=== PATIENT | female | born 1965 | race Caucasian/White ===

== ENCOUNTER 2020-10-28 08:48 | Outpatient (REF) | payer MEDICAID, SELFPAY ==
--- NOTE | 2020-10-28 | US_ITS ---
EXAMINATION: US ABDOMEN COMPLETE CLINICAL INFORMATION: Fatty liver. COMPARISON: None TECHNIQUE: Real-time imaging of the abdominal viscera. FINDINGS: PANCREAS: The head of the pancreas is homogeneous in echotexture. The rest of the pancreas is not visualized due to overlying gas. ABDOMINAL AORTA: The proximal and mid segments are normal in caliber. The distal segment is not seen. INFERIOR VENA CAVA: Visualized portions are normal. LIVER: There is diffuse increased liver echogenicity. The liver is normal in size. The liver contour is normal. No focal hepatic lesion. There is no intrahepatic biliary duct dilatation seen. GALLBLADDER: Surgically absent. COMMON BILE DUCT: Normal in caliber measuring 1.0 cm in diameter. RIGHT KIDNEY: Normal. No hydronephrosis. No renal calculi or focal parenchymal lesions. The kidney measures 10.1 cm in maximum dimension. LEFT KIDNEY: Normal. No hydronephrosis. No renal calculi or focal parenchymal lesions. The kidney measures 10.1 cm in maximum dimension. SPLEEN: Normal. The spleen measures 10.0 cm in maximum dimension. FREE FLUID: None. US/US abdomen complete IMPRESSION: Diffusely echogenic liver but no focal lesion seen. The rest of the abdominal ultrasound is unremarkable.
== END 2020-10-28 08:49 | disposition home or self-care (01) ==
LOC: HO.US 08:48
PROVIDERS: PCP Internal Medicine; Visit Provider Internal Medicine
DX: K76.0 Fatty (change of) liver, not elsewhere classified (principal)
CPT/HCPCS: 76700

== ENCOUNTER 2021-02-26 10:15 | Outpatient (REF) | payer MEDICAID, SELFPAY ==
--- NOTE | ~2021-02-26 | XR_ITS ---
EXAMINATION: XR LUMBOSACRAL SPINE WITH OBLIQUES CLINICAL INFORMATION: Lumbago with sciatica, left-sided COMPARISON: 07/03/2019 TECHNIQUE: AP, both oblique, and lateral views of the lumbar spine. Lateral view of the lumbosacral junction. FINDINGS: The vertebral bodies and posterior elements are normal. The disc spaces are preserved and the vertebral alignment is normal. Multilevel small endplate osteophytes. Mild facet arthropathy of the lower lumbar spine. The sacroiliac joints are symmetric. The sacrum appears intact. The bowel gas pattern is unremarkable. The paraspinal soft tissues are normal. XR/XR lumbar spine 4V min IMPRESSION: Mild degenerative changes of the lumbar spine.
[2021-02-26 10:58] LABS: MANUAL DIFF FLAG NO
[2021-02-26 11:10] LABS: Basophils Percent Auto 0.2 % (0-2); Eosinophils Absolute Auto 0.1 X10*3/uL (0.0-0.4); Eosinophils Percent Auto 2.4 % (0-4); Hematocrit 46.7 % (37-47); Imm Gran Abs Auto 0.01 X10*3/uL (0.00-0.03); Imm Gran Pct Auto 0.2 % (0.0-0.4); Lymphocytes Absolute Auto 2.2 X10*3/uL (1.2-4.9); Lymphocytes Percent Auto 36.8 % (20-40); Mean Corpuscular HGB Conc 32.1 g/dl (31.0-35.0); Mean Corpuscular Hemoglobin 26.6 pg (27.0-33.0); Mean Corpuscular Volume 82.8 fL (80-98); Mean Platelet Volume 10.8 fL (9.4-12.3); Monocytes Absolute Auto 0.3 X10*3/uL (0.1-1.2); Monocytes Percent Auto 4.9 % (2-11); Neutrophils Absolute Auto 3.3 X10*3/uL (2.0-8.3); Neutrophils Percent Auto 55.5 % (45-73); Platelet Count 154 X10*3/uL (160-400); Red Blood Count 5.64 X10*6/uL (4.20-5.50); Red Cell Distribution Width 13.7 % (11.0-16.0); White Blood Count 5.9 X10*3/uL (4.8-10.8)
[2021-02-26 11:40] LABS: Estimated Average Glucose 255 mg/dL; Hemoglobin A1c % 10.5 %
[2021-02-26 11:45] LABS: TSH reflex Free T4 0.61 uIU/mL (0.32-4.0); Vitamin D 25-OH Total 11.4 ng/mL (>30)
[2021-02-26 11:47] LABS: Alanine Aminotransferase 54 U/L (0-31); Albumin Level 4.2 g/dL (3.5-5.0); Alkaline Phosphatase 96 U/L (39-117); Anion Gap 13 (12-20); Aspartate Amino Transferase 53 U/L (5-31); Bilirubin Direct < 0.2 mg/dL (0.0-0.5); Bilirubin Total 0.4 mg/dL (0.0-1.0); Blood Urea Nitrogen 8 mg/dL (9-16); Calcium 9.2 mg/dL (8.4-10.2); Carbon Dioxide 28 mmol/L (22-29); Chloride 99 mmol/L (96-108); Estimated Glomerular Filt Rate > 60; Glucose Random 142 mg/dL (60-115); Potassium 4.1 mmol/L (3.3-5.1); Sodium 136 mmol/L (135-145); Total Protein 7.6 g/dL (6.5-8.0)
[2021-02-26 11:58] LABS: Creatinine Urine 100.44 mg/dL; Microalbum/Creatinine Ratio Ur 9.9 ug/mg cr
== END 2021-02-26 10:16 | disposition home or self-care (01) ==
LOC: HO.LAB 10:15
PROVIDERS: PCP Internal Medicine; Visit Provider Internal Medicine
DX: Z00.00 Encounter for general adult medical examination without abnormal findings (principal); M54.42 Lumbago with sciatica, left side; E11.65 Type 2 diabetes mellitus with hyperglycemia
CPT/HCPCS: 36415; 72110; 80048; 80076; 82043; 82306; 83036; 84439; 84443; 85025

== ENCOUNTER 2021-03-03 10:11 | Outpatient (REF) | payer MEDICAID, SELFPAY ==
--- NOTE | ~2021-03-03 | US_ITS ---
EXAMINATION: PELVIC ULTRASOUND CLINICAL INFORMATION: Fibroids COMPARISON: Previous exams most recent July 2020 TECHNIQUE: Transabdominal and transvaginal pelvic ultrasound was performed. Transvaginal exam was performed for better visualization of the uterus and ovaries. FINDINGS: The uterus is anteverted and measures 7.6 x 3.4 x 4.9 cm in dimension. There are multiple focal uterine lesions suggestive of fibroids. At least 6 fibroids are identified. There is a 3.5 x 3.1 x 3.2 cm fibroid exophytic to the posterior uterine fundus that does not appear appreciably changed. There is a 1.1 x 1 x 1.2 cm fibroid in the posterior uterine fundus that does not appear appreciably changed. There is a 1.5 x 1 x 1.5 cm fibroid in the upper posterior uterine body that may be slightly decreased in size compared to 1.7 x 1.9 x 1.6 cm on prior exam.. There is a 1.6 x 1.1 x 1.3 cm fibroid in the left upper uterine body that was not appreciated on prior exam. There is a 1.9 x 1.4 x 1.5 cm fundal fibroid adjacent to the endometrium that was not appreciated on previous exam. There is a 1.5 x 1.3 x 1.7 cm fibroid in the anterior upper uterine body. This may be slightly decreased in size from prior exam when this measured 2.2 x 1.7 x 2.1 cm. The endometrium does not appear thickened measuring 0.5 cm. There are nabothian cysts in the cervix. The ovaries are normal-appearing. The right ovary measures 2.5 x 1.7 x 1.6 cm in the left ovary measures 2.4 x 1.6 x 1.3 cm. There is no fluid in the pelvis. US/US pelvic complete IMPRESSION: Fibroid uterus. At least 6 fibroids are identified. Two new fibroids are identified and 2 fibroids may be slightly decreased in size compared to previous exam.
== END 2021-03-03 10:12 | disposition home or self-care (01) ==
LOC: HO.US 10:11
PROVIDERS: PCP Internal Medicine; Visit Provider Obstetrics & Gynecology
DX: D21.9 Benign neoplasm of connective and other soft tissue, unspecified (principal)
CPT/HCPCS: 76830; 76856

== ENCOUNTER → 2021-03-17 10:59 | Outpatient (BNVA) | payer MEDICAID, SELFPAY | PROVIDERS: Visit Provider Obstetrics & Gynecology ==

== ENCOUNTER 2021-06-02 08:00 | Outpatient (REF) | payer MEDICAID, SELFPAY ==
[2021-06-02 17:04] LABS: CT PCR NOT DETECTED (Not Detect.); NG PCR NOT DETECTED (Not Detect.)
[2021-06-03 08:10] LABS: BV Int Neg Control Negative (Negative); BV Int Pos Control Positive (Positive)
[2021-06-04 18:37] LABS: HPV mRNA E6/E7 rflx Not Detected (Not Detected)
== END 2021-06-02 08:01 | disposition home or self-care (01) ==
LOC: HO.LAB 08:00
PROVIDERS: Visit Provider Obstetrics & Gynecology
DX: N94.10 Unspecified dyspareunia (principal); N93.0 Postcoital and contact bleeding; N95.0 Postmenopausal bleeding; F17.210 Nicotine dependence, cigarettes, uncomplicated; D21.9 Benign neoplasm of connective and other soft tissue, unspecified; N76.0 Acute vaginitis; B96.89 Other specified bacterial agents as the cause of diseases classified elsewhere; R31.29 Other microscopic hematuria
CPT/HCPCS: 87086; 87480; 87491; 87510; 87591; 87624; 87660; 88142; 99212

== ENCOUNTER 2021-06-23 12:11 | Outpatient (REF) | payer MEDICAID, SELFPAY ==
--- NOTE | ~2021-06-23 | US_ITS ---
EXAMINATION: PELVIC ULTRASOUND CLINICAL INFORMATION: Postmenopausal bleeding COMPARISON: Previous pelvic ultrasounds, most recent February 2021 TECHNIQUE: Transabdominal and transvaginal ultrasound was performed. Transvaginal exam was performed for better visualization of the uterus and ovaries. FINDINGS: The uterus is anteverted and measures 10 x 5 x 6.5 cm in dimension. There are 4 focal uterine lesion seen suggestive of fibroids. There is a 1.5 x 1.2 x 1.6 cm anterior fundal fibroid, a 2.6 x 2 x 2.2 cm posterior lower uterine segment fibroid adjacent to the endometrium, a 1.2 x 1.3 x 1.3 cm posterior uterine body fibroid adjacent to the endometrium and a 3.2 x 2.7 x 3.6 cm subserosal high posterior uterine body fibroid. The endometrium is not well visualized secondary to the fibroids. There is a nabothian cyst in the cervix. The ovaries are normal-appearing. The right ovary measures 2.5 x 1.9 x 1.6 cm and the left ovary measures 2.5 x 2.3 x 2.2 cm. There is no fluid in the pelvis. US/US pelvic and transvaginal IMPRESSION: Fibroid uterus. Two fibroids appear adjacent to the endometrium. The endometrium is not well visualized secondary to the fibroids. Normal-appearing ovaries.
== END 2021-06-23 12:12 | disposition home or self-care (01) ==
LOC: HO.US 12:11
PROVIDERS: Visit Provider Obstetrics & Gynecology
DX: N95.0 Postmenopausal bleeding (principal)
CPT/HCPCS: 76830; 76856

== ENCOUNTER 2021-07-07 10:18 | Outpatient (REF) | payer MEDICAID, SELFPAY ==
[2021-07-07 15:43] LABS: CT PCR NOT DETECTED (Not Detect.); NG PCR NOT DETECTED (Not Detect.)
[2021-07-08 11:15] LABS: BV Int Neg Control Negative (Negative); BV Int Pos Control Positive (Positive)
== END 2021-07-07 10:19 | disposition home or self-care (01) ==
LOC: HO.LAB 10:18
PROVIDERS: Visit Provider Obstetrics & Gynecology
DX: R31.29 Other microscopic hematuria (principal); N76.0 Acute vaginitis; N95.0 Postmenopausal bleeding; B96.89 Other specified bacterial agents as the cause of diseases classified elsewhere; F17.210 Nicotine dependence, cigarettes, uncomplicated
CPT/HCPCS: 87480; 87491; 87510; 87591; 87660; 99212

== ENCOUNTER 2021-07-28 09:48 | Outpatient (REF) | payer MEDICAID, SELFPAY | END 2021-07-28 09:49 | disposition home or self-care (01) | LOC: HO.LAB 09:48 | PROVIDERS: Visit Provider Obstetrics & Gynecology | DX: N95.0 Postmenopausal bleeding (principal) | CPT/HCPCS: 58100; 88305 ==

== ENCOUNTER → 2021-08-10 11:16 | Outpatient (BNVA) | payer MEDICAID, SELFPAY | PROVIDERS: Visit Provider Obstetrics & Gynecology ==

== ENCOUNTER 2021-10-13 12:27 | Outpatient (REF) | payer MEDICAID, SELFPAY ==
[2021-10-14 08:32] LABS: Syphilis Screen Nonreactive (Nonreactive)
[2021-10-14 08:44] LABS: BV Int Neg Control Negative (Negative); BV Int Pos Control Positive (Positive)
[2021-10-14 08:55] LABS: HIV AB/AG Nonreactive (Nonreactive); HIV Num 1 0.09 S/CO (0.00-0.99)
[2021-10-14 09:04] LABS: HBsAGNum1 0.16 S/CO (0.00-0.99); Hepatitis B Surface Antigen Negative (Negative); ~HepC Num1 0.16 S/CO (0.00-0.79); ~Hepatitis C Antibody Nonreactive (Nonreactive)
[2021-10-14 09:41] LABS: CT PCR NOT DETECTED (Not Detect.); NG PCR NOT DETECTED (Not Detect.)
== END 2021-10-13 12:28 | disposition home or self-care (01) ==
LOC: HO.LAB 12:27
PROVIDERS: PCP Internal Medicine; Visit Provider Obstetrics & Gynecology
DX: Z01.419 Encounter for gynecological examination (general) (routine) without abnormal findings (principal); F17.210 Nicotine dependence, cigarettes, uncomplicated; Z11.3 Encounter for screening for infections with a predominantly sexual mode of transmission
CPT/HCPCS: 36415; 86780; 86803; 87340; 87389; 87480; 87491; 87510; 87591; 87660

== ENCOUNTER 2021-12-22 12:31 | Outpatient (REF) | payer MEDICAID, SELFPAY ==
--- NOTE | ~2021-12-22 | MM_ITS ---
EXAMINATION: MM SCREENING DIGITAL BREAST TOMOSYNTHESIS, BILATERAL CLINICAL INFORMATION: Screening. Asymptomatic. The lifetime risk of breast cancer based on the Tyrer-Cuzick Model is 23%. COMPARISON: Mammography: 08/20/2020, 08/04/2018, 05/23/2017 TECHNIQUE: Digital breast tomosynthesis is performed in both the craniocaudal and mediolateral oblique views along with computer-aided detection (CAD). Synthesized 2D images are generated from the tomosynthesis. Additional right MLO view is provided. FINDINGS: There are scattered areas of fibroglandular density (ACR BI-RADS breast composition Category b). There are no significant masses, abnormal calcifications, or other abnormalities. Parenchymal pattern is similar to prior studies. There is no developing density or architectural abnormality. There is stable circumscribed oval nodule central left breast. Stable small asymmetry anterior medial right breast. No significant changes from prior studies. The axilla and skin contours are unremarkable. MM/MM tomosynthesis screening BI IMPRESSION: No significant changes from prior exams. ASSESSMENT: BI-RADS 2: Benign RECOMMENDATION: 1. Routine annual mammography screening. 2. The lifetime risk of breast cancer based on the Tyrer-Cuzick Model is 23%. Additional annual adjunct screening with breast MRI may be of benefit in women with a risk score of 20% or greater. This patient's information was entered into a reminder system with a target due date for their next mammogram.
== END 2021-12-22 12:32 | disposition home or self-care (01) ==
LOC: HO.MAMMO 12:31
PROVIDERS: PCP Internal Medicine; Visit Provider Obstetrics & Gynecology
DX: Z12.31 Encounter for screening mammogram for malignant neoplasm of breast (principal)
CPT/HCPCS: 77063; 77067

== ENCOUNTER → 2021-12-30 11:04 | Outpatient (BNVA) | payer MEDICAID, SELFPAY | PROVIDERS: Visit Provider Obstetrics & Gynecology ==

== ENCOUNTER 2022-01-26 09:15 | Outpatient (REF) | payer MEDICAID, SELFPAY ==
[2022-01-26 12:43] LABS: Blood Urea Nitrogen 7 mg/dL (9-16); Estimated Glomerular Filt Rate 54
== END 2022-01-26 09:16 | disposition home or self-care (01) ==
LOC: HO.LAB 09:15
PROVIDERS: Absent Provider Obstetrics & Gynecology; PCP Internal Medicine; Referring Provider Obstetrics & Gynecology; Visit Provider Surgery
DX: Z01.812 Encounter for preprocedural laboratory examination (principal); Z91.89 Other specified personal risk factors, not elsewhere classified
CPT/HCPCS: 36415; 82565; 84520; 99202

== ENCOUNTER 2022-02-16 09:30 | Outpatient (REF) | payer MEDICAID, SELFPAY ==
--- NOTE | ~2022-02-16 | MR_ITS ---
EXAMINATION: MR BREAST WITHOUT AND WITH CONTRAST, BILATERAL CLINICAL INFORMATION: High-risk screening, calculated lifetime risk of breast cancer 23%, family history of breast cancer (mother). COMPARISON: Bilateral mammogram 12/22/2021, 08/04/2018 TECHNIQUE: Imaging was performed with a dedicated breast coil. Prior to the administration of contrast, bilateral axial T1 and bilateral axial T2 weighted sequences were obtained. After the uneventful administration of?6 mL of Gadavist, dynamic contrast-enhanced VIBRANT series through the breasts in the axial plane were performed. Subtracted images were performed and reviewed. A delayed sagittal sequence through both breasts was acquired. Additionally, CAD post-processing, including maximum intensity projections, 3-D reconstructions and kinetic analysis, were performed an independent workstation and reviewed by the interpreting radiologist is a portion of this exam. FINDINGS: The breast tissue is composed of scattered fibroglandular elements. The fibroglandular tissue undergoes minimal, slightly patchy appearing background enhancement. LEFT BREAST: There is an oval, T2 hyperintense, circumscribed, bilobed enhancing nodule in the 6:00 position, 6 cm from the nipple (subtracted sequence image 70 of 102) measuring 0.6 cm, this demonstrates progressive enhancement kinetics. In review of prior mammograms, there is a stable mammographic correlate seen on the MLO view in 2018, consistent with a benign etiology. There is no suspicious enhancing mass, duct dilatation or ductal type enhancement. No skin thickening or nipple retraction is seen. RIGHT BREAST: No suspicious masslike or non-masslike enhancement. No abnormal skin thickening or nipple retraction. No abnormal architectural distortion. Review of the T2 weighted images demonstrates no fibrocystic changes or dilated ducts. Review of kinetic images reveals no additional findings. There is no suspicious internal mammary chain or axillary adenopathy. Limited views of the chest and abdomen are unremarkable. MR/MR breast BI wo/w con IMPRESSION: Benign appearing bilobed nodule in the left breast at 5 to 6:00 position as above. ASSESSMENT: LEFT BREAST: BI-RADS 2, benign RIGHT BREAST: BI-RADS 1-Negative RECOMMENDATIONS: Bilateral mammogram in November 2022 and repeat MRI as clinically indicated.
== END 2022-02-16 09:31 | disposition home or self-care (01) ==
LOC: HO.MRI 09:30
PROVIDERS: PCP Internal Medicine; Visit Provider Obstetrics & Gynecology
DX: Z91.89 Other specified personal risk factors, not elsewhere classified (principal)
CPT/HCPCS: 77049; A9585

== ENCOUNTER → 2022-03-09 10:35 | Outpatient (BNVA) | payer MEDICAID, SELFPAY | PROVIDERS: PCP Internal Medicine; Referring Provider Internal Medicine; Visit Provider Surgery | DX: Z13.89 Encounter for screening for other disorder (principal) ==

== ENCOUNTER 2022-03-09 10:46 | Outpatient (REF) | payer MEDICAID, SELFPAY | END 2022-03-09 10:47 | disposition home or self-care (01) | LOC: HO.LNC 10:46 | PROVIDERS: Visit Provider Surgery | DX: Z13.89 Encounter for screening for other disorder (principal) ==

== ENCOUNTER 2022-04-29 10:23 | Outpatient (REF) | payer MEDICAID, SELFPAY ==
--- NOTE | ~2022-04-29 | XR_ITS ---
EXAMINATION: XR HIP-LEFT XR SHOULDER-LEFT CLINICAL INFORMATION: Left hip pain and left shoulder pain. COMPARISON: None TECHNIQUE: Single frontal view of the pelvis and 2 views of the left hip and 4 views of the left shoulder were obtained. FINDINGS: Pelvis and left hip: The bony alignments are intact. The cortices are intact. Incidental note is made of well-corticated bony protuberance, suggestive of ligamentous ossification involving the left hemipelvis. Soft tissue calcification is seen projecting overlying the right hemisacrum. No radiographic evidence of any fracture and/or dislocation. No definite radiographic evidence of any osteoarthrosis. Left shoulder: The bony alignments are intact. The cortices are intact. The soft tissues are unremarkable. The visualized part of the left lung field is clear. XR/XR hip LT min 2V IMPRESSION: 1. Abnormal appearance of the pelvis showing indeterminate soft tissue calcifications projecting over the right hemisacrum, not optimally characterized. 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 Follow-up CT of the pelvis may be considered for further full detail evaluation. 2. No radiographic evidence of any fracture and/or dislocation of the pelvis and left hip. 3. Unremarkable radiographic appearance of the left shoulder.
--- NOTE | ~2022-04-29 | XR_ITS ---
EXAMINATION: XR HIP-LEFT XR SHOULDER-LEFT CLINICAL INFORMATION: Left hip pain and left shoulder pain. COMPARISON: None TECHNIQUE: Single frontal view of the pelvis and 2 views of the left hip and 4 views of the left shoulder were obtained. FINDINGS: Pelvis and left hip: The bony alignments are intact. The cortices are intact. Incidental note is made of well-corticated bony protuberance, suggestive of ligamentous ossification involving the left hemipelvis. Soft tissue calcification is seen projecting overlying the right hemisacrum. No radiographic evidence of any fracture and/or dislocation. No definite radiographic evidence of any osteoarthrosis. Left shoulder: The bony alignments are intact. The cortices are intact. The soft tissues are unremarkable. The visualized part of the left lung field is clear. XR/XR shoulder LT min 2V IMPRESSION: 1. Abnormal appearance of the pelvis showing indeterminate soft tissue calcifications projecting over the right hemisacrum, not optimally characterized. 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 Follow-up CT of the pelvis may be considered for further full detail evaluation. 2. No radiographic evidence of any fracture and/or dislocation of the pelvis and left hip. 3. Unremarkable radiographic appearance of the left shoulder.
== END 2022-04-29 10:24 | disposition home or self-care (01) ==
LOC: HO.XRAY 10:23
PROVIDERS: PCP Internal Medicine; Visit Provider Internal Medicine
DX: M25.552 Pain in left hip (principal); M25.512 Pain in left shoulder; Z91.89 Other specified personal risk factors, not elsewhere classified
CPT/HCPCS: 73030; 73502; 99212

== ENCOUNTER → 2022-08-18 08:10 | Outpatient (BNVA) | payer MEDICAID, SELFPAY | PROVIDERS: PCP Internal Medicine; Referring Provider Internal Medicine; Visit Provider Internal Medicine Cardiovascular Disease | DX: R06.02 Shortness of breath (principal); R00.1 Bradycardia, unspecified; R07.89 Other chest pain | CPT/HCPCS: 93005; 99202 ==

== ENCOUNTER → 2022-09-14 09:38 | Outpatient (REF) | payer MEDICAID, SELFPAY ==
--- NOTE | 2022-09-14 09:51 | HM_ITS ---
Conclusion: 1. Patient was monitored for total period of 3 days 2. Baseline was normal sinus rhythm with average heart of 56 beats per minute with frequent sinus bradycardia with 68% of time heart rate below 60 beats per minute 3. No significant pauses noted 4. Very rare ectopy noted 5. Patient reported 1 event which correlated with sinus rhythm MTDD
--- NOTE | 2022-09-14 09:51 | CA_ITS ---
Transthoracic Echocardiogram Patient (Last, First, Middle): Renetta Delaney, Gender: Female Date of : 1965 Age: 57 Procedure Date: 09/14/2022 Procedure Type: Transthoracic Echocardiogram Location: OP Height: 149.86 cm Weight: 63.05 kg BSA: 1.58 m2 Heart Rate: bpm BP: 122 / 72 mmHg Anodize Machine Operator: TO Referring MD: Giorgio Robb MD Symptoms: R06.02 - Shortness of breath Study Quality: Technically Difficult/Contrast ECG Rhythm: Sinus Conclusions: - The left ventricular systolic function is normal. The calculated ejection fraction is 63% by biplane method. - No obvious valvular pathology seen on this study. Findings Procedure Information Contrast agent, definity, is being given per protocol without apparent complications. Left Ventricle Normal left ventricular cavity size. There is normal left ventricular wall thickness. The left ventricular systolic function is normal. The calculated ejection fraction is 63% by biplane method. There is no evidence of regional wall motion abnormalities. Diastolic function is normal for age. Right Ventricle Normal right ventricular cavity size and systolic function. Atria Both atria are normal in size. Aortic Valve The aortic valve was not well visualized. There is no aortic valve stenosis. There is no aortic valve regurgitation. Mitral Valve The mitral valve appears normal. There is no mitral valve regurgitation. There is no mitral valve stenosis. Pulmonic Valve The pulmonic valve is likely normal. Tricuspid Valve There is no tricuspid valve regurgitation. Tricuspid regurgitation envelope is inadequate for calculation of right ventricular systolic pressure. Great Vessels The asc aorta is normal in size. Venous The inferior vena cava is normal in size and collapses greater than 50% with inspiration. Pericardium/Pleural There is no evidence of pericardial effusion. Prior Study Comparison No prior study available for comparison. Recommendations, Care & Conclusions No obvious valvular pathology seen on this study. Measurements 2D Linear Measurements IVSd: 0.89 0.6-0.9/0.6-1.0 cm LVIDd: 3.95 3.9-5.3/4.2-5.9 cm LVIDd Index: 2.50 2.4-3.2/2.2-3.1 cm/m2 LVIDs: 2.84 2.0-3.6 cm LVPWd: 0.89 0.7-1.1 cm LV Mass: 131.26 67-162/88-224 g LV Mass Index: 83.07 43-95/49-115 g/m2 LVOT Diam: 2.00 3.0+(-)1.3 cm 2D Systolic Function EF 4C: 64.50 >55% EF 2C: 63.60 >55% EF BiP: 62.80 >55% Mitral Valve MV Pk E: 0.41 MV PK A: 0.44 MV Decel Time: 347.00 E/A: 0.90 E'Lateral: 11.10 E'Medial: 6.31 E/E' Med: 6.50 E/E' Lat: 3.70 PHT: 102.00 MVA PHT: 2.16 Decel [place]: 1.19 Aortic Valve AoV Pk Apollo: 1.00 AoV Mn Apollo: 0.72 AoV VTI: 0.23 AoV Pk Grad: 4.00 Aov Mn Grad: 2.00 MARIA ELENA Cont.VTI: 2.55 LVOT LVOT Pk Apollo: 0.84 LVOT Mn Apollo: 0.53 LVOT VTI: 0.18 LVOT Pk Grad: 3.00 LVOT Mn Grad: 1.00 LVOT Diam: 2.00 LVOT Area: 3.14 Diastolic Function MV Pk E: 0.41 MV Pk A: 0.44 E/A: 0.90 E'Medial: 6.31 E/E' Med: 6.50 E' Laterial: 11.10 E/E' Lat: 3.70 Right Ventricle TAPSE (mm): 20.30 TVS' Apollo: 9.25 Tricuspid Valve RA Press: 3.00 Great Vessels Aorta Sinus of Valsalva: 3.18 2.0-3.5 cm Ao Asc: 2.70 2.1-3.4 cm Updated in Other Vendor System with Status of Final Carlos Parham MD electronically signed on 09/14/2022 4:22:11 PM with status of Final
== END ==
LOC: HO.CARD 09:38
PROVIDERS: PCP Internal Medicine; Visit Provider Internal Medicine Cardiovascular Disease
DX: R00.1 Bradycardia, unspecified (principal); R06.02 Shortness of breath
CPT/HCPCS: 93242; 93306; Q9957

== ENCOUNTER → 2022-09-21 09:10 | Outpatient (REF) | payer MEDICAID, SELFPAY ==
--- NOTE | ~2022-09-21 | NM_ITS ---
Myocardial perfusion study Indication: Preoperative cardiovascular risk stratification Technique: The patient was brought in for a Lexiscan perfusion study on 09/21/2022. Patient performed low-level exercise and was injected 0.4 mg of Lexiscan intravenously. Within a minute of injection, 25 mCi of sestamibi was given intravenously. Images were obtained using the SPECT gamma camera interlaced with the gating device. Images were obtained in supine position. Resting perfusion study was performed on 09/22/2022. Patient was administered 25 mCi of sestamibi intravenously at rest. Images were then obtained in supine position. Images obtained with and without CT attenuation. Total DLP 144 mGy-cm. Images were processed with the software and compared side to side in short axis, horizontal long axis and vertical long axis views. Findings: The stress perfusion study showed non attenuated images show normal uptake of radiotracer in all segments of LV myocardium. Attenuation corrected images show mildly reduced uptake in the apex of the LV myocardium.. The gated study shows normal LV systolic function with calculated LVEF of 67%. LV cavity is normal in size. The gated study shows normal systolic wall thickening and contraction of segments. Resting study shows no change in perfusion pattern compared to stress perfusion study. Gating at rest reveals normal systolic wall motion with ejection fraction at 69%. The findings are consistent with normal myocardial perfusion. NM/NM jacques perf SPECT rest & str Impression: 1. Myocardial perfusion imaging study shows normal myocardial perfusion 2. Gated LVEF is 67% 3. Transient ischemic dilatation not present EKG is nondiagnostic for ischemia
--- NOTE | 2022-09-21 10:40 | CA_ITS ---
Acquisition Time: 2022-09-21 09:45:38 Total Exercise Time: 00:02:00 Test Indications: R07.89 Other Chest Pain Medications: Protocol: LEXISCAN Max HR: 100 BPM 60% of Pred: 164 BPM Max BP: 132/068 mmHG Max Work Load: 1.0 METS Pharmacological stress test with Lexiscan injection, while sitting and kicking her legs, without anginal symptoms, without arrythmia, with normotensive response to injection, with nondiagnostic EKG for ischemia. Nuclear images pending. Test reviewed with Dr Robb. Referred By: Giorgio Robb Overread By: SAMIA JEREZ
== END ==
LOC: HO.CARD 09:10
PROVIDERS: PCP Internal Medicine; Visit Provider Internal Medicine Cardiovascular Disease
DX: R07.89 Other chest pain (principal)
CPT/HCPCS: 78452; 93017; A9500; J0280; J2785

== ENCOUNTER 2022-12-07 10:51 | Emergency (ER) | payer MEDICAID, SELFPAY ==
[2022-12-07 10:59] VITALS: BP 171/93; PULSE 80; RESP 19; TEMP 36.6; O2SAT 98; BMI 28.3
--- NOTE | 2022-12-07 11:34 | ED_ITS ---
HPI - Skin/Abscess/Foreign Bdy General Chief complaint: Wound/Laceration Stated complaint: Abscess Time Seen by Provider: 12/07/22 11:12 Source: patient Mode of arrival: ambulatory Limitations: no limitations History of Present Illness HPI narrative: Patient is a 57-year-old female who presents emergency department for evaluation of a pruritic rash to the head, face, upper extremities, and torso. She states that she 1st noticed this approximately 4 weeks ago after staying at her son's house. One week later she was seen in an emergency department in [place] given a prescription for triamcinolone cream which did improve the rash. She states that it has continued to be present over the past few weeks. She no longer has this cream available. The other days she found a bug in her home, she says that it appeared to be filled with blood, she was able to crush the bug which was filled with blood and she brought with her the piece of paper and squished bug today. Unable to identify what type of bug is present. Related Data Home Medications Medication Instructions Recorded Confirmed atorvastatin 40 mg tablet 40 mg PO DAILY 09/16/20 08/18/22 cholecalciferol (vitamin D3) 50 50 mcg PO DAILY 09/16/20 08/18/22 mcg (2,000 unit) tablet clonazepam 0.5 mg tablet 0.25 mg PO BEDTIME 09/16/20 08/18/22 clonidine 0.2 mg/24 hr weekly 1 patch transdermal QWEEK 09/16/20 08/18/22 transdermal patch insulin glargine 100 unit/mL 10 unit subcut BID 09/16/20 08/18/22 subcutaneous solution (Lantus U-100 Insulin) lisinopril 20 1 tab PO DAILY 09/16/20 08/18/22 mg-hydrochlorothiazide 25 mg tablet methadone 10 mg tablet 10 mg PO Q6-8H PRN 09/16/20 08/18/22 omega-3 fatty acids-fish oil 360 1 cap PO DAILY 09/16/20 08/18/22 mg-1,200 mg capsule (Fish Oil) insulin glargine 100 unit/mL 20 unit subcut BID 06/02/21 08/18/22 subcutaneous solution (Lantus U-100 Insulin) blood sugar diagnostic (FreeStyle #10 ea 01/26/22 08/18/22 Lite Strips) pen needle, diabetic 31 gauge x #50 ea 01/26/22 08/18/22 3/16 (BD Ultra-Fine Mini Pen Needle) ibuprofen 400 mg tablet 400 mg PO ONCE 08/18/22 08/18/22 Previous Rx's Medication Instructions Recorded terconazole 0.8 % vaginal cream 1 appful vaginal BEDTIME 3 days 10/14/21 #20 grams loratadine 10 mg tablet 10 mg PO DAILY #14 tabs 12/07/22 triamcinolone acetonide 0.1 % 1 appl topical BID #30 grams 12/07/22 topical cream Allergies Allergy/AdvReac Type Severity Reaction Status Date / Time iodine [IODINE] Allergy Unknown R/T Verified 08/18/22 08:11 SHELLFISH ALLERGY shellfish derived Allergy Unknown LIP Verified 08/18/22 08:11 [SHELLFISH DERIVED] SWELLING, ITCHY THROAT Review of Systems Review of Systems: Skin: Rashes noted in HPI Yes all other systems are reviewed and are negative PMFSH Past Medical History Attestation statement: The following information was validated with the patient. Source: old records reviewed Medical History Anxiety Arthritis Diabetes mellitus HTN (hypertension) Neuropathy Panic attack Surgical History H/O shoulder surgery History of bilateral tubal ligation Hx of section Hx of cholecystectomy Family History Family History Mother Breast CA, Onset Age: 40 Heart disease Father Heart attack Social History Social History Alcohol intake: never Patient Tobacco Use Status: Current everyday Tobacco user Tobacco use type: Cigarette Cigarettes Per Day: 7 Advance Directives: No Advance Directives Information Provided: Yes Sexual orientation: Straight/Heterosexual Gender identity: Female Physical Exam Vital Signs: Vital Signs: Last Vital Signs Temp 98 F 12/07/22 10:59 Pulse 80 12/07/22 10:59 Resp 19 12/07/22 10:59 BP 171/93 H 12/07/22 10:59 Pulse Ox 98 12/07/22 10:59 BMI result Body Mass Index 28.3 Appearance: Alert.?Oriented to person, place and time. No acute distress.?Normal affect. Neck: Normal inspection.? Neck supple.?? CVS: Heart sounds normal. Normal heart rate and rhythm.? Pulses normal.?? Respiratory: No respiratory distress.? Lung sounds clear to auscultation bilaterally?? Abdomen: Soft and non-tender. Skin: Skin warm and dry.? Normal skin color.? Maculopapular scabbed rash to scalp, face, bilateral arms, torso, and back appearing to be in linear distribution overall without surrounding, purulence vesicles. Extremities: No lower extremity edema.? Neuro: Moves all extremities spontaneously. Sensation intact bilaterally.. No focal neuro deficits. Ambulates with normal steady gait. Medical Decision Making Medical Decision Making MDM Narrative: Patient is a 57-year-old female with a past medical history of hypertension, and diabetes presents emergency department for evaluation diffuse rash. Has had prior response to triamcinolone cream however rash continues to a PE. She did find a bug in her home that was blood-filled, unable to identify the bug that she brought with her as it is crushed. Rash does not appear consistent with scabies at this time, no notable burrows, crusting, vesicles, or presents to intertriginous areas. We discussed the potential for contact dermatitis versus bedbug bites. Patient with no identifiable contact allergens, and given the presence of a bug present in her home bedbugs does seem more likely. We discussed treatment for both to be the same with topical steroids and oral antihistamine. Advised to have her home examined by and carburetor mechanic for evidence of bed bugs. Provided with a prescription for topical triamcinolone, and Claritin. Reviewed worrisome signs and symptoms that would warrant re- evaluation in the emergency department. Advised outpatient follow-up with primary care provider for persistent symptoms. Differential Diagnosis Differential Diagnoses: The differential diagnosis associated with the presentation includes (As noted above) Prescription Management I considered prescription management with: Antibiotic (Antibiotic was considered, however no sign of infection, cellulitis, or abscess.) and Other (Topical steroid, oral antihistamine) Discharge Plan Discharge Clinical Impression: Rash Patient Disposition: Home, Self-Care Instructions: Acute Rash (ED) Additional Instructions: As we discussed, the rash that is present may either be an allergic type reaction to something you are coming into contact with, for bed bites as you did present a bug that was present in the home and it was blood filled. You should consider having your home evaluated by an carburetor mechanic for evidence of bed bugs. Cleanse all of your linens and clothing in hot water. A prescription for triamcinolone was sent to the pharmacy in addition to Claritin. Please follow-up with your primary care provider for persistent symptoms. Prescriptions: New loratadine 10 mg tablet 10 mg PO DAILY Qty: 14 0RF triamcinolone acetonide 0.1 % cream 1 appl topical BID Qty: 30 0RF No Action terconazole 0.8 % cream 1 appful vaginal BEDTIME 3 Days Qty: 20 0RF Lantus U-100 Insulin 100 unit/mL solution 20 unit subcut BID atorvastatin 40 mg tablet 40 mg PO DAILY methadone 10 mg tablet 10 mg PO Q6-8H PRN clonazepam 0.5 mg tablet 0.25 mg PO BEDTIME Rx Instructions: administer 30 minutes before bedtime clonidine 0.2 mg/24 hr patch weekly 1 patch transdermal QWEEK Lantus U-100 Insulin 100 unit/mL solution 10 unit subcut BID lisinopril-hydrochlorothiazide 20-25 mg tablet 1 tab PO DAILY omega-3 fatty acids-fish oil [Fish Oil] 360-1,200 mg capsule 1 cap PO DAILY cholecalciferol (vitamin D3) 50 mcg (2,000 unit) tablet 50 mcg PO DAILY ibuprofen 400 mg tablet 400 mg PO ONCE (DME) FreeStyle Lite Strips Strip See Rx Instructions Not Applicable TID Qty: 10 Rx Instructions: As directed (DME) pen needle, diabetic [BD Ultra-Fine Mini Pen Needle] 31 gauge x 3/16 needle See Rx Instructions subcut QID Qty: 50 Rx Instructions: As directed Referrals: Camila Espinal MD [Primary Care Provider] -
== END 2022-12-07 12:08 | disposition home or self-care (01) ==
PROVIDERS: Emergency Provider Student in an Organized Health Care Education/Training Program; PCP Internal Medicine
DX: R21 Rash and other nonspecific skin eruption (principal); E11.9 Type 2 diabetes mellitus without complications; I10 Essential (primary) hypertension; E78.5 Hyperlipidemia, unspecified; Z79.4 Long term (current) use of insulin; Z79.02 Long term (current) use of antithrombotics/antiplatelets; Z79.899 Other long term (current) drug therapy; F17.210 Nicotine dependence, cigarettes, uncomplicated
CPT/HCPCS: 99282; 99283

== ENCOUNTER → 2022-12-14 10:03 | Outpatient (BNVA) | payer MEDICAID, SELFPAY | PROVIDERS: PCP Internal Medicine; Visit Provider Obstetrics & Gynecology | DX: Z13.89 Encounter for screening for other disorder (principal) ==

== ENCOUNTER 2022-12-24 08:03 | Outpatient (REF) | payer MEDICAID, SELFPAY ==
--- NOTE | ~2022-12-24 | MM_ITS ---
EXAMINATION: MM SCREENING DIGITAL BREAST TOMOSYNTHESIS, BILATERAL CLINICAL INFORMATION: Screening. Asymptomatic. The lifetime risk of breast cancer based on the Tyrer-Cuzick Model is 13%. COMPARISON: Mammography: 12/22/2021, 08/20/2020, 08/04/2018 TECHNIQUE: Digital breast tomosynthesis is performed in both the craniocaudal and mediolateral oblique views along with computer-aided detection (CAD). Synthesized 2D images are generated from the tomosynthesis. FINDINGS: There are scattered areas of fibroglandular density (ACR BI-RADS breast composition Category b). There are no significant masses, abnormal calcifications, or other abnormalities. Parenchymal pattern is similar to prior studies. There is no developing density or architectural abnormality. The axilla and skin contours are unremarkable. No significant changes. MM/MM tomosynthesis screening BI IMPRESSION: No mammographic evidence of malignancy. ASSESSMENT: BI-RADS 1: Negative RECOMMENDATION: Routine annual mammography screening. This patient's information was entered into a reminder system with a target due date for their next mammogram.
== END 2022-12-24 08:04 | disposition home or self-care (01) ==
LOC: HO.MAMMO 08:03
PROVIDERS: PCP Internal Medicine; Visit Provider Obstetrics & Gynecology
DX: Z12.31 Encounter for screening mammogram for malignant neoplasm of breast (principal)
CPT/HCPCS: 77063; 77067

== ENCOUNTER 2023-05-05 12:59 | Outpatient (REF) | payer MEDICAID, SELFPAY ==
--- NOTE | ~2023-05-05 | MR_ITS ---
EXAMINATION: MR BREAST WITHOUT AND WITH CONTRAST, BILATERAL CLINICAL INFORMATION: High-risk screening, family history of breast cancer (mother) COMPARISON: Bilateral breast MRI 02/16/2022; bilateral mammogram 12/24/2022 TECHNIQUE: Imaging was performed with a dedicated breast coil. Prior to the administration of contrast, bilateral axial T1 and bilateral axial T2 weighted sequences were obtained. After the uneventful administration of?5.5 mL of Gadavist, dynamic contrast-enhanced VIBRANT series through the breasts in the axial plane were performed. Subtracted images were performed and reviewed. A delayed sagittal sequence through both breasts was acquired. Additionally, CAD post-processing, including maximum intensity projections, 3-D reconstructions and kinetic analysis, were performed an independent workstation and reviewed by the interpreting radiologist is a portion of this exam. FINDINGS: The patient's fibroglandular tissue demonstrates no significant diffuse background enhancement. LEFT BREAST: No suspicious masslike or non-masslike enhancement. No abnormal skin thickening or nipple retraction. No abnormal architectural distortion. The previously seen T2 hyperintense, oval enhancing nodule in the 6:00 position is stable in appearance measuring 0.5 cm. Review of the T2 weighted images demonstrates no fibrocystic changes or dilated ducts. Review of kinetic images reveals no additional findings. RIGHT BREAST: No suspicious masslike or non-masslike enhancement. No abnormal skin thickening or nipple retraction. No abnormal architectural distortion. Review of the T2 weighted images demonstrates no fibrocystic changes or dilated ducts. Review of kinetic images reveals no additional findings. There is no suspicious internal mammary chain or axillary adenopathy. Limited views of the chest and abdomen are unremarkable. MR/MR breast BI wo/w con IMPRESSION: No MR specific evidence of malignancy. Stable oval enhancing nodule in the 6:00 position of the left breast. ASSESSMENT: LEFT BREAST: BI-RADS 2 - Benign RIGHT BREAST: BI-RADS 1-Negative RECOMMENDATIONS: Bilateral mammogram in November 2023. Repeat MRI as clinically indicated.
== END 2023-05-05 13:00 | disposition home or self-care (01) ==
LOC: HO.MRI 12:59
PROVIDERS: PCP Internal Medicine; Visit Provider Obstetrics & Gynecology
DX: Z12.39 Encounter for other screening for malignant neoplasm of breast (principal); Z91.89 Other specified personal risk factors, not elsewhere classified; I25.10 Atherosclerotic heart disease of native coronary artery without angina pectoris; I10 Essential (primary) hypertension
CPT/HCPCS: 77049; 93005; 99212; A9585

== ENCOUNTER 2023-06-21 09:37 | Outpatient (RCR) | payer MEDICAID, SELFPAY ==
[2023-06-20 15:16] VITALS: BP 120/64; BP 124/60; BP 160/48; BMI 21.4
[2023-06-21 12:33] LABS: Glucose, Whole Blood 78 mg/dL (60-115)
[2023-06-21 12:33] LABS: Glucose, Whole Blood 136 mg/dL (60-115)
--- NOTE | 2023-06-21 14:23 | MHC.CR.ITI ---
[address] [phone] F: [phone] Please see additional notes from [facility] Initial Assessment/ITP Cardiac Rehab Initial Assessment/ITP Start: 06/20/23 15:15 Freq: Status: Active Protocol: Activity Type Activity Date Activity User E-sign Co-sign Detail Recorded Client Recorded Date Recorded By Document 06/20/23 15:16 JOO [id number] 06/20/23 15:21 JOSE ANGELSTEVENAngelina 06/20/23 15:16 Cardiac Rehab ITP Initial [Excercise] -Adjunct Professor Of [place] History Required No -Preferred Language Bermudian -Number of sessions approved 36 -Diagnosis Coronary Stenting (PCI) Z98.61,NSTEMI I21.4 -Other Diagnosis Cardiomyopathy, HTN,HLD,HTN, Smoker(cutting down), DM, Neuropathy, RA -Comments Rotator Cuff repair right shoulder 2019, RA-pain is generally left shoulder, back, and right knee , left hip( states bone on bone). Would rate 5/10. Methadone does help with pain. She no longer takes Opiates. [Functional Assessment] -6 Min Walk (distance in ft) 400 -METS Achieved 1.58 -Resting HR 47 -Resting BP 124/60 -Resting SpO2 99 -Exercise HR 98 -Exercise BP 160/48 -Exercise SpO2 100 -RPE 13 -Dyspnea Yes -ECG Summary Bigemeny when reaches HR of approximately 98. Lasts for 5MIN. -Comments Lungs clear. No peripheral edema. B2B Appointment Setter aware of Bigemeny via [place] Text. RN also spoke with administrative office assistant. Question if Holter Monitor will be ordered . Message also left with MA that patient will be following up with Dr. Robb; requested a sooner visit if possible. [Pre Rehab] -Pre Rehab Home Exercise No -Comments Walks to car and back. Essentially no home exercise. -Risk Stratification: Low Risk Uncomplicated Participants [place]; CABG; angioplasty; atherectomy,No significant left ventricular dysfunction (EF > = 30%) -Assistive Devices Cane -Comments Has some chest discomfort with anxiety. Her [place] chest discomfort felt like burning bricks on her chest. Discomfort now on upper left chest with movement; she has a torn tendon left shoulder that has not been repaired. Some SOB with walking. She currently smokes and is working with a Pharmacist. She is thinking about Chantix. No recent fall. Intermittently uses cane. [Exercise Plan] [Intervention] -Exercise Prescription NuStep, Recumbent Bike, Recumbent Elliptical, Treadmill,UBE, Weights -Duration Intensity 36 Sessions -Frequency 2-3x/week -Angina with Exercise No [Exercise Education] -Exercise Education Exercise orientation, Exercise safety ,Home exercise, RPE,Self pulse checking,Signs and symptoms, Warmup/cooldown -Date Completed 06/21/23 -Initials CD -Education Summary 06/21/23--All of the above discussed; staff will reinforce each visit. Will discuss return to Cardiac Rehab with B2B Appointment Setter due to symptomatic Bigemeny that was reproduced with second set of walking laps. No other exercise done today. Patient will reach out to Dr. Robb also. [Exercise Goals] -Exercise Most Days of the Week Yes -Exercise 30-45 mins/day Yes -Target HR Range +20 - +30 beats above resting -Target RPE range 11-13 -Increase METS next 30 days 0.5-1.0 METS Every two weeks -METs goal by Discharge 4 METS -Comments Not exercising at home. Inspector Metal Fabricating Goal 4 METS [Nutrition] [Hyperlipidemia] -Hyperlipidemia Yes -Are lab results available No [Diabetes] -Diabetes Yes -Diabetes Type 2 -Are lab results available No -Fasting Glucose 98 -Date 06/21/23 -Monitors Glucose Yes -Frequency 4 times a day [Weight Management] -Height 5 ft 3 in -Weight 54.7 kg -BMI 21.36 -Recommended Diet Patient would like to be 120- 125 pounds. -Comments Lost weight after becoming ill with bug bites . He had been 156 pounds until last August. [Drug/Alchohol Use] -Drug/Alcohol Use No -Comment Methadone for pain. Off of Opiates per patient. [Nutritional Screen (Rate Your Plate)] -Score 56 -Interpretation of Score Some ways to make changes. -Comments Follows Diabetic, low fat diet [Nutrition Plan] [Intervention] -Referral(s) Nutrition Brochures [Nutrition Education] -Nutrition Education Diabetes and excercise, Hydration, Nutrition,Signs and symptoms of Hypo/Hyper- glycemia -Date Completed 06/21/23 -Initials CD -Education Summary Renetta will bring in Glucometer. S/S , effect of exercise on DIabetes, S/S to report discussed. [Nutrition Goals] -Goals BMI < 25, Fasting BG 80- 120 mg/dL,HDL > 40,LDL < 70, Total CHOL < 200 -Weight goal 125 -Comments Was 156 pounds and became ill after bug bites and lost weight. Lyme negative. Weight now . Diabetes better controlled. She would like to be 120-125 pounds. [Psycho/Social] -Stage of Change Action -Learning Barriers None -Occupation Disabled -PHQ9 Score 12 -Interpretation of Score Moderate -Plan of Action/Follow-up Will update MD. Patient works with a Psychiatrist and is taking medication. -Patient Self-Reports Depression Yes -Family Support Lives with spouse/others -Comments Lives with DROP PRESS HAND. Stats she is looking for hosuing and is moving from couch to couch [Psycho/Social Plan] [Intervention] -Referral(s) Social service consult [Psycho/Social Education] -Psycho/Social Education Coping techniques, Depression and CAD,Relaxation Techniques, Reviewed PHQ9 Score w/pt, Signs and symptoms of CAD ,Stress management -Date Completed 06/21/23 -Initials CD -Education Summary Children live in [place]; they call frequently. One son in [place]. Mom is in [place] also. RN will discuss with Community Navigator. Currently works with a Psychiatrist. She was in [place] when she had [place]; she cannot find a home since returning. + Anxiety/ Depression. [Psycho/Social Goals] -Goals Improve depression screen score, Improve depressive symptoms,Manage /reduce stress -Comments Renetta is working with coordinator to find a home. Yusuf is assisting. She is moving from home to home. DROP PRESS HAND lives with her She is teary at times. [Other Core Comp] [Risk Factors] -Risk Factors Diabetes, Dyslipidemia, Family History of CAD, Hypertension, Physical Inactivity, Tobacco Use -Comments: Mother has had [place], stroke. She also has Diabetes [Hypertension] -Hypertention Yes -Resting BP: 120/64 [Tobacco Use] -Patient Tobacco Use Status Current everyday Tobacco user -Tobacco use type Cigarette -Smoking packs per day 0.25 -Years smoked 41 -Patient Interested in Nicotine Yes Replacement -Smoking Quit Date Not yet -Exposure to secondhand smoke No -Comments State she is down to 6 cigarettes a day . Question if she will start Chantix. Does not wish to have any other intervention at this time. States she is working with a pharmacist [Heart Failure] -Heart Failure No [Other Core Comp Plan] [Intervention] -Referral(s) Self Monitoring BP [Other Core Comp Education] -Other Core Comp Education Medication compliance,Risk factor modifications, RPD Scale/SOB management, Smoking and CAD ,Tobacco triggers, Understanding hypertension, Not Applicable -Date Completed 06/21/23 -Initials CD -Education Summary DROP PRESS HAND gives medication, assists with ADL's, shopping , meals. Has DROP PRESS HAND 2 hrs. at night, 21.5 hrs ./week during the day total of 73 hrs. every 2 weeks. States understanding of risk modification. States blood sugars are better controlled since losing weight. She wishes to continue with plan to gradually decrease smoking. [Other Core Comp Goals] -Goals Improve dyspnea ,Manage risk factors, Medication compliance, Resting BP < 130/80,Tobacco cessation -Comments DROP PRESS HAND checks BP and gives medication. She is working on smoking cessation. Risk Factors that you can control and not control discussed. [Medication Plan] [Intervention] -Medications Lantus 25 units at HS Humalog sliding scale if BS > [phone] units;250-299-6 units,300-349- 8units;350-399- 10 units;>400 12 units ASA 81MG Daily Lipitor 80MG Daily Brilinta 90MG BID Klonopin-0.5MG at TID and PRN Clonodine-0.2MG at HS Methadone for Pain-88MG Daily -MD list has Methadone 80MG every 6-8 hrs. as needed Lisinopril-2. 5MG(1/2 tablet) if BP above 140. Does not take often. MD updated Loratadine 10MG Daily [place] 3 Fatty Acids-fish oil 360MG-1200MG Capsule Terconasole 0.9 % Vaginal Cream Triancinolone 0 .1% Topical Cream -Compliance Patient reports compliance w/ prescribed meds [Medication Education] -Education Importance of medication compliance, Medication purpose, Medication schedule, Medication side effects -Date Completed 06/21/23 -Initials CD -Education Summary States DROP PRESS HAND picks up and administers medication. She states majority of medications but can be vague at times. B2B Appointment Setter called for updated med list. [Medication Goals] -Goals Adherence to medication compliance -Comments DROP PRESS HAND gives medication. 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 Updated med list received from Cardiology . [Treatment Times] -Rehab Services with ECG Monitor -Time 10AM -End Time 12:30 -Visit Duration 180
[2023-07-18 07:27] VITALS: BP 120/64; BMI 21.4
--- NOTE | 2023-07-18 07:38 | MHC.CR.ITR ---
[address] [phone] F: [phone] Please see additional notes from [facility] Reassessment/ITP Cardiac Rehab Reassessment/ITP Start: 06/20/23 15:15 Freq: Status: Active Protocol: Activity Type Activity Date Activity User E-sign Co-sign Detail Recorded Client Recorded Date Recorded By Document 07/18/23 07:27 JOO [id number] 07/18/23 07:37 DANIELAngelina 07/18/23 07:27 Cardiac Rehab Reassessment/ITP [Exercise] -Firearms Model Maker Required No -Preferred Language Divehi -Progress Note Type 60-Day Note -Comments Rotator Cuff repair right shoulder 2019, RA-pain is generally left shoulder, back, and right knee , left hip( states bone on bone). Would rate 5/10. Methadone does help with pain. She no longer takes Opiates. 07/18/23-Patient had symptomatic Bradycardic and Bigemeny during initial evaluation. Cardiac Rehab is on hold until she has stress test(per patient) and . [Functional Assessment] -Home-Based Rehab Pt not approved for home-based exercise -Fall Risk No [Exercise Plan] [Intervention] -Exercise Prescription NuStep, Recumbent Bike, Recumbent Elliptical, Treadmill,UBE, Weights -Duration Intensity 36 Sessions -Angina with Exercise No -Peak METs 3 [Home Exercise] -Comments 07/18/23-Home activity per MD . S/S to report discussed at evaluation. She was unable to start program due to Arrhythmia. Stress test pending. [Exercise Education] -Exercise Education Exercise orientation, Exercise safety ,Home exercise, RPE,Self pulse checking,Signs and symptoms, Warmup/cooldown -Date Completed 06/21/23 -Initials CD -Education Summary 06/21/23--All of the above discussed; staff will reinforce each visit. Will discuss return to Cardiac Rehab with Manager Of Data due to symptomatic Bigemeny that was reproduced with second set of walking laps. No other exercise done today. Patient will reach out to Dr. Robb also. [Exercise Goals] -Exercise Most Days of the Week Yes -Exercise 30-45 mins/day Yes -Target HR Range +20 - +30 beats above resting -Target RPE range 11-13 -Increase METS next 30 days 0.5-1.0 METS Every two weeks -METs goal by Discharge 4 METS -Comments Not exercising at home. Environmental Health And Safety Manager Goal 4 METS [Nutrition] [Hyperlipidemia] -Are lab results available No -Hyperlipidemia Yes [Diabetes] -Diabetes Yes -Diabetes Type 2 -Fasting Glucose 98 -Date 06/21/23 [Weight Management] -Weight 54.7 kg -BMI 21.36 -Comments Lost weight after becoming ill with bug bites . He had been 156 pounds until last August. [Drug/Alchohol Use] -Drug/Alcohol Use No -Comment Methadone for pain. Off of Opiates per patient. [Nutrition Plan] [Intervention] -Attended Nutrition Brochures [Nutrition Education] -Nutrition Education Diabetes and excercise, Hydration, Nutrition,Signs and symptoms of Hypo/Hyper- glycemia -Date Completed 06/21/23 -Initials CD -Education Summary Renetta will bring in Glucometer. S/S , effect of exercise on DIabetes, S/S to report discussed. [Nutrition Goals] -Goals BMI < 25, Fasting BG 80- 120 mg/dL,HDL > 40,LDL < 70, Total CHOL < 200 -Weight goal 125 -Comments Was 156 pounds and became ill after bug bites and lost weight. Lyme negative. Weight now . Diabetes better controlled. She would like to be 120-125 pounds. [Psycho/Social] -Stage of Change Action -Occupation Disabled -PHQ9 Score 12 -Interpretation of Score Moderate -Plan of Action/Follow-up Will update MD. Patient works with a Psychiatrist and is taking medication. -Patient Self-Reports Depression Yes [Psycho/Social Plan] [Intervention] -Attended Social service consult [Psycho/Social Education] -Psycho/Social Education Coping techniques, Depression and CAD,Relaxation Techniques, Reviewed PHQ9 Score w/pt, Signs and symptoms of CAD ,Stress management -Date Completed 06/21/23 -Initials CD -Education Summary Children live in [place]; they call frequently. One son in [place]. Mom is in [place] also. RN will discuss with Community Navigator. Currently works with a Psychiatrist. She was in [place] when she had [place]; she cannot find a home since returning. + Anxiety/ Depression. [Psycho/Social Goals] -Goals Improve depression screen score, Improve depressive symptoms,Manage /reduce stress -Comments Renetta is working with coordinator to find a home. [employer] is assisting. She is moving from home to home. PULVERIZER FEEDER lives with her She is teary at times. [Other Core Comp] [Hypertension] -Hypertention Yes -Resting BP: 120/64 [Tobacco Use] -Comments State she is down to 6 cigarettes a day . Question if she will start Chantix. Does not wish to have any other intervention at this time. States she is working with a pharmacist [Heart Failure] -Heart Failure No [Other Core Comp Plan] [Intervention] -Attended Self Monitoring BP [Other Core Comp Education] -Other Core Comp Education Medication compliance,Risk factor modifications, RPD Scale/SOB management, Smoking and CAD ,Tobacco triggers, Understanding hypertension, Not Applicable -Date Completed 06/21/23 -Initials CD -Education Summary PULVERIZER FEEDER gives medication, assists with ADL's, shopping , meals. Has PULVERIZER FEEDER 2 hrs. at night, 21.5 hrs ./week during the day total of 73 hrs. every 2 weeks. States understanding of risk modification. States blood sugars are better controlled since losing weight. She wishes to continue with plan to gradually decrease smoking. [Other Core Comp Goals] -Goals Improve dyspnea ,Manage risk factors, Medication compliance, Resting BP < 130/80,Tobacco cessation -Comments PULVERIZER FEEDER checks BP and gives medication. She is working on smoking cessation. Risk Factors that you can control and not control discussed. [Medication Plan] [Intervention] -Medications Lantus 25 units at HS Humalog sliding scale if BS > [phone] units;250-299-6 units,300-349- 8units;350-399- 10 units;>400 12 units ASA 81MG Daily Lipitor 80MG Daily Brilinta 90MG BID Klonopin-0.5MG at TID and PRN Clonodine-0.2MG at HS Methadone for Pain-88MG Daily -MD list has Methadone 80MG every 6-8 hrs. as needed Lisinopril-2. 5MG(1/2 tablet) if BP above 140. Does not take often. MD updated Loratadine 10MG Daily [place] 3 Fatty Acids-fish oil 360MG-1200MG Capsule Terconasole 0.9 % Vaginal Cream Triancinolone 0 .1% Topical Cream -Compliance Patient reports compliance w/ prescribed meds [Medication Education] -Education Importance of medication compliance, Medication purpose, Medication schedule, Medication side effects -Date Completed 06/21/23 -Initials CD -Education Summary States PULVERIZER FEEDER picks up and administers medication. She states majority of medications but can be vague at times. Manager Of Data called for updated med list. [Medication Goals] -Goals Adherence to medication compliance -Comments PULVERIZER FEEDER gives medication. They brass pickler medications. Updated med list received from Cardiology .
== END 2023-10-27 08:36 | disposition home or self-care (01) ==
LOC: HO.CR 09:37
PROVIDERS: PCP Internal Medicine; Visit Provider Internal Medicine Cardiovascular Disease
DX: Z95.2 Presence of prosthetic heart valve (principal); Z95.5 Presence of coronary angioplasty implant and graft
CPT/HCPCS: 82947; 93798

== ENCOUNTER → 2023-07-20 08:00 | Outpatient (REF) | payer MEDICAID, SELFPAY ==
[2023-06-20 15:16] VITALS: BP 120/64; BP 124/60; BP 160/48; BMI 21.4
--- NOTE | 2023-07-20 08:03 | CA_ITS ---
Transthoracic Echocardiogram Patient (Last, First, Middle): Renetta Delaney, Gender: Female Date of : 1965 Age: 58 Procedure Date: 07/20/2023 Procedure Type: Transthoracic Echocardiogram Location: OP Height: 149.86 cm Weight: 53.98 kg BSA: 1.48 m2 Heart Rate: 49 bpm BP: 122 / 68 mmHg Chair And Couch Maker: RICHARDSON Referring MD: Giorgio Robb MD Symptoms: I25.10 - Atherosclerotic heart disease of [place] coronary artery without... Study Quality: Adequate w contrast ECG Rhythm: Bradycardia Conclusions: - The left ventricular systolic function is low normal. The calculated ejection fraction is 54% by biplane method. - No obvious valvular pathology seen on this study. Findings Procedure Information Contrast agent, definity, is being given per protocol without apparent complications. Left Ventricle Normal left ventricular cavity size. There is normal left ventricular wall thickness. The left ventricular systolic function is low normal. The calculated ejection fraction is 54% by biplane method. There is no evidence of regional wall motion abnormalities. Diastolic function is normal for age. Right Ventricle Normal right ventricular cavity size. There is low normal right ventricular systolic function. Atria Both atria are normal in size. Aortic Valve The aortic valve was not well visualized. There is no aortic valve stenosis. There is no aortic valve regurgitation. Mitral Valve There is mild mitral annular calcification. There is no mitral valve regurgitation. There is no mitral valve stenosis. Pulmonic Valve The pulmonic valve is likely normal. Tricuspid Valve There is trace tricuspid valve regurgitation. There is no evidence of pulmonary hypertension. Great Vessels The asc aorta is normal in size. Venous The inferior vena cava is normal in size and collapses greater than 50% with inspiration. Pericardium/Pleural There is no evidence of pericardial effusion. Prior Study Comparison No significant change compared to prior study dated: 09/14/2022. Differences in LVEF could be technical, as upon review of prior images there is no significant change. Recommendations, Care & Conclusions No obvious valvular pathology seen on this study. Measurements 2D Linear Measurements IVSd: 0.65 0.6-0.9/0.6-1.0 cm LVIDd: 4.50 3.9-5.3/4.2-5.9 cm LVIDd Index: 3.04 2.4-3.2/2.2-3.1 cm/m2 LVIDs: 3.17 2.0-3.6 cm LVPWd: 0.65 0.7-1.1 cm LA Diam: 3.00 2.7-3.8/3.0-4.0 cm LAIDs Index: 2.03 1.5-2.3 cm/m2 LV Mass: 108.57 67-162/88-224 g LV Mass Index: 73.36 43-95/49-115 g/m2 LVOT Diam: 1.90 3.0+(-)1.3 cm 2D Systolic Function EF 4C: 59.90 >55% EF 2C: 51.00 >55% EF BiP: 54.30 >55% Mitral Valve MV Pk E: 0.72 MV PK A: 0.59 MV Decel Time: 227.00 E/A: 1.20 E'Lateral: 11.20 E'Medial: 11.40 E/E' Med: 6.30 E/E' Lat: 6.40 PHT: 66.00 MVA PHT: 3.33 Decel [place]: 3.17 Aortic Valve AoV Pk Apollo: 0.95 AoV Pk Grad: 4.00 MARIA ELENA: 2.46 LVOT LVOT Pk Apollo: 0.82 LVOT Mn Apollo: 0.54 LVOT VTI: 0.19 LVOT Pk Grad: 3.00 LVOT Mn Grad: 1.00 LVOT Diam: 1.90 LVOT Area: 2.84 Diastolic Function MV Pk E: 0.72 MV Pk A: 0.59 E/A: 1.20 E'Medial: 11.40 E/E' Med: 6.30 E' Laterial: 11.20 E/E' Lat: 6.40 Right Ventricle TAPSE (mm): 21.40 TVS' Apollo: 9.90 Tricuspid Valve TR Pk Apollo: 2.06 TR Pk Grad: 17.00 RA Press: 3.00 RVSP: 20.00 Great Vessels Aorta Sinus of Valsalva: 2.90 2.0-3.5 cm Ao Asc: 2.90 2.1-3.4 cm Pulmonary Valve PV Pk Apollo: 0.77 Peak PV Grad: 2.00 Updated in Other Vendor System with Status of Final Carlos Parham MD electronically signed on 07/21/2023 2:23:12 PM with status of Final
== END ==
LOC: HO.CARD 08:00
PROVIDERS: PCP Internal Medicine; Visit Provider Internal Medicine Cardiovascular Disease
DX: I25.10 Atherosclerotic heart disease of native coronary artery without angina pectoris (principal); I49.8 Other specified cardiac arrhythmias
CPT/HCPCS: 93306; Q9957

== ENCOUNTER → 2023-07-20 08:03 | Outpatient (BNV) | payer MEDICAID, SELFPAY ==
[2023-06-20 15:16] VITALS: BP 124/60; BP 160/48
[2023-07-18 07:27] VITALS: BP 120/64; BMI 21.4
== END ==
PROVIDERS: PCP Internal Medicine; Visit Provider Internal Medicine
DX: I25.10 Atherosclerotic heart disease of native coronary artery without angina pectoris (principal)
CPT/HCPCS: 93306

== ENCOUNTER → 2023-07-22 09:19 | Outpatient (REF) | payer MEDICAID, SELFPAY ==
[2023-06-20 15:16] VITALS: BP 120/64; BP 124/60; BP 160/48; BMI 21.4
[2023-07-18 07:27] VITALS: BP 120/64; BMI 21.4
--- NOTE | ~2023-07-22 | NM_ITS ---
Exercise Myocardial perfusion study Indication: Sclerotic heart disease to evaluate for myocardial ischemia Technique: The patient was brought in for an exercise perfusion study on 07/22/2023. Patient performed exercise as per Glynn protocol and was injected 25 mCi of sestamibi was given intravenously one target HR was achieved. Images were obtained using the SPECT gamma camera interlaced with the gating device. Images were obtained in supine position. Resting perfusion study was performed on 07/25/2023. Patient was administered 25 mCi of sestamibi intravenously at rest. Images were then obtained in supine position. Images obtained with and without CT attenuation. Total DLP 101 mGy-cm. Images were processed with the software and compared side to side in short axis, horizontal long axis and vertical long axis views. Findings: The stress perfusion study showed both attenuated as well as non attenuated images show normal uptake of radiotracer in all segments of LV myocardium. The gated study shows normal LV systolic function with calculated LVEF of 67%. LV cavity is normal in size. The gated study shows normal systolic wall thickening and contraction of all segments. There is no transient ischemic dilation. Resting study shows no change in perfusion pattern compared to stress perfusion study. Gating at rest reveals normal systolic wall motion with ejection fraction at 54%. The findings are consistent with normal myocardial perfusion. NM/NM cardiolite stress test Impression: 1. Normal myocardial perfusion 2. Gated LVEF is 67% 3. Transient ischemic dilatation not present Stress EKG is negative for ischemia
--- NOTE | 2023-07-22 09:30 | CA_ITS ---
Acquisition Time: 2023-07-22 09:43:35 Total Exercise Time: 00:05:44 Test Indications: CAD HTN SOB Medications: LISINOPRIL INSULIN ATROVASTATIN Protocol: JAMES Max HR: 137 BPM 84% of Pred: 163 BPM Max BP: 154/068 mmHG Max Work Load: 5.6 METS Exercise stress test exercise 5 min 44 sec of James protocol achieving 84% MPHR (stage 1 held, for stage 2 increased speed to 1.9mph and 12% grade), with 2/10 chest pressure, with isolated PVCs and ventricular bigeminy pattern with normotensive response to exercise, without EKG changes. Chets pain resolved with rest. Nuclear images pending. Test reviewed with Dr. Parham. Referred By: Giorgio Robb Overread By: Holly Crespo
== END ==
LOC: HO.CARD 09:19
PROVIDERS: PCP Internal Medicine; Visit Provider Internal Medicine Cardiovascular Disease
DX: I25.10 Atherosclerotic heart disease of native coronary artery without angina pectoris (principal); I10 Essential (primary) hypertension; I49.8 Other specified cardiac arrhythmias; R06.02 Shortness of breath
CPT/HCPCS: 78452; 93017; A9500

== ENCOUNTER → 2023-07-22 09:30 | Outpatient (BNV) | payer MEDICAID, SELFPAY ==
[2023-06-20 15:16] VITALS: BP 124/60; BP 160/48
[2023-07-18 07:27] VITALS: BP 120/64; BMI 21.4
== END ==
PROVIDERS: PCP Internal Medicine; Visit Provider Nurse Practitioner
DX: I25.10 Atherosclerotic heart disease of native coronary artery without angina pectoris (principal)
CPT/HCPCS: 78452; 93016; 93018

== ENCOUNTER 2023-10-17 14:48 | Emergency (ER) | payer MEDICAID, SELFPAY ==
[2023-06-20 15:16] VITALS: BP 124/60; BP 160/48
--- NOTE | 2023-10-17 15:01 | ED.GENADULT ---
HPI - General Adult General Chief complaint: Skin/Abscess/Foreign Body Stated complaint: boil buttocks Time Seen by Provider: 10/17/23 17:21 Source: patient and family ( ) Mode of arrival: ambulatory Limitations: no limitations History of Present Illness HPI narrative: 58-year-old female history of hypertension, diabetes presenting for evaluation of abscess that is developing to her left buttocks, this has been ongoing for the past week or so worsening. Patient reports she gets recurrent abscesses throughout her body including her groin region her axilla and her buttocks. Denies fevers, chills, chest pain, shortness of breath, nausea, vomiting, joint pain. Reports it is very painful. Related Data Home Medications Medication Instructions Recorded Confirmed cholecalciferol (vitamin D3) 50 50 mcg PO DAILY 09/16/20 05/05/23 mcg (2,000 unit) tablet clonazepam 0.5 mg tablet 0.25 mg PO BEDTIME 09/16/20 05/05/23 clonidine 0.2 mg/24 hr weekly 1 patch transdermal QWEEK 09/16/20 05/05/23 transdermal patch omega-3 fatty acids-fish oil 360 1 cap PO DAILY 09/16/20 05/05/23 mg-1,200 mg capsule (Fish Oil) blood sugar diagnostic (FreeStyle #10 ea 01/26/22 08/18/22 Lite Strips) pen needle, diabetic 31 gauge x #50 ea 01/26/22 08/18/22/16 (BD Ultra-Fine Mini Pen Needle) ibuprofen 400 mg tablet 400 mg PO ONCE 08/18/22 05/05/23 insulin glargine 100 unit/mL 50 unit subcut ONCE 12/14/22 05/05/23 subcutaneous solution (Lantus U-100 Insulin) insulin lispro 200 unit/mL (3 mL) 1 sliding scale dose subcut 12/14/22 05/05/23 subcutaneous pen (Humalog KwikPen USEASDIRECTD U-200 Insulin) methadone 10 mg tablet 80 mg PO Q6-8H PRN 12/14/22 05/05/23 atorvastatin 80 mg tablet 80 mg PO DAILY 05/05/23 05/05/23 lisinopril 2.5 mg tablet 2.5 mg PO DAILY PRN 05/05/23 05/05/23 ticagrelor 90 mg tablet (Brilinta) 90 mg PO BID 05/05/23 05/05/23 Previous Rx's Medication Instructions Recorded terconazole 0.8 % vaginal cream 1 appful vaginal BEDTIME 3 days 10/14/21 #20 grams loratadine 10 mg tablet 10 mg PO DAILY #14 tabs 12/07/22 triamcinolone acetonide 0.1 % 1 appl topical BID #30 grams 12/07/22 topical cream clindamycin phosphate 1 % topical 1 appl topical BID #60 grams 10/17/23 gel doxycycline hyclate 100 mg capsule 100 mg PO BID 10 days #20 caps 10/17/23 Allergies Allergy/AdvReac Type Severity Reaction Status Date / Time iodine [IODINE] Allergy Unknown R/T Verified 12/14/22 10:12 SHELLFISH ALLERGY shellfish derived Allergy Unknown LIP Verified 12/14/22 10:12 [SHELLFISH DERIVED] SWELLING, ITCHY THROAT Review of Systems Review of Systems: Constitutional : No Weight loss, No Fever, No Chills, No Fatigue, No Malaise ENT/Mouth : No sore throat, No Rhinorrhea Eyes: No Eye Pain, No Swelling, No Redness Cardiovascular : No Chest Pain, No SOB, No Dyspnea on Exertion, No Orthopnea, No Edema, No Palpitations Respiratory : No Cough, No Sputum, No Wheezing Gastrointestinal : No Nausea, No Vomiting, No Diarrhea, No Constipation, No abdominal Pain, No Hematochezia, No Melena Genitourinary : No Dysuria, No Urinary Frequency, No Hematuria, Musculoskeletal : No joint pain, No Myalgias, No Joint Swelling Skin : No Skin Lesions, No rash, + abscess Neuro : No Weakness, No Numbness, No Dizziness, No Headache Psych : No Anxiety/Panic, No Depression All other systems reviewed and are negative Yes all other systems are reviewed and are negative [facility] Past Medical History Attestation statement: The following information was validated with the patient. 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 Housing: House Alcohol intake: never Patient Tobacco Use Status: Current everyday Tobacco user Tobacco use type: Cigarette Cigarette Packs Per Day: 0.25 Cigarettes Per Day: 7 Years Smoked: 41 Advance Directives: No Advance Directives Information Provided: No Current occupational status: disabled Sexual orientation: Straight/Heterosexual Gender identity: Female Physical Exam ED Vital Signs: Vital Signs - 24 hr 10/17/23 15:02 Temperature 97.7 F Pulse Rate 86 Respiratory Rate 18 Blood Pressure 158/77 H Pulse Oximetry 98 Oxygen Delivery Method Room Air BMI result Body Mass Index 25.1 vss Appearance: Alert.? Oriented X3.? No acute distress.? Head: Normocephalic, atraumatic, no step-offs or deformities Eyes: Pupils equal, round and reactive to light.? Neck: Normal inspection.? Neck supple.? CVS:Pulses normal.? Respiratory: No respiratory distress. Skin: Skin warm and dry.? Normal skin color.? Normal skin turgor.? + 5 cm X 5 cm errythematous and warm area w/ a small area of induration w/ central slight fluctuance Extremities: No lower extremity edema.? No calf ttp. 5/5 strength to bilateral upper and lower extremities Neuro: Oriented X 3.? No motor deficit.? No sensory deficit. CN 2-12 intact Course Course Course Narrative: RME performed by Dai Navarro PA-C. Patient is a 58 year old assigned female at presenting to the emergency department with a buttock cyst. Patient placed back in the waiting room pending room availability. Medical Decision Making Medical Decision Making [facility] Narrative: 1809 58-year-old female presents with developing abscess on her left buttock Physical exam 5 cm X 5 cm errythematous and warm area w/ a small area of induration w/ central slight fluctuance Concerned for hidradenitis superativa with acute abscess. Unlikely necrosis, osteomyelitis, erysipelas, TEN, SJS, septic joint Plan- I&D done at bedside chose to do this rather than a incision and drainage secondary to only a small area of fluctuance, allowed for better control, there was a large amount of purulence discharge expressed about 7 cc of serosanguineous and purulent fluid. Patient tolerated procedure well. No complications. Feeling better after the procedure. Patient was prescribed Keflex recently which she did not take she has a full prescription for a week, will add doxycycline to this regimen. Will have her follow up with General surgery. Educated patient on diagnosis and treatment plan, answered all question, patient verbalizes understanding. At this time patient will be discharged home, advised to return with new or worsening symptoms. Educated on worrisome signs and symptoms and when to return. At this time I feel comfortable discharge home. Differential Diagnosis Differential Diagnoses: The differential diagnosis associated with the presentation includes Concerned for hidradenitis superativa with acute abscess. Unlikely necrosis, osteomyelitis, erysipelas, TEN, SJS, septic joint Admission/Observation Consideration of admission/observation: Escalation of care including admission/observation considered unlikely Critical Care Time Critical Care Time Critical Care Time: No Discharge Plan Discharge Clinical Impression: Abscess Patient Disposition: Home, Self-Care Instructions: Abscess (ED), Abscess Follow-up (ED) Additional Instructions: Take your medications as prescribed. If you were prescribed antibiotics today, it is important that you take your medication to their entirety, do not skip any doses, do not finish them early. Follow-up with your primary care provider this week. Return to the emergency department with new or worsening symptoms. Such as fevers, chills, chest pain, shortness of breath, nausea, vomiting, dizziness, headache, vision changes, lethargy In case of emergency call 911 Follow up with general surgery as this seems to be a reccurent issue Apply warm compresses to area 3-4 x a day Take the cephalexin as prescribed as well as the antibiotic im sending to your pharmacy You may require further evaluation for possible hidradenitis suppurativa Prescriptions: New doxycycline hyclate 100 mg capsule 100 mg PO BID 10 Days Qty: 20 0RF clindamycin phosphate 1 % gel 1 appl topical BID Qty: 60 0RF No Action terconazole 0.8 % cream 1 appful vaginal BEDTIME 3 Days Qty: 20 0RF loratadine 10 mg tablet 10 mg PO DAILY Qty: 14 0RF triamcinolone acetonide 0.1 % cream 1 appl topical BID Qty: 30 0RF clonazepam 0.5 mg tablet 0.25 mg PO BEDTIME Rx Instructions: administer 30 minutes before bedtime clonidine 0.2 mg/24 hr patch weekly 1 patch transdermal QWEEK omega-3 fatty acids-fish oil [Fish Oil] 360-1,200 mg capsule 1 cap PO DAILY cholecalciferol (vitamin D3) 50 mcg (2,000 unit) tablet 50 mcg PO DAILY ibuprofen 400 mg tablet 400 mg PO ONCE Lantus U-100 Insulin 100 unit/mL solution 50 unit subcut ONCE methadone 10 mg tablet 80 mg PO Q6-8H PRN (DME) FreeStyle Lite Strips Strip See Rx Instructions Not Applicable TID Qty: 10 Rx Instructions: As directed (DME) pen needle, diabetic [BD Ultra-Fine Mini Pen Needle] 31 gauge x 3/16 needle See Rx Instructions subcut QID Qty: 50 Rx Instructions: As directed Humalog KwikPen Insulin 200 unit/mL (3 mL) insulin pen 1 sliding scale dose subcut USEASDIRECTD atorvastatin 80 mg tablet 80 mg PO DAILY lisinopril 2.5 mg tablet 2.5 mg PO DAILY PRN Brilinta 90 mg tablet 90 mg PO BID Referrals: [facility] [place] [facility] [place]Provider Group] - 1 week Camila Espinal MD [Primary Care Provider] - 2 days Stand Alone Forms: Work/School Release
[2023-10-17 15:02] VITALS: BP 158/77; PULSE 86; RESP 18; TEMP 36.5; O2SAT 98; BMI 25.1
--- NOTE | 2023-10-17 18:35 | PC.NURSE ---
nonadherent dressing applied to affected area.
== END 2023-10-17 18:36 | disposition home or self-care (01) ==
PROVIDERS: Emergency Provider Student in an Organized Health Care Education/Training Program; PCP Internal Medicine
DX: L02.31 Cutaneous abscess of buttock (principal); E11.9 Type 2 diabetes mellitus without complications; I10 Essential (primary) hypertension; F17.210 Nicotine dependence, cigarettes, uncomplicated; Z79.4 Long term (current) use of insulin
CPT/HCPCS: 10160; 99282; 99283

== ENCOUNTER 2023-11-01 09:39 | Outpatient (AMB) | payer MEDICAID, SELFPAY ==
[2023-10-27 08:39] VITALS: BP 112/62; BP 122/58; BP 138/60; BMI 21.4
[2023-11-01 09:41] VITALS: BP 138/82; PULSE 65; BMI 25.0
--- NOTE | 2023-11-01 09:41 | MHC.OFFVIS ---
Intake Vital Signs 11/01/23 09:41 Height 4 ft 11 in Weight 123 lb 14.397 oz BMI 25.0 BP 138/82 Blood Pressure Location Rt brachial Position Sitting Pulse 65 Pulse Source Pulse Oximeter Intake Visit Reasons: 6 month f/u Allergies iodine [IODINE] Allergy (Unknown, Verified 11/01/23 09:44) R/T SHELLFISH ALLERGY shellfish derived [SHELLFISH DERIVED] Allergy (Unknown, Verified 11/01/23 09:44) LIP SWELLING, ITCHY THROAT Medication List - Last Reconciled 11/01/23 by LEIGH ANN Foote aspirin 81 mg PO DAILY atorvastatin 80 mg PO DAILY blood sugar diagnostic (FreeStyle Lite Strips) As directed cholecalciferol (vitamin D3) 50 mcg PO DAILY clindamycin phosphate 1% 1 appl topical BID clonazepam 0.25 mg PO BEDTIME clonidine 1 patch transdermal QWEEK doxycycline hyclate 100 mg PO BID 10 days insulin glargine (Lantus U-100 Insulin) 50 units subcut ONCE insulin lispro (Humalog KwikPen U-200 Insulin) 1 sliding scale dose subcut USEASDIRECTD lisinopril 2.5 mg PO DAILY PRN loratadine 10 mg PO DAILY methadone 80 mg PO Q6-8H PRN omega-3 fatty acids-fish oil 360-1,200 mg (Fish Oil) 1 cap PO DAILY pen needle, diabetic (BD Ultra-Fine Mini Pen Needle) As directed ticagrelor (Brilinta) 90 mg PO BID triamcinolone acetonide 0.1% 1 appl topical BID HPI 6 month f/u HPI Details Renetta is a 58-year-old female with past medical history of hypertension, hyperlipidemia, diabetes who had ACS when in [place] 02/14/2023 with cardiac catheterization, stent to the proximal LAD. On last visit here she was started in cardiac rehab. Today she reports she has been doing generally well. She reports a history of rheumatoid arthritis, neuropathy and has some difficulties with joint discomfort and ambulation. She has a COLLECTION CLERK that helps her with ADLs. She has attended only 1 recent session of cardiac rehab due to a delay in starting it. No exertional chest discomfort. She has some aching near her left shoulder at times. She has some shortness of breath with activity which is not new. No shortness of breath at rest, PND, orthopnea or edema. No lightheadedness, presyncope, syncope, falls. Taking all meds as directed. No bleeding issues reported. 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 Housing: House Alcohol intake: never Patient Tobacco Use Status: Current everyday Tobacco user Tobacco use type: Cigarette Cigarette Packs Per Day: 0.10 Cigarettes Per Day: 7 Years Smoked: 41 Current occupational status: disabled Sexual orientation: Straight/Heterosexual Gender identity: Female Female Reproductive History Menstrual Age of Menarche: 13 Review of Systems Const All systems reviewed & are unremarkable except as noted in HPI and below ENT Denies dizziness Card Denies chest pain, Denies chest pain at rest, Denies chest pain with activity, Denies rapid heart rate, Denies pedal edema, Denies edema, Denies leg edema, Denies lightheadedness, Denies palpitations, Denies dyspnea, Reports dyspnea on exertion and Denies orthopnea Resp Denies cough, Denies dyspnea and Reports dyspnea on exertion GI Denies hematochezia and Denies change in stool character Musc Details: joint discomfort in legs from RA Reports abnormal gait, Reports muscle cramps, Denies muscle weakness, Denies numbness, Denies radiating pain into limb, Denies stiffness and Denies tingling Neuro Reports abnormal gait, Denies dizziness, Denies numbness and Denies tingling Endo Denies palpitations Physical Exam Vital Signs: Last Vital Signs Pulse 65 11/01/23 09:41 BP 138/82 11/01/23 09:41 BMI result Body Mass Index 25.0 Const General: cooperative, healthy appearing, comfortable and no acute distress Orientation/consciousness: patient oriented x3 Neck Neck: Yes normal visual inspection Resp Effort & Inspection: normal respiratory effort Auscultation: clear to auscultation bilaterally, no rales, no rhonchi and no wheezes Cardio Jugular venous distension: no JVD Rate: regular rate Rhythm: regular rhythm Heart sounds: S1 normal heart sound present, S2 normal heart sound present, no murmurs and no rubs Neuro General: patient oriented x3 Extrem General: Yes normal to inspection Psych Appearance: grossly normal Mental Status: mental status grossly normal Speech and movement: Normal speech and movement present Assessment & Plan Assessment & Plan (1) CAD (coronary artery disease): Code(s): I25.10 - Atherosclerotic heart disease of redding coronary artery without angina pectoris Plan: History of CAD with ACS in [place] 02/14/2023. Cardiac catheterization done. Patient reports having an 80% narrowing. She has a card which states stent to the proximal LAD. No recurrent anginal chest discomfort. She has some shortness of breath with activity which is not new. Echocardiogram done 07/22/2023 showed EF 54%, no valve abnormalities and no regional wall motion abnormalities. An exercise nuclear stress test was done on 07/22/2023 showing exercise close to 6 minutes, with chest discomfort, ventricular bigeminy, normal myocardial perfusion imaging. She is now in cardiac rehab and has attended 1 session so far. She will continue to attend. Her activity is limited by neuropathy and rheumatoid arthritis. Will continue on aspirin indefinitely. Continue Brilinta uninterrupted for at least 1 year post stent. Continue atorvastatin with ideal LDL goal less than 70. Lipid profile is due and patient reminded of this. She is not on beta-karissa. Heart rate 65 at this visit. She is on low-dose lisinopril. Blood pressure 138/82. She needs good diabetic control with hemoglobin A1c goal less than 7. Signs and symptoms of angina reviewed. Cardiology follow-up in 3 months, sooner if needed (2) Stented coronary artery: Comment: proximal LAD stent 02/14/23 in [place] Code(s): Z95.5 - Presence of coronary angioplasty implant and graft Plan: As above (3) HTN (hypertension): Code(s): I10 - Essential (primary) hypertension Qualifiers: Hypertension type: primary hypertension Qualified Code(s): I10 - Essential (primary) hypertension Plan: Well controlled (4) Hyperlipidemia: Code(s): E78.5 - Hyperlipidemia, unspecified Plan: Russell LDL goal less than 70 in patient with diabetes and coronary artery disease. Fasting lipid profile is pending. Continue statin therapy. Patient Instructions: Time spent on chart review, documentation, interview, assessment Coding Level of Care Code Est Pt Level 4 (74682) Diagnoses CAD (coronary artery disease) I25.10 Stented coronary artery Z95.5 Primary hypertension I10 Hypertension type: primary hypertension Hyperlipidemia E78.5 Time Spent (min) 28
== END 2023-11-01 10:09 | disposition home or self-care (01) ==
PROVIDERS: PCP Internal Medicine; Visit Provider Nurse Practitioner Family
DX: I25.10 Atherosclerotic heart disease of native coronary artery without angina pectoris (principal); Z95.5 Presence of coronary angioplasty implant and graft; I10 Essential (primary) hypertension; E78.5 Hyperlipidemia, unspecified
CPT/HCPCS: 99214

== ENCOUNTER → 2023-11-01 09:39 | Outpatient (BNVA) | payer MEDICAID, SELFPAY ==
[2023-10-27 08:39] VITALS: BP 112/62; BP 122/58; BP 138/60; BMI 21.4
== END ==
PROVIDERS: PCP Internal Medicine; Visit Provider Nurse Practitioner Family
DX: I25.10 Atherosclerotic heart disease of native coronary artery without angina pectoris (principal); I10 Essential (primary) hypertension; E78.5 Hyperlipidemia, unspecified; Z95.5 Presence of coronary angioplasty implant and graft
CPT/HCPCS: 99212

== ENCOUNTER 2023-11-14 07:58 | Outpatient (REF) | payer MEDICAID, SELFPAY ==
[2023-10-27 08:39] VITALS: BP 112/62; BP 122/58; BP 138/60; BMI 21.4
[2023-11-14 10:11] LABS: Cholesterol 99 mg/dL (<200); HDL Cholesterol 30 mg/dL (>40); LDL Cholesterol Calculated 43 mg/dL (<100); Triglycerides 134 mg/dL (<150)
== END 2023-11-14 07:59 | disposition home or self-care (01) ==
LOC: HO.LAB 07:58
PROVIDERS: PCP Internal Medicine; Visit Provider Internal Medicine Cardiovascular Disease
DX: I25.10 Atherosclerotic heart disease of native coronary artery without angina pectoris (principal); Z95.5 Presence of coronary angioplasty implant and graft
CPT/HCPCS: 36415; 80061

== ENCOUNTER 2023-11-25 09:13 | Outpatient (AMB) | payer MEDICAID, SELFPAY ==
[2023-10-27 08:39] VITALS: BP 112/62; BP 122/58; BP 138/60; BMI 21.4
[2023-11-22 14:42] VITALS: BP 110/58; BMI 21.4
[2023-11-25 09:21] VITALS: BP 131/59; PULSE 65; BMI 26.3
--- NOTE | 2023-11-25 09:21 | A.OFFVIS_ITS ---
Intake Vital Signs 11/25/23 09:21 Height 4 ft 11 in Weight 130 lb BMI 26.3 BP 131/59 L Blood Pressure Location Lt brachial Position Sitting Pulse 65 Intake Visit Reasons: Hidradenitis suppurativa of buttock Intake Note: Patient referred by PCP Dr. Anjali Medina for removal of HS tract on Lt buttock. Patient c/o: yellowish discharge. It has been improving since last treatment with needle at ER in October. Finished Doxycycline course. Grinder Set Up Operator Required: No Accompanied by: Self / Same As Patient Allergies iodine [IODINE] Allergy (Unknown, Verified 11/25/23 09:23) R/T SHELLFISH ALLERGY shellfish derived [SHELLFISH DERIVED] Allergy (Unknown, Verified 11/25/23 09:23) LIP SWELLING, ITCHY THROAT HPI HPI Comments History of Present Illness Details Patient is status post ER I&D of a right buttock abscess. Patient presents here for follow-up. She has no wound issues or complaints. 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 Assessment & Plan Assessment & Plan (1) Status post incision and drainage: Code(s): Z98.890 - Other specified postprocedural states Plan Patient has been given local instructions, and will follow-up p.r.n.. She is currently being seen by Dermatology as well for her generalized skin issues. Coding Level of Care Code New Pt Level 3 (15888) Diagnoses Status post incision and drainage Z98.890
== END 2023-11-25 09:56 | disposition home or self-care (01) ==
PROVIDERS: PCP Internal Medicine; Visit Provider Surgery
DX: Z98.890 Other specified postprocedural states (principal)
CPT/HCPCS: 99203

== ENCOUNTER → 2023-11-25 09:13 | Outpatient (BNVA) | payer MEDICAID, SELFPAY ==
[2023-10-27 08:39] VITALS: BP 122/58; BP 138/60
[2023-11-22 14:42] VITALS: BP 110/58; BMI 21.4
== END ==
PROVIDERS: PCP Internal Medicine; Visit Provider Surgery
DX: Z09 Encounter for follow-up examination after completed treatment for conditions other than malignant neoplasm (principal); Z87.2 Personal history of diseases of the skin and subcutaneous tissue
CPT/HCPCS: 99202

== ENCOUNTER 2024-01-31 07:59 | Outpatient (AMB) | payer MEDICAID, SELFPAY ==
[2023-10-27 08:39] VITALS: BP 112/62; BP 122/58; BP 138/60; BMI 21.4
[2024-01-18 14:34] VITALS: BP 110/58; BMI 21.4
--- NOTE | 2024-01-31 08:16 | A.OFFVIS_ITS ---
Intake Vital Signs 01/31/24 08:17 Height 4 ft 11 in Weight 138 lb 7.205 oz BMI 28.0 BP 120/74 Blood Pressure Location Lt brachial Position Sitting Pulse 55 Pulse Source Pulse Oximeter Intake Visit Reasons: 3 mth f/up [place] Required: No Allergies iodine [IODINE] Allergy (Unknown, Verified 01/31/24 08:19) R/T SHELLFISH ALLERGY shellfish derived [SHELLFISH DERIVED] Allergy (Unknown, Verified 01/31/24 08:19) LIP SWELLING, ITCHY THROAT Medication List - Last Reconciled 01/31/24 by Sweetie Avila, GASPER-C aspirin 81 mg PO DAILY atorvastatin 80 mg PO DAILY blood sugar diagnostic (FreeStyle Lite Strips) As directed cholecalciferol (vitamin D3) 50 mcg PO DAILY clindamycin phosphate 1% 1 appl topical BID clonazepam 0.25 mg PO BEDTIME insulin glargine (Lantus U-100 Insulin) 50 units subcut ONCE insulin lispro (Humalog KwikPen U-200 Insulin) 1 sliding scale dose subcut USEASDIRECTD lisinopril 2.5 mg PO DAILY PRN methadone 80 mg PO Q6-8H PRN pen needle, diabetic (BD Ultra-Fine Mini Pen Needle) As directed ticagrelor (Brilinta) 90 mg PO BID triamcinolone acetonide 0.1% 1 appl topical BID HPI 3 mth f/up HPI Details Renetta is a 58-year-old female with past medical history of hypertension, hyperlipidemia, diabetes, rheumatoid arthritis, who had ACS when in [place] 02/14/2023 with cardiac catheterization, stent to the proximal LAD. Today she reports she has been doing well since her last visit. Is attending cardiac rehab. She has issues with generalized muscle and joint discomfort which she relates to her neuropathy and rheumatoid arthritis. She has an appointment tomorrow with the orthopedic doctor. She does not believe the symptoms are related to her cholesterol agent as they are not new. No chest discomfort at rest or with activity. No heart palpitations, lightheadedness, presyncope, syncope, shortness of breath, PND, orthopnea or edema. Taking meds as directed. No bleeding issues reported. 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 Housing: House Alcohol intake: never Patient Tobacco Use Status: Current everyday Tobacco user Tobacco use type: Cigarette Cigarette Packs Per Day: 0.10 Cigarettes Per Day: 2 Years Smoked: 41 Current occupational status: disabled Sexual orientation: Straight/Heterosexual Gender identity: Female Female Reproductive History Menstrual Age of Menarche: 13 Review of Systems Const All systems reviewed & are unremarkable except as noted in HPI and below ENT Denies dizziness Card Denies chest pain, Denies chest pain at rest, Denies chest pain with activity, Denies rapid heart rate, Denies pedal edema, Denies edema, Denies leg edema, Denies lightheadedness, Denies palpitations, Denies dyspnea, Denies dyspnea on exertion and Denies orthopnea Resp Denies cough, Denies dyspnea and Denies dyspnea on exertion GI Denies hematochezia and Denies change in stool character Musc Reports abnormal gait, Reports limited range of motion, Denies muscle cramps, Denies muscle weakness, Denies numbness, Denies radiating pain into limb, Reports stiffness and Denies tingling Neuro Reports abnormal gait, Denies dizziness, Denies numbness and Denies tingling Endo Denies palpitations Physical Exam Vital Signs: Last Vital Signs Pulse 55 01/31/24 08:17 BP 120/74 01/31/24 08:17 BMI result Body Mass Index 28.0 Const General: cooperative, healthy appearing, comfortable and no acute distress Orientation/consciousness: patient oriented x3 Neck Neck: Yes normal visual inspection Resp Effort & Inspection: normal respiratory effort Auscultation: clear to auscultation bilaterally, no rales, no rhonchi and no wheezes Cardio Jugular venous distension: no JVD Rate: regular rate Rhythm: regular rhythm Heart sounds: S1 normal heart sound present, S2 normal heart sound present, no murmurs and no rubs Neuro General: patient oriented x3 Extrem General: Yes normal to inspection Psych Appearance: grossly normal Mental Status: mental status grossly normal Speech and movement: Normal speech and movement present Assessment & Plan Assessment & Plan (1) CAD (coronary artery disease): Code(s): I25.10 - Atherosclerotic heart disease of [place] coronary artery without angina pectoris Plan: History of CAD with ACS in [place] 02/14/2023. Cardiac catheterization done. Patient reports having an 80% narrowing. She has a card which states stent to the proximal LAD. No recurrent anginal chest discomfort. She has some shortness of breath with activity which is not new. Echocardiogram done 07/22/2023 showed EF 54%, no valve abnormalities and no regional wall motion abnormalities. An exercise nuclear stress test was done on 07/22/2023 showing exercise close to 6 minutes, with chest discomfort, ventricular bigeminy, normal myocardial perfusion imaging. She is now in cardiac rehab and does have issues with muscle and joint discomfort. She has a history of neuropathy and rheumatoid arthritis. She says the symptom is not new and does not believe it is related to her statin. No reports of chest discomfort or new shortness of breath. Will continue on aspirin indefinitely. Continue Brilinta uninterrupted for at least 1 year post stent - can stop after 02/15/2024. Continue atorvastatin with ideal LDL goal less than 70. Labs done 11/14/2023 showed LDL 43. She is not on beta-karissa. Heart rate 55 at this visit. She is on low- dose lisinopril. Blood pressure 120/74. She needs good diabetic control with hemoglobin A1c goal less than 7. She tells me her hemoglobin A1c is in the 8s. Signs and symptoms of angina reviewed. Cardiology follow-up in 6 months, sooner if needed (2) Stented coronary artery: Comment: proximal LAD stent 02/14/23 in [place] Code(s): Z95.5 - Presence of coronary angioplasty implant and graft Plan: As above (3) HTN (hypertension): Code(s): I10 - Essential (primary) hypertension Qualifiers: Hypertension type: primary hypertension Qualified Code(s): I10 - Essential (primary) hypertension Plan: Well controlled. Due for lab work. She says that her PCP has done labs on her, will try to obtain. If not, orders have been entered her entire system (4) Hyperlipidemia: Code(s): E78.5 - Hyperlipidemia, unspecified Plan: [place] LDL goal less than 70 in patient with diabetes and coronary artery disease. Recent LDL 43 shows lipids well controlled Plan Time spent on chart review, documentation, interview and assessment Orders: Orders Comprehensive Met. Panel Today I25.10 - Atherosclerotic heart disease of [place] coronary artery without angina pectoris Complete Blood Count Auto Diff Today I25.10 - Atherosclerotic heart disease of [place] coronary artery without angina pectoris Coding Level of Care Code Est Pt Level 4 (69321) Diagnoses CAD (coronary artery disease) I25.10 Stented coronary artery Z95.5 Primary hypertension I10 Hypertension type: primary hypertension Hyperlipidemia E78.5 Time Spent (min) 28
[2024-01-31 08:17] VITALS: BP 120/74; PULSE 55; BMI 28.0
== END 2024-01-31 08:42 | disposition home or self-care (01) ==
PROVIDERS: PCP Internal Medicine; Visit Provider Nurse Practitioner Family
DX: I25.10 Atherosclerotic heart disease of native coronary artery without angina pectoris (principal); Z95.5 Presence of coronary angioplasty implant and graft; I10 Essential (primary) hypertension; E78.5 Hyperlipidemia, unspecified
CPT/HCPCS: 99214

== ENCOUNTER → 2024-01-31 07:59 | Outpatient (BNVA) | payer MEDICAID, SELFPAY ==
[2023-10-27 08:39] VITALS: BP 122/58; BP 138/60
[2024-01-18 14:34] VITALS: BP 110/58; BMI 21.4
== END ==
PROVIDERS: PCP Internal Medicine; Visit Provider Nurse Practitioner Family
DX: I25.10 Atherosclerotic heart disease of native coronary artery without angina pectoris (principal); I10 Essential (primary) hypertension; E78.5 Hyperlipidemia, unspecified; Z95.5 Presence of coronary angioplasty implant and graft
CPT/HCPCS: 99212

== ENCOUNTER 2024-02-13 08:30 | Outpatient (RCR) | payer MEDICAID, SELFPAY ==
[2023-06-20 15:16] VITALS: BP 124/60; BP 160/48
[2023-10-27 08:39] VITALS: BP 112/62; BP 122/58; BP 138/60; BMI 21.4
[2023-10-27 11:19] LABS: Glucose, Whole Blood 396 mg/dL (60-115)
[2023-10-27 11:19] LABS: Glucose, Whole Blood 386 mg/dL (60-115)
[2023-10-31 10:30] LABS: Glucose, Whole Blood 308 mg/dL (60-115)
[2023-10-31 10:30] LABS: Glucose, Whole Blood 245 mg/dL (60-115)
[2023-10-31 10:30] LABS: Glucose, Whole Blood 342 mg/dL (60-115)
[2023-10-31 10:30] LABS: Glucose, Whole Blood 118 mg/dL (60-115)
--- NOTE | 2023-10-31 15:33 | MHC.CR.ITI ---
[address] [phone] F: [phone] Please see additional notes from [facility] Initial Assessment/ITP Cardiac Rehab Initial Assessment/ITP Start: 10/27/23 08:39 Freq: Status: Active Protocol: Activity Type Activity Date Activity User E-sign Co-sign Detail Recorded Client Recorded Date Recorded By Document 10/27/23 08:39 SALTY [id number] 10/27/23 11:44 SALTY 10/27/23 08:39 Cardiac Rehab ITP Initial [Excercise] -Post Framer Required No -Preferred Language Occitan -Number of sessions approved 36 -Diagnosis Angioplasty ( PTCA) Z95.5, Coronary Stenting (PCI) Z98.61 -Other Diagnosis HLD,HTN, DM2, CAD, current smoker -Comments Rotator Cuff repair right shoulder 2018, RA-pain is generally left shoulder, back, and right knee , left hip( states bone on bone). Takes Methadone for pain. She no longer takes Opiates. 07/18/23-Patient had symptomatic Bradycardic and Bigeminy during initial evaluation. Cardiac Rehab is on hold per MD until she has stress test and ( stage 2 speed of 1.9mph and 12% grade, 2/10 chest pressure with isolated PVCs and Ventricular Bigeminy pattern, without EKG changes. Profusion study performed on 07/22/23 results normal myocardial profusion , Gated LVEF 67% and ischemic dilation not present. Negative for Ischemia. CA echo with contrast mild mitral valve stenosis , trace tricuspid valve regurt. No change in study from 2021. No valvular pathology seen on study. down to 2 cigarettes a day, per pt report. [Functional Assessment] -6 Min Walk (distance in ft) 870 -Stress Test (Mode) walk -METS Achieved 2.26 -Resting HR 57 -Resting BP 122/58 -Resting SpO2 99 -Exercise HR 65 -Exercise BP 138/60 -Exercise SpO2 97 -RPE 11 -Dyspnea No -ECG Summary SR -Comments Unable to do 6 min walk on due to elevated BS 396 6 min walk completed at first visit and recorded on [Pre Rehab] -Pre Rehab Home Exercise Yes -Exercise Minutes/Day 10 -Exercise Days/Week 3 -Comments very minimal activity -Risk Stratification: Low Risk No significant Participants left ventricular dysfunction (EF > = 30%) -Fall Risk No -Assistive Devices Cane -Comments last fall Sep 28 2023, was going to pay rent and missed a step and suffered fall to ground. Has scab on knee still. healing well [Exercise Plan] [Intervention] -Exercise Prescription NuStep, Recumbent Bike, Recumbent Elliptical, Treadmill,UBE, Weights -Duration Intensity 36 Sessions -Frequency 2-3x/week -Angina with Exercise Yes [Exercise Education] -Exercise Education Exercise orientation, Exercise safety ,Home exercise, RPE,Self pulse checking,Signs and symptoms, Warmup/cooldown -Education Summary says she sometimes gets palpitations. 2 days ago has an uncomfortable feeling in chest [Exercise Goals] -Exercise Most Days of the Week Yes -Exercise 30-45 mins/day Yes -Target HR Range +20 - +30 beats above resting -Target RPE range 11-13 -Increase METS next 30 days 0.5-1.0 METS Every two weeks -METs goal by Discharge 4 METS -Comments Not really exercising at home. Group Home Goal 4 METS [Nutrition] [Hyperlipidemia] -Hyperlipidemia Yes -Are lab results available No -Lipid Draw Date 08/12/20 -Total Cholesterol 184 -LDL 93 -HDL 23 -Tryglycerides 343 [Diabetes] -Diabetes Yes -Diabetes Type 2 -Fasting Glucose 98 -Date 06/21/23 -Monitors Glucose Yes -Frequency 4 times a day ( presently not doing as glucometer is lost with move) [id number] [Weight Management] -Height 4 ft 11 in -Weight 63 kg -BMI 21.36 -Recommended Diet Patient would like to be 120- 125 pounds. -Comments Lost weight after becoming ill with bug bites . He had been 156 pounds until last August. [Drug/Alchohol Use] -Drug/Alcohol Use No -Comment Methadone for pain. Off of Opiates per patient. [Nutritional Screen (Rate Your Plate)] -Score 59 -Interpretation of Score Some ways to make changes. -Comments Follows Diabetic, low fat diet has been eating increased carbs/sweets since . May benefit from ongoing education for DM as well as cardiac diet. [Nutrition Plan] [Intervention] -Referral(s) Nutrition Brochures [Nutrition Education] -Nutrition Education Diabetes and excercise, Hydration, Nutrition, Reading food labels,Signs and symptoms of Hypo/Hyper- glycemia -Date Completed 10/27/23 -Initials csp -Education Summary discussed BS too high. Importance of taking BS. she is managing her insulin without checking, which is not adequate. Will inform provider office that pt has elevated BS and no glucometer. [Nutrition Goals] -Goals BMI < 25, Fasting BG 80- 120 mg/dL,HDL > 40,LDL < 70, Total CHOL < 200 -Weight goal 125 -Comments Was 156 pounds and became ill after bug bites and lost weight. Lyme negative. Weight now . Diabetes better controlled. She would like to be 120-125 pounds. 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 Has anxiety and panic disorder . heart attack has worsened her anxiety -Comments since last assessment, her anxiety is less and PHQ9 score much better -Patient Self-Reports Depression Yes -Family Support roommate -Comments has SEARCH CONSULTANT that assists with Cooking/ cleaning/assist with bathing and other ADL's Doing her wound care right now [Psycho/Social Plan] [Psycho/Social Education] -Psycho/Social Education Coping techniques, Depression and CAD,Relaxation Techniques, Reviewed PHQ9 Score w/pt, Signs and symptoms of CAD ,Stress management -Date Completed 06/21/23 -Initials CD -Education Summary Children live in [place]; they call frequently. One son in [place]. Mom is in [place] also. RN will discuss with Community Navigator. Currently works with a Psychiatrist. She was in [place] when she had CT; she cannot find a home since returning. + Anxiety/ Depression. [facility] [Psycho/Social Goals] -Goals Improve depression screen score, Improve depressive symptoms,Manage /reduce stress -Comments Renetta moved into new 2 bed room apartment last month. Depression and anxiety improving. [Other Core Comp] [Risk Factors] -Risk Factors Diabetes, Dyslipidemia, Family History of CAD, Hypertension, Physical Inactivity, Tobacco Use -Comments: Mother has had CT, stroke. She also has Diabetes [Hypertension] -Hypertention Yes -Resting BP: 112/62 [Tobacco Use] -Patient Tobacco Use Status Current everyday Tobacco user -Tobacco use type Cigarette -Smoking packs per day 0.10 -Years smoked 41 -Patient Interested in Nicotine No: has patches Replacement . doing her own method -Smoking Quit Date Not yet -Exposure to secondhand smoke No -Comments According to Dr notes over summer she was interested in quitting smoking and states she is very motivated to quit Presently working on cutting back on own. Not interested in additional medication at this time. Smoking only 2 cigarettes a day. [Heart Failure] -Heart Failure No [Other Core Comp Plan] [Intervention] -Referral(s) Self Monitoring BP [Other Core Comp Education] -Other Core Comp Education Medication compliance,Risk factor modifications, RPD Scale/SOB management, Smoking and CAD ,Tobacco triggers, Understanding hypertension, Not Applicable -Initials CD -Education Summary SEARCH CONSULTANT gives medication, assists with ADL's, shopping , meals. Has SEARCH CONSULTANT 2 hrs. at night, 21.5 hrs ./week during the day total of 73 hrs. every 2 weeks. States understanding of risk modification. States blood sugars are better controlled since losing weight. She wishes to continue with plan to gradually decrease smoking. She monitors her BP herself at home. Has been on the lower side now. [Other Core Comp Goals] -Goals Improve dyspnea ,Manage risk factors, Medication compliance, Resting BP < 130/80,Tobacco cessation -Comments SEARCH CONSULTANT checks BP and gives medication. She is working on smoking cessation. Risk Factors that you can control and not control discussed. [Medication Plan] [Intervention] -Medications ASA 81 MG DAILY ATORVASTATIN 80 MG HS BRULINTA 90 MG BID CLONAZEPAM 0.5 MG DAILY CLONIDINE 0.2 MG DAILY DOXYCYSLINE MG BID HUMALOG SLIDING SCALE [id number] UNITS DAILY HS LISINOPRIL 2.5 MG PRN FOR ELEVATED BP METHADONE 88 MG DAILY OMEGA 3 FATTY ACID DAILY [Medication Education] -Education Importance of medication compliance, Medication purpose, Medication schedule, Medication side effects -Date Completed 10/27/23 -Initials CSP -Education Summary REVIEWED ALL HER MEDS. SHE UNDERSTOOD WHAT THEY ARE FOR, HOWEVER SHE IS NOT TAKING INSULINE ON SLIDING SCALE BECAUSE SHE HAS LOST HER GLUCOMETER IN MOVE. ( SHE MOVED IN [place]UG). SO IT IS CONCERNING WITH ELEVATED BS THAT SHE HAS NOT BEEN TAKING INSULIN CORRECTLY FOR SOME TIME RESULTING IN POOR DIABETES MANAGEMENT. WHILE SHE IS VERY POLITE ABOUT EVERYTHING, IT IS CONCERNING. SHE STATES THAT SHE WAS SUPOSED TO GET A MONITORING DEVICE SHE CAN WEAR FOR DIABTESE MANAGEMENT, HOWEVER THERE IS ISSUES WITH COVERAGE. SHE STATES SHE IS OGING TO BUY A GLUCOMETER TODAY WHILE SHE WAITS FOR APPROVAL [Medication Goals] -Comments UNABLE TO START CR TODAY DUE TO ELEVATED BS THAT DID NOT COME DOWN WITH DRINKING WATER. [Treatment Times] -Rehab Services with ECG Monitor -Time 1000 -End Time 1100 -Visit Duration 60
[2023-11-22 14:42] VITALS: BP 110/58; BMI 21.4
[2023-12-20 08:00] VITALS: BP 110/58; BMI 21.4
--- NOTE | 2023-12-20 08:30 | MHC.CR.ITR ---
[address] [phone] F: [phone] Please see additional notes from [facility] Cardiac Rehab Reassessment/ITP Cardiac Rehab Reassessment/ITP Start: 10/27/23 08:39 Freq: Status: Active Protocol: Activity Type Activity Date Activity User E-sign Co-sign Detail Recorded Client Recorded Date Recorded By Document 12/20/23 08:00 JOO [id number] 12/20/23 08:02 DANIELAngelina 12/20/23 08:00 Cardiac Rehab Reassessment/ITP [Exercise] -Slag Worker Required No -Preferred Language French -Progress Note Type 60-Day Note -Total Sessions Attended 10 -Comments Rotator Cuff repair right shoulder 2018, RA-pain is generally left shoulder, back, and right knee , left hip( states bone on bone). Takes Methadone for pain. She no longer takes Opiates. 07/18/23-Patient had symptomatic Bradycardic and Bigeminy during initial evaluation. Cardiac Rehab is on hold per MD until she has stress test and ( stage 2 speed of 1.9mph and 12% grade, 2/10 chest pressure with isolated PVCs and Ventricular Bigeminy pattern, without EKG changes. Profusion study performed on 07/22/23 results normal myocardial profusion , Gated LVEF 67% and ischemic dilation not present. Negative for Ischemia. CA echo with contrast mild mitral valve stenosis , trace tricuspid valve regurt. No change in study from 2021. No valvular pathology seen on study. down to 2 cigarettes a day, per pt report. 30 Day Assessment: Pt has made gret gains with getting her BS under control and engaging in ex. She has completed 6 visits, has [employer] Rashid for glucose monitoring. SR with rare PVC's . Max met achieved 2.7. 60 Day Assessment- Renetta has been fairly consistent in her cardiac rehab attendance. She was out for a couple of sessions due to being ill. She will be out now for two weeks as she is traveling to [place]. She has been exercising for 45 minutes with a MaxMets of 3 .2. VSS. Tel. SR with rare PVC. Her Lantus and sliding scale have been adjusted and her Blood sugars have been under better control. SHe had one episode of hypoglycemia. Diet, DM, and exercise were reviewed. She has been adding protein/ carbohydrate combinations to her breakfast. She has seen her Internal Combustion Engine Subassembler . She also saw a surgeon for the Abscess on her buttocks. Renetta reported one episode of chest discomfort at home that resolved on its own. She has not reported any chest discomfort at cardiac rehab. SHe had some right ankle discomfort with noted edema at her last session. No recent injury. This has ocurred in the past and she will be following up with Orthopedist. [Functional Assessment] -ECG Summary SR-rare PVC -Home-Based Rehab Pt approved for home-based exercise -Comments Encouraged to do walking 15- 30 min per day on non CR days . -Fall Risk No [Exercise Plan] [Intervention] -Exercise Prescription NuStep, Recumbent Bike, Recumbent Elliptical, Treadmill,UBE, Weights -Duration Intensity 36 Sessions -Exercise Minutes/Day 45 -Exercise Days/Week 3 -Angina with Exercise Yes -Peak METs 3.2 [Home Exercise] -Mode Walk -Frequency 4 days -Intensity Light-Mod -Comments 07/18/23-Home activity per MD . S/S to report discussed at evaluation. She was unable to start program due to Arrhythmia. Stress test pending. 12/20/23- Renetta was encouraged to walk for home exercise. [Exercise Education] -Exercise Education Exercise orientation, Exercise safety ,Home exercise, RPE,Self pulse checking,Signs and symptoms, Warmup/cooldown -Education Summary says she sometimes gets palpitations. 2 days ago has an uncomfortable feeling in chest 12/21/22- Exercise guidelines reviewed during cardiac rehab sessions. Renetta reports RPE each session and is aware of s/s to report. [Exercise Goals] -Exercise Most Days of the Week Yes -Exercise 30-45 mins/day Yes -Target HR Range +20 - +30 beats above resting -Target RPE range 11-13 -Increase METS next 30 days 0.5-1.0 METS Every two weeks -METs goal by Discharge 4 METS -Comments Not really exercising at home. Mcfp Goal 4 METS Max met at 30 day Assessment is 2.7 Working toward goal. 12/20/23- Renetta has attained 3.2 METS. She will continue to work toward goal of 4 when she returns from [place] in two weeks. [Nutrition] [Hyperlipidemia] -Are lab results available No -Hyperlipidemia Yes -Medication Changes Yes -Comments Her insulin was changed since admission, and updated in [facility] already. [Diabetes] -Diabetes Yes -Diabetes Type 2 -Fasting Glucose 98 -Date 06/21/23 [Weight Management] -Weight 63 kg -BMI 21.36 -Comments Lost weight after becoming ill with bug bites . He had been 156 pounds until last August. 12/20/23-Weight 60KG with BMI of 26.7 [Drug/Alchohol Use] -Drug/Alcohol Use No -Change in Use No -Comment Methadone for pain. Off of Opiates per patient. [Nutrition Plan] [Intervention] -Attended Nutrition Brochures [Nutrition Education] -Nutrition Education Diabetes and excercise, Hydration, Nutrition, Reading food labels,Signs and symptoms of Hypo/Hyper- glycemia -Date Completed 10/27/23 -Initials csp -Education Summary discussed BS too high. Importance of taking BS. she is managing her insulin without checking, which is not adequate. Will inform provider office that pt has elevated BS and no glucometer. 30 Day: Glucose and insulin completed regulated now, with increase in insulin and Freestyle Rashid placement. 60 Day-12/20/23- No change from above. Blood sugars are better controlled. Last BS were 159 at start of exercise and 179 post. She had one episode of hypoglycemia. Diet reviewed and she has demonstarted a diet that works with exercise and Diabetes. She works with her Internal Combustion Engine Subassembler . No further hyperglycemia of 300 or above . [Nutrition Goals] -Goals BMI < 25, Fasting BG 80- 120 mg/dL,HDL > 40,LDL < 70, Total CHOL < 200 -Weight goal 125 -Comments Was 156 pounds and became ill after bug bites and lost weight. Lyme negative. Diabetes better controlled. She would like to be 120-125 pounds. 12/20/23-Weight 60KG [Psycho/Social] -Stage of Change Action -Occupation Disabled -PHQ9 Score 5 -Interpretation of Score low risk for depression -Plan of Action/Follow-up Patient works with a Psychiatrist and is taking medication. Has anxiety and panic disorder . heart attack has worsened her anxiety 60 Day-As above . Renetta likes to listen to music/ prayer when exercising. -Patient Self-Reports Depression Yes -Comments since last assessment, her anxiety is less and PHQ9 score much better [Psycho/Social Plan] [Psycho/Social Education] -Psycho/Social Education Coping techniques, Depression and CAD,Relaxation Techniques, Reviewed PHQ9 Score w/pt, Signs and symptoms of CAD ,Stress management -Date Completed 06/21/23 -Initials CD -Education Summary Children live in [place]; they call frequently. One son in [place]. Mom is in [place] also. RN will discuss with Community Navigator. Currently works with a Psychiatrist. She was in [place] when she had CO; she cannot find a home since returning. + Anxiety/ Depression. Recently moved to new apartment in Aug. 12/20/23- Renetta will be in [place] for two weeks. She listens to music/prayer. [Psycho/Social Goals] -Goals Improve depression screen score, Improve depressive symptoms,Manage /reduce stress -Comments Renetta moved into new 2 bed room apartment last month. Depression and anxiety improving. 30 Day: Renetta reports feeling better and settled in. Making progress with diet and exercise and feeling more hopeful. 60 Day-As above . Renetta has been consistent in her attendance and participates in educational sessions. She expresses that she has been feeling better. [Other Core Comp] [Hypertension] -Hypertention Yes -Resting BP: 110/58 -Medication Changes No -Comments 12/20/23-Resting BP 116/50 pre exercise and 100/44 post exercise [Tobacco Use] -Change in Use No -Comments According to notes over summer she was interested in quitting smoking and states she is very motivated to quit Presently working on cutting back on own. Not interested in additional medication at this time. Smoking only 2 cigarettes a day. 60 Day-As above [Heart Failure] -Heart Failure No -Dyspnea at Rest No -Dyspnea with Exercise No [Other Core Comp Plan] [Intervention] -Attended Self Monitoring BP [Other Core Comp Education] -Other Core Comp Education Medication compliance,Risk factor modifications, RPD Scale/SOB management, Smoking and CAD ,Tobacco triggers, Understanding hypertension, Not Applicable -Initials CD -Education Summary SKEIN SPOOLER gives medication, assists with ADL's, shopping , meals. Has SKEIN SPOOLER 2 hrs. at night, 21.5 hrs ./week during the day total of 73 hrs. every 2 weeks. States understanding of risk modification. States blood sugars are better controlled since losing weight. She wishes to continue with plan to gradually decrease smoking. She monitors her BP herself at home. Has been on the lower side now. 12/20/23 -60 Day -VSS. Blood Sugar has been better controlled and she expresses understanding of diet and exercise, and monitoring BS. She is taking Insulin as ordered. [Other Core Comp Goals] -Goals Improve dyspnea ,Manage risk factors, Medication compliance, Resting BP < 130/80,Tobacco cessation -Comments SKEIN SPOOLER checks BP and gives medication. She is working on smoking cessation. Risk Factors that you can control and not control discussed. 12/20/23-60 Day- As above [Medication Plan] [Intervention] -Medications ASA 81 MG DAILY ATORVASTATIN 80 MG HS BRULINTA 90 MG BID CLONAZEPAM 0.5 MG DAILY CLONIDINE 0.2 MG DAILY DOXYCYSLINE MG BID HUMALOG SLIDING SCALE LANTUS 28 UNITS DAILY HS LISINOPRIL 2.5 MG PRN FOR ELEVATED BP METHADONE 88 MG DAILY OMEGA 3 FATTY ACID DAILY -Compliance Patient reports compliance w/ prescribed meds [Medication Education] -Education Importance of medication compliance, Medication purpose, Medication schedule, Medication side effects -Date Completed 10/27/23 -Initials CSP -Education Summary REVIEWED ALL HER MEDS. SHE UNDERSTOOD WHAT THEY ARE FOR, HOWEVER SHE IS NOT TAKING INSULINE ON SLIDING SCALE BECAUSE SHE HAS LOST HER GLUCOMETER IN MOVE. ( SHE MOVED IN AUG). SO IT IS CONCERNING WITH ELEVATED BS THAT SHE HAS NOT BEEN TAKING INSULIN CORRECTLY FOR SOME TIME RESULTING IN POOR DIABETES MANAGEMENT. WHILE SHE IS VERY POLITE ABOUT EVERYTHING, IT IS CONCERNING. SHE STATES THAT SHE WAS SUPOSED TO GET A MONITORING DEVICE SHE CAN WEAR FOR DIABTESE MANAGEMENT, HOWEVER THERE IS ISSUES WITH COVERAGE. SHE STATES SHE IS OGING TO BUY A GLUCOMETER TODAY WHILE SHE WAITS FOR APPROVAL 12/21/22- Renetta now has Rashid system and is monitoring blood sugar. [Medication Goals] -Goals Adherence to medication compliance -Comments No further trouble with BS affecting pt's ability to participate. Med compliance reported as nearly 100% 12/20/23-As above. Renetta has demonstrated knowledge of diet and Diabetes management ( with reinforcement, additional teaching). She follows up with MD's.
[2024-01-18 14:34] VITALS: BP 110/58; BMI 21.4
--- NOTE | 2024-01-20 11:56 | MHC.CR.ITR ---
Cardiac Rehab Reassessment/ITP Cardiac Rehab Reassessment/ITP Start: 10/27/23 08:39 Freq: Status: Active Protocol: Activity Type Activity Date Activity User E-sign Co-sign Detail Recorded Client Recorded Date Recorded By Document 01/18/24 14:34 JOO [id number] 01/18/24 14:50 DANIELAngelina 01/18/24 14:34 Cardiac Rehab Reassessment/ITP [Exercise] -President Required No -Preferred Language [place] Island[place] -Progress Note Type 60-Day Note -Total Sessions Attended 18 -Comments Rotator Cuff repair right shoulder 2019, RA-pain is generally left shoulder, back, and right knee , left hip( states bone on bone). Takes Methadone for pain. She no longer takes Opiates. 07/18/23-Patient had symptomatic Bradycardic and Bigeminy during initial evaluation. Cardiac Rehab is on hold per MD until she has stress test and ( stage 2 speed of 1.9mph and 12% grade, 2/10 chest pressure with isolated PVCs and Ventricular Bigeminy pattern, without EKG changes. Profusion study performed on 07/22/23 results normal myocardial profusion , Gated LVEF 67% and ischemic dilation not present. Negative for Ischemia. CA echo with contrast mild mitral valve stenosis , trace tricuspid valve regurt. No change in study from 2021. No valvular pathology seen on study. down to 2 cigarettes a day, per pt report. 30 Day Assessment: Pt has made gret gains with getting her BS under control and engaging in ex. She has completed 6 visits, has [employer] for glucose monitoring. SR with rare PVC's . Max met achieved 2.7. 60 Day Assessment- Renetta has been fairly consistent in her cardiac rehab attendance. She was out for a couple of sessions due to being ill. She will be out now for two weeks as she is traveling to [place]. She has been exercising for 45 minutes with a MaxMets of 3 .2. VSS. Tel. SR with rare PVC. Her Lantus and sliding scale have been adjusted and her Blood sugars have been under better control. SHe had one episode of hypoglycemia. Diet, DM, and exercise were reviewed. She has been adding protein/ carbohydrate combinations to her breakfast. She has seen her Flame Cutting Supervisor . She also saw a surgeon for the Abscess on her buttocks. Renetta reported one episode of chest discomfort at home that resolved on its own. She has not reported any chest discomfort at cardiac rehab. She had some right ankle discomfort with noted edema at her last session. No recent injury. This has occurred in the past and she will be following up with Orthopedist. 90 Day-01/18/24- Renetta has been fairly consistent in her attendance. Expresses she went to [place] due to mother's health . VSS. Tel. SR [Functional Assessment] -ECG Summary SR-rare PVC -Home-Based Rehab Pt approved for home-based exercise -Comments Encouraged to do walking 15- 30 min per day on non CR days . 01/18/24-Started walking at home. She is generally active. -Fall Risk No [Exercise Plan] [Intervention] -Exercise Prescription NuStep, Recumbent Bike, Recumbent Elliptical, Treadmill,UBE, Weights -Duration Intensity 36 Sessions -Exercise Minutes/Day 45 -Exercise Days/Week 3 -Angina with Exercise Yes -Peak METs 3.2 [Home Exercise] -Mode Walk -Frequency 4 days -Intensity Light-Mod -Comments 07/18/23-Home activity per MD . S/S to report discussed at evaluation. She was unable to start program due to Arrhythmia. Stress test pending. 12/20/23- Renetta was encouraged to walk for home exercise. 01/18/24- Encouraged to continue home walking [Exercise Education] -Exercise Education Exercise orientation, Exercise safety ,Home exercise, RPE,Self pulse checking,Signs and symptoms, Warmup/cooldown -Education Summary says she sometimes gets palpitations. 2 days ago had an uncomfortable feeling in chest 12/21/22- Exercise guidelines reviewed during cardiac rehab sessions. Renetta reports RPE each session and is aware of s/s to report. B 01/18/24-[facility] Cardiac Rehab Living with Heart Disease book given. Book will be reviewed at each educational session. Exercise guidelines, response discussed at each exercise session. Expresses understanding of RPE, S/S to report, warm up /cool down, and DIabetic considerations. [Exercise Goals] -Exercise Most Days of the Week Yes -Exercise 30-45 mins/day Yes -Target HR Range +20 - +30 beats above resting -Target RPE range 11-13 -Increase METS next 30 days 0.5-1.0 METS Every two weeks -METs goal by Discharge 4 METS -Comments Not really exercising at home. Long-Term Goal 4 METS Max met at 30 day Assessment is 2.7 Working toward goal. 12/20/23- Renetta has attained 3.2 METS. She will continue to work toward goal of 4 when she returns from [place] in two weeks. 01/18/24-Will continue with goal of 4 METS within 30 Days [Nutrition] [Hyperlipidemia] -Are lab results available No -Hyperlipidemia Yes -Medication Changes Yes -Comments Her insulin was changed since admission, and updated in LSI already. 01/18/24-No further changes [Diabetes] -Diabetes Yes -Diabetes Type 2 -Fasting Glucose 98 -Date 06/21/23 [Weight Management] -Weight 63 kg -BMI 21.36 -Comments Lost weight after becoming ill with bug bites . He had been 156 pounds until last August. 12/20/23-Weight 60KG with BMI of 26.7 01/18/24-Weight staying at 60KG [Drug/Alchohol Use] -Drug/Alcohol Use No -Change in Use No -Comment Methadone for pain. Off of Opiates per patient. 01/18/24-No change [Nutrition Plan] [Intervention] -Attended Nutrition Brochures [Nutrition Education] -Nutrition Education Diabetes and excercise, Hydration, Nutrition, Reading food labels,Signs and symptoms of Hypo/Hyper- glycemia -Date Completed 10/27/23 -Initials csp -Education Summary discussed BS too high. Importance of taking BS. she is managing her insulin without checking, which is not adequate. Will inform provider office that pt has elevated BS and no glucometer. 30 Day: Glucose and insulin completed regulated now, with increase in insulin and Freestyle Rashid placement. 60 Day-12/20/23- No change from above. Blood sugars are better controlled. Last BS were 159 at start of exercise and 179 post. She had one episode of hypoglycemia. Diet reviewed and she has demonstrated a diet that works with exercise and Diabetes. She works with her Flame Cutting Supervisor . No further hyperglycemia of 300 or above . 90 Day-01/18/24- States her BS is much better controlled. She is eating five smaller meals a day. She checks her BS frequently; she has snacks available if needed. DM and exercise, s/s to report discussed. She has cut out fats, greasy foods, has lean meats. EVerything is baked and she no loger eats out/goes to fast food restaurants. [Nutrition Goals] -Goals BMI < 25, Fasting BG 80- 120 mg/dL,HDL > 40,LDL < 70, Total CHOL < 200 -Weight goal 125 -Comments Was 156 pounds and became ill after bug bites and lost weight. Lyme negative. Diabetes better controlled. She would like to be 120-125 pounds. 12/20/23-Weight 60KG 01/18/24-No change [Psycho/Social] -Stage of Change Action -Occupation Disabled -PHQ9 Score 5 -Interpretation of Score low risk for depression -Plan of Action/Follow-up Patient works with a Psychiatrist and is taking medication. Has anxiety and panic disorder . heart attack has worsened her anxiety 60 Day-As above . Renetta likes to listen to music/ prayer when exercising. 90 Day-As above . Renetta works with a therapist. States she feels her depression is controlled but becomes anxious at time. -Patient Self-Reports Depression Yes -Comments since last assessment, her anxiety is less and PHQ9 score much better [Psycho/Social Plan] [Psycho/Social Education] -Psycho/Social Education Coping techniques, Depression and CAD,Relaxation Techniques, Reviewed PHQ9 Score w/pt, Sexuality and CAD,Signs and symptoms of CAD ,Stress management -Date Completed 06/21/23 -Initials CD -Education Summary Children live in [place]; they call frequently. One son in [place]. Mom is in [place] also. RN will discuss with Community Navigator. Currently works with a Psychiatrist. She was in [place] when she had MN; she cannot find a home since returning. + Anxiety/ Depression. Recently moved to [facility] in Aug. 12/20/23- Renetta will be in [place] for two weeks. She listens to music/prayer. 90 Day- Expresses she is not sexually active. States understanding of risk modification and family history. Depression is controled per Renetta. She finds comfort in prayer nd music. [Psycho/Social Goals] -Goals Improve depression screen score, Improve depressive symptoms,Manage /reduce stress -Comments Renetta moved into new 2 bed room apartment last month. Depression and anxiety improving. 30 Day: Renetta reports feeling better and settled in. Making progress with diet and exercise and feeling more hopeful. 60 Day-As above . Renetta has been consistent in her attendance and participates in educational sessions. She expresses that she has been feeling better. 90 Day- Expresses she is pleased with her progress and is feeling stronger. Renetta feels depression is controlled. [Other Core Comp] [Hypertension] -Hypertention Yes -Resting BP: 110/58 -Medication Changes No -Comments 12/20/23-Resting BP 116/50 pre exercise and 100/44 post exercise 90 Day-01/18/24- BP in CR. Renetta checks BP at home. States BP is usually i 120's. She has had one reading of 132. [Tobacco Use] -Change in Use No -Comments According to notes over summer she was interested in quitting smoking and states she is very motivated to quit Presently working on cutting back on own. Not interested in additional medication at this time. Smoking only 2 cigarettes a day. 60 Day-As above 90 Day-As above . States she does not always finish second cigarette [Heart Failure] -Heart Failure No -Dyspnea at Rest No -Dyspnea with Exercise No [Other Core Comp Plan] [Intervention] -Attended Self Monitoring BP [Other Core Comp Education] -Other Core Comp Education Medication compliance,Risk factor modifications, RPD Scale/SOB management, Smoking and CAD ,Tobacco triggers, Understanding hypertension, Not Applicable -Initials CD -Education Summary BRAKE REPAIRER HYDRAULIC gives medication, assists with ADL's, shopping , meals. Has BRAKE REPAIRER HYDRAULIC 2 hrs. at night, 21.5 hrs ./week during the day total of 73 hrs. every 2 weeks. States understanding of risk modification. States blood sugars are better controlled since losing weight. She wishes to continue with plan to gradually decrease smoking. She monitors her BP herself at home. Has been on the lower side now. 12/20/23 -60 Day -VSS. Blood Sugar has been better controlled and she expresses understanding of diet and exercise, and monitoring BS. She is taking Insulin as ordered. 01/18/24-No issues with medication. She is now comfortable with checking BS, Insulin coverage. No SOB. States she is working with a Pharmacist/MD on smoking cessation. Checks BP at home. SHe states family health history and need for risk modification. [Other Core Comp Goals] -Goals Improve dyspnea ,Manage risk factors, Medication compliance, Resting BP < 130/80,Tobacco cessation -Comments BRAKE REPAIRER HYDRAULIC checks BP and gives medication. She is working on smoking cessation. Risk Factors that you can control and not control discussed. 12/20/23-60 Day- As above 01/18/24-As noted above. She continues work on smoking cessation. Eloy NIEVES workbook on all risk factors given today. [Medication Plan] [Intervention] -Medications ASA 81 MG DAILY ATORVASTATIN 80 MG HS BRULINTA 90 MG BID CLONAZEPAM 0.5 MG DAILY CLONIDINE 0.2 MG DAILY DOXYCYSLINE MG BID HUMALOG SLIDING SCALE LANTUS 28 UNITS DAILY HS LISINOPRIL 2.5 MG PRN FOR ELEVATED BP METHADONE 88 MG DAILY OMEGA 3 FATTY ACID DAILY -Compliance Patient reports compliance w/ prescribed meds [Medication Education] -Education Importance of medication compliance, Medication purpose, Medication schedule, Medication side effects -Date Completed 10/27/23 -Initials CSP -Education Summary REVIEWED ALL HER MEDS. SHE UNDERSTOOD WHAT THEY ARE FOR, HOWEVER SHE IS NOT TAKING INSULINE ON SLIDING SCALE BECAUSE SHE HAS LOST HER GLUCOMETER IN MOVE. ( SHE MOVED IN AUG). SO IT IS CONCERNING WITH ELEVATED BS THAT SHE HAS NOT BEEN TAKING INSULIN CORRECTLY FOR SOME TIME RESULTING IN POOR DIABETES MANAGEMENT. WHILE SHE IS VERY POLITE ABOUT EVERYTHING, IT IS CONCERNING. SHE STATES THAT SHE WAS SUPOSED TO GET A MONITORING DEVICE SHE CAN WEAR FOR DIABTESE MANAGEMENT, HOWEVER THERE IS ISSUES WITH COVERAGE. SHE STATES SHE IS OGING TO BUY A GLUCOMETER TODAY WHILE SHE WAITS FOR APPROVAL 12/21/22- Renetta now has Rashid system and is monitoring blood sugar. 01/18/24-As above. Monitors BS and respnds with appropriate diet, Insulin responses, [Medication Goals] -Goals Adherence to medication compliance -Comments No further trouble with BS affecting pt's ability to participate. Med compliance reported as nearly 100% 12/20/23-As above. Renetta has demonstrated knowledge of diet and Diabetes management ( with reinforcement, additional teaching). She follows up with MD's. 01/18/24-As above
[2024-02-28 10:42] VITALS: BP 110/58; BP 122/58; BP 138/60; BMI 21.4
--- NOTE | 2024-02-28 10:54 | MHC.CR.ITD ---
[address] [phone] F: [phone] Please see additional notes from [facility] Pt discharging after 22 visits due to achilles tendon tear and inability to exercise at this time. 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 Takes Methadone for pain. She no longer takes Opiates. 07/18/23-Patient had symptomatic Bradycardic and Bigeminy during initial evaluation. Cardiac Rehab is on hold per MD until she has stress test and ( stage 2 speed of 1.9mph and 12% grade, 2/10 chest pressure with isolated PVCs and Ventricular Bigeminy pattern, without EKG changes. Profusion study performed on 07/22/23 results normal myocardial profusion , Gated LVEF 67% and ischemic dilation not present. Negative for Ischemia. CA echo with contrast mild mitral valve stenosis , trace tricuspid valve regurt. No change in study from 2021. No valvular pathology seen on study. down to 2 cigarettes a day, per pt report. 30 Day Assessment: Pt has made gret gains with getting her BS under control and engaging in ex. She has completed 6 visits, has [employer] for glucose monitoring. SR with rare PVC's . Max met achieved 2.7. 60 Day Assessment- Renetta has been fairly consistent in her cardiac rehab attendance. She was out for a couple of sessions due to being ill. She will be out now for two weeks as she is traveling to [place]. She has been exercising for 45 minutes with a MaxMets of 3 .2. VSS. Tel. SR with rare PVC. Her Lantus and sliding scale have been adjusted and her Blood sugars have been under better control. SHe had one episode of hypoglycemia. Diet, DM, and exercise were reviewed. She has been adding protein/ carbohydrate combinations to her breakfast. She has seen her Ticket Scheduler . She also saw a surgeon for the Abscess on her buttocks. Renetta reported one episode of chest discomfort at home that resolved on its own. She has not reported any chest discomfort at cardiac rehab. She had some right ankle discomfort with noted edema at her last session. No recent injury. This has occurred in the past and she will be following up with Orthopedist. 90 Day-01/18/24- Renetta has been fairly consistent in her attendance. Expresses she went to [place] due to mother's health . VSS. Tel. SR Discharge: Pt to be discharged at this time. She has completed 22 visits total . She tore her Achilles tendon and is suffering with pain and unable to participate in ex at this time, despite having a brace. Discussed with her that should she want to return at some point after possible surgery to repair achilles she can reach out and process can be restarted. [Functional Assessment] -6 Min Walk (distance in ft) 870 -Stress Test (Mode) walk -METS Achieved 2.26 -Resting HR 57 -Resting BP 122/58 -Resting SpO2 99 -Exercise HR 65 -Exercise BP 138/60 -RPE 11 -ECG Summary SR-rare PVC This is initial 6 min walk. Unable to do walk test at discharge due to achilles tendon. -Fall Risk No [Exercise Plan] [Intervention] -Exercise Prescription NuStep, Recumbent Bike, Recumbent Elliptical, Treadmill,UBE, Weights -Duration Intensity 36 Sessions -Exercise Minutes/Day 45 -Exercise Days/Week 3 -Angina with Exercise Yes -Peak METs 3.2 [Home Exercise] -Mode Walk -Frequency 4 days -Intensity Light-Mod -Comments 07/18/23-Home activity per MD . S/S to report discussed at evaluation. She was unable to start program due to Arrhythmia. Stress test pending. 12/20/23- Renetta was encouraged to walk for home exercise. 01/18/24- Encouraged to continue home walking Discharge: No ex right now due to achilles tendon. she does understand how to apply ex education learned in [facility]. [Exercise Education] -Exercise Education Exercise orientation, Exercise safety ,Home exercise, RPE,Self pulse checking,Signs and symptoms, Warmup/cooldown -Education Summary says she sometimes gets palpitations. 2 days ago had an uncomfortable feeling in chest 12/21/22- Exercise guidelines reviewed during cardiac rehab sessions. Renetta reports RPE each session and is aware of s/s to report. B 01/18/24-[facility] Cardiac Rehab Living with Heart Disease book given. Book will be reviewed at each educational session. Exercise guidelines, response discussed at each exercise session. Expresses understanding of RPE, S/S to report, warm up /cool down, and Diabetic considerations. 01/27/2024 Education about Warm up and Cool down and Target HR with ex. Using RPE scale successfully. [Exercise Goals] -Exercise Most Days of the Week Yes -Exercise 30-45 mins/day Yes -Target HR Range +20 - +30 beats above resting -Target RPE range 11-13 -Increase METS next 30 days 0.5-1.0 METS Every two weeks -METs goal by Discharge 4 METS -Comments Not really exercising at home. Human Services Case Manager Goal 4 METS Max met at 30 day Assessment is 2.7 Working toward goal. 12/20/23- Renetta has attained 3.2 METS. She will continue to work toward goal of 4 when she returns from [place] in two weeks. 01/18/24-Will continue with goal of 4 METS within 30 Days Did not get to achieve goal. Goal not met. [Nutrition] [Hyperlipidemia] -Are lab results available No -Hyperlipidemia Yes -Lipid Draw Date 08/12/20 -Total Cholesterol 184 -LDL 93 -HDL 23 -Tryglycerides 343 -Comments Her insulin was changed since admission, and updated in [facility] already. 01/18/24-No further changes No updated results at discharge. [Diabetes] -Diabetes Yes -Diabetes Type 2 -Fasting Glucose 98 -Date 06/21/23 -Comments Continues to take meds as prescribed and has freestyle Rashid adhesive sensor. Her BS have been much better since she started CR [Weight Management] -Weight 63 kg -BMI 21.36 -Comments Lost weight after becoming ill with bug bites . He had been 156 pounds until last August. 12/20/23-Weight 60KG with BMI of 26.7 01/18/24-Weight staying at 60KG Weight gain to 66.4kg at last visit. Discharge [Drug/Alchohol Use] -Drug/Alcohol Use No -Change in Use No -Comment Methadone for pain. Off of Opiates per patient. 01/18/24-No change Discharge: no change [Nutrition Plan] [Intervention] -Attended Nutrition Brochures [Nutrition Education] -Nutrition Education Diabetes and excercise, Hydration, Nutrition, Reading food labels,Signs and symptoms of Hypo/Hyper- glycemia -Date Completed 10/27/23 -Initials csp -Education Summary discussed BS too high. Importance of taking BS. she is managing her insulin without checking, which is not adequate. Will inform provider office that pt has elevated BS and no glucometer. 30 Day: Glucose and insulin completed regulated now, with increase in insulin and Freestyle Rashid placement. 60 Day-12/20/23- No change from above. Blood sugars are better controlled. Last BS were 159 at start of exercise and 179 post. She had one episode of hypoglycemia. Diet reviewed and she has demonstrated a diet that works with exercise and Diabetes. She works with her Ticket Scheduler . No further hyperglycemia of 300 or above . 90 Day-01/18/24- States her BS is much better controlled. She is eating five smaller meals a day. She checks her BS frequently; she has snacks available if needed. DM and exercise, s/s to report discussed. She has cut out fats, greasy foods, has lean meats. EVerything is baked and she no loger eats out/goes to fast food restaurants. [Nutrition Goals] -Goals BMI < 25, Fasting BG 80- 120 mg/dL,HDL > 40,LDL < 70, Total CHOL < 200 -Weight goal 125 -Comments Was 156 pounds and became ill after bug bites and lost weight. Lyme negative. Diabetes better controlled. She would like to be 120-125 pounds. 12/20/23-Weight 60KG 01/18/24-No change Discharge 66.4 kg [Psycho/Social] -Stage of Change Action -Occupation Disabled -PHQ9 Score 5 -Interpretation of Score low risk for depression -Plan of Action/Follow-up Patient works with a Psychiatrist and is taking medication. Has anxiety and panic disorder . heart attack has worsened her anxiety 60 Day-As above . Renetta likes to listen to music/ prayer when exercising. 90 Day-As above . Renetta works with a therapist. States she feels her depression is controlled but becomes anxious at time. Discharge: pt feeling a bit down about her new injury and pain related to it. -Patient Self-Reports Depression Yes -Comments since last assessment, her anxiety is less and PHQ9 score much better -Medication Changes No [Psycho/Social Plan] [Psycho/Social Education] -Psycho/Social Education Coping techniques, Depression and CAD,Relaxation Techniques, Reviewed PHQ9 Score w/pt, Sexuality and CAD,Signs and symptoms of CAD ,Stress management -Date Completed 06/21/23 -Initials CD -Education Summary Children live in [place]; they call frequently. One son in [place]. Mom is in [place] also. RN will discuss with Community Navigator. Currently works with a Psychiatrist. She was in [place] when she had NE; she cannot find a home since returning. + Anxiety/ Depression. Recently moved to new apartment in Aug. 12/20/23- Renetta will be in [place] for two weeks. She listens to music/prayer. 90 Day- Expresses she is not sexually active. States understanding of risk modification and family history. Depression is controled per Renetta. She finds comfort in prayer nd music. Dischage: No changes. Has couselor she can speak with if needed. [Psycho/Social Goals] -Goals Improve depression screen score, Improve depressive symptoms,Manage /reduce stress -Comments Renetta moved into new 2 bed room apartment last month. Depression and anxiety improving. 30 Day: Renetta reports feeling better and settled in. Making progress with diet and exercise and feeling more hopeful. 60 Day-As above . Renetta has been consistent in her attendance and participates in educational sessions. She expresses that she has been feeling better. 90 Day- Expresses she is pleased with her progress and is feeling stronger. Renetta feels depression is controlled. Discharge: Depression controlled. [Other Core Comp] [Hypertension] -Hypertention Yes -Resting BP: 110/58 -Medication Changes No -Comments 12/20/23-Resting BP 116/50 pre exercise and 100/44 post exercise 90 Day-01/18/24- BP in [facility]. Renetta checks BP at home. States BP is usually i 120's. She has had one reading of 132. [Tobacco Use] -Change in Use No -Comments According to notes over summer she was interested in quitting smoking and states she is very motivated to quit Presently working on cutting back on own. Not interested in additional medication at this time. Smoking only 2 cigarettes a day. 60 Day-As above 90 Day-As above . States she does not always finish second cigarette [Heart Failure] -Dyspnea at Rest No -Dyspnea with Exercise No [Other Core Comp Plan] [Intervention] -Attended Self Monitoring BP [Other Core Comp Education] -Other Core Comp Education Medication compliance,Risk factor modifications, RPD Scale/SOB management, Smoking and CAD ,Tobacco triggers, Understanding hypertension, Not Applicable -Initials CD -Education Summary HOISTER gives medication, assists with ADL's, shopping , meals. Has HOISTER 2 hrs. at night, 21.5 hrs ./week during the day total of 73 hrs. every 2 weeks. States understanding of risk modification. States blood sugars are better controlled since losing weight. She wishes to continue with plan to gradually decrease smoking. She monitors her BP herself at home. Has been on the lower side now. 12/20/23 -60 Day -VSS. Blood Sugar has been better controlled and she expresses understanding of diet and exercise, and monitoring BS. She is taking Insulin as ordered. 01/18/24-No issues with medication. She is now comfortable with checking BS, Insulin coverage. No SOB. States she is working with a Pharmacist/MD on smoking cessation. Checks BP at home. SHe states family health history and need for risk modification. [Other Core Comp Goals] -Goals Improve dyspnea ,Manage risk factors, Medication compliance, Resting BP < 130/80,Tobacco cessation -Comments HOISTER checks BP and gives medication. She is working on smoking cessation. Risk Factors that you can control and not control discussed. 12/20/23-60 Day- As above 01/18/24-As noted above. She continues work on smoking cessation. Eoly NIEVES workbook on all risk factors given today. [Medication Plan] [Intervention] -Medications ASA 81 MG DAILY ATORVASTATIN 80 MG HS BRULINTA 90 MG BID CLONAZEPAM 0.5 MG DAILY CLONIDINE 0.2 MG DAILY DOXYCYSLINE MG BID HUMALOG SLIDING SCALE LANTUS 28 UNITS DAILY HS LISINOPRIL 2.5 MG PRN FOR ELEVATED BP METHADONE 88 MG DAILY OMEGA 3 FATTY ACID DAILY -Compliance Patient reports compliance w/ prescribed meds [Medication Education] -Education Importance of medication compliance, Medication purpose, Medication schedule, Medication side effects -Date Completed 10/27/23 -Initials CSP -Education Summary REVIEWED ALL HER MEDS. SHE UNDERSTOOD WHAT THEY ARE FOR, HOWEVER SHE IS NOT TAKING INSULINE ON SLIDING SCALE BECAUSE SHE HAS LOST HER GLUCOMETER IN MOVE. ( SHE MOVED IN AUG). SO IT IS CONCERNING WITH ELEVATED BS THAT SHE HAS NOT BEEN TAKING INSULIN CORRECTLY FOR SOME TIME RESULTING IN POOR DIABETES MANAGEMENT. WHILE SHE IS VERY POLITE ABOUT EVERYTHING, IT IS CONCERNING. SHE STATES THAT SHE WAS SUPOSED TO GET A MONITORING DEVICE SHE CAN WEAR FOR DIABTESE MANAGEMENT, HOWEVER THERE IS ISSUES WITH COVERAGE. SHE STATES SHE IS OGING TO BUY A GLUCOMETER TODAY WHILE SHE WAITS FOR APPROVAL 12/21/22- Renetta now has Rashid system and is monitoring blood sugar. 01/18/24-As above. Monitors BS and respnds with appropriate diet, Insulin responses, [Medication Goals] -Goals Adherence to medication compliance -Comments No further trouble with BS affecting pt's ability to participate. Med compliance reported as nearly 100% 12/20/23-As above. Renetta has demonstrated knowledge of diet and Diabetes management ( with reinforcement, additional teaching). She follows up with MD's. 01/18/24-As above Discharge: At this time patient is taking medication as prescribed.
== END 2024-03-02 08:10 | disposition home or self-care (01) ==
LOC: HO.CR 08:30
PROVIDERS: PCP Internal Medicine; Visit Provider Internal Medicine Cardiovascular Disease
DX: I25.10 Atherosclerotic heart disease of native coronary artery without angina pectoris (principal); Z95.5 Presence of coronary angioplasty implant and graft
CPT/HCPCS: 82947; 93798

== ENCOUNTER 2024-04-04 08:51 | Outpatient (AMB) | payer MEDICAID, SELFPAY ==
[2023-10-27 08:39] VITALS: BP 122/58; BP 138/60
[2023-12-20 08:00] VITALS: BP 110/58; BMI 21.4
[2024-01-18 14:34] VITALS: BP 110/58; BMI 21.4
[2024-04-04 09:02] VITALS: BP 100/76; BMI 29.3
--- NOTE | 2024-04-04 09:02 | MHC.OFFVIS ---
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 No complaints. Last Pap/HPV was negative in 06/17 Last Mammogram was BI-RADS 1 in 12/20, MRI done in 05/20 was BI-RADS 2 in on the left side and BI-RADS 1 on the right side, the patient was seen by Dr. Dewitt genetic testing was done on 03/19 which came back negative and lowered her lifetime breast cancer below the 20% Last colonoscopy was in 05/15, the recommendation was to repeat in 5 years [facility] Medical History Bilateral lower extremity postoperative compartment syndrome CAD (coronary artery disease) Panic attack Anxiety Arthritis Neuropathy HTN (hypertension) Diabetes mellitus Surgical History Stented coronary artery H/O shoulder surgery Hx of section Hx of cholecystectomy History of bilateral tubal ligation Family History Mother Breast CA, Onset Age: 40 Heart disease Father Heart attack Social History Household Members 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 Housing: House Alcohol intake: never Patient Tobacco Use Status: Current everyday Tobacco user Tobacco use type: Cigarette Cigarette Packs Per Day: 0.10 Cigarettes Per Day: 2 Years Smoked: 41 Current occupational status: disabled Sexual orientation: Straight/Heterosexual Gender identity: Female Female Reproductive History Menstrual Age of Menarche: 13 Date of last pap smear: 06/02/21 (neg pap and hpv) Date of Mammogram: 12/24/22 Review of Systems Const All systems reviewed & are unremarkable except as noted in HPI and below Card Reports as per HPI Resp Reports as per HPI GI Reports as per HPI and Reports no additional complaints Reports as per HPI Physical Exam Vital Signs: BMI result Body Mass Index 29.3 Const General: cooperative, healthy appearing and comfortable Chest Chest palpation & inspection: normal inspection of the chest and normal palpation of entire chest wall Breast/axilla inspection: normal inspection of the breasts and normal inspection of the axillae Breast/axilla palpation: normal palpation of the breasts, normal palpation of the axillae and no axillary lymphadenopathy Resp Effort & Inspection: normal respiratory effort Auscultation: clear to auscultation bilaterally Percussion: percussion normal Cardio Palpation: normal PMI Rate: regular rate Rhythm: regular rhythm Heart sounds: no murmurs and no rubs Peripheral pulses: Peripheral pulses 2+ throughout GI Inspection: Yes normal to inspection Palpation (GI): Soft to palpation, nontender, no guarding, not rigid and No hepatosplenomegaly present Percussion: Yes normal to percussion Auscultation: normal bowel sounds Rectal Exam - Female: deferred General: Yes bladder normal to palpation External Female Exam: No lesion Speculum Exam - Vagina: normal appearance of the vagina, normal palpation, normal vaginal discharge and not erythematous Speculum Exam - Cervix: normal appearance of the cervix and normal palpation Bimanual exam- vagina & uterus: normal bimanual exam, normal palpation, bladder normal to palpation, consistency normal, normal palpation and enlarged Bimanual Exam- Adnexa, other: normal adnexae, no masses and no tenderness Assessment & Plan Assessment & Plan (1) Well woman exam: Code(s): Z01.419 - Encounter for gynecological examination (general) (routine) without abnormal findings Category: Medical Plan: Cotesting not indicated this year. Mammogram ordered. The patient was refer to GI for screening colonoscopy. Instructed the patient to call our office back in case a referral appointment is not scheduled, missed or canceled so that we will assist on rescheduling another appointment, the patient verbalized understanding agreed with the plan. Counseled the patient about the recommended dietary allowance of 1000 mg of Calcium & 600 IU of vitamin D. The patient was instructed to perform monthly self-breast exams and to schedule an annual exam in a year; All questions answered and the patient verbalized understanding. Instructed the patient to schedule annual exam in a year (2) Enlarged uterus: Comment: History of myomas Code(s): N85.2 - Hypertrophy of uterus Category: Medical Plan: Discussed with the patient the finding on pelvic exam, enlarged uterus, will order pelvic ultrasound. Instructions given to patient to schedule a pelvic ultrasound and a follow-up appointment afterwards. Orders: Orders MM tomosynthesis screening BI Today Z12.31 - Encounter for screening mammogram for malignant neoplasm of breast Referrals Gastroenterology Referral Z12.11 - Encounter for screening for malignant neoplasm of colon Coding Level of Care Code Est Pt Prev Care 40-64y([id number]) Diagnoses Well woman exam Z01.419 Enlarged uterus N85.2
== END 2024-04-04 12:48 | disposition home or self-care (01) ==
PROVIDERS: PCP Internal Medicine; Referring Provider Internal Medicine; Visit Provider Obstetrics & Gynecology
DX: Z01.419 Encounter for gynecological examination (general) (routine) without abnormal findings (principal); N85.2 Hypertrophy of uterus
CPT/HCPCS: 99396

== ENCOUNTER → 2024-04-04 08:51 | Outpatient (BNVA) | payer MEDICAID, SELFPAY | PROVIDERS: Visit Provider Obstetrics & Gynecology | DX: Z01.419 Encounter for gynecological examination (general) (routine) without abnormal findings (principal); N85.2 Hypertrophy of uterus; Z98.51 Tubal ligation status | CPT/HCPCS: 99396 ==

== ENCOUNTER → 2024-05-01 08:30 | Outpatient (BNV) | payer MEDICAID, SELFPAY | PROVIDERS: PCP Internal Medicine; Visit Provider Radiology Diagnostic Radiology | DX: Z12.31 Encounter for screening mammogram for malignant neoplasm of breast (principal) | CPT/HCPCS: 77063; 77067 ==

== ENCOUNTER 2024-05-01 08:33 | Outpatient (REF) | payer MEDICAID, SELFPAY | END 2024-05-01 08:34 | disposition home or self-care (01) | LOC: HO.MAMMO 08:33 | PROVIDERS: PCP Internal Medicine; Visit Provider Obstetrics & Gynecology | DX: Z12.31 Encounter for screening mammogram for malignant neoplasm of breast (principal) | CPT/HCPCS: 77063; 77067 ==

== ENCOUNTER 2024-05-02 10:44 | Outpatient (REF) | payer MEDICAID, SELFPAY ==
--- NOTE | ~2024-05-02 | US_ITS ---
EXAMINATION: US PELVIS CLINICAL INFORMATION: Uterine hypertrophy; the last menstrual period is uncertain. COMPARISON: None. TECHNIQUE: Transabdominal and transvaginal imaging were performed. FINDINGS: The uterus is of normal size and echogenicity, measuring 8.3 x 4.5 x 5.9 cm. The uterus is anteverted and anteflexed. A regular homogeneous endometrium is identified measuring 0.4 cm. Nabothian cysts are seen within the cervix. There is trace endocervical free fluid. FIBROIDS: There are 4 fibroids seen. 1. Location: Anterior fundus, myometrial. Size: 1.9 x 1.4 x 1.5 cm. Prior: 1.5 x 1.2 x 1.6 Fibroid characteristics: Heterogeneous echotexture. 2. Location: Posterior lower body, subendometrial. Size: 1.3 x 1.2 x 1.3 cm. Prior: 1.2 x 1.3 x 1.3 Fibroid characteristics: Heterogeneous echotexture. 3. Location: Posterior upper body, subserosal. Size: 1.3 x 0.8 x 1.1 cm. Prior: 3.2 x 2.7 x 3.6 Fibroid characteristics: Heterogeneously hypoechoic. 4. Location: Leftward body, myometrial. Size: 1.2 x 1.0 x 1.0 cm. Prior: Not seen. Fibroid characteristics: Heterogeneous echotexture. Both ovaries are of normal size and echogenicity. The right ovary measures 2.8 x 1.4 x 1.6 cm for a volume of 3.3 mL. The left ovary measures 2.2 x 0.7 x 1.1 cm for a volume of 0.9 mL. There is no pelvic free fluid. No adnexal mass is seen. US/US pelvic and transvaginal IMPRESSION: 1. There are uterine fibroids, as detailed. 2. Nabothian cysts are seen within the cervix.
== END 2024-05-02 10:45 | disposition home or self-care (01) ==
LOC: HO.US 10:44
PROVIDERS: PCP Internal Medicine; Visit Provider Obstetrics & Gynecology
DX: N85.2 Hypertrophy of uterus (principal)
CPT/HCPCS: 76830; 76856

== ENCOUNTER 2024-06-21 08:35 | Outpatient (REF) | payer MEDICAID, SELFPAY | END 2024-06-21 08:36 | disposition home or self-care (01) | LOC: HO.LNP 08:35 | PROVIDERS: PCP Internal Medicine; Visit Provider Obstetrics & Gynecology | DX: N95.0 Postmenopausal bleeding (principal); D21.9 Benign neoplasm of connective and other soft tissue, unspecified | CPT/HCPCS: 58100; 88305; 99212 ==

== ENCOUNTER 2024-06-21 08:35 | Outpatient (AMB) | payer MEDICAID, SELFPAY ==
[2024-06-21 08:48] VITALS: BMI 28.9
--- NOTE | 2024-06-21 08:48 | A.OFFVIS_ITS ---
Vital Signs 06/21/24 08:48 Height 4 ft 11 in Weight 143 lb 4.807 oz BMI 28.9 Intake Visit Reasons: US follow up Pole Inspector Required: No Information Interpreted: non-clinical & clinical Agricultural Extension Specialist: Agricultural Extension Specialist Present (Aracelis ABRAHAM) Accompanied by: Self / Same As Patient Allergies iodine [IODINE] Allergy (Unknown, Verified 06/21/24 08:51) R/T SHELLFISH ALLERGY shellfish derived [SHELLFISH DERIVED] Allergy (Unknown, Verified 06/21/24 08:51) LIP SWELLING, ITCHY THROAT Post menopausal: Yes HPI Comments Details: Presenting for ultrasound follow-up, complaining of a year history of on and off spotting associated with pelvic cramping and pressure and pelvic pain. Last co testing was done In 06/17 was negativ Pelvic ultrasound done in 05/21 which showed the following: The uterus is of normal size and echogenicity, measuring 8.3 x 4.5 x 5.9 cm. The uterus is anteverted and anteflexed. A regular homogeneous endometrium is identified measuring 0.4 cm. Nabothian cysts are seen within the cervix. There is trace endocervical free fluid. FIBROIDS: There are 4 fibroids seen. 1. Location: Anterior fundus, myometrial. Size: 1.9 x 1.4 x 1.5 cm. Prior: 1.5 x 1.2 x 1.6 Fibroid characteristics: Heterogeneous echotexture. 2. Location: Posterior lower body, subendometrial. Size: 1.3 x 1.2 x 1.3 cm. Prior: 1.2 x 1.3 x 1.3 Fibroid characteristics: Heterogeneous echotexture. 3. Location: Posterior upper body, subserosal. Size: 1.3 x 0.8 x 1.1 cm. Prior: 3.2 x 2.7 x 3.6 Fibroid characteristics: Heterogeneously hypoechoic. 4. Location: Leftward body, myometrial. Size: 1.2 x 1.0 x 1.0 cm. Prior: Not seen. Fibroid characteristics: Heterogeneous echotexture. Both ovaries are of normal size and echogenicity. The right ovary measures 2.8 x 1.4 x 1.6 cm for a volume of 3.3 mL. The left ovary measures 2.2 x 0.7 x 1.1 cm for a volume of 0.9 mL. There is no pelvic free fluid. No adnexal mass is seen. 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 Housing: House Alcohol intake: never Patient Tobacco Use Status: Current everyday Tobacco user Tobacco use type: Cigarette Cigarette Packs Per Day: 0.10 Cigarettes Per Day: 2 Years Smoked: 41 Current occupational status: disabled Sexual orientation: Straight/Heterosexual Gender identity: Female Female Reproductive History Menstrual Age of Menarche: 13 Physical Exam Vital Signs: BMI result Body Mass Index 28.9 Office Procedures Endometrial Biopsy Details: The patient was counseled regarding the indication and benefits of endometrial sampling to rule out endometrial pathology including not limited to endometrial hyperplasia or endometrial cancer and others; The alternatives (Either do nothing vs. hysteroscopy D&C) & the risks were discussed with the patient including but not limited: pain, uterine perforation, bleeding, infection, possible injury to bladder, bowel, ureter, possible need for blood transfusion with all its possible risks. The patient verbalized understanding all questions answered and signed consent. The patient was placed into the dorsal lithotomy position; a speculum was inserted in the vagina. Using aseptic technique for the procedure, the cervix was cleansed with Betadine. The anterior lip of the cervix was grasped with a single tooth tenaculum. The uterus was sounded to 7 cm with a 4 mm Pipelle was used. Tissues samples were obtained and placed in formalin, in a patient labeled container and sent to the pathology department. At the end of the procedure, there was minimal bleeding noted The patient tolerated the procedure well and was discharged in good condition with the following instructions: Nothing in the vagina until the bleeding stops. No sex until the bleeding stops, to call if any of the following occurs: fever (>100.4), flu-like symptoms, abdominal pain, heavy bleeding, four smelling vaginal discharge. The patient was instructed to schedule a Follow up appointment in 2 weeks to discuss pathology results of the biopsy and treatment options. This note was generated with a voice recognition program. Some errors may have been overlooked during the review of this note. Sometimes these errors may affect the content or meaning of a given sentence. [id number] Biopsy Assessment & Plan Assessment & Plan (1) Myoma: Code(s): D21.9 - Benign neoplasm of connective and other soft tissue, unspecified Category: Medical Plan: Discussed with the patient the results of the ultrasound and the size of the my omas. Discussed with the patient risk of myosarcoma and symptoms that are caused by myomas including but not limited to pelvic pain, pressure symptoms, abnormal uterine bleeding. In addition discussed with the patient options of treatment for myomas including: Serial ultrasounds periodically to follow-up on the size of the myoma versus surgical treatment including hysterectomy . All pros and cons, risks and benefits of all options were discussed with the patient. The patient understands that delay in surgical treatment in case of myosarcoma can affect her prognosis, after further discussion, the patient decided to think about it and get back to us next visit (2) Postmenopausal bleeding: Code(s): N95.0 - Postmenopausal bleeding Category: Medical Plan: Discussed with the patient the differential diagnosis of post menopausal bleeding with normal pelvic exam including but not limited to, endometrial hyperplasia, cancer, polyps and other causes; co testing done, since the vaginal bleeding/spotting has been on and off for last year, although endometrial thickness is 4 mm, recommended to proceed with endometrial sampling versus hysteroscopy D&C polypectomy . All pros and cons, risks and benefits of each were discussed with the patient the patient decided to proceed with endometrial biopsy. All questions answered, the patient verbalized understanding and agreed with the plan. EMB done, see procedure This note was generated with a voice recognition program. Some errors may have been overlooked during the review of this note. Sometimes these errors may affect the content or meaning of a given sentence. Orders: Orders AMB Endometrial Biopsy Today N95.0 - Postmenopausal bleeding Coding Level of Care Code Est Pt Level 3 (41187) Procedure Only Diagnoses Myoma D21.9 Postmenopausal bleeding N95.0 CPT Codes Endometrial Biopsy - CPT: 44295-Kxyzxxexoba Biopsy ([id number])
== END 2024-06-21 09:28 | disposition home or self-care (01) ==
LOC: HO.HWS 08:35
PROVIDERS: PCP Internal Medicine; Visit Provider Obstetrics & Gynecology
DX: D25.9 Leiomyoma of uterus, unspecified (principal); N95.0 Postmenopausal bleeding
CPT/HCPCS: 58100; 99213

== ENCOUNTER 2024-08-01 07:42 | Outpatient (AMB) | payer MEDICAID, SELFPAY ==
--- NOTE | 2024-08-01 07:42 | MHC.OFFVIS ---
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 The patient has no complaints, no vaginal bleeding, no feverishness chills or abdominal pain. The endometrial biopsy pathology report showed the following: Endometrium, biopsy: - Scattered superficial strips and rare fragment of inactive endometrium; negative for atypia or hyperplasia. 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 Housing: House Alcohol intake: never Patient Tobacco Use Status: Current everyday Tobacco user Tobacco use type: Cigarette Cigarette Packs Per Day: 0.10 Cigarettes Per Day: 2 Years Smoked: 41 Current occupational status: disabled Sexual orientation: Straight/Heterosexual Gender identity: Female Female Reproductive History Menstrual Age of Menarche: 13 Review of Systems Const All systems reviewed & are unremarkable except as noted in HPI and below Reports as per HPI and Reports no additional complaints GI Reports no additional complaints Reports no additional complaints Physical Exam Vital Signs: BMI result Body Mass Index 28.9 Skin Other: Bilateral skin rash typical of candidiasis underneath bilateral breasts Assessment & Plan Assessment & Plan (1) Postmenopausal bleeding: Code(s): N95.0 - Postmenopausal bleeding Category: Medical Plan: Discussed with the patient the results of the endometrial biopsy showing inactive endometrium. Discussed with the patient the sensitivity, specificity, positive and negative predictive value, of endometrial biopsy in detecting endometrial pathology including but not limited to endometrial hyperplasia, cancer and other pathology; instructed the patient to call in case vaginal bleeding bleeding recurs, the next step will be to proceed with a diagnostic hysteroscopy/D&C for further endometrial sampling evaluation to rule out endometrial pathology. All questions answered and the patient verbalized understanding and agreed with the plan. (2) Myoma: Code(s): D21.9 - Benign neoplasm of connective and other soft tissue, unspecified Category: Medical Plan: Discussed with the patient the findings on pelvic ultrasound & the risk of myosarcoma; discussed with the patient the options of treatment including expectant management versus hysterectomy; the pros and cons, risks benefits of each approach were discussed with the patient including the fact that in cases of myosarcoma, surgical treatment can lead to early diagnosis and positively affects the prognosis; after further discussion, the patient decided to proceed with expectant management. Will repeat pelvic ultrasound periodically. Instructions given to patient to call in case any of the following occurs: pressure symptoms, abnormal uterine bleeding, pelvic pain; and to schedule a six-months pelvic ultrasound and a follow-up appointment . All questions answered, the patient verbalized understanding and agreed with the plan . (3) Skin candidiasis: Comment: Underneath bilateral breasts Code(s): B37.2 - Candidiasis of skin and nail Category: Medical Plan: The patient was instructed to keep the area dry, use hair blower after showering, use baby powder without Talc and Desitin cream in addition to applying lotrisone cream BID x5 days Orders: Orders US pelvic and transvaginal Today D21.9 - Benign neoplasm of connective and other soft tissue, unspecified Medications: New clotrimazole-betamethasone 1-0.05 % 1 appl topical BID 5 days 45 grams 0RF Coding Level of Care Code Est Pt Level 3 (47749) Diagnoses Postmenopausal bleeding N95.0 Myoma D21.9 Skin candidiasis B37.2
[2024-08-01 07:43] VITALS: BMI 28.9
== END 2024-08-01 08:13 | disposition home or self-care (01) ==
LOC: HO.HWS 07:42
PROVIDERS: PCP Internal Medicine; Visit Provider Obstetrics & Gynecology
DX: N95.0 Postmenopausal bleeding (principal); D21.9 Benign neoplasm of connective and other soft tissue, unspecified; B37.2 Candidiasis of skin and nail
CPT/HCPCS: 99213

== ENCOUNTER → 2024-08-01 07:42 | Outpatient (BNVA) | payer MEDICAID, SELFPAY | PROVIDERS: PCP Internal Medicine; Visit Provider Obstetrics & Gynecology | DX: N95.0 Postmenopausal bleeding (principal); D21.9 Benign neoplasm of connective and other soft tissue, unspecified; B37.2 Candidiasis of skin and nail | CPT/HCPCS: 99212 ==

== ENCOUNTER 2024-08-13 10:20 | Outpatient (REF) | payer MEDICAID, SELFPAY ==
--- NOTE | ~2024-08-13 | US_ITS ---
EXAMINATION: US PELVIS. TRANSABDOMINAL AND TRANSVAGINAL CLINICAL INFORMATION: Multiple uterine fibroids. COMPARISON: 05/02/2024 TECHNIQUE: Ultrasound of the pelvis is performed using both transabdominal and transvaginal transducers along with Doppler. Transvaginal imaging is performed due to inadequate visualization transabdominally. FINDINGS: UTERUS: The uterus is anteverted and measures 8.8 x 4.8 x 6.7 cm for a volume of 147 mL (previously 115). The double wall endometrial thickness is 4 mm. Four uterine fibroids are seen and measure ranging in size from 1.2 cm to 1.9 cm. The largest fibroid is mildly pedunculated at the fundus measuring 3.5 x 2.9 x 3.8 cm (previously 3.2 x 2.7 x 3.6 cm). All of the fibroids have increased in size by a few millimeters compared to prior imaging. Nabothian cysts are present in the cervix. ADNEXA: Both ovaries are visualized. There is normal color flow to the adnexa. There is no ovarian torsion. There is no pelvic ascites or fluid collection. Right ovary measures 3.5 x 2.2 x 1.9 cm for a volume of 7.8 mL. Left ovary measures 3.1 x 1.2 x 2.2 cm for a volume of 4.3 mL. US/US pelvic and transvaginal IMPRESSION: Multiple uterine fibroids, most of which have increased in size by a few millimeters compared to prior imaging. Electronically signed by: David Coleman MD 08/15/2024 05:04 PM EDT
== END 2024-08-13 10:21 | disposition home or self-care (01) ==
LOC: HO.US 10:20
PROVIDERS: PCP Internal Medicine; Visit Provider Obstetrics & Gynecology
DX: D21.9 Benign neoplasm of connective and other soft tissue, unspecified (principal)
CPT/HCPCS: 76830; 76856

== ENCOUNTER 2024-09-05 07:31 | Outpatient (AMB) | payer MEDICAID, SELFPAY ==
--- NOTE | 2024-09-05 08:04 | MHC.OFFVIS ---
Vital Signs 09/05/24 08:08 Height 4 ft 11 in Weight 143 lb 4.807 oz BMI 28.9 Intake Visit Reasons: U/S results Rn Residential Required: No Information Interpreted: non-clinical & clinical Accompanied by: Self / Same As Patient Allergies iodine [IODINE] Allergy (Unknown, Verified 09/05/24 08:09) R/T SHELLFISH ALLERGY shellfish derived [SHELLFISH DERIVED] Allergy (Unknown, Verified 09/05/24 08:09) LIP SWELLING, ITCHY THROAT Post menopausal: Yes HPI Comments Details: Presenting for pelvic ultrasound follow-up done in 08/21 regarding myomas previously seen on pelvic ultrasound in 05/21. The patient is complaining of pelvic pain and pressure and dyspareunia Recent ultrasound showed the following: UTERUS: The uterus is anteverted and measures 8.8 x 4.8 x 6.7 cm for a volume of 147 mL (previously 115). The double wall endometrial thickness is 4 mm. Four uterine fibroids are seen and measure ranging in size from 1.2 cm to 1.9 cm. The largest fibroid is mildly pedunculated at the fundus measuring 3.5 x 2.9 x 3.8 cm (previously 3.2 x 2.7 x 3.6 cm). All of the fibroids have increased in size by a few millimeters compared to prior imaging. Nabothian cysts are present in the cervix. ADNEXA: Both ovaries are visualized. There is normal color flow to the adnexa. There is no ovarian torsion. There is no pelvic ascites or fluid collection. Right ovary measures 3.5 x 2.2 x 1.9 cm for a volume of 7.8 mL. Left ovary measures 3.1 x 1.2 x 2.2 cm for a volume of 4.3 mL. 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 Housing: House Alcohol intake: never Patient Tobacco Use Status: Current everyday Tobacco user Tobacco use type: Cigarette Cigarette Packs Per Day: 0.10 Cigarettes Per Day: 2 Years Smoked: 41 Current occupational status: disabled Sexual orientation: Straight/Heterosexual Gender identity: Female Female Reproductive History Menstrual Age of Menarche: 13 Review of Systems Const All systems reviewed & are unremarkable except as noted in HPI and below Reports as per HPI and Reports no additional complaints GI Reports no additional complaints Reports no additional complaints Physical Exam Vital Signs: BMI result Body Mass Index 28.9 Assessment & Plan Assessment & Plan (1) Myoma: Code(s): D21.9 - Benign neoplasm of connective and other soft tissue, unspecified Category: Medical Plan: Discussed with the patient the results the pelvic ultrasound with minimal increase in size of all myomas in addition to the bulk signs and symptoms secondary to uterine myomas. Discussed with the patient risk of myosarcoma and symptoms that are caused by myomas including but not limited to pelvic pain, pressure symptoms, dyspareunia and other. In addition discussed with the patient options of treatment for myomas including but not limited to uterine artery embolization or surgical treatment including hysterectomy . All pros and cons, risks and benefits of all options were discussed with the patient. The patient decided to proceed with surgical definitive treatment. Discussed with the patient the different types of hysterectomies including, vaginal, laparoscopic assisted vaginal, robotic assisted laparoscopic,& abdominal with BSO. All pros, cons, r/b of each approach were discussed the patient including evidence that morbidity is less and recovery is shorter with minimally invasive approaches to hysterectomy. Discussed with the patient the lack of availability of the robot DaVinci robot and/or minimally invasive catering sales manager specialist at [facility]. Will refer the patient to [facility] minimally invasive consumer insight manager surgery division. All questions answered, the patient verbalized understanding and agreed with the plan Instructed the patient to call our office back in case a referral appointment is not scheduled, missed or canceled so that we will assist on rescheduling another appointment, the patient verbalized understanding agreed with the plan. Coding Level of Care Code Est Pt Level 3 (18441) Diagnoses Myoma D21.9
[2024-09-05 08:08] VITALS: BMI 28.9
== END 2024-09-05 08:29 | disposition home or self-care (01) ==
PROVIDERS: PCP Internal Medicine; Visit Provider Obstetrics & Gynecology
DX: D21.9 Benign neoplasm of connective and other soft tissue, unspecified (principal)
CPT/HCPCS: 99213

== ENCOUNTER → 2024-09-05 07:31 | Outpatient (BNVA) | payer MEDICAID, SELFPAY | PROVIDERS: PCP Internal Medicine; Visit Provider Obstetrics & Gynecology | DX: D21.9 Benign neoplasm of connective and other soft tissue, unspecified (principal) | CPT/HCPCS: 99212 ==

== ENCOUNTER 2024-10-18 13:48 | Outpatient (AMB) | payer MEDICAID, SELFPAY ==
[2024-10-18 14:07] VITALS: BP 132/70; PULSE 77; BMI 31.0
--- NOTE | 2024-10-18 14:07 | MHC.OFFVIS ---
Vital Signs 10/18/24 14:07 Height 4 ft 11 in Weight 153 lb 7.068 oz BMI 31.0 BP 132/70 Blood Pressure Location Lt brachial Position Sitting Pulse 77 Pulse Source Monitor Intake Visit Reasons: preop colonoscopy / overdue follow up Water Project Manager Required: No Allergies iodine [IODINE] Allergy (Unknown, Verified 10/18/24 14:08) R/T SHELLFISH ALLERGY shellfish derived [SHELLFISH DERIVED] Allergy (Unknown, Verified 10/18/24 14:08) LIP SWELLING, ITCHY THROAT Medication List - Last Reconciled 10/18/24 by Sweetie Avila, TIGHT COOPER-C aspirin 81 mg PO DAILY atorvastatin 80 mg PO DAILY blood sugar diagnostic (FreeStyle Lite Strips) As directed cholecalciferol (vitamin D3) 50 mcg PO DAILY clindamycin phosphate 1% 1 appl topical BID clonazepam 0.25 mg PO BEDTIME clonidine HCl 0.2 mg PO BEDTIME clotrimazole-betamethasone 1-0.05 % 1 appl topical BID 5 days dulaglutide (Trulicity) mg subcut insulin glargine (Lantus U-100 Insulin) 50 units subcut ONCE insulin lispro (Humalog KwikPen U-200 Insulin) 1 sliding scale dose subcut USEASDIRECTD lisinopril 2.5 mg PO DAILY PRN methadone 80 mg PO Q6-8H PRN pen needle, diabetic (BD Ultra-Fine Mini Pen Needle) As directed HPI HPI preop colonoscopy / overdue follow up: Details: Renetta is a 58-year-old female with past medical history of hypertension, hyperlipidemia, diabetes, rheumatoid arthritis, who had ACS when in [place] 02/14/2023 with cardiac catheterization, stent to the proximal LAD. Today she reports she has been doing well since her last visit in January. She as have chronic issues with generalized muscle and joint discomfort which she relates to her neuropathy and rheumatoid arthritis. No chest discomfort at rest or with activity. No heart palpitations, lightheadedness, presyncope, syncope, shortness of breath, PND, orthopnea or edema. Taking meds as directed. No bleeding issues reported. She reports plan for colonoscopy on 10/29/2024. 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 Housing: House Alcohol intake: never Patient Tobacco Use Status: Current everyday Tobacco user Tobacco use type: Cigarette Cigarette Packs Per Day: 0.10 Cigarettes Per Day: 2 Years Smoked: 41 Current occupational status: disabled Sexual orientation: Straight/Heterosexual Gender identity: Female Female Reproductive History Menstrual Age of Menarche: 13 Review of Systems Const Details: anxiety issues All systems reviewed & are unremarkable except as noted in HPI and below ENT Denies dizziness Card Denies chest pain, Denies chest pain at rest, Denies chest pain with activity, Denies rapid heart rate, Denies pedal edema, Denies edema, Denies leg edema, Denies lightheadedness, Denies palpitations, Denies dyspnea, Denies dyspnea on exertion and Denies orthopnea Resp Denies cough, Denies dyspnea and Denies dyspnea on exertion GI Denies hematochezia and Denies change in stool character Musc Denies abnormal gait, Denies limited range of motion, Denies muscle cramps, Denies muscle weakness, Denies numbness, Denies radiating pain into limb, Denies stiffness and Denies tingling Neuro Denies abnormal gait, Denies dizziness, Denies numbness and Denies tingling Endo Denies palpitations Physical Exam Vital Signs: Last Vital Signs Pulse 77 10/18/24 14:07 BP 132/70 10/18/24 14:07 BMI result Body Mass Index 31.0 Const General: cooperative, healthy appearing, comfortable and no acute distress Orientation/consciousness: patient oriented x3 Neck Neck: Yes normal visual inspection Resp Effort & Inspection: normal respiratory effort Auscultation: clear to auscultation bilaterally, no rales, no rhonchi and no wheezes Cardio Jugular venous distension: no JVD Rate: regular rate Rhythm: regular rhythm Heart sounds: S1 normal heart sound present, S2 normal heart sound present, no murmurs and no rubs Neuro General: patient oriented x3 Extrem General: Yes normal to inspection Psych Appearance: grossly normal Mental Status: mental status grossly normal Speech and movement: Normal speech and movement present Office Procedures EKG Details: Today, read by me, normal sinus rhythm, no acute ST or T-wave abnormalities, rate 77, QTC 459 milliseconds [id number], Complete Assessment & Plan Assessment & Plan (1) CAD (coronary artery disease): Code(s): I25.10 - Atherosclerotic heart disease of [place] coronary artery without angina pectoris Category: Medical Plan: History of CAD with ACS in [place] 02/14/2023. Cardiac catheterization done, report not available however patient reports having an 80% narrowing. She has a card which states stent to the proximal LAD. No recurrent anginal chest discomfort since that time. She has some shortness of breath with activity which is not new. Echocardiogram done 07/22/2023 showed EF 54%, no valve abnormalities and no regional wall motion abnormalities. An exercise nuclear stress test was done on 07/22/2023 showing exercise close to 6 minutes, with chest pressure, ventricular bigeminy, normal myocardial perfusion imaging. She briefly attended cardiac rehab. She has a history of neuropathy and rheumatoid arthritis which affects her mobility. EKG done today showing normal sinus rhythm, rate 77. Will continue on aspirin indefinitely. She is no longer on Brilinta. Continue atorvastatin with ideal LDL goal less than 70. Labs done 11/14/2023 showed LDL 43. She is not on beta-karissa. She is on low-dose lisinopril. Blood pressure 132/74. She needs good diabetic control with hemoglobin A1c goal less than 7. She tells me her most recent hemoglobin A1c is 7.7. Signs and symptoms of angina reviewed. Emergency care if ever needed for symptoms. Cardiology follow-up in 6 months, sooner if needed (2) Stented coronary artery: Comment: proximal LAD stent 02/14/23 in [place] Code(s): Z95.5 - Presence of coronary angioplasty implant and graft Category: Surgical Plan: As above (3) HTN (hypertension): Code(s): I10 - Essential (primary) hypertension Category: Medical Qualifiers: Hypertension type: primary hypertension Qualified Code(s): I10 - Essential (primary) hypertension Plan: Well controlled. Due for lab work. She says that her PCP has done labs on her, will try to obtain. If not, orders have been entered her entire system (4) Hyperlipidemia: Code(s): E78.5 - Hyperlipidemia, unspecified Category: Medical Plan: Byron LDL goal less than 70 in patient with diabetes and coronary artery disease. Last LDL 43 shows lipids well controlled (5) Preop cardiovascular exam: Code(s): Z01.810 - Encounter for preprocedural cardiovascular examination Category: Medical Plan: Preop for colonoscopy, scheduled 10/29/[address] Gonzalez. She is low to intermediate cardiac risk. Aspirin can be held if needed for the procedure and restart as soon as cleared by Dr. Gonzalez to do so. Continue atorvastatin and lisinopril. Call/consult Cardiology if needed. Plan Time spent on chart review, documentation, interview and assessment Coding Level of Care Code Est Pt Level 4 (85739) Complex EM visit Add On G2211 Diagnoses CAD (coronary artery disease) I25.10 Stented coronary artery Z95.5 Primary hypertension I10 Hypertension type: primary hypertension Hyperlipidemia E78.5 Preop cardiovascular exam Z01.810 CPT Codes EKG - CPT: [id number], Complete ([id number]) Time Spent (min) 32
== END 2024-10-18 14:38 | disposition home or self-care (01) ==
PROVIDERS: PCP Internal Medicine; Visit Provider Nurse Practitioner Family
DX: I25.10 Atherosclerotic heart disease of native coronary artery without angina pectoris (principal); Z95.5 Presence of coronary angioplasty implant and graft; I10 Essential (primary) hypertension; E78.5 Hyperlipidemia, unspecified; Z01.810 Encounter for preprocedural cardiovascular examination
CPT/HCPCS: 93010; 99214

== ENCOUNTER → 2024-10-18 13:48 | Outpatient (BNVA) | payer MEDICAID, SELFPAY | PROVIDERS: PCP Internal Medicine; Visit Provider Nurse Practitioner Family | DX: Z01.810 Encounter for preprocedural cardiovascular examination (principal); I25.10 Atherosclerotic heart disease of native coronary artery without angina pectoris; I10 Essential (primary) hypertension; E78.5 Hyperlipidemia, unspecified; Z95.5 Presence of coronary angioplasty implant and graft | CPT/HCPCS: 93005; 99212 ==

== ENCOUNTER 2024-10-29 07:11 | Day surgery (SDC) | payer MEDICAID, SELFPAY ==
[2024-10-23 13:43] VITALS: BMI 30.9
--- NOTE | 2024-10-24 08:49 | HO.ANESPROP2 ---
Documented by User: Blessing Hernandez NP 10/24/24 08:52 HPI - Anesthesia Eval Consult details Narrative: 59yo F for Colonoscopy Follows [facility] Cardiology for CAD s/p stent. (ACS when in [place] 02/14/2023 with cardiac catheterization, stent to the proximal LAD) Optimized per 09/2024 office visit Anesthesia Pre-Procedure Meds Is the patient on any of the following meds?: GLP1/DPP4 PMFSH Active Problems Active Problems: All Active Problems Preop cardiovascular exam (Acute) Skin candidiasis (Acute) Enlarged uterus (Acute) Status post incision and drainage (Acute) Bigeminal rhythm (Acute) Bradycardia (Acute) Hyperlipidemia (Acute) SOB (shortness of breath) on exertion (Acute) Atypical chest pain (Acute) Pre-procedure lab exam (Acute) Abnormal MRI, breast (Acute) At high risk for breast cancer (Acute) Screen for STD (sexually transmitted disease) (Acute) Well woman exam (Acute) Microscopic hematuria (Acute) BV (bacterial vaginosis) (Acute) Postmenopausal bleeding (Acute) Dyspareunia (Acute) Myoma (Acute) Stented coronary artery (Acute) CAD (coronary artery disease) (Acute) HTN (hypertension) (Acute) Past Medical History Medical History (Updated 10/23/24 @ 13:23 by Maricruz Mendoza RN) Myocardial infarction Bilateral lower extremity postoperative compartment syndrome CAD (coronary artery disease) Panic attack Anxiety Arthritis Neuropathy HTN (hypertension) Diabetes mellitus Family History Family History Mother Breast CA, Onset Age: 40 Heart disease Father Heart attack Surgical History Surgical History (Updated 10/23/24 @ 13:23 by Maricruz Mendoza RN) History of esophagogastroduodenoscopy (EGD) H/O colonoscopy Stented coronary artery H/O shoulder surgery Hx of section Hx of cholecystectomy History of bilateral tubal ligation Social History Social History Household 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 Housing: House Alcohol intake: never Patient Tobacco Use Status: Current everyday Tobacco user Tobacco use type: Cigarette Cigarette Packs Per Day: 0.10 Cigarettes Per Day: 5 Years Smoked: 41 Use of substances other than those prescribed or required for medical reasons: No Are you DNR?: No Advance Directives: No Advance Directives Information Provided: Yes Nutrition Risks: No Nutritional Risk Current occupational status: disabled Sexual orientation: Straight/Heterosexual Gender identity: Female Meds Allergies Allergy/AdvReac Type Severity Reaction Status Date / Time iodine [IODINE] Allergy Unknown R/T Verified 10/18/24 14:08 SHELLFISH ALLERGY shellfish derived Allergy Unknown LIP Verified 10/18/24 14:08 [SHELLFISH DERIVED] SWELLING, ITCHY THROAT Iodinated Contrast Media Allergy Unknown Verified 10/23/24 13:33 [IV Contrast Dye] Home Medications ?Medication ?Instructions ?Recorded ?Confirmed ?Last Taken ?Type clonazepam 0.5 mg tablet 0.25 mg PO TID 09/16/20 10/23/24 Unknown History blood sugar diagnostic (FreeStyle #10 ea 01/26/22 10/18/24 Unknown History Lite Strips) pen needle, diabetic 31 gauge x #50 ea 01/26/22 10/18/24 Unknown History 3/16 (BD Ultra-Fine Mini Pen Needle) methadone 10 mg tablet 80 mg PO Q6-8H 12/14/22 10/23/24 Unknown History atorvastatin 80 mg tablet 80 mg PO DAILY 05/05/23 10/23/24 Unknown History aspirin 81 mg tablet,delayed 81 mg PO DAILY 11/01/23 10/29/24 10/26/24 History release clonidine HCl 0.2 mg tablet 0.2 mg PO BEDTIME 04/04/24 10/23/24 Unknown History dulaglutide 0.75 mg/0.5 mL 0.75 mg subcut QWEEK 10/18/24 10/23/24 10/19/24 History subcutaneous pen injector (Trulicity) insulin glargine 100 unit/mL (3 50 unit subcut BEDTIME 10/23/24 10/23/24 Unknown History mL) subcutaneous pen (Lantus Solostar U-100 Insulin) insulin lispro 100 unit/mL 1 sliding scale dose subcut 10/23/24 10/23/24 Unknown History subcutaneous cartridge (Humalog USEASDIRECTD U-100 Insulin) Exam Height,Weight and Vital Signs: Height 4 ft 11 in Weight 69.4 kg Narrative Narrative: Echocardiogram done 07/22/2023 showed EF 54%, no valve abnormalities and no regional wall motion abnormalities. An exercise nuclear stress test was done on 07/22/2023 showing exercise close to 6 minutes, with chest pressure, ventricular bigeminy, normal myocardial perfusion imaging. EKG done 09/2024 showing normal sinus rhythm, rate 77. Assessment and Plan Assessment Anesthesia Assessment: Chart Reviewed Documented by User: Quirino Pires MD 10/29/24 09:07 [facility] Past Medical History Medical History (Updated 10/23/24 @ 13:23 by Maricruz Mendoza RN) Myocardial infarction Bilateral lower extremity postoperative compartment syndrome CAD (coronary artery disease) Panic attack Anxiety Arthritis Neuropathy HTN (hypertension) Diabetes mellitus Narrative: Had an episode of chest discomfort 3 d ago, related to exertion, anxiety. Very diff in character than her anginal sx last year. No Oreilly sign. EKG done today is fairly normal, no isch chgs. 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 Housing: House Alcohol intake: never Patient Tobacco Use Status: Current everyday Tobacco user Tobacco use type: Cigarette Cigarette Packs Per Day: 0.10 Cigarettes Per Day: 5 Years Smoked: 41 Use of substances other than those prescribed or required for medical reasons: No Are you DNR?: No Advance Directives: No Advance Directives Information Provided: Yes Nutrition Risks: No Nutritional Risk Current occupational status: disabled Sexual orientation: Straight/Heterosexual Gender identity: Female Meds Allergies Allergy/AdvReac Type Severity Reaction Status Date / Time iodine [IODINE] Allergy Unknown R/T Verified 10/18/24 14:08 SHELLFISH ALLERGY shellfish derived Allergy Unknown LIP Verified 10/18/24 14:08 [SHELLFISH DERIVED] SWELLING, ITCHY THROAT Iodinated Contrast Media Allergy Unknown Verified 10/23/24 13:33 [IV Contrast Dye] Home Medications ?Medication ?Instructions ?Recorded ?Confirmed ?Last Taken ?Type clonazepam 0.5 mg tablet 0.25 mg PO TID 09/16/20 10/23/24 Unknown History blood sugar diagnostic (FreeStyle #10 ea 01/26/22 10/18/24 Unknown History Lite Strips) pen needle, diabetic 31 gauge x #50 ea 01/26/22 10/18/24 Unknown History 3/16 (BD Ultra-Fine Mini Pen Needle) methadone 10 mg tablet 80 mg PO Q6-8H 12/14/22 10/23/24 Unknown History atorvastatin 80 mg tablet 80 mg PO DAILY 05/05/23 10/23/24 Unknown History aspirin 81 mg tablet,delayed 81 mg PO DAILY 11/01/23 10/29/24 10/26/24 History release clonidine HCl 0.2 mg tablet 0.2 mg PO BEDTIME 04/04/24 10/23/24 Unknown History dulaglutide 0.75 mg/0.5 mL 0.75 mg subcut QWEEK 10/18/24 10/23/24 10/19/24 History subcutaneous pen injector (Trulicity) insulin glargine 100 unit/mL (3 50 unit subcut BEDTIME 10/23/24 10/23/24 Unknown History mL) subcutaneous pen (Lantus Solostar U-100 Insulin) insulin lispro 100 unit/mL 1 sliding scale dose subcut 10/23/24 10/23/24 Unknown History subcutaneous cartridge (Humalog USEASDIRECTD U-100 Insulin) Exam Airway Mallampati Class: II TM Dist: >3cm Neck ROM: Full Denture: Upper and Lower Heart: ok. see above Lungs: ok Assessment and Plan Assessment Anesthesia Assessment: Anesthesia Plan Discussed Final Anesthetic Review Family History of Problems with Anesthesia: No History of Problems with Anesthesia: No NPO: Yes ASA Class: III Final Preanesthetic Review: No Changes in Pt Med Stat, Meds/Allgs Chart Reviewed, Consent Obtained/Reviewed and Anes Risks/Benef Reviewed Patient Risk: Intermediate Procedure Risk: Low Anesthetic Plan Anesthetic Plan: MAC: and Agree w/ Assess. and Plan Disposition: Standard PACU
[2024-10-29 07:37] VITALS: BMI 30.1
--- NOTE | 2024-10-29 07:51 | ECG_ITS ---
Test Reason : chest pain on tuesday pre-op Blood Pressure : / mmHG Vent. Rate : 080 BPM Atrial Rate : 080 BPM P-R Int : 164 ms QRS Dur : 066 ms QT Int : 402 ms P-R-T Axes : -01 044 003 degrees QTc Int : 463 ms Normal sinus rhythm Normal ECG When compared with ECG of 08-MAY-2019 09:47, Vent. rate has increased BY 26 BPM Referred By: Quirino Pires Electronically Signed By:Samuel Navarrete
[2024-10-29] MEDS: Lactated Ringers 1,000 ML 100 ML IVCONT (08:15)
[2024-10-29 09:49] VITALS: BP 110/56; PULSE 58; RESP 16; TEMP 36.2; O2SAT 97
--- NOTE | 2024-10-29 09:50 | PM.OP ---
Brief Operative Note Date of Service: 10/29/24 Pre-op diagnosis: Screening Post-op diagnosis: other (Polyps) Procedure: Colonoscopy to the cecum with hot snare polypectomy in the TC and at 40cm with placement of 1 Resolution clip at each site, and a cold snare polypectomy at 60cm Surgeon: Imtiaz Gonzalez MD Anesthesia: MAC Was an Lead Front Desk Agent used for this Procedure?: No Estimated blood loss (mL): 2.0 Pathology: other (A. Polyp at 60cm B. Transverse colon polyp C. Polyp at 40cm) Condition: stable Disposition: PACU
[2024-10-29 10:11] VITALS: BP 113/60; PULSE 59; RESP 17; TEMP 36.2; O2SAT 95
--- NOTE | 2024-10-29 10:36 | OP_ITS ---
DATE OF SERVICE: 10/29/2024 SURGEON: Imtiaz Gonzalez MD INDICATIONS: The patient presents for evaluation of colorectal cancer screening. Full consent has been obtained from her for this, including risks of bleeding and perforation. PREOPERATIVE DIAGNOSIS: Colorectal cancer screening. POSTOPERATIVE DIAGNOSIS: PROCEDURE PERFORMED: Colonoscopy to the cecum with hot snare polypectomy x2 with placement of a single Resolution clip on each polypectomy site, and 1 cold snare polypectomy. ESTIMATED BLOOD LOSS: COMPLICATIONS: ANESTHESIA: Medication used; monitored anesthesia care. ASSISTANTS: SPECIMENS: POSTOPERATIVE DIAGNOSES: Colorectal cancer screening, colon polyps, diverticulosis, and internal hemorrhoids. DESCRIPTION OF PROCEDURE: The patient was placed in the left lateral decubitus position. The digital rectal exam revealed no abnormalities. The Olympus video pediatric colonoscope was entered into the rectum and advanced easily to the cecum with the assistance of abdominal wall pressure. Once in the cecum, I did identify normal-appearing cecal pouch with appendiceal orifice and a normal-appearing ileocecal valve. There was transillumination of light deep in the right lower quadrant. The entire cecum and ileocecal valve appeared normal. The scope was slowly withdrawn assessing all mucosal surfaces carefully. For the most part, preparation was excellent after her 2 day prep. In the transverse colon, was an approximately 10-12 mm flat, but raised possible serrated polyp, which was removed by hot snare polypectomy recovered by suction. The polypectomy site appeared clean, without any sign of residual polyp nor bleeding. A single Resolution clip was applied with good deployment and good hemostasis. At 60 cm was an approximately 5 mm grossly adenomatous polyp, which was removed by cold snare polypectomy and recovered by suction. The polypectomy site appeared clean, without any sign of residual polyp nor significant bleeding. At 40 cm, was an approximately 12 mm grossly adenomatous polyp, which was removed by hot snare polypectomy and recovered by suction. The polypectomy site appeared clean, without any sign of residual polyp nor bleeding. A single Resolution clip was applied with good deployment and good hemostasis. I did not visualize any other polyps, colitis, nor angiodysplasia. There was a mild amount of sigmoid diverticulosis. In the rectum, scope was retroflexed visualizing internal hemorrhoids, but no other pathology. The rectal mucosa appeared normal. The scope was straightened and withdrawn from the patient. She tolerated the procedure well and was returned to recovery area in stable condition. IMPRESSION: 1. Colon polyps. 2. Diverticulosis. 3. Internal hemorrhoids. PLAN: The results of the pathology will be checked. I would recommend a repeat colonoscopy in 3 years for further screening given the appearance of today's larger polyps. She was advised to resume her aspirin by tomorrow. She was advised not to use any NSAIDs for at least a week. She was advised to continue her Linzess as well. She will otherwise see me on a p.r.n. basis. MD ASHOK Dunlap/DANNIE / [phone]
== END 2024-10-29 10:36 | disposition home or self-care (01) ==
PROVIDERS: PCP Internal Medicine; Visit Provider Internal Medicine
PROC: 0DJD8ZZ Inspection of Lower Intestinal Tract, Via Natural or Artificial Opening Endoscopic (ICD-10-PCS; CPT 45378; principal; 2024-10-29 08:30)
DX: Z12.11 Encounter for screening for malignant neoplasm of colon (principal); D12.3 Benign neoplasm of transverse colon; D12.5 Benign neoplasm of sigmoid colon; K63.5 Polyp of colon; K57.30 Diverticulosis of large intestine without perforation or abscess without bleeding; K64.8 Other hemorrhoids; K59.09 Other constipation; I10 Essential (primary) hypertension; E11.9 Type 2 diabetes mellitus without complications; F41.9 Anxiety disorder, unspecified; I25.10 Atherosclerotic heart disease of native coronary artery without angina pectoris; Z95.5 Presence of coronary angioplasty implant and graft; I25.2 Old myocardial infarction; Z79.01 Long term (current) use of anticoagulants; Z79.82 Long term (current) use of aspirin; Z79.4 Long term (current) use of insulin; F11.90 Opioid use, unspecified, uncomplicated
CPT/HCPCS: 45385; 88305; 93005; J2003; J2704

== ENCOUNTER → 2024-10-29 07:51 | Outpatient (BNV) | payer MEDICAID, SELFPAY | PROVIDERS: PCP Internal Medicine; Visit Provider Internal Medicine Cardiovascular Disease | DX: R07.9 Chest pain, unspecified (principal) | CPT/HCPCS: 93010 ==

== ENCOUNTER 2025-03-28 12:28 | Outpatient (AMB) | payer MEDICAID, SELFPAY ==
[2025-03-28 12:54] VITALS: BP 114/62; PULSE 78; BMI 32.0
--- NOTE | 2025-03-28 12:54 | MHC.OFFVIS ---
Vital Signs 03/28/25 12:54 Height 4 ft 11 in Weight 158 lb 4.67 oz BMI 32.0 BP 114/62 Blood Pressure Location Lt brachial Position Sitting Pulse 78 Pulse Source Pulse Oximeter Intake Visit Reasons: 6m follow up Global Transportation Manager Required: No Allergies iodine [IODINE] Allergy (Unknown, Verified 03/28/25 12:56) R/T SHELLFISH ALLERGY shellfish derived [SHELLFISH DERIVED] Allergy (Unknown, Verified 03/28/25 12:56) LIP SWELLING, ITCHY THROAT Iodinated Contrast Media [IV Contrast Dye] Allergy (Verified 03/28/25 12:56) Unknown Medication List - Last Reconciled 03/28/25 by Sweetie Avila DRILL OPERATOR PNEUMATIC-C aspirin 81 mg PO DAILY atorvastatin 80 mg PO DAILY blood sugar diagnostic (FreeStyle Lite Strips) As directed clonazepam 0.25 mg PO TID clonidine HCl 0.2 mg PO BEDTIME dulaglutide (Trulicity) 0.75 mg subcut QWEEK insulin glargine (Lantus Solostar U-100 Insulin) 50 units subcut BEDTIME insulin lispro (Humalog U-100 Insulin) 1 sliding scale dose subcut USEASDIRECTD methadone 80 mg PO Q6-8H pen needle, diabetic (BD Ultra-Fine Mini Pen Needle) As directed HPI HPI 6m follow up: Details: Renetta is a 60-year-old female with past medical history of hypertension, hyperlipidemia, diabetes, rheumatoid arthritis, who had ACS when in [place] 02/14/2023 with cardiac catheterization, stent to the proximal LAD. Today she reports she has been doing well since her last visit in September. She as have chronic issues with generalized muscle and joint discomfort which she relates to her neuropathy and rheumatoid arthritis. This continues to limit her ability to do some physical activity and exercise. No chest discomfort at rest or with activity. No heart palpitations, lightheadedness, presyncope, syncope, PND, orthopnea or edema. She does have some shortness of breath if she overexerts. Taking meds as directed. No bleeding issues reported. She is planning to have hysterectomy in April or May. 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 Housing: House Alcohol intake: never Patient Tobacco Use Status: Current everyday Tobacco user Tobacco use type: Cigarette Cigarette Packs Per Day: 0.10 Cigarettes Per Day: 5 Years Smoked: 41 Current occupational status: disabled Sexual orientation: Straight/Heterosexual Gender identity: Female Female Reproductive History Menstrual Age of Menarche: 13 Review of Systems Const All systems reviewed & are unremarkable except as noted in HPI and below ENT Denies dizziness Card Denies chest pain, Denies chest pain at rest, Denies chest pain with activity, Denies rapid heart rate, Denies pedal edema, Denies edema, Denies leg edema, Denies lightheadedness, Denies palpitations, Denies dyspnea, Denies dyspnea on exertion and Denies orthopnea Resp Denies cough, Denies dyspnea and Denies dyspnea on exertion GI Denies hematochezia and Denies change in stool character Musc Denies abnormal gait, Denies limited range of motion, Denies muscle cramps, Denies muscle weakness, Denies numbness, Denies radiating pain into limb, Denies stiffness and Denies tingling Neuro Denies abnormal gait, Denies dizziness, Denies numbness and Denies tingling Endo Denies palpitations Physical Exam Vital Signs: Last Vital Signs Pulse 78 03/28/25 12:54 BP 114/62 03/28/25 12:54 BMI result Body Mass Index 32.0 Const General: cooperative, healthy appearing, comfortable and no acute distress Orientation/consciousness: patient oriented x3 Neck Neck: Yes normal visual inspection Resp Effort & Inspection: normal respiratory effort Auscultation: clear to auscultation bilaterally, no rales, no rhonchi and no wheezes Cardio Jugular venous distension: no JVD Rate: regular rate Rhythm: regular rhythm Heart sounds: S1 normal heart sound present, S2 normal heart sound present, no murmurs and no rubs Neuro General: patient oriented x3 Extrem General: Yes normal to inspection Psych Appearance: grossly normal Mental Status: mental status grossly normal Speech and movement: Normal speech and movement present Office Procedures EKG Details: Today, read by me, normal sinus rhythm, rate 68, Qtc 435ms [id number], Complete Assessment & Plan Assessment & Plan (1) CAD (coronary artery disease): Code(s): I25.10 - Atherosclerotic heart disease of [place] coronary artery without angina pectoris Category: Medical Plan: History of CAD with ACS in [place] 02/14/2023. Cardiac catheterization done, report not available however patient reports having an 80% narrowing. She has a card which states stent to the proximal LAD. No recurrent anginal chest discomfort since that time. Echocardiogram done 07/22/2023 showed EF 54%, no valve abnormalities and no regional wall motion abnormalities. An exercise nuclear stress test was done on 07/22/2023 showing exercise close to 6 minutes, with chest pressure, ventricular bigeminy, normal myocardial perfusion imaging. EKG done today showing normal sinus rhythm, rate 68. Since she reports shortness of breath with overexertion and is preop - will update echocardiogram. Will continue on aspirin indefinitely. Continue atorvastatin with ideal LDL goal less than 70. She is due for labs and tells me she is getting them done this week. Reviewed risk factor modification and Signs and symptoms of angina. Emergency care if ever needed for symptoms. Cardiology follow-up in 6 months, sooner if needed (2) Stented coronary artery: Comment: proximal LAD stent 02/14/23 in [place] Code(s): Z95.5 - Presence of coronary angioplasty implant and graft Category: Surgical Plan: As above (3) HTN (hypertension): Code(s): I10 - Essential (primary) hypertension Category: Medical Qualifiers: Hypertension type: primary hypertension Qualified Code(s): I10 - Essential (primary) hypertension Plan: Well controlled. Due for lab work. She says that her PCP has ordered labs that she will obtain this week. (4) Hyperlipidemia: Code(s): E78.5 - Hyperlipidemia, unspecified Category: Medical Plan: [place] LDL goal less than 70 in patient with diabetes and coronary artery disease. Last LDL 43 shows lipids well controlled. Continue Atorvastatin (5) Preop cardiovascular exam: Code(s): Z01.810 - Encounter for preprocedural cardiovascular examination Category: Medical Plan: Preop for hysterectomy, no date yet. Will obtain echocardiogram then address cardiac preop clearance. Plan Time spent on chart review, documentation, interview and assessment Patient was informed and verbally consented to the use of an ambient scribe for clinic note documentation during this visit. I discussed with the patient the necessity of a preoperative cardiac evaluation, highlighting the importance of an echocardiogram to assess current heart function and assure surgical safety. We reviewed her history of myocardial infarction and coronary artery disease, addressing her need for continued aspirin therapy. I outlined risks and benefits associated with these assessments, ensuring she understands the implications of echocardiographic findings on surgical timing. We agreed that if findings are abnormal, hysterectomy may be delayed for further cardiac evaluation. Orders: Orders CA echo transthoracic complete 03/28/25 E78.5 - Hyperlipidemia, unspecified, Z01.810 - Encounter for preprocedural cardiovascular examination Patient Instructions: - Continue taking your daily aspirin. - Complete the echocardiogram before your scheduled travel. - If you experience chest discomfort similar to previous episodes, seek immediate medical attention. - Continue activity as tolerated. - Report any new or worsening symptoms promptly. - Return for a follow-up if instructed based on echocardiogram results. Coding Level of Care Code Est Pt Level 4 (49517) Complex EM visit Add On G2211 Diagnoses CAD (coronary artery disease) I25.10 Stented coronary artery Z95.5 Primary hypertension I10 Hypertension type: primary hypertension Hyperlipidemia E78.5 Preop cardiovascular exam Z01.810 CPT Codes EKG - CPT: [id number], Complete ([id number]) Time Spent (min) 28
--- OUTSIDE RECORDS SUMMARY | 2025-03-28 14:29 | XMS_ITS | Encounter Summary ---
Author Organization [employer] Address [address] [place] [address] Care Team Providers Care Plate Colorer Name Role Phone Camila Espinal MD Primary Care Provide r Encounter Details Date Type Department Care Team ([facility] st Contact Info) Description 10/25/2023 Abstract [facility] [address] [place], [place] [phone] Jane Aguilar Social History Tobacco Use Types Packs/Day Years Used Date Smoking Tobacco: Every Day Cigarettes Smokeless Tobacco: Never Alcohol Use Standard Drinks/Week Comments Never 0 (1 standard drink = 0.6 oz pur e alcohol) Depression Answer Date Recorded Patient Health Questionnaire-9 Score 4 03/24/2023 Housing Stability Answer Date Recorded What is your housing situation today? I do not have housing (Staying with others, in a hotel, in a assisted, living outside on the street, on a beach, in a car, or in a park 09/06/[address] you li ve. Do you have problems with any of the following? None of the above 09/06/2023 Food Insecurity Answer Date Recorded Within the past 12 months, y ou worried that your food would run out before you got money to buy more: Never True 09/26/2023 Within the past 12 months,th e food you bought just didn't last and you didn't have enough money to get more: Never True Transportation Answer Date Recorded In the past 12 months, has l ack of transportation kept you from medical appts, meetings, work or from getting things needed for daily living? No 09/26/2023 Utilities Answer Date Recorded In the past 12 months, has t he electric, gas, oil or water company threatened to shut off services in your home? No 09/26/2023 Depression Answer Date Recorded Patient Health Questionnaire-2 Score 1 03/24/2023 Comments Unknown Sex and Gender Information Value Date Recorded Sex Assigned at Female 09/27/2022 10:29 AM EDT Legal Sex Female 10:29 AM EDT Gender Identity Female 09/27/2022 10:29 AM EDT Sexual Orientation Straight 09/27/2022 10 :29 AM EDT documented as of this encounter Plan of Treatment Upcoming Encounters Date Type Department Care Team (Late st Contact Info) Description 05/13/2025 9:00 AM EDT Office Visit [facility] [address] [place], [place] [phone] Camila Espinal MD [address] [place] [address] documented as of this encounter Goals Goal Patient Goal Type Associated Problems Recent Progress Patient-Stated? Author Reduce the number of cigarettes smoked per day by 1 (goal 4-6 cigarettes per day) General Harmeet Lazaro, PharmD Call the pharmacy to schedule a f/u appointment when you return from [place] General Harmeet Lazaro, PharmD documented as of this encounter Procedures Procedure Name Priority Date/Time Associated Diagnosis Comments MAMMOGRAPHY Routine 12/24/2022 documented in this encounter Results * Mammography (12/24/2022) Mammogram Bi-rads 1 Anatomical Region Laterality Modality Other Narrative 12/24/2022 Recommended routine annual mammo us Historical Provider HEALTH MAINTENANCE Final Result documented in this encounter Visit Diagnoses Not on filedocumented in this encounter Additional Health Concerns Assessment Noted Time PHQ-9 Depression Total Score: 4 03/24/20 23 2:31 PM EDT documented as of this encounter Care Teams Plate Colorer Relationship Specialty Start Date End Date Camila Espinal MD [address] [place], [place] [phone] PCP - General Family Medicine 05/13/20 Karma Mcfadden Dry Cleaning AttendantMixer Helper 08/11/23 documented as of this encounter
--- OUTSIDE RECORDS SUMMARY | 2025-03-28 14:30 | XMS_ITS | Clinical Summary ---
Author Organization [employer] [facility] ity Address [address] [place] [address] Care Team Providers Care Nursery Manager Name Role Phone Camila Espinal MD Primary Care Provide r Social History Tobacco Use Types Packs/Day Years Used Date Smoking Tobacco: Never Assessed Comments Unknown Sex and Gender Information Value Date Recorded Sex Assigned at Not on file Legal Sex Female 3:13 PM EST Gender Identity Not on file Sexual Orientation Not on file Last Filed Vital Signs Vital Sign Reading Time Taken Comments Blood Pressure - - Pulse - - Temperature - - Respiratory Rate - - Oxygen Saturation - - Inhaled Oxygen Concentration - - Weight 61.2 kg (135 lb) 03/15/2024 9:17 AM EDT Height 149.9 cm (4' 11 ) 03/15/2024 9:17 AM EDT Body Mass Index 27.27 03/15/2024 9:17 AM EDT Plan of Treatment Health Maintenance Due Date Last Done Comments Breast Cancer Screening 1966 DTaP,Tdap,and Td Vaccines (1 - Tdap) 1985 Hepatitis B Vaccines (1 of 3 - 19+ 3-dose series) 1985 Cervical Cancer Screening: P ap Smear 1987 Pneumococcal Vaccine: 50+ Ye ars (1 of 1 - PCV) 02/20/2016 Zoster Vaccines (1 of 2) 02/20/2016 COVID-19 Vaccine (2023-2 5 season) 2024 Colorectal Cancer Screening: Colonoscopy 10/23/2024 Depression Screening 10/23/2024 HIV Screening 10/23/2024 Hepatitis C Screening 10/23/2024 Social Influencers of Health Screening 10/23/2024 Influenza Vaccine (Season Ended) 2025 RSV Immunization Adult Patie nts (1 - 1-dose 75+ series) 2041 HIB Vaccines Aged Out No longer eligi ble based on patient's age to complete this topic HPV Vaccines Aged Out No longer eligi ble based on patient's age to complete this topic Hepatitis A Vaccines Aged Out No long er eligible based on patient's age to complete this topic IPV Vaccines Aged Out No longer eligi ble based on patient's age to complete this topic MMR Vaccines Aged Out No longer eligi ble based on patient's age to complete this topic Meningococcal ACWY Vaccine Aged Out N o longer eligible based on patient's age to complete this topic Meningococcal B Vaccine Aged Out No l onger eligible based on patient's age to complete this topic Pneumococcal Vaccine: Pediat rics (0 to 5 Years) and At-Risk Patients (6 to 64 Years) Aged Out No longer eligible b ased on patient's age to complete this topic RSV Immunization Patients Un russell 20 months Aged Out No longer eligible b ased on patient's age to complete this topic Varicella Vaccines Aged Out No longer eligible based on patient's age to complete this topic Care Teams Nursery Manager Relationship Specialty Start Date End Date Camila Espinal MD [address] [place] [phone] PCP - General 01/19/24
--- OUTSIDE RECORDS SUMMARY | 2025-03-28 14:30 | XMS_ITS | Encounter Summary ---
Author Organization [employer] Address [address] [place] [address] Care Team Providers Care Snowblower Mechanic Name Role Phone Camila Espinal MD Primary Care Provide r Encounter Details Date Type Department Care Team ([facility] st Contact Info) Description 10/27/2023 Telephone [facility] [address] [place], [place] [phone] Camila Espinal MD [address] [place], [place] [phone] Social History Tobacco Use Types Packs/Day Years [...] with others, in a hotel, in a fpc, living outside on the street, on a [...] AM EDT documented as of this encounter Miscellaneous Notes * Telephone Encounter - Carmela Galloway RN - 10/27/2023 12:00 PM EST Referral sent via fax to [facility] for [facility] services. documented in this encounter Plan of Treatment Upcoming Encounters Date Type Department Care Team (Late st Contact Info) Description 05/13/2025 9:00 AM EDT Office Visit [facility] [address] [place] [phone] Camila Espinal MD [address] [place] [phone] documented as of this encounter Goals Goal Patient Goal Type Associated Problems Recent Progress Patient-Stated? Author Reduce the number of cigarettes smoked per day by 1 (goal 4-6 cigarettes per day) General Harmeet Lazaro PharmD Call the pharmacy to schedule a f/u appointment when you return from [place] General Harmeet Lazaro PharmD documented as of this encounter Visit Diagnoses Not on filedocumented in this encounter Additional Health Concerns Assessment Noted Time PHQ-9 Depression Total Score: 4 03/24/20 23 2:31 PM EDT documented as of this encounter Care Teams Snowblower Mechanic Relationship Specialty Start Date End Date Camila Espinal MD [address] [place] [phone] PCP - General Family Medicine 05/13/20 Karma Mcfadden Bottle HopJourneyman Pipe Welder 08/11/23 documented as of this encounter
--- OUTSIDE RECORDS SUMMARY | 2025-03-28 14:30 | XMS_ITS | Clinical Summary ---
Author Organization [employer] Address [address] [facility] [address] [place] [address] Care Team Providers Care Nursing Home Manager Name Role Phone Camila Espinal MD Primary Care Provide r Allergies Active Allergy Reactions Criticality Noted Date Comments Indomethacin 04/07/2016 Iodinated Contrast Media 07/31/2023 Other reaction(s): Unknown Iodine Anaphylaxis,Hives High 12/21/2022 Shellfish Allergy 12/21/2022 Shellfish-Derived Products Swelling Medium 03/13/2021 Medications clonazePAM (KlonoPIN) 0.5 MG tablet Take 1 tablet by mouth if needed in the morning, at noon, and at bedtime for anxiety. Active cloNIDine (Catapres) 0.2 MG tablet Take 1 tablet by mouth at bedtime. 023 Active FREESTYLE LITE test strip TEST THREE TIMES DAILY DIRECTED Active Lantus SoloStar 100 UNIT/ML pen Inject 25 Units under the skin in the morning. 022 Active B-D UF III MINI PEN NEEDLES 31G X 5 MM misc USE DIRECTED FOUR TIMES DAILY 022 Active triamcinolone (Kenalog) 0.1 % cream APPLY TOPICALLY TO THE AFFECTED AREA TWICE DAILY 023 Active cholecalcifero l (Vitamin D-3) 50 MCG (1999 UT) capsule Take 1 capsule by mouth in the morning. 016 Active methadone (Dolophine) 5 MG tablet Take 88 mg by mouth in the morning. Active Blood Pressure kitIndications :Other type of myocardial infarction (CMS/[facility]) Check daily blood pressure 1 kit 023 Active lisinopril 2.5 MG tabletIndicati ons:Other type of myocardial infarction ([facility]) Take 1 tablet (2.5 mg) by mouth in the morning. 30 tablet 1 023 Active EPINEPHrine (EpiPen 2-Sean) 0.3 MG/0.3ML injection syringe Inject 0.3 mL (0.3 mg) as directed 1 (one) time for 1 dose. 0.3 mL 023 Active FreeStyle lancets USE DIRECTED THREE TIMES DAILY 023 Active insulin lispro (HumaLOG) 100 UNIT/ML injectionIndic ations:Type 2 diabetes mellitus with hyperglycemia, with long-term current use of insulin ([facility]) Inject 4 Units under the skin with breakfast, with lunch, and with evening meal. Inject subcutaneously three times daily following sliding scale: BG<200 --> 0 units 200-249 --> 4 units 250-299 --> 6 units 300-349 --> 8 units 350-399 --> 10 units BG>400 --> 12 units & call office 3 mL 1 023 Active Continuous Blood Gluc Large Sheetfed Press Operator (FreeStyle Rashid 2 [place]) deviceIndicati ons:Type 2 diabetes mellitus with hyperglycemia, with long-term current use of insulin ([facility]) Scan sensor every 8 hours 1 each 023 Active Continuous Blood Gluc Sensor (FreeStyle Rashid 2 Sensor) miscIndication s:Type 2 diabetes mellitus with hyperglycemia, with long-term current use of insulin ([facility]) Apply 1 sensor every 14 days 2 each 2 023 Active Brilinta 90 MG tabletIndicati ons:Coronary artery disease involving [place] coronary artery of [place] heart, unspecified whether angina present TAKE 1 TABLET(90 MG) BY MOUTH EVERY 12 HOURS 180 tablet 1 023 Active bacitracin-christopher ymyxin b (Polysporin) ophthalmic ointment PLACE INTO THE LEFT EYE NIGHTLY FOR 10 DAYS. 023 Active cephalexin (Keftab) 500 MG tablet Take 500 mg by mouth 3 times daily. 023 Active clindamycin (Clindagel) 1 % gel APPLY TOPICALLY TO THE AFFECTED AREA TWICE DAILY 023 Active clobetasol (Temovate) 0.05 % ointment 023 Active doxycycline (Vibramycin) 100 MG capsule Take 100 mg by mouth 2 times daily. 023 Active fluorometholon e (FML) 0.1 % ophthalmic suspension SHAKE LIQUID AND INSTILL 1 DROP IN BOTH EYES FOUR TIMES DAILY FOR 10 DAYS 023 Active hydroquinone 4 % cream APPLY TOPICALLY TO DARK PATCHES ON NECK TWICE DAILY FOR 4 MONTHS 023 Active Linzess 145 MCG capsule TAKE 1 CAPSULE BY MOUTH EVERY DAY 30 MINUTES BEFORE FIRST MEAL OF THE DAY ON AN EMPTY STOMACH 023 Active atorvastatin (Lipitor) 80 MG tabletIndicati ons:Coronary artery disease involving [place] coronary artery of [place] heart, unspecified whether angina present TAKE 1 TABLET(80 MG) BY MOUTH IN THE MORNING 90 tablet 025 Active atorvastatin (Lipitor) 80 MG tabletIndicati ons:Coronary artery disease involving [place] coronary artery of [place] heart, unspecified whether angina present TAKE 1 TABLET(80 MG) BY MOUTH IN THE MORNING 90 tablet 025 2024 Discontinued Active Problems Problem Noted Date Diagnosed Date Encounter for preventive care 02/11/2025 Assessment & Plan (02/11/2025 2:02 PM EDT): See HPI Heart failure, unspecified H F chronicity, unspecified heart failure type 02/11/2025 Assessment & Plan (02/11/2025 2:02 PM EDT): Continue to follow-up with cardiology and with the same medication regimen Unstable gait 02/11/2025 Assessment & Plan (02/11/2025 2:02 PM EDT): Today it was prescribed for patient shower chair and a cane Dry eyes 01/12/2024 Acute right ankle pain 01/12/2024 Assessment & Plan (01/12/2024 10:45 AM EST): Follow up with orthopedics Hidradenitis suppurativa 11/07/2023 Assessment & Plan (11/07/2023 6:17 AM EST): Referral to general surgery to discuss need for removal of tract Coronary artery disease invo lving [place] coronary artery of [place] heart 10/03/2023 Assessment & Plan (02/11/2025 2:01 PM EDT): Continue to follow-up with cardiology Counseling about healthy diet done Continue with atorvastatin 80 mg daily and Brilinta Dermatitis 07/07/2023 Other conjunctivitis 07/07/2023 Colon cancer screening 07/07/2023 Intertrigo 07/07/2023 Tick bite 05/09/2023 ACS (acute coronary syndrome) 05/09/2023 Assessment & Plan (07/07/2023 5:16 PM EDT): Continue to follow with cardiology Assessment & Plan (05/10/2023 4:20 PM EDT): Continue with current medication regimen (brillinta, asa and atorvastatin) Follow up with cardiology Acute bacterial conjunctivitis of left eye 05/09 Hip pain 05/02/2023 Left leg pain 05/02/2023 Left knee pain 05/02/2023 Shoulder pain 05/02/2023 Mood disorder 05/02/2023 PTSD (post-traumatic stress disorder) 03/24/2023 Assessment & Plan (03/24/2023 10:31 PM EDT): Pt reports to continue active care w her psych provider Feeling anxious since dx,scared after ND -reassured and advised to continue w her specialist ND (myocardial infarction) 03/24/2023 Assessment & Plan (03/24/2023 10:39 PM EDT): Hospitalized from 02/13 - 02/16 in [place]. Found to have LHC showed 80% stenosis of proximal LAD with a mid lateral 50% and RCA of 50% and left main of 30%. Patient had LIGIA implanted in prox and mid LAD. Echo showed decreased LVEF to 40-45%. -pt currently asymptomatic and recovering -refilled today her ASA,brillinta and statins -referred to cards to continue care here -given noted today twice elevated BP (142/69, 144/92) and due to benefit for her CHF added low dose lisinopril 2.5 mg ---advised to monitor BP in next days and if still > 140/90 to start low dose and monitor BP closely -hold BB due to hx of bradycardia -alarm signs and symptoms discussed Tobacco dependence 03/24/2023 Assessment & Plan (03/24/2023 10:38 PM EDT): Reports hx of smoking tobacco x last 16 y. Used to smoke 30 cigarettes a day but now smokes 4-5/d. Calculated 24 packs per year. - Pt will need lung cancer screening if it hasn't started yet. Will follow with her PCP at upcoming appointment. - Pt agreed today to start smoking cessation program. Referred today. Weight loss 03/24/2023 Assessment & Plan (03/24/2023 10:41 PM EDT): Pt reports weight loss since aprox 6 mo -per her son and pt she thinks could be associated w stressful situation when was having some insects in her skin - son states saw them , pt now is feeling better ,but not eating enough -reports has apt already w GI x 06/2023 x colonoscopy and states had MM and pap smear up to date (11/2022) and told to be normal - will try to get records. - Pt has 24 packs per year of tobacco and will need lung cancer screening. -pt to RTC in next 4 to 6 weeks to f up w PCP for annual exam and eval weight Healthcare maintenance 03/24/2023 Assessment & Plan (03/24/2023 10:43 PM EDT): Discussed about Shingrix, P20, Covid vaccines, but pt wants to hold for now. Skin lesions 12/24/2022 Multiple insect bites 12/24/2022 Type 2 diabetes mellitus wit h hyperglycemia, with long-term current use of insulin 12/24/2022 Assessment & Plan (02/11/2025 2:02 PM EDT): Diabetes is: not controlled - Lab Results Component Value Date HGBA1C 8.3 (A) 02/11/2025 HGBA1C 8.8 (A) 01/12/2024 HGBA1C 11.3 (A) 10/03/2023 - Lab Results Component Value Date CREATININE 0.71 05/09/2023 -Changes: Swelling about diabetic diet today - Diabetic eye exam: Up-to-date - Diabetic foot exam: Pending - Continue lifestyle modifications - Continue current medications - Follow up: with endocrinology as scheduled Assessment & Plan (01/12/2024 10:44 AM EST): A1c imporved to 8.8 patient congratulated, continue to follow with endocrinology Assessment & Plan (11/07/2023 6:22 AM EST): A1C 11.3 Sees Della Del Rosario, currently on Lantus 25 units at night and Lispro 8 units with meals Likely needs more, to followup with them regarding ongoing titration Lab Results Component Value Date HGBA1C 11.3 (A) 10/03/2023 HGBA1C 10.0 (A) 05/09/2023 - Lab Results Component Value Date CREATININE 0.71 05/09/2023 - Diabetic eye exam: up to date recently diagnose with mild daibetic retinopathy - Diabetic foot exam: pending - Continue lifestyle modifications Assessment & Plan (10/03/2023 10:56 AM EST): - Lab Results Component Value Date HGBA1C 11.3 (A) 10/03/2023 HGBA1C 10.0 (A) 05/09/2023 - Lab Results Component Value Date CREATININE 0.71 05/09/2023 - - Diabetic eye exam: up to date recently diagnose with mild daibetic retinopathy - Diabetic foot exam: pending - Continue lifestyle modifications -I renew her Humalog insulin, I prescribe for her continuous glucose monitor, it is my medical opinion patient will benefit form this device in light f worsening A1c now of 11.3 on an insulin dependent patient Assessment & Plan (07/07/2023 5:17 PM EDT): Continue to follow with endocrinology Assessment & Plan (05/10/2023 4:20 PM EDT): Continue to follow with endocrinology Assessment & Plan (03/24/2023 10:30 PM EDT): 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 Initial goal of 30 min walk 3-5x/week. Increase as tolerated. - low-sodium diet (goal: <2g/day) and heart healthy diet such as DASH to reduce BP and prevent ASCVD. - Home BP monitoring 1-2 x day with goal of <140/90. - Seek immediate medical attention for chest pain, palpitations, SOB, syncope, or sudden changes in mental status. - Do not change or discontinue current prescriptions without first consulting health care provider Assessment & Plan (07/07/2023 5:16 PM EDT): - Aerobic exercise to reduce BP. Initial goal of 30 min walk 3-5x/week. Increase as tolerated. - low-sodium diet (goal: <2g/day) and heart healthy diet such as DASH to reduce BP and prevent ASCVD. - Home BP monitoring 1-2 x day with goal of <140/90. - Seek immediate medical attention for chest pain, palpitations, SOB, syncope, or sudden changes in mental status. - Do not change or discontinue current prescriptions without first consulting health care provider Assessment & Plan (05/10/2023 4:17 PM EDT): - Aerobic exercise to reduce BP. Initial goal of 30 min walk 3-5x/week. Increase as tolerated. - low-sodium diet (goal: <2g/day) and heart healthy diet such as DASH to reduce BP and prevent ASCVD. - Home BP monitoring 1-2 x day with goal of <140/90. - Seek immediate medical attention for chest pain, palpitations, SOB, syncope, or sudden changes in mental status. - Do not change or discontinue current prescriptions without first consulting health care provider Opioid dependence 04/07/2016 Status post club foot correction at 2015 Anxiety 04/07/2016 Encounters Date Type Department Care Team Description 03/12/[address] [address] Camila Espinal MD Coronary artery disease involving [place] coronary artery of [place] heart, unspecified whether angina present 02/20/[address] [address] Camila Espinal MD Durable Medical Equipment (DME Request: Shower Chair and Cane) 02/11/2025 10:15 AM EDT Office Visit [address] [phone] Camila Espinal MD Encounter for preventive care (Primary Dx); Type 2 diabetes mellitus with hyperglycemia, with long-term current use of insulin (CMS/HCC); Heart failure, unspecified HF chronicity, unspecified heart failure type (CMS/HCC); Spinal muscular atrophy (CMS/HCC); Coronary artery disease involving [place] coronary artery of [place] heart, unspecified whether angina present; Unstable gait; Need for vaccination; Encounter for immunization 02/11/2025 Travel 02/08/2025 Population Health Risk Score [facility] () Department [address] [place] [id number] Provider, Population Health Generic 02/01/2025 Patient Outreach [address] [address] Camila Espinal MD Pre-visit Planning (SDOH screening negative and tobacco screening negative) 01/01/[address] [address] Camila Espinal MD Nurse Triage from Last 3 Months Immunizations Name Administration Dates Next Due Influenza Injectable Quadriv alant Preservative Free IIV4 MDCK 10/27/2021,08/13/2017 Influenza injectable quadriv alent preservative free 10/03/2023,07/29/2020,10/12/2018 Influenza, seasonal, injecta ble, preservative free 02/11/2025,09/02/2016 Pneumococcal Conjugate PCV 20 02/11/2025 Pneumococcal Polysaccharide PPSV23 08/04/2018 Tdap 08/04/2018 Family History Medical History Relation Name Comments Heart attack Father Breast cancer Mother Relation Name Status Comments Father Mother Social History Tobacco Use Types Packs/Day Years Used Date Smoking Tobacco: Every Day Cigarettes Smokeless Tobacco: Never Tobacco Cessation:Ready to Q uit: Not Asked; Counseling Given: Not Answered Alcohol Use Standard Drinks/Week Comments Never 0 (1 standard drink = 0.6 oz pur e alcohol) Depression Answer Date Recorded Patient Health Questionnaire-9 Score 4 03/24/2023 Housing Stability Answer Date Recorded What is your housing situation today? I have felisa vargas 02/01/[address] you li ve. Do you have problems with any of the following? None of the above 02/01/2025 Food Insecurity Answer Date Recorded Within the past 12 months, y ou worried that your food would run out before you got money to buy more: Never True 02/01/2025 Within the past 12 months,th e food you bought just didn't last and you didn't have enough money to get more: Never True 05/2025 Transportation Answer Date Recorded In the past 12 months, has l ack of transportation kept you from medical appts, meetings, work or from getting things needed for daily living? No 02/01/2025 Utilities Answer Date Recorded In the past 12 months, has t he electric, gas, oil or water company threatened to shut off services in your home? No 02/01/2025 Depression Answer Date Recorded Patient Health Questionnaire-2 Score 1 03/24/2023 Internet Access Answer Date Recorded Internet Access Q1 Yes 02/01/2025 Internet Access Q2 Not on file 02/01/2025 Comments Unknown Sex and Gender Information Value Date Recorded Sex Assigned at Female 09/27/2022 10:29 AM EDT Legal Sex Female 10:29 AM EDT Gender Identity Female 09/27/2022 10:29 AM EDT Sexual Orientation Straight 09/27/2022 10 :29 AM EDT Last Filed Vital Signs Vital Sign Reading Time Taken Comments Blood Pressure 130/85 02/11/2025 1:59 PM EDT Pulse 89 02/11/2025 9:53 AM EDT Temperature 35.9 ??C (96.7 ??F) 02/11/2025 9:53 AM ED T Respiratory Rate 16 02/11/2025 9:53 AM EDT Oxygen Saturation 98% 02/11/2025 9:53 AM EDT Inhaled Oxygen Concentration - - Weight 71.9 kg (158 lb 8 oz) 02/11/2025 9:53 AM EDT Height 149.9 cm (4' 11 ) 02/11/2025 9:53 AM EDT Body Mass Index 32.01 02/11/2025 9:53 AM EDT Plan of Treatment Upcoming Encounters Date Type Department Care Team (Late st Contact Info) Description 05/13/2025 9:00 AM EDT Office Visit [facility] [address] [place], [place] [phone] Camila Espinal MD [address] [place], [place] [phone] Health Maintenance Due Date Last Done Comments CT Colonography 1966 Colonoscopy 1966 Colorectal Cancer Screening 1966 FIT DNA/Cologuard 1966 FIT 1966 FOBT 1966 Sigmoidoscopy 1966 Diabetes: Foot Exam 02/20/1976 Eye Exam 02/20/1976 Alcohol/Substance Use Screening 1978 Hepatitis B Vaccines (1 of 3 - 19+ 3-dose series) 1985 Zoster Vaccines (1 of 2) 02/20/2016 Diabetes: Urine Protein Screening 02/26/2022 02/26/2021 Depression Screening 03/24/2024 03/24/2023, 03/24/20 23 COVID-19 Vaccine ( season) 2024 10/27/2021, 03/20/2021, 02/26/2021 Lipid Panel 11/14/2024 11/14/2023, 05/09/2023 Mammogram 05/01/2025 05/01/2024, 11/29, 08/20/2020, Additional history exists Diabetes: Hemoglobin A1C 05/14/2025 025, 01/12/2024, 10/03/2023, Additional history exists SDOH Screening 02/01/2026 02/01/2025 Tobacco Screening 02/11/2026 02/11/2025 Cervical Cancer Screening 06/02/2026 HPV/Cotest 06/02/2026 06/02/2021, 07/0 04/2021, 11/30/2017 Pap Smear 06/02/2026 06/02/2021, 11/30/2017 DTaP/Tdap/Td Vaccines (2 - Td or Tdap) 08/04/2028 08/04/2018 RSV Patients and Patients Aged 60 years or older (1 - 1-dose 75+ series) 2041 HIV Screening Completed 05/09/2023, 09/28, 10/13/2021 Hepatitis C Screening Completed 05/09/2023 , 10/13/2021, 10/13/2021 Influenza Vaccine Completed 02/11/2025, , 10/27/2021, Additional history exists Pneumococcal Vaccine: 50+ Years Completed 02/11/2025, 08/04/2018 HIB Vaccines Aged Out No longer eligi [...] patient's age to complete this topic Meningococcal Vaccine Aged Out No monica clayton eligible based on patient's age to complete this topic RSV under 20 months Aged Out No longe r eligible based on patient's age to complete this topic Rotavirus Vaccines Aged Out No longer eligible based on patient's age to complete this topic Goals Goal Patient Goal Type Associated Problems Recent Progress Patient-Stated? Author Reduce the number of cigarettes smoked per day by 1 (goal 4-6 cigarettes per day) General Harmeet Lazaro, PharmD Call the pharmacy to schedule a f/u appointment when you return from [place] General Harmeet Lazaro PharmD Procedures Procedure Name Priority Date/Time Associated Diagnosis Comments POCT GLYCATED HEMOGLOBIN, TOTAL Routine 02/11/2025 9:55 AM EDT Type 2 diabetes mellitus with hyperglycemia, with long-term current use of insulin (CMS/HCC) POCT GLUCOSE Routine 02/11/2025 9:55 AM EDT Type 2 diabetes mellitus with hyperglycemia, with long-term current use of insulin (CMS/HCC) BI MAMMOGRAM SCREENING TOMOSYNTHESIS BILATERAL Routine 05/01/2024 8:50 AM EDT LIPID PANEL, STANDARD Routine 11/14/2023 8:14 AM EST HEPATITIS C AB W/REFL TO HCV RNA, QN, PCR Routine 05/09/2023 10:42 AM EDT Weight loss HIV 1/2 ANTIGEN/ANTIBODY, FOURTH GENERATION W/RFL Routine 05/09/2023 10:42 AM EDT Weight loss ZZZ HISTORICAL HPV E6/E7 RFLX RADHA 16 18/45 Routine 06/02/2021 9:06 AM EDT PAP SMEAR Routine 06/02/2021 12:00 AM EDT ZZZ HISTORICAL MICROALBUMIN, RANDOM Routine 02/26/2021 12:00 AM EDT from Last 3 Months or Most Recently Relevant to Health Maintenance Results * (ABNORMAL) POCT HGB A1C (02/11/2025 9:55 AM EDT) Hemoglobin A1C 8.3(A) 4.0 - 6.0 % QC Media Lot # [id number] Lot# Expiration Date ,142,954 Blood 02/11/2025 9:55 AM EDT Camila Medina MD POINT OF CARE TEST EN TER/EDIT ORDERABLES Final Result * POCT Glucose (02/11/2025 9:55 AM EDT) Glucose Blood, POC 124 60 - 200 mg/dL QC Media Lot # [id number] Lot# Expiration Date 82,625 Blood Capillary blood specimen / Unknown 02/11/2025 9:55 AM EDT us Camila Medina MD POINT OF CARE TEST EN TER/EDIT ORDERABLES Final Result * BI Mammogram Screening Tomosynthesis Bilateral (05/01/2024 8:50 AM EDT) Anatomical Region Laterality Modality Breast Bilateral Mammography 05/01/2024 8:50 AM EDT Narrative 05/29/2024 7:35 AM EDT ? [facility] ? [address] ?[place], [place] [address] ? Mammography Report ? Signed ? Patient: Renetta Delaney ?MR#: [id number] ?? [id number] ? : 1965 ?Acct:[id number] ? Age/Sex: 59 / F ?ADM Date: 05/01/24 ? Loc: HO.MAMMO ? Attending Dr: Devin Ramirez MD ? Ordering Physician: Devin Ramirez MD ?Results: 1Negativ ?? e ? Date of Service: 05/01/24 ?Follow Up: 1 Year From Orig ?? inal Mammogram ? Procedure(s): MM tomosynthesis screening BI ?? Accession Number(s): [id number] ? cc: Camila Espinal MD; Devin Ramirez MD ? EXAMINATION: ?? MM SCREENING DIGITAL BREAST TOMOSYNTHESIS, BILATERAL ? CLINICAL INFORMATION: ? Screening. Asymptomatic. ? COMPARISON: ?? Mammography: This study is compared with prior exams dating back to ?? 2019. ? TECHNIQUE: ?? Digital breast tomosynthesis is performed in both the craniocaudal and ?? mediolateral oblique views along with computer-aided detection (CAD). ?? Synthesized 2D images are generated from the tomosynthesis. ? FINDINGS: ?? There are scattered areas of fibroglandular density (ACR BI-RADS breast ?? composition Category b). ? There are no significant masses, abnormal calcifications, or other ?? abnormalities. ? MM/MM tomosynthesis screening BI ?? IMPRESSION: ?? No mammographic evidence of malignancy. ? ASSESSMENT: ? BI-RADS BI-RADS 1 - Negative ? RECOMMENDATION: ?? Routine annual mammography screening. ? 1 year F/U ? This examination should not preclude the clinical evaluation of a ?? suspicious palpable abnormality. ? This patient's information was entered into a reminder system with a ?? target due date for their next mammogram. ? Dictated By: ?Farida Carr MD ? Signed By: ?<Electronically signed by Farida Carr MD in OV> ? 05/29/24 0731 ? DD/ 0850 ? TD/TT: ? Liaison Engineer: ? Procedure Note Debbie Llanos - 05/29/2024 [facility] [address] [place] [address] Mammography Report Signed Patient: Cele Delaney#: [id number] : 1965Acct:[id number] Age/Sex: 59 / FADM Date: 05/01/24 Loc: [facility] Attending Dr: Devin Ramirez MD Ordering Physician: Devin Ramirezults: 1Negativ e Date of Service: 05/01/24Follow Up: 1 Year From Orig inal Mammogram Procedure(s): MM tomosynthesis screening BI Accession Number(s): [id number] cc: Camila Espinal MD; Devin Ramirez MD EXAMINATION: MM SCREENING DIGITAL BREAST TOMOSYNTHESIS, BILATERAL CLINICAL INFORMATION: Screening. Asymptomatic. COMPARISON: Mammography: This study is compared with prior exams dating back to 2019. TECHNIQUE: Digital breast tomosynthesis is performed in both the craniocaudal and mediolateral oblique views along with computer-aided detection (CAD). Synthesized 2D images are generated from the tomosynthesis. FINDINGS: There are scattered areas of fibroglandular density (ACR BI-RADS breast composition Category b). There are no significant masses, abnormal calcifications, or other abnormalities. MM/MM tomosynthesis screening BI IMPRESSION: No mammographic evidence of malignancy. ASSESSMENT: BI-RADS BI-RADS 1 - Negative RECOMMENDATION: Routine annual mammography screening. 1 year F/U This examination should not preclude the clinical evaluation of a suspicious palpable abnormality. This patient's information was entered into a reminder system with a target due date for their next mammogram. Dictated By: Farida Carr MD Signed By: <Electronically signed by Farida Carr MD in OV> 05/29/24 0731 DD/ 0850 TD/TT: Liaison Engineer: [employer] External Provider IMG BI PROCEDURES Edited Result - Final * (ABNORMAL) Lipid Panel, Standard (11/14/2023 8:14 AM EST) Triglycerides 134 <150 mg/dL [facility] Comment:Desirable Triglyceri de: less than 150 mg/dLBorderline High Triglyceride 150-199 mg/dLHigh Triglyceride: 200-499 mg/dLVery High Triglyceride: greater than or equal to 5OO mg/dL Cholesterol 99 <200 mg/dL [facility] Comment:Desirable Cholestero l: less than 200 mg/dLBorderline High Cholesterol: 200-239 mg/dLHigh Cholesterol: greater than 239 mg/dL LDL Cholesterol Calculated 43 <100 mg/dL [facility] Comment:Desirable LDL: less than 100 mg/dLNear Optimal/Above Optimal LDL: 110- 129 mg/dLBorderline High LDL: 130-159 mg/dLHigh LDL: 160-189 mg/dLVery High LDL: greater than or equal to 190 mg/dL HDL Cholesterol 30(L) >40 mg/dL [facility] Comment:Desirable HDL: great er than 40 mg/dL Note: This HDL assay may give artificially low results in patients with liver disease. 11/14/2023 8:14 AM EST 11/14/2023 8:14 AM EST us Generic External Data Provider LAB BLOOD ORDERAB LES Final Result [facility] [address] [place] [address] [phone] * Hepatitis C Antibody with Reflex to HCV, RNA, Quantitative, Real-Time PCR (05/09/2023 10:42 AM EDT) Hepatitis C Antibody NON-REACT ANDREINA NON-REACT ANDREINA Predictry Index <0.02 <1.00 Predictry Comment: HCV antibody was non-reactive. There is no laboratory evidence of HCV infection. In most cases, no further action is required. However, if recent HCV exposure is suspected, a test for HCV RNA (test code 63522) is suggested. For additional information please refer to http://education.Cardiovascular Simulation/faq/ISY66f1 (This link is being provided for informational/ educational purposes only.) Blood Venous blood specimen / Unknown 05/09/2023 10:42 AM EDT 05/09/2023 10:43 AM EDT Narrative [facility] - 05/12/2023 9:03 AM EDT FASTING:NO PATIENT UNABLE TO VOID; ADVISED TO RETURN FOR COLLECTION. FASTING: NO us Camila Medina MD LAB BLOOD ORDERABLES Final Result [facility] [address], [place] [address] [employer] [place] [facility] [address] [place] [address] * HIV-1/2 Antigen and Antibodies, Fourth Generation, with Reflexes (05/09/2023 10:42 AM EDT) HIV Antigen/Antibody, 4th Generation NON-REAC TIVE NON-REAC TIVE [employer] [facility] Comment: HIV-1 antigen and HIV-1/HIV-2 antibodies were not detected. There is no laboratory evidence of HIV infection. PLEASE NOTE: This information has been disclosed to you from records whose confidentiality may be protected by state law. ??If your state requires such protection, then the state law prohibits you from making any further disclosure of the information without the specific written consent of the person to whom it pertains, or as otherwise permitted by law. A general authorization for the release of medical or other information is NOT sufficient for this purpose. ?? For additional information please refer to http://education.Cardiovascular Simulation/faq/JPX188 (This link is being provided for informational/ educational purposes only.) The performance of this assay has not been clinically validated in patients less than 2 years old. Blood Venous blood specimen / Unknown 05/09/2023 10:42 AM EDT 05/09/2023 10:43 AM EDT [facility] - 05/12/2023 9:03 AM EDT FASTING:NO PATIENT UNABLE TO VOID; ADVISED TO RETURN FOR COLLECTION. FASTING: NO us Camila Medina MD LAB BLOOD ORDERABLES Final Result [facility] [address], [place] [address] [employer] [facility] [address] [place] [address] * HPV E6/E7 RFLX RADHA 16 18/45 (06/02/2021 9:06 AM EDT) Pathologist [facility] HPV 16 RNA [facility] HPV 18/45 RNA [facility] HPV E6 E7 ADD [facility] HPV mRNA E6/E7 rflx Not Detected Not Detected [facility] Comment: Methodology: Wire Weaver Cloth-Mediated Amplification This assay detects E6/E7 viral messenger RNA (mRNA) from 14 high-risk HPV types (16,18,31,33,35,39,45,51,52,56,58,59,66,68). The analytical performance characteristics of this assay have been determined by [employer]. The modifications have not been cleared or approved by the FDA. This assay has been validated pursuant to the CLIA regulations and is used for clinical purposes. For additional information, please refer to http://education.Cardiovascular Simulation/faq/FZI393w6 (This link if provided for information/ educational purposes only.) THIS TEST WAS PERFORMED AT: [employer] [address] [place] [address] [address] [place], [place] ??[phone] [facility] MD 06/02/2021 9:06 AM EDT Devin Ramirez MD HISTORICAL/NON ORDERABLE LABS Fi nal Result Performing Organization Address City/[facility]/ZIP Co de Phone Number [facility] [address] [place] [address] * Pap Smear (06/02/2021 12:00 AM EDT) Swab Devin Ramirez MD LAB CYTOLOGY ORDERABLES Final Re sult Performing Organization Address City/[facility]/ZIP Co de Phone Number [facility] [address] [place] [address] [phone] * MICROALBUMIN, RANDOM (02/26/2021 12:00 AM EDT) Creatinine Urine 100.44 mg/dL [facility] Microalbum/Creati nine Ratio Ur 9.9 ug/mg cr [facility] Comment: ?Albumin/Creatinine Ratio Reference Ranges: ? Normal: < 30 ug/mg creatinine ? Microalbuminuria: ??30 - 300 ug/mg creatinine Clinical Albuminuria: ??> 300 ug/mg creatinine Microalbumin Urine 10.0 mg/L [facility] 02/26/2021 us Camila Medina MD HISTORICAL/NON ORDERA BLE LABS Final Result [facility] [address] from Last 3 Months or Most Recently Relevant to Health Maintenance [facility] [address] [place] [address] Care Teams Nursing Home Manager Relationship Specialty Start Date End Date Camila Espinal MD [address] [place] [phone] PCP - General Family Medicine 05/13/20 Karma Mcfadden Branding Machine OperatorMercury Recoverer 08/11/23
--- OUTSIDE RECORDS SUMMARY | 2025-03-28 14:30 | XMS_ITS | Continuity of Care Document ---
Author Organization [facility] Address [address] [place] [address] Phone Care Team Providers Care Director Of Catering Sales Name Role Phone Vilma HANSON, Willyr Unavailable [...] Provider Providers Copied on Encounter [facility], [address], [place], [place], [id number], [place] tel:[phone] [facility] No Information 3 Vilma Parker. [address] [place], [place], [id number], . tel:[phone] [facility], [address], [place], [place], [id number], tel:[phone] Essential (primary) hypertensionHyp erlipidemia, unspecifiedAthe rosclerotic heart disease of [place] coronary artery without angina pectorisCardiom yopathy, unspecified Mar-2 4202 3 No Information [facility], [address], [place], [place], [id number], [place] tel:[phone] [facility] No Information Mar-2 0 3 Brennon Hernandez. [address], [address], [place], [place], [id number], [place]. tel:[phone] Referring Provider: Chapin Pierre MD, [address] [place] [address], [address]. tel:[phone] Family History Family Member Type Diagnosis Age [...]
== END 2025-03-28 13:54 | disposition home or self-care (01) ==
LOC: HO.HCS 12:28
PROVIDERS: PCP Internal Medicine; Visit Provider Nurse Practitioner Family
DX: I25.10 Atherosclerotic heart disease of native coronary artery without angina pectoris (principal); Z95.5 Presence of coronary angioplasty implant and graft; I10 Essential (primary) hypertension; E78.5 Hyperlipidemia, unspecified; Z01.810 Encounter for preprocedural cardiovascular examination
CPT/HCPCS: 93010; 99214

== ENCOUNTER → 2025-03-28 12:28 | Outpatient (BNVA) | payer MEDICAID, SELFPAY | PROVIDERS: PCP Internal Medicine; Visit Provider Nurse Practitioner Family | DX: Z01.810 Encounter for preprocedural cardiovascular examination (principal); I10 Essential (primary) hypertension; I25.10 Atherosclerotic heart disease of native coronary artery without angina pectoris; E78.5 Hyperlipidemia, unspecified; F17.210 Nicotine dependence, cigarettes, uncomplicated; Z95.5 Presence of coronary angioplasty implant and graft | CPT/HCPCS: 93005; 99212 ==

== ENCOUNTER 2025-04-09 07:46 | Outpatient (REF) | payer MEDICAID, SELFPAY ==
--- OUTSIDE RECORDS SUMMARY | 2025-04-09 07:49 | XMS_ITS ---
Author Organization [facility] Address [address] [place] [address] Care Team Providers Care Finishing Range Supervisor Name Role Phone Camila Alba M.D. Primary Care Provider Imtiaz Swain [phone] REASON FOR VISIT Trulicity Encounters Encounter Location Date Provider Diagnosis [facility] [address] [place] [phone] 10/19/2024 Imtiaz Gonzalez Plan Of Treatment No Information Progress Notes * PALOMA CURRY BDOB:1964 (59 yo F)Acc No.[id number]:10/19/2024 Patient:?PALOMA CURRY :1965???Age:59 Y???Sex:Female Address:[address] [place] [address] [address], , [place], [address] * true * Date:? Generated for Tierrai alivia/Bakari/eTransmitting on:?04/09/2025 07:48 AM EDT
--- OUTSIDE RECORDS SUMMARY | 2025-04-09 07:49 | XMS_ITS | Continuity of Care Document ---
Author Organization [facility] Address [address] [place] [address] Phone Care Team Providers Care Director Energy Name Role Phone Vilma HANSON, Willyr Unavailable [...] Provider Providers Copied on Encounter [facility], [address], [place], [place], [id number], [place] tel:[phone] [facility] No Information 3 Vilma Parker. [address] [place], [place], [id number], . tel:[phone] [facility], [address], [place], [place], [id number], tel:[phone] Essential (primary) hypertensionHyp erlipidemia, unspecifiedAthe rosclerotic heart disease of [place] coronary artery without angina pectorisCardiom yopathy, unspecified Mar-2 4202 3 No Information [facility], [address], [place], [place], [id number], [place] tel:[phone] [facility] No Information Mar-2 0 3 Brennon Hernandez. [address], [address], [place], [place], [id number], [place]. tel:[phone] Referring Provider: Chapin Pierre MD, [address] [place] [address], [address]. tel:[phone] Family History Family Member Type Diagnosis Age [...]
--- OUTSIDE RECORDS SUMMARY | 2025-04-09 07:49 | XMS_ITS | Encounter Summary ---
Author Organization [employer] Address [address] [place] [address] Care Team Providers Care Wire Lather Name Role Phone Camila Espinal MD Primary Care Provide r Encounter Details Date Type Department Care Team ([facility] st Contact Info) Description 10/27/2023 Telephone [facility] [address] [place], [place] [phone] Camila Espinal MD [address] [place], [place] [phone] Social History Tobacco Use Types Packs/Day Years [...] with others, in a hotel, in a senior care, living outside on the street, on a [...] PM EST Referral sent via fax to [facility] for PROTECTIVE SIGNAL REPAIRER HELPER services. documented in this encounter Plan of Treatment Upcoming Encounters Date Type Department Care Team (Late st Contact Info) Description 05/13/2025 9:00 AM EDT Office Visit [facility] [address] [place] [address] [phone] Camila Espinal MD [address] [place] [address] documented as of this encounter Goals Goal Patient Goal Type Associated Problems Recent Progress Patient-Stated? Author Reduce the number of cigarettes smoked per day by 1 (goal 4-6 cigarettes per day) General Harmeet Lazaro PharmJud Call the pharmacy to schedule a f/u appointment when you return from [place] General Harmeet Lazaro PharmD documented as of this encounter Visit Diagnoses Not on filedocumented in this encounter Additional Health Concerns Assessment Noted Time PHQ-9 Depression Total Score: 4 03/24/20 23 2:31 PM EDT documented as of this encounter Care Teams Wire Lather Relationship Specialty Start Date End Date Camila Espinal MD [address] [place] [address] [phone] PCP - General Family Medicine 05/13/20 Karma Mcfadden Regulatory Compliance DirectorSenior Analyst Developer 08/11/23 documented as of this encounter
--- OUTSIDE RECORDS SUMMARY | 2025-04-09 07:49 | XMS_ITS ---
Author Organization [facility] Address [address] [place] [address] Care Team Providers Care Eyeglass Lens Generator Name Role Phone Camila Alba M.D. Primary Care Provider Imtiaz Swain [phone] REASON FOR VISIT screening Problems Problem Type SNOMED Code ICD Code Onset Dates Problem Status W/U Status Risk Notes Problem Diverticular disease of colon (641171065) Diverticulosis of large intestine without perforation or abscess without bleeding (K57.30) Active confirmed Encounters Encounter Location Date Provider Diagnosis [facility] [place] [address] [place] [phone] 10/29/2024 Imtiaz Gonzalez Encounter for scre ening [...] * PALOMA CURRY BDOB:1964 (60 yo F)Acc No.[id number]:10/29/2024 COLON WITH MAC Patient:?PALOMA CURRY Provider:?Imtiaz Gonzalez MD :1965???Age:59 Y???Sex:Female D ate:10/29/2024 Address:[address] [place] [address] [address], , [place], [phone] Pcp:Camila Alba M.D. Subjective: * Chief Complaints: * ???1. Screening. * Medical History:? Objective: * Vitals:? Assessment: * Assessment: 1.?Encounter for screening c olonoscopy - Z12.11 (Primary)???2.?Colon polyps - K63.5???3.?Diverticulosis of large intestine without perforation or abscess without bleeding - K57.30???4.?Other hemorrhoids - K64.8??? Plan: * Treatment: * Procedure Codes:?64567 LESIO N REMOVAL COLONOSCOPY * * The named appointment provid er may or may not be the originator of this progress note, and it is not deemed complete until electronically signed by the appointment provider. Sign off status: Pending * Provider:?Imtiaz Gonzalez MD Date:? 024 Generated for Samara bunch/Bakari/eTransmitting on:?04/09/2025 07:49 AM EDT
--- OUTSIDE RECORDS SUMMARY | 2025-04-09 07:49 | XMS_ITS | Clinical Summary ---
Author Organization [facility] Address [address] [place] [address] Care Team Providers Care Equipment Tester Name Role Phone Camila Espinal MD Primary [...] age to complete this topic Care Teams Equipment Tester Relationship Specialty Start Date End Date Camila Espinal MD [address] [place] [phone] PCP - General 01/19/24
--- OUTSIDE RECORDS SUMMARY | 2025-04-09 07:49 | XMS_ITS ---
Author Organization [facility] Address [address] [place] [phone] Care Team Providers Care Printer Slotter Feeder Name Role Phone Camila Alba M.D. Primary Care Provider Imtiaz Swain [phone] REASON FOR VISIT nagging pain under ribs Encounters Encounter Location Date Provider Diagnosis [facility] [address] [place] [phone] 01/15/2025 Imtiaz Gonzalez Plan Of Treatment No Information Progress Notes * PALOMA CURRY BDOB:1964 (60 yo F)Acc No.[id number]:01/15/2025 Patient:?PALOMA CURRY :1965???Age:59 Y???Sex:Female Address:[address] [place] [address] [address], , [place], [address] * true * Date:? Generated for Samara bunch/Bakari/eTransmitting on:?04/09/2025 07:49 AM EDT
--- OUTSIDE RECORDS SUMMARY | 2025-04-09 07:49 | XMS_ITS | Encounter Summary ---
Author Organization [employer] Address [address] [place] [address] Care Team Providers Care Supervisor Anodizing Name Role Phone Camila Espinal MD Primary Care Provide r Encounter Details Date Type Department Care Team (Late st Contact Info) Description 10/25/2023 Abstract [facility] [address] [place], [place] [phone] Jane Aguilar Social History Tobacco Use Types [...] with others, in a hotel, in a group home, living outside on the street, on a [...] Description 05/13/2025 9:00 AM EDT Office Visit [facility] [address] [place], [place] [phone] Camila Espinal MD [address] [place], [place] [phone] documented as of this encounter Goals Goal Patient Goal Type Associated Problems Recent Progress Patient-Stated? Author Reduce the number of cigarettes smoked per day by 1 (goal 4-6 cigarettes per day) General Harmeet Lazaro, PharmD Call the pharmacy to schedule a f/u appointment when you return from [place] General Harmeet Lazaro, PharmD documented as of [...] documented as of this encounter Care Teams Supervisor Anodizing Relationship Specialty Start Date End Date Camila Espinal MD [address] [place], [place] [phone] PCP - General Family Medicine 05/13/20 Karma Mcfadden Bench Machine OperatorWater Quality Assistant 08/11/23 documented as of this encounter
--- OUTSIDE RECORDS SUMMARY | 2025-04-09 07:49 | XMS_ITS | Patient Health Record ---
Author Organization [facility] Address [address] [place] [address] Care Team Providers Care Order Builder Name Role Phone Camila Alba M.D. Primary Care Provider Imtiaz Swain [phone] Allergies Allergen (clinical drug ingredient) Drug/Non Drug Allergy documented on EMR Reaction Allergy Type Onset Date Status IVP DYE (uncoded) Unknown Allergy 07/31/2023 A ctive Results Component Value Reference Range Notes Pathology Reviewed date:03/20/2025 11:35:04 PM Interpretation: Performing Lab:[facility], [place], [address] [place] [id number] Notes/Report: Name: Shantelle Delaney Age/Sex: 59/F : 1965 Unit#: [id number] Attend Dr: Imtiaz Gonzalez MD Re10/29/24 Status : [facility] Location: [facility] Disch: SPEC : [id number] RECD : 10/29/24 STATUS: LARISSA MADDOX NUM: [id number] OWEN: 10/29/[address] [facility] [address]: Imtiaz Gonzalez MD ENTERED: 10/29/24 15 SP TYPE: Surgical OTHR DR: Camila Espinal MD ORDERED: HE Stain/9, Gross Micro L4/3 Addendum Addendum 1 Entered: 11/02/24 Additional deeper tissue levels: (A): Tubular adenoma ; negative for high-grade dysplasia and carcinoma. (B): Serrated lesion with low grade dysplasia and focal features of traditional serrated adenoma; negative fo r high-grade dysplasia and carcinoma (cannot completely exclude sessile serrated lesion with dysplasia). Addendum Signed ____ __(signature on file) Elicia Van Meter 11/02/24 1342 Diagnosis A. Colon, at 60 cm, polyp: Polypoid colonic mucosa (see comment). B. Colon, transverse , polyp: Consistent with sessile serrated lesion without dysplasia (seE comment). C. Colon, at 40 cm, polyp: Tubular adenoma; negative for high-grade dysplasia and carcinoma. Comment: (A): No adenomatous dysplasia seen on initial levels. Additional tissue levels pending; addendum to follow. (B): Additional tiss ue levels pending; addendum to follow. Clinical History Pre-Op Dx: Screening Post-Op Dx: Polyps, diverticulosis, hemorrhoids Microscopic Description Microscopic sections reviewed. CONTINUED ON NEXT PAGE Name: Shantelle Delaney Age/Sex: 59/F : 1965 [id number] Unit#: [id number] Attend Dr: Imtiaz Gonzalez MD Re10/29/24 Status : [facility] Location: [facility] Disch: SPEC : [id number] RECD : 10/29/24-101 STATUS: LARISSA MADDOX NUM: [id number] OWEN: 10/29/[address] [facility] [address]: Imtiaz Gonzalez MD ENTERED: 10/29/24-10 15 SP TYPE: Surgical OTHR DR: Camila Espinal MD ORDERED: HE Stain/9, Gross Micro L4/3 Material Received A. Polyp at 60 B. Transverse colon polyp C. Polyp at 40 Gross Description Received in three parts. Part A: Received in formalin labeled ?polyp at 60? is a 0.6 cm avalos irregular-papular tissue fragment, submitted in toto in a cassette labeled A. Part B: Received in formalin labeled ?transverse colon polyp? is a 0.9 x 0.4 x 0.35 cm avalos- pink rectangular-pap ular tissue fragment, sectioned and entirely submitted in a cassette labeled B. Part C: Received in formalin labeled ?polyp at 40? is a 0.8 x 0.6 x 0.35 cm avalos-red papular tissue fragment, sec tioned and entirely submitted in a cassette labeled C. CEDS Copies To: Camila Espinal MD [address] [address] Imtiaz Gonzalez MD [facility] [address] [place] [address] Signed (si gnature on file) Elicia Van Meter 10/30/24 1747 END OF REPORT Reason For Referral Referring Provider First Name Puja Referring Provider Last Name Barron Referred Organization [facility] [employer] [facility] Referred Provider Imtiaz Gonzalez Referred Address [address] [place] [address],[place], [place],[address], Referred Provider Specialty Gastroentero logherminia General Notes Sweetie Rocha 024 03:31:18 PM EDT > requested a [facility] ref from [facility] for visit with Dr. Gonzalez on 07-12-2024 existing referral will on 05-25-2024 Referral Priority Routine Medications Medication SIG (Take, Route, Frequency, Duration) Notes Start Date End Date Status Aspirin 81 Active Lantus SoloStar Acti ve Insulin Lispro (1 Unit Dial) 100 UNIT/ML INJECT UNDER THE SKIN THREE TIMES DAILY BEFORE MEALS PER SLIDING SCALE. MAX DOSE OF 36 UNITS PER DAY Subcutaneous for 33 Active Methadone HCl For pain management Active Atorvastatin Calcium 80 MG 1 tablet Orally Once a day Active MiraLax (colon prep) 17 GM/SCOOP 1/2 of a 238GM bottle mixed in 1 quart of Gatorade or Crystal light 2 days before the colonoscopy, and then 1 238Gm bottle mixed with Gatorade or Crystal Light the day before the colonoscpy Orally Do the 1/2 bottle 2 days before the colonoscopy, and then begin the full 1 bottle at 5:00 p.m. the day before the procedure for 2 days 07/14/2024 Active Dulcolax (colon prep) 5 MG Take 2 tabs two days before the colonoscopy, and then take 2 tabs at 3:00 p.m and 7:00p.m. the day before the colonoscopy Orally Two tablets once two days before the colonoscopy, and then two tablets twice a day the day before the colonoscopy for 2 days 07/14/2024 Active clonazePAM TID Active HumaLOG 100 UNIT/ML as directed Subcutaneous sliding scale Active Linzess 145 MCG 1 capsule at least 30 minutes before the first meal of the day on an empty stomach Orally Once a day for 30 day(s) 06/30/2023 Active cloNIDine HCl Active Social History Tobacco Use: Social History Observation Description Date Details (start date - stop date) Current Smoker NA - NA Tobacco Use/Smoking Question Answer Notes Patient is a current smoker How often do you smoke cigarettes? every day How many cigarettes a day do you smoke? 6-10 Alcohol Screen Question Answer Notes Did you have a drink containing alcohol in the p ast year? No Points 0 Interpretation Negative Section Notes: Smokes; no sig alcohol Smokes; no sig alcohol Smokes; no sig alcohol Problems Problem Type SNOMED Code ICD Code Onset Dates Problem Status W/U Status Risk Notes Problem 688093770 Encounter for screening for malignant neoplasm of colon (Z12.11) Active confirmed Problem Diverticular disease of colon (648763803) Diverticulosis of large intestine without perforation or abscess without bleeding (K57.30) Active confirmed Problem 86528020 Constipation, unspecified constipation type (K59.00) Active confirmed Vital Signs Blood pressure diastolic 00 mm Hg 07/12/2024 Height 59 in 07/12/2024 Blood pressure systolic 00 mm Hg 07/12/2024 Weight 153 lbs 07/12/2024 BMI 30.90 kg/m2 07/12/2024 Encounters Encounter Location Date Provider Diagnosis [facility] [place] [facility] [address] [place], [place] [id number] 10/29/2024 Imtiaz Gonzalez Encounter for screen ing colonoscopy Z12.11 ; Colon polyps K63.5 ; Diverticulosis of large intestine without perforation or abscess without bleeding K57.30 and Other hemorrhoids K64.8 [facility] [address] [place] [address] 07/12/2024 Imtiaz Gonzalez Constipation, unspecified constipation type K59.00 and Encounter for screening for malignant neoplasm of colon Z12.11 [facility] [address] [place] [address] 07/12/2024 Imtiaz Gonzalez [facility] [address] [place] [address] 10/15/2024 Imtiaz Gonzalez [facility] [address] [place] [place] [address] 10/19/2024 Imtiaz Gonzalez [facility] [address] [place] [address] 01/15/2025 Imtiaz Gonzalez Assessments Encounter Date Diagnosis (ICD Code) Assessment Notes Treatment Notes Treatment Clinical Notes Section Notes 10/29/2024 Encounter for screening colonoscopy (ICD-10 - Z12.11) 10/29/2024 Colon polyps (ICD-10 - K63.5) 07/12/2024 Encounter for screening for malignant neoplasm of colon (ICD-10 - Z12.11) Do not take the aspirin on the day of the colonoscopy. Speak with your diabetes doctor regarding adjusting the insulin for the 2 days before the colonoscopy MAKE SURE YOU SEE DR. SPAULDING FOR CARDIOLOGY BEFORE THE COLONOSCOPY SO HE CAN GIVE US A CLEARANCE LETTER FOR THE PROCEDURE Overall, Paloma appears well. We shall schedule her for her followup screening colonoscopy for later this year. We did review the rationale for that in regard to colon cancer prevention. Full consent was obtained for this, including risks of bleeding and perforation. The procedure will be done monitored anesthesia care. She will have the 2 day prep for the procedure to hopefully allow for a better cleanout. 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 In regard to the chronic constipation I did advise her to begin taking her Linzess either daily or every other day to see if that can help with her chronic constipation. We did review that this is probably due to at least some contributing factor from her daily methadone use. I did advise her to continue the Fleets suppository as needed but to also use Metamucil and/or MiraLax regularly if possible. Paloma was comfortable with this plan. Thank you again for allowing me to participate in Paloma's care. I shall continue to keep you advised of her progress. 07/12/2024 Constipation, unspecified constipation type (ICD-10 - K59.00) Start using the daily Linzess for the constipation. You can also take daily Miralax and Metamucil. Overall, Paloma appears well. We shall schedule her for her followup screening colonoscopy for later this year. We did review the rationale for that in regard to colon cancer prevention. Full consent was obtained for this, including risks of bleeding and perforation. The procedure will be done monitored anesthesia care. She will have the 2 day prep for the procedure to hopefully allow for a better cleanout. 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 In regard to the chronic constipation I did advise her to begin taking her Linzess either daily or every other day to see if that can help with her chronic constipation. We did review that this is probably due to at least some contributing factor from her daily methadone use. I did advise her to continue the Fleets suppository as needed but to also use Metamucil and/or MiraLax regularly if possible. Paloma was comfortable with this plan. Thank you again for allowing me to participate in Paloma's care. I shall continue to keep you advised of her progress. 10/29/2024 Diverticulosis of large intestine without perforation or abscess without bleeding (ICD-10 - K57.30) 10/29/2024 Other hemorrhoids (ICD-10 - K64.8) Plan Of Treatment Future Test Test Name Order Date COLONOSCOPY 03/07/2018 COLONOSCOPY 07/12/2024 Insurance Providers Payer Name Payer Address Payer Phone Subscriber Number Group Number Insured Name Patient Relationship to Insured Coverage Start Date Coverage End Date [place] [address] [place] [phone] [id number] DELANEY, PALOMA Self - patient is the insured Medical (General) History Medical History History ICD Code IDDM Hypertension Anxiety EGD and Colonoscopy in [place] in her 30 's for some GI issues Denies CVA,Lung disease,renal disease Hyperlipidemia Colonoscopy 04/2018 was negative but prep was suboptimal 02/14/2023 heart attack in [place]--had a stent placed. Seeing Dr. 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
--- OUTSIDE RECORDS SUMMARY | 2025-04-09 07:50 | XMS_ITS | Clinical Summary ---
Author Organization [employer] Address [address] [facility] 7[address] [place] [address] Care Team Providers Care Bottom Turning Lathe Tender Name Role Phone Camila Espinal MD Primary [...] TOPICALLY TO THE AFFECTED AREA TWICE DAILY Active cholecalcifero l (Vitamin D-3) 50 MCG (1999) capsule Take 1 capsule by mouth in the morning. 016 Active methadone (Dolophine) 5 MG tablet Take 88 mg by mouth in the morning. Active Blood Pressure kitIndications :Other type of myocardial infarction (CMS/HCC) Check daily blood pressure 1 kit 023 Active lisinopril 2.5 MG tabletIndicati ons:Other type of myocardial infarction ([facility]) Take 1 tablet (2.5 mg) by mouth [...] hyperglycemia, with long-term current use of insulin ([facility]) Inject 4 Units under the skin with breakfast, with lunch, and with evening meal. Inject subcutaneously three times daily following sliding scale: BG<200 --> 0 units 200-249 --> 4 units 250-299 --> 6 units 300-349 --> 8 units 350-399 --> 10 units BG>400 --> 12 units & call office 3 mL 1 023 Active Continuous Blood Gluc School Health Assistant (FreeStyle Rashid 2 [place]) deviceIndicati ons:Type 2 diabetes mellitus with hyperglycemia, with long-term current use of insulin ([facility]) Scan sensor every 8 hours 1 each 023 Active Continuous Blood Gluc Sensor (FreeStyle Rashid 2 Sensor) miscIndication s:Type 2 diabetes mellitus with hyperglycemia, with long-term current use of insulin ([facility]) Apply 1 sensor every 14 days 2 each 2 023 Active Brilinta 90 MG tabletIndicati ons:Coronary artery disease involving qagan tayagungin coronary artery of qagan tayagungin heart, unspecified whether angina present TAKE 1 [...] 023 Active clobetasol (Temovate) 0.05 % ointment Active doxycycline (Vibramycin) 100 MG capsule Take 100 mg by mouth 2 times daily. 023 Active fluorometholon e (FML) 0.1 % ophthalmic suspension SHAKE LIQUID AND INSTILL 1 DROP IN BOTH EYES FOUR TIMES DAILY FOR 10 DAYS Active hydroquinone 4 % cream APPLY TOPICALLY TO DARK PATCHES ON NECK TWICE DAILY FOR 4 MONTHS 023 Active Linzess 145 MCG capsule TAKE 1 CAPSULE BY MOUTH EVERY DAY 30 MINUTES BEFORE FIRST MEAL OF THE DAY ON AN EMPTY STOMACH 023 Active atorvastatin (Lipitor) 80 MG tabletIndicati ons:Coronary artery disease involving qagan tayagungin coronary artery of qagan tayagungin heart, unspecified whether angina present TAKE 1 TABLET(80 MG) BY MOUTH IN THE MORNING 90 tablet 025 Active atorvastatin (Lipitor) 80 MG tabletIndicati ons:Coronary artery disease involving qagan tayagungin coronary artery of qagan tayagungin heart, unspecified whether angina present TAKE 1 [...] of tract Coronary artery disease invo lving qagan tayagungin coronary artery of qagan tayagungin heart 10/03/2023 Assessment & Plan (02/11/2025 2:01 [...] psych provider Feeling anxious since dx,scared after ID -reassured and advised to continue w her specialist ID (myocardial infarction) 03/24/2023 Assessment & Plan (03/24/2023 10:39 PM EDT): Hospitalized from 02/13 - 02/16 in [place]. Found to have LHC showed 80% stenosis [...] (03/24/2023 10:30 PM EDT): Pt f w sap security consultant -saw specialist yesterday and rapid insulin was [...] Type Department Care Team Description 03/12/2025 Refill [facility] [address] [place] [phone] Camila Espinal MD Coronary artery disease involving qagan tayagungin coronary artery of qagan tayagungin heart, unspecified whether angina present 02/20/2025 Telephone [facility] [address] [place] [address] Camila Espinal MD Durable Medical Equipment (DME Request: Shower Chair and Cane) 02/11/2025 10:15 AM EDT Office Visit [facility] [address] [place] [phone] Camila Espinal MD Encounter for preventive care (Primary Dx); Type 2 diabetes mellitus with hyperglycemia, with long-term current use of insulin (CMS/HCC); Heart failure, unspecified HF chronicity, unspecified heart failure type (CMS/HCC); Spinal muscular atrophy (CMS/HCC); Coronary artery disease involving qagan tayagungin coronary artery of qagan tayagungin heart, unspecified whether angina present; Unstable gait; Need for vaccination; Encounter for immunization 02/11/2025 Travel 02/08/2025 Population Health Risk Score [facility] () Department [address] [place] [phone] Provider, Population Health Generic 02/01/2025 Patient Outreach [facility] [address] [place] [address] Camila Espinal MD Pre-visit Planning (SDOH screening negative and tobacco screening negative) from Last 3 Months Immunizations Name Administration [...] Description 05/13/2025 9:00 AM EDT Office Visit [facility] [address] [place] [address] Camila Espinal MD [address] [place] [address] Health Maintenance Due Date Last Done Comments [...] 4-6 cigarettes per day) General Harmeet Lazaro, Rigo Call the pharmacy to schedule a f/u appointment when you return from [place] General Harmeet Lazaro PharmD Procedures Procedure Name Priority Date/Time Associated Diagnosis Comments POCT GLYCATED HEMOGLOBIN, TOTAL Routine 02/11/2025 9:55 AM EDT Type 2 diabetes mellitus with hyperglycemia, with long-term current use of insulin ([facility]) POCT GLUCOSE Routine 02/11/2025 9:55 AM EDT [...] ZZZ HISTORICAL HPV E6/E7 RFLX RADHA 16 Routine 06/02/2021 9:06 AM EDT PAP SMEAR Routine 06/02/2021 12:00 AM EDT ZZZ HISTORICAL MICROALBUMIN, RANDOM Routine 02/26/2021 12:00 AM EDT from Last 3 Months or Most Recently Relevant to Health Maintenance Results * (ABNORMAL) POCT HGB A1C (02/11/2025 9:55 AM EDT) Pathologist [facility] Hemoglobin A1C 8.3(A) 4.0 - 6.0 % QC Media Lot # [id number] Lot# Expiration Date 11,026 Blood 02/11/2025 9:55 AM EDT Camila Medina MD POINT OF CARE TEST EN TER/EDIT ORDERABLES Final Result * POCT Glucose (02/11/2025 9:55 AM EDT) Pathologist [facility] Glucose Blood, POC 124 60 - 200 mg/dL QC Media Lot # [id number] Lot# Expiration Date 82,625 Blood Capillary blood specimen / Unknown 02/11/2025 9:55 AM EDT us Camila Villagomez Kennytari Adam HANSON POINT OF CARE TEST EN TER/EDIT ORDERABLES Final Result * BI Mammogram Screening Tomosynthesis Bilateral (05/01/2024 8:50 AM EDT) Anatomical Region Laterality Modality Breast Bilateral Mammography 05/01/2024 8:50 AM EDT Narrative 05/29/2024 7:35 AM EDT ? [facility] ? [address] ?[place] [address] ? Mammography Report ? Signed ? Patient: Delaney,Renetta ?MR#: [id number] ?? [id number] ? : 1965 ?Acct:[id number] ? Age/Sex: 59 / F ?ADM Date: 05/01/24 ? Loc: HO.MAMMO ? Attending Dr: Devin Ramirez MD ? Ordering Physician: Devin Ramirez MD ?Results: 1Negativ ?? e ? Date of Service: 05/01/24 ?Follow Up: 1 Year From Orig ?? inal Mammogram ? Procedure(s): MM tomosynthesis screening BI ?? Accession Number(s): [id number] ? cc: Camila Espinal MD; Devin Ramirez [...] by Farida Carr MD in OV> ? 07/02/24 0731 ? DD/ 0850 ? TD/TT: ? Muskrat Trapper: ? Procedure Note Vivianpriyank, Image - 05/29/2024 [facility] [address] [place] [address] Mammography Report Signed Patient: Cele Delaney#: [id number] : 1965Acct:[id number] Age/Sex: 59 / FADM Date: 05/01/24 Loc: HO.MAMMO Attending Dr: Devin Ramirez MD Ordering Physician: Devin Ramirezesults: 1Negativ e Date of Service: 05/01/24Follow Up: 1 Year From Orig inal Mammogram Procedure(s): MM tomosynthesis screening BI Accession Number(s): [id number] cc: Camila Espinal MD; Devin Ramirez MD [...] in OV> 05/29/24 0731 DD/ 0850 TD/TT: Muskrat Trapper: [facility] External Provider IMG BI PROCEDURES Edited Result - Final * (ABNORMAL) Lipid Panel, Standard (11/14/2023 8:14 AM EST) Triglycerides 134 <150 mg/dL [facility] Comment:Desirable Triglyceri de: less than 150 mg/dLBorderline High Triglyceride 150-199 mg/dLHigh Triglyceride: 200-499 mg/dLVery High Triglyceride: greater than or equal to 5OO mg/dL Cholesterol 99 <200 mg/dL [facility] Comment:Desirable Cholestero l: less than 200 mg/dLBorderline High Cholesterol: 200-239 mg/dLHigh Cholesterol: greater than 239 mg/dL LDL Cholesterol Calculated 43 <100 mg/dL [facility] Comment:Desirable LDL: less than 100 mg/dLNear Optimal/Above Optimal LDL: 110- 129 mg/dLBorderline High LDL: 130-159 mg/dLHigh LDL: 160-189 mg/dLVery High LDL: greater than or equal to 190 mg/dL HDL Cholesterol 30(L) >40 mg/dL [facility] Comment:Desirable HDL: great er than 40 mg/dL Note: This HDL assay may give artificially low results in patients with liver disease. 11/14/2023 8:14 AM EST 11/14/2023 8:14 AM EST us Generic External Data Provider LAB BLOOD ORDERAB LES Final Result [facility] [address] [place] [address] [phone] * Hepatitis C Antibody with Reflex to HCV, RNA, Quantitative, Real-Time PCR (05/09/2023 10:42 AM EDT) Pathologist [facility] Hepatitis C Antibody NON-REACT ANDREINA NON-REACT ANDREINA [facility] [email or web address] Index <0.02 <1.00 [facility] [email or web address] Comment: HCV antibody was non-reactive. There is no laboratory evidence of HCV infection. In most cases, no further action is required. However, if recent HCV exposure is suspected, a test for HCV RNA (test code 72376) is suggested. For additional information please refer to http://education.CodeCombat/faq/ZTP41i4 (This link is being provided for informational/ educational purposes only.) Blood Venous blood specimen / Unknown 05/09/2023 10:42 AM EDT 05/09/2023 10:43 AM EDT Narrative [facility] - 05/12/2023 9:03 AM EDT FASTING:NO PATIENT UNABLE TO VOID; ADVISED TO RETURN FOR COLLECTION. FASTING: NO us Camila Medina MD LAB BLOOD ORDERABLES Final Result Performing Organization Address City/[facility]/ZIP Co de Phone Number [facility] [address], [place] [address] [email or web address] [address] [place] [address] * HIV-1/2 Antigen and Antibodies, Fourth Generation, with Reflexes (05/09/2023 10:42 AM EDT) Pathologist [facility] HIV Antigen/Antibody, 4th Generation NON-REAC TIVE NON-REAC TIVE [facility] Comment: HIV-1 antigen and HIV-1/HIV-2 antibodies [...] ?? For additional information please refer to http://education.CodeCombat/faq/CYB409 (This link is being provided for informational/ educational purposes only.) The performance of this assay has not been clinically validated in patients less than 2 years old. Blood Venous blood specimen / Unknown 05/09/2023 10:42 AM EDT 05/09/2023 10:43 AM EDT [facility] - 05/12/2023 9:03 AM EDT FASTING:NO PATIENT UNABLE TO VOID; ADVISED TO RETURN FOR COLLECTION. FASTING: NO us Camila Medina MD LAB BLOOD ORDERABLES Final Result [facility] [address], [place] [address] [facility] [address] [place] [address] * HPV E6/E7 RFLX RADHA 16 18/45 (06/02/2021 9:06 AM EDT) HPV 16 RNA [facility] HPV 18/45 RNA [facility] HPV E6 E7 ADD [facility] HPV mRNA E6/E7 rflx Not Detected Not Detected [facility] Comment: Methodology: Chemical Plant Technical Director-Mediated Amplification This assay detects E6/E7 viral messenger RNA (mRNA) from 14 high-risk HPV types (16,18,31,33,35,39,45,51,52,56,58,59,66,68). The analytical performance characteristics of this assay have been determined by [facility]. The modifications have not been cleared or approved by the FDA. This assay has been validated pursuant to the CLIA regulations and is used for clinical purposes. For additional information, please refer to http://education.CodeCombat/faq/LVA108o9 (This link if provided for information/ educational purposes only.) THIS TEST WAS PERFORMED AT: [employer] [facility] [address] [facility] [address] [place], [place] ??[phone] [facility] MD 06/02/2021 9:06 AM EDT Devin Ramirez MD HISTORICAL/NON ORDERABLE LABS Fi nal Result Performing Organization Address [facility] Co de Phone Number [facility] [address] * Pap Smear (06/02/2021 12:00 AM EDT) Swab Devin Ramirez MD LAB CYTOLOGY ORDERABLES Final Re sult Performing Organization Address [facility] Co de Phone Number [facility] [address] [place] [address] [phone] * MICROALBUMIN, RANDOM (02/26/2021 12:00 AM EDT) Creatinine Urine 100.44 mg/dL [facility] Microalbum/Creati nine Ratio Ur 9.9 ug/mg cr [facility] Comment: ?Albumin/Creatinine Ratio Reference Ranges: ? Normal: < 30 ug/mg creatinine ? Microalbuminuria: ??30 - 300 ug/mg creatinine Clinical Albuminuria: ??> 300 ug/mg creatinine Microalbumin Urine 10.0 mg/L [facility] 02/26/2021 Camila Medina MD HISTORICAL/NON ORDERA BLE LABS Final Result Performing Organization Address [facility] Co de Phone Number [facility] [address] from Last 3 Months or Most Recently Relevant to Health Maintenance Insurance [facility] [employer] [address] [place] [address] Care Teams Bottom Turning Lathe Tender Relationship Specialty Start Date End Date Camila Espinal MD [address] [place] [address] PCP - General Family Medicine 05/13/20 Karma Mcfadden Crusher Loader Equipment OperatorCommercial Illustrator 08/11/23
[2025-04-09 08:15] LABS: MANUAL DIFF FLAG NO
[2025-04-09 08:31] LABS: Basophils Percent Auto 0.4 % (0-2); Eosinophils Absolute Auto 0.1 X10*3/uL (0.0-0.4); Eosinophils Percent Auto 2.1 % (0-4); Hematocrit 40.7 % (37.0-47.0); Imm Gran Abs Auto 0.01 X10*3/uL (0.00-0.03); Imm Gran Pct Auto 0.2 % (0.0-0.4); Lymphocytes Absolute Auto 1.6 X10*3/uL (1.2-4.9); Lymphocytes Percent Auto 33.2 % (20-40); Mean Corpuscular HGB Conc 31.9 g/dl (31.0-35.0); Mean Corpuscular Hemoglobin 26.4 pg (27.0-33.0); Mean Corpuscular Volume 82.6 fL (80.0-98.0); Mean Platelet Volume 10.3 fL (9.4-12.3); Monocytes Absolute Auto 0.2 X10*3/uL (0.1-1.2); Monocytes Percent Auto 4.1 % (2-11); Neutrophils Absolute Auto 2.8 x10*3/uL (2.0-8.3); Platelet Count 151 X10*3/uL (160-400); Red Blood Count 4.93 X10*6/uL (4.20-5.50); Red Cell Distribution Width 14.2 % (11.0-16.0); White Blood Count 4.7 X10*3/uL (4.8-10.8)
[2025-04-09 09:37] LABS: Creatinine Urine 188.31 mg/dL; Microalbum/Creatinine Ratio Ur 5.8 ug/mg cr (<30)
[2025-04-09 09:39] LABS: Alanine Aminotransferase 31 U/L (0-31); Albumin Level 4.1 g/dL (3.5-5.0); Alkaline Phosphatase 91 U/L (39-117); Anion Gap 14 (12-20); Aspartate Amino Transferase 33 U/L (5-31); Bilirubin Total 0.7 mg/dL (0.0-1.0); Blood Urea Nitrogen 10 mg/dL (9-16); Calcium 9.3 mg/dL (8.4-10.2); Carbon Dioxide 27 mmol/L (22-29); Chloride 102 mmol/L (96-108); Cholesterol 89 mg/dL (<200); Estimated Glomerular Filt Rate > 60; Glucose Random 110 mg/dL (60-115); HDL Cholesterol 22 mg/dL (>40); LDL Cholesterol Calculated 34 mg/dL (<100); Potassium 3.7 mmol/L (3.3-5.1); Sodium 139 mmol/L (135-145); Total Protein 7.3 g/dL (6.5-8.0); Triglycerides 169 mg/dL (<150)
[2025-04-09 09:53] LABS: HIV AB/AG Nonreactive (Nonreactive); HIV Num 1 0.06 S/CO (0.00-0.99); ~HepC Num1 0.24 S/CO (0.00-0.79); ~Hepatitis C Antibody Nonreactive (Nonreactive)
[2025-04-09 09:55] LABS: TSH reflex Free T4 1.03 uIU/mL (0.32-4.0); Vitamin D 25-OH Total 18.6 ng/mL (>30)
== END 2025-04-09 07:47 | disposition home or self-care (01) ==
LOC: HO.LAB 07:46
PROVIDERS: PCP Internal Medicine; Visit Provider Internal Medicine
DX: Z01.419 Encounter for gynecological examination (general) (routine) without abnormal findings (principal)
CPT/HCPCS: 36415; 80053; 80061; 82043; 82306; 82570; 84443; 85025; 86803; 87389; 99396; 99459

== ENCOUNTER 2025-04-09 08:21 | Outpatient (AMB) | payer MEDICAID, SELFPAY ==
--- NOTE | 2025-04-09 08:25 | A.OFFVIS_ITS ---
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 No complaints. Last Pap/HPV was negative in 06/17 Last Mammogram was BI-RADS 1 in 05/21, screening mammogram is scheduled to Last screening colonoscopy was in 11/20 [facility] Medical History Myocardial infarction Bilateral lower extremity postoperative compartment syndrome CAD (coronary artery disease) Panic attack Anxiety Arthritis Neuropathy HTN (hypertension) Diabetes mellitus Surgical History History of esophagogastroduodenoscopy (EGD) H/O colonoscopy Stented coronary artery H/O shoulder surgery Hx of section Hx of cholecystectomy History of bilateral tubal ligation Family History Mother Breast CA, Onset Age: 40 Heart disease Father Heart attack Social History Household Members 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 Housing: House Alcohol intake: never Patient Tobacco Use Status: Current everyday Tobacco user Tobacco use type: Cigarette Cigarette Packs Per Day: 0.10 Cigarettes Per Day: 5 Years Smoked: 41 Current occupational status: disabled Sexual orientation: Straight/Heterosexual Gender identity: Female Female Reproductive History Menstrual Age of Menarche: 13 Review of Systems Const All systems reviewed & are unremarkable except as noted in HPI and below Card Reports as per HPI Resp Reports as per HPI GI Reports as per HPI and Reports no additional complaints Reports as per HPI Physical Exam Vital Signs: Last Vital Signs BP 116/68 04/09/25 08:26 BMI result Body Mass Index 31.9 Const General: cooperative, healthy appearing and comfortable Chest Chest palpation & inspection: normal inspection of the chest and normal palpation of entire chest wall Breast/axilla inspection: normal inspection of the breasts and normal inspection of the axillae Breast/axilla palpation: normal palpation of the breasts, normal palpation of the axillae and no axillary lymphadenopathy Resp Effort & Inspection: normal respiratory effort Auscultation: clear to auscultation bilaterally Percussion: percussion normal Cardio Palpation: normal PMI Rate: regular rate Rhythm: regular rhythm Heart sounds: no murmurs and no rubs Peripheral pulses: Peripheral pulses 2+ throughout GI Inspection: Yes normal to inspection Palpation (GI): Soft to palpation, nontender, no guarding, not rigid and No hepatosplenomegaly present Percussion: Yes normal to percussion Auscultation: normal bowel sounds Rectal Exam - Female: deferred General: Yes bladder normal to palpation External Female Exam: No lesion Speculum Exam - Vagina: normal appearance of the vagina, normal palpation, normal vaginal discharge and not erythematous Speculum Exam - Cervix: normal appearance of the cervix and normal palpation Bimanual exam- vagina & uterus: normal bimanual exam, normal palpation, uterine size normal, bladder normal to palpation, consistency normal and normal palpation Bimanual Exam- Adnexa, other: normal adnexae, no masses and no tenderness Assessment & Plan Assessment & Plan (1) Well woman exam: Code(s): Z01.419 - Encounter for gynecological examination (general) (routine) without abnormal findings Category: Medical Plan: Co testing not indicated this year. Counseled the patient about the recommended dietary allowance of 1200 mg of Calcium & 600 IU of vitamin D. Mammogram schedule. The patient was instructed to perform monthly self-breast exams and schedule annual exam in a year. The patient is in the process of schedule hysterectomy at [facility] for uterine myomas All questions answered and the patient verbalized understanding. (2) At high risk for breast cancer: Code(s): Z91.89 - Other specified personal risk factors, not elsewhere classified Category: Medical Plan: Discussed with the patient her increased risk for Breast ca. Recommended Intensification of breast Cancer screening with annual MRI breast in addition to annual mammogram and MRI alternating every 6 months. Mammogram scheduled soon , Breast MRI ordered Will refer to Dr Mazzucco for possible Genetic Ca counseling and possible testing, in addition to counseling regarding Chemoprevention strategies All questions answered, the patient verbalized understanding and agreed with the plan Orders: Orders MR breast BI wo/w con Today Z80.3 - Family history of malignant neoplasm of breast Referrals General Surgery Referral Z91.89 - Other specified personal risk factors, not elsewhere classified Coding Level of Care Code Est Pt Prev Care 40-64y(19932) Diagnoses Well woman exam Z01.419 At high risk for breast cancer Z91.89
[2025-04-09 08:26] VITALS: BP 116/68; BMI 31.9
--- OUTSIDE RECORDS SUMMARY | 2025-04-09 08:29 | XMS_ITS | Encounter Summary ---
Author Organization [employer] Address [address] [place] [address] Care Team Providers Care Primer Powder Blender Wet Name Role Phone Camila Espinal MD Primary Care Provide r Encounter Details Date Type Department Care Team (Late st Contact Info) Description 10/25/2023 Abstract [facility] [address] [place], [place] [phone] Jane Aguilar Social History Tobacco Use Types [...] with others, in a hotel, in a long term, living outside on the street, on a [...] Description 05/13/2025 9:00 AM EDT Office Visit [facility] [address] [place], [place] [phone] Camila Espinal MD [address] [place], [place] [phone] documented as of this encounter Goals Goal [...] documented as of this encounter Care Teams Primer Powder Blender Wet Relationship Specialty Start Date End Date Camila Espinal MD [address] [place], [place] [phone] PCP - General Family Medicine 05/13/20 Karma Mcfadden Clinic Physician DirectorEnergy Control Officer 08/11/23 documented as of this encounter
--- OUTSIDE RECORDS SUMMARY | 2025-04-09 08:29 | XMS_ITS | Continuity of Care Document ---
Author Organization [facility] Address [address] [place] [address] Phone Care Team Providers Care Director Loss Prevention Name Role Phone Vilma HANSON, Willyr Unavailable [...] Provider Providers Copied on Encounter [facility], [address], [place], [place], [id number], [place] tel:[phone] [facility] No Information 3 Vilma Parker. [address], [place], [id number], . tel:[phone] [facility], [address], [place], [place], [id number], tel:[phone] Essential (primary) hypertensionHyp erlipidemia, unspecifiedAthe rosclerotic heart disease of morongo coronary artery without angina pectorisCardiom yopathy, unspecified Mar-2 4202 3 No Information [facility], [address], [place], [place], [id number], [place] tel:[phone] [facility] No Information Mar-2 0 3 Brennon Hernandez. [address], [place], [place], [id number], [place]. tel:[phone] Referring Provider: Chapin Pierre MD, [address] [place] [address], [address]. tel:[phone] Family History Family Member Type Diagnosis Age [...]
--- OUTSIDE RECORDS SUMMARY | 2025-04-09 08:29 | XMS_ITS | Encounter Summary ---
Author Organization [employer] Address [address] [place] [address] Care Team Providers Care Stockbroking Dealer Name Role Phone Camila Espinal MD Primary Care Provide r Encounter Details Date Type Department Care Team ([facility] st Contact Info) Description 10/27/2023 Telephone [facility] [address] [place], [place] [phone] Camila Espinal MD [address] [place], [place] [phone] Social History Tobacco Use Types Packs/Day Years [...] with others, in a hotel, in a correction, living outside on the street, on a [...] PM EST Referral sent via fax to [facility] for CARRIER WASHER services. documented in this encounter Plan of Treatment Upcoming Encounters Date Type Department Care Team (Late st Contact Info) Description 05/13/2025 9:00 AM EDT Office Visit [facility] [address] [place] [address] [phone] Camila Espinal MD [address] [place] [address] documented as of this encounter Goals Goal Patient Goal Type Associated Problems Recent Progress Patient-Stated? Author Reduce the number of cigarettes smoked per day by 1 (goal 4-6 cigarettes per day) General Harmeet Lazaro PharmJud Call the pharmacy to schedule a f/u appointment when you return from [place] General Harmeet Lazaro PharmD documented as of this encounter Visit Diagnoses Not on filedocumented in this encounter Additional Health Concerns Assessment Noted Time PHQ-9 Depression Total Score: 4 03/24/20 23 2:31 PM EDT documented as of this encounter Care Teams Stockbroking Dealer Relationship Specialty Start Date End Date Camila Espinal MD [address] [place] [phone] PCP - General Family Medicine 05/13/20 Karma Mcfadden Activities Director ScoutingDamage Adjuster 08/11/23 documented as of this encounter
--- OUTSIDE RECORDS SUMMARY | 2025-04-09 08:29 | XMS_ITS | Clinical Summary ---
Author Organization [employer] [facility] Address [address] [place] [address] Care Team Providers Care Welding Setter Name Role Phone Camila Espinal MD Primary [...] age to complete this topic Care Teams Welding Setter Relationship Specialty Start Date End Date Camila Espinal MD [address] [place] [phone] PCP - General 01/19/24
--- OUTSIDE RECORDS SUMMARY | 2025-04-09 08:30 | XMS_ITS | Clinical Summary ---
Author Organization [employer] Address [address] [place] [address] Care Team Providers Care Assistant Farm Operations Manager Name Role Phone Camila Espinal MD [...] MG tabletIndicati ons:Other type of myocardial infarction ([facility]) Take 1 tablet (2.5 mg) by mouth [...] hyperglycemia, with long-term current use of insulin ([facility]) Inject 4 Units under the skin with breakfast, with lunch, and with evening meal. Inject subcutaneously three times daily following sliding scale: BG<200 --> 0 units 200-249 --> 4 units 250-299 --> 6 units 300-349 --> 8 units 350-399 --> 10 units BG>400 --> 12 units & call office 3 mL 1 023 Active Continuous Blood Gluc Checkerer Hand (FreeStyle Rashid 2 [place]) deviceIndicati ons:Type 2 diabetes mellitus with hyperglycemia, with long-term current use of insulin ([facility]) Scan sensor every 8 hours 1 each 023 Active Continuous Blood Gluc Sensor (FreeStyle Rashid 2 Sensor) miscIndication s:Type 2 diabetes mellitus with hyperglycemia, with long-term current use of insulin ([facility]) Apply 1 sensor every 14 days 2 each 2 023 Active Brilinta 90 MG tabletIndicati ons:Coronary artery disease involving [place] coronary artery of [place] heart, unspecified whether angina present TAKE 1 [...] 80 MG tabletIndicati ons:Coronary artery disease involving [place] coronary artery of [place] heart, unspecified whether angina present TAKE 1 TABLET(80 MG) BY MOUTH IN THE MORNING 90 tablet 025 Active atorvastatin (Lipitor) 80 MG tabletIndicati ons:Coronary artery disease involving [place] coronary artery of [place] heart, unspecified whether angina present TAKE 1 [...] of tract Coronary artery disease invo lving [place] coronary artery of [place] heart 10/03/2023 Assessment & Plan (02/11/2025 2:01 [...] psych provider Feeling anxious since dx,scared after [place] -reassured and advised to continue w her specialist [place] (myocardial infarction) 03/24/2023 Assessment & Plan (03/24/2023 10:39 PM EDT): Hospitalized from 02/13 - 02/16 in [place]. 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 -saw specialist yesterday and rapid insulin was [...] Type Department Care Team Description 03/12/2025 Refill [facility] [address] [place] [phone] Camila Espinal MD Coronary artery disease involving [place] coronary artery of [place] heart, unspecified whether angina present 02/20/2025 Telephone [facility] [address] [place] [address] Camila Espinal MD Durable Medical Equipment (DME Request: Shower Chair and Cane) 02/11/2025 10:15 AM EDT Office Visit [facility] [address] [place] [phone] Camila Espinal MD Encounter for preventive care (Primary Dx); Type 2 diabetes mellitus with hyperglycemia, with long-term current use of insulin (CMS/HCC); Heart failure, unspecified HF chronicity, unspecified heart failure type (CMS/HCC); Spinal muscular atrophy (CMS/HCC); Coronary artery disease involving [place] coronary artery of [place] heart, unspecified whether angina present; Unstable gait; Need for vaccination; Encounter for immunization 02/11/2025 Travel 02/08/2025 Population [facility] () Department [address] [place] [phone] Provider, Population Health Generic 02/01/2025 Patient Outreach [facility] [address] [place] [address] Camila Espinal MD Pre-visit Planning (SDOH screening [...] 9:00 AM EDT Office Visit [facility] [address] [place] [address] Camila Espinal MD [address] [place] [address] Health Maintenance Due Date Last Done Comments [...] a f/u appointment when you return from [place] [facility] Lazaro PharmD Procedures Procedure Name Priority Date/Time Associated Diagnosis Comments POCT GLYCATED HEMOGLOBIN, TOTAL Routine 02/11/2025 9:55 AM EDT Type 2 diabetes mellitus with hyperglycemia, with long-term current use of insulin ([facility]) POCT GLUCOSE Routine 02/11/2025 9:55 AM EDT [...] HGB A1C (02/11/2025 9:55 AM EDT) Pathologist [facility] Hemoglobin A1C 8.3(A) 4.0 - 6.0 % QC Media Lot # [id number] Lot# Expiration Date 11,026 Blood 02/11/2025 9:55 AM EDT Camila Medina MD POINT OF CARE TEST EN TER/EDIT ORDERABLES Final Result * POCT Glucose (02/11/2025 9:55 AM EDT) Pathologist [facility] Glucose Blood, POC 124 60 - 200 [...] EDT Narrative 05/29/2024 7:35 AM EDT ? [facility] ? [address] ?[place] [address] ? Mammography Report ? Signed ? Patient: Delaney,Renetta ?MR#: [id number] ?? [id number] ? : 1965 ?Acct:[id number] ? Age/Sex: 59 / F ?ADM Date: 05/01/24 ? Loc: HO.MAMMO ? Attending Dr: Devin Ramirez MD ? Ordering Physician: Devin Ramirez MD ?Results: 1Negativ ?? e ? Date of Service: 05/01/24 ?Follow Up: 1 Year From Orig ?? inal Mammogram ? Procedure(s): MM tomosynthesis screening BI ?? Accession Number(s): [id number] ? cc: Camila Espinal MD; Devin Ramirez [...] 0731 ? DD/ 0850 ? TD/TT: ? Improvement Auditor: ? Procedure Note Vivianpriyank, Image - 05/29/2024 Elsa [facility] [address] [place] [address] Mammography Report Signed Patient: Cele Delaney#: [id number] : 1965Acct:[id number] Age/Sex: 59 / FADM Date: 05/01/24 Loc: HO.MAMMO Attending Dr: Devin Ramirez MD Ordering Physician: Devin Ramirezesults: 1Negativ e Date of Service: 05/01/24Follow Up: 1 Year From Orig inal Mammogram Procedure(s): MM tomosynthesis screening BI Accession Number(s): [id number] cc: Camila Espinal MD; Devin Ramirez MD [...] in OV> 05/29/24 0731 DD/ 0850 TD/TT: Improvement Auditor: [facility] External Provider IMG BI PROCEDURES Edited Result - Final * (ABNORMAL) Lipid Panel, Standard (11/14/2023 8:14 AM EST) Triglycerides 134 <150 mg/dL [facility] Comment:Desirable Triglyceri de: less than 150 mg/dLBorderline High Triglyceride 150-199 mg/dLHigh Triglyceride: 200-499 mg/dLVery High Triglyceride: greater than or equal to 5OO mg/dL Cholesterol 99 <200 mg/dL [facility] Comment:Desirable Cholestero l: less than 200 mg/dLBorderline High Cholesterol: 200-239 mg/dLHigh Cholesterol: greater than 239 mg/dL LDL Cholesterol Calculated 43 <100 mg/dL [facility] Comment:Desirable LDL: less than 100 mg/dLNear Optimal/Above Optimal LDL: 110- 129 mg/dLBorderline High LDL: 130-159 mg/dLHigh LDL: 160-189 mg/dLVery High LDL: greater than or equal to 190 mg/dL HDL Cholesterol 30(L) >40 mg/dL [facility] Comment:Desirable HDL: great er than 40 mg/dL Note: This HDL assay may give artificially low results in patients with liver disease. 11/14/2023 8:14 AM EST 11/14/2023 8:14 AM EST us Generic External Data Provider LAB BLOOD ORDERAB LES Final Result [facility] [address] [place] [address] [phone] * Hepatitis C Antibody with Reflex to HCV, RNA, Quantitative, Real-Time PCR (05/09/2023 10:42 AM EDT) Pathologist [facility] Hepatitis C Antibody NON-REACT ANDREINA NON-REACT ANDREINA [facility] Index <0.02 <1.00 [facility] Comment: HCV antibody was non-reactive. There is no laboratory evidence of HCV infection. In most cases, no further action is required. However, if recent HCV exposure is suspected, a test for HCV RNA (test code 10445) is suggested. For additional information please refer to http://education.Hiddenbed/faq/TPV95i3 (This link is being provided for informational/ educational purposes only.) Blood Venous blood specimen / Unknown 05/09/2023 10:42 AM EDT 05/09/2023 10:43 AM EDT Narrative [facility] - 05/12/2023 9:03 AM EDT FASTING:NO PATIENT UNABLE TO VOID; ADVISED TO RETURN FOR COLLECTION. FASTING: NO us Camila Medina MD LAB BLOOD ORDERABLES Final Result Performing Organization Address City/[facility]/ZIP Co de Phone Number [facility] [address], [place] [address] [facility] [address] [place] [address] * HIV-1/2 Antigen and Antibodies, Fourth Generation, with Reflexes (05/09/2023 10:42 AM EDT) Pathologist [facility] HIV Antigen/Antibody, 4th Generation NON-REAC TIVE NON-REAC TIVE [facility] Comment: HIV-1 antigen and HIV-1/HIV-2 [...] ?? For additional information please refer to http://education.Hiddenbed/faq/FLF520 (This link is being provided for informational/ educational purposes only.) The performance of this assay has not been clinically validated in patients less than 2 years old. Blood Venous blood specimen / Unknown 05/09/2023 10:42 AM EDT 05/09/2023 10:43 AM EDT [facility] - 05/12/2023 9:03 AM EDT FASTING:NO PATIENT UNABLE TO VOID; ADVISED TO RETURN FOR COLLECTION. FASTING: NO us Camila Medina MD LAB BLOOD ORDERABLES Final Result [facility] [address], [place] [address] [facility] [address] [place] [address] * HPV E6/E7 RFLX RADHA 16 18/45 (06/02/2021 9:06 AM EDT) HPV 16 RNA [facility] HPV 18/45 RNA [facility] HPV E6 E7 ADD [facility] HPV mRNA E6/E7 rflx Not Detected Not Detected [facility] Comment: Methodology: Junior Engineer-Mediated Amplification This assay detects E6/E7 viral messenger RNA (mRNA) from 14 high-risk HPV types (16,18,31,33,35,39,45,51,52,56,58,59,66,68). The analytical performance characteristics of this assay have been determined by [facility]. The modifications have not been cleared or approved by the FDA. This assay has been validated pursuant to the CLIA regulations and is used for clinical purposes. For additional information, please refer to http://education.Hiddenbed/faq/SKU058u6 (This link if provided for information/ educational purposes only.) THIS TEST WAS PERFORMED AT: [facility] [address] [facility] [address] [place], [place] ??[phone] [facility] MD 06/02/2021 9:06 AM EDT Devin Ramirez MD HISTORICAL/NON ORDERABLE LABS Fi nal Result Performing Organization Address [facility] Co de Phone Number [facility] [address] * Pap Smear (06/02/2021 12:00 AM EDT) Swab Devin Ramirez MD LAB CYTOLOGY ORDERABLES Final Re sult Performing Organization Address [facility] Co de Phone Number [facility] [address] [place] [address] [phone] * MICROALBUMIN, RANDOM (02/26/2021 12:00 AM EDT) Creatinine Urine 100.44 mg/dL [facility] Microalbum/Creati nine Ratio Ur 9.9 ug/mg cr [facility] Comment: ?Albumin/Creatinine Ratio Reference Ranges: ? Normal: < 30 ug/mg creatinine ? Microalbuminuria: ??30 - 300 ug/mg creatinine Clinical Albuminuria: ??> 300 ug/mg creatinine Microalbumin Urine 10.0 mg/L [facility] 02/26/2021 Camila Medina MD HISTORICAL/NON ORDERA BLE LABS Final Result Performing Organization Address [facility] Co de Phone Number [facility] [address] from Last 3 Months or Most Recently Relevant to Health Maintenance Insurance [facility] [address] [email or web address] [address] [place] [address] Care Teams Assistant Farm Operations Manager Relationship Specialty Start Date End Date Camila Espinal MD [address] [place] [phone] PCP - General Family Medicine 05/13/20 Karma Mcfadden Al[employer] CoordinatorHandyperson 08/11/23
== END 2025-04-09 08:46 | disposition home or self-care (01) ==
LOC: HO.HWS 08:21
PROVIDERS: PCP Internal Medicine; Visit Provider Obstetrics & Gynecology
DX: Z01.419 Encounter for gynecological examination (general) (routine) without abnormal findings (principal); Z91.89 Other specified personal risk factors, not elsewhere classified
CPT/HCPCS: 99396; 99459

== ENCOUNTER → 2025-04-10 07:42 | Outpatient (REF) | payer MEDICAID, SELFPAY ==
--- OUTSIDE RECORDS SUMMARY | 2025-04-10 07:44 | XMS_ITS | Data Portability ---
Author Organization [place] - [facility], [facility] Address [address] [place] [address] Assessment Encounter Date Assessment Date Assessment LastModified by Organization Details LastModified Time 02/28/2025 02/28/2025 I am seeing the patient today under the supervision of Dr Tamayo who was available but who did not see the patient. [email or web address] Not available 02/28/2025 09:15:50 Plan of Treatment Reminders Order Date Submit Date Provider Last Modified By Organization Details Last Modified Time Details Appointments None recorded. Lab None recorded. Referral physical therapist referral - include foot 2023 024 [email or web address] Not available 11:45:54 Procedures None recorded. Surgeries None recorded. Imaging None recorded. Medication Orders None recorded. Patient TargetsNo targets recorded. Patient InstructionsNo instructions recorded. Reason for Referral Physical Therapist Referral for Non-insertional Achilles tendinopathy include foot Referring Physician: Ben Ramos, Orthopedic Surgery, Encounter Date: 04/02/2024 Results Created Date Observation Date Name Description Value Unit Range Abnormal Flag Note LastModifiedBy Organization Detail LastModifiedTime 07/28/2001/22/2020 imagi ng/di agnos tic resul t No observ ation record ed. [email or web address] Not Available 06/30 04:17:45 07/28/20 24 12/11/2018 imagi ng/di agnos tic resul t No observ ation record ed. [email or web address] Not Available 06/30 04:18:13 07/28/20 24 08/03/2019 imagi ng/di agnos tic resul t No observ ation record ed. [email or web address] Not Available 06/30 04:18:30 07/28/2006/02/2022 imagi ng/di agnos tic resul t No observ ation record ed. [email or web address] Not Available 06/30 04:18:36 07/28/20 24 06/08/2022 imagi ng/di agnos tic resul t No observ ation record ed. [email or web address] Not Available 06/30 04:18:37 07/28/20 24 06/08/2022 imagi ng/di agnos tic resul t No observ ation record ed. [email or web address] Not Available 06/30 04:18:39 07/28/20 24 05/11/2022 imagi ng/di agnos tic resul t No observ ation record ed. [email or web address] Not Available 06/30 04:18:44 07/28/20 24 02/02/2024 imagi ng/di agnos tic resul t No observ ation record ed. [email or web address] Not Available 06/30 04:18:48 Result Notes None recorded. Problems Name Problem SNOMED Code Status Onset Date Resolution Date Notes Provider Name and Address Organization Details Recorded Time No complaint s 021092983 Active Status: 'I'; Not Available [facility] 4 09:17:07 Pain in right hand 760700577302 109 Active 2016 Problem Code: M79.641; Problem Code Type: ICD-10; Status: 'A'; Not Available [facility] 4 11:13:54 Trochante brianda bursitis of left hip 825446736793 103 Active 2019 Problem Code: M70.62; Problem Code Type: ICD-10; Status: 'A'; Not Available [facility] 4 11:13:54 Trochante brianda bursitis of right hip 810253148655 100 Active 2019 Problem Code: M70.61; Problem Code Type: ICD-10; Status: 'A'; Not Available [facility] 4 11:13:54 Pain of left hand 381576386538 103 Active 2016 Problem Code: M79.642; Problem Code Type: ICD-10; Status: 'A'; Not Available [facility] 4 11:13:55 Lumbosacr al radiculop athy 6014925 Active 2017 Problem Code: M54.16; Problem Code Type: ICD-10; Status: 'A'; Not Available [facility] 4 11:13:55 Polymyalg ia rheumatic a 41059336 Active 2016 Problem Code: M35.3; Problem Code Type: ICD-10; Status: 'A'; Not Available [facility] 4 11:13:55 Idiopathi c osteoarth ritis 744336483 Active 2017 Problem Code: M17.11; Problem Code Type: ICD-10; Status: 'A'; Not Available [facility] 4 11:13:55 Bilateral osteoarth ritis of knees 253640939756 107 Active 2023 AGATA low [facility] 4 08:05:40 Rupture of rotator cuff of left shoulder 254599826212 73921 Active 2023 Carroll Bauer MD [address] [place] [address] [address], [place], [address] , [facility] 4 09:09:52 Problem Notes None recorded. Procedures Surgical History Date Name Laterality Status Provider Name and Address Organization Details Recorded Time 5 Gel-One Knee Injection Greg completed Clark Dexter [facility] 02/28/2025 09:15:50 4 Gel-One Knee Injection Greg completed AGATA MEDRANO [facility] 03/19/2024 08:05:39 Imaging Results Imaging Date Name Status [facility] Details LastModified Time 01/22/2020 imaging/diag nostic result completed Information not available 07/28/2024 04:17:45 12/11/2018 imaging/diag nostic result completed Information not available 07/28/2024 04:18:13 08/03/2019 imaging/diag nostic result completed Information not available 07/28/2024 04:18:30 06/02/2022 imaging/diag nostic result completed Information not available 07/28/2024 04:18:36 06/08/2022 imaging/diag nostic result completed Information not available 07/28/2024 04:18:37 06/08/2022 imaging/diag nostic result completed Information not available 07/28/2024 04:18:39 05/11/2022 imaging/diag nostic result completed Information not available 07/28/2024 04:18:44 02/02/2024 imaging/diag nostic result completed Information not available 07/28/2024 04:18:48 Procedure Notes None recorded. Medical Equipment None Reported. Allergies Allergen ID Allergen Name Allergen Category Reaction Reaction Severity Criticality Documentation Date Start Date Code Code System Note Provider Name and Address Organization Details Recorded Time 37044 iodine medicatio n Not available Not available Not available 01/30/20242016 5933 RxNorm Aller gyRea ction : 'Skin React ion'; Not Available [facility] 13:40[facility]03 Medications Name Sig Start Date Stop Date Status Note LastModified by Organization Details LastModified Time atorvastati n 80 mg tablet active Not Available Not Available Not Available doxycycline hyclate 100 mg capsule TAKE 1 CAPSULE BY MOUTH TWICE DAILY FOR 10 DAYS 03/19 completed Not Available Not Available Not Available hydroquinon e 4 % topical cream APPLY TOPICALLY TO DARK PATCHES ON NECK TWICE DAILY FOR 4 MONTHS active Not Available Not Available No t Available FreeStyle Lancets 28 gauge USE DIRECTED THREE TIMES DAILY active Not Available Not Available No t Available clonazepam 0.5 mg tablet TAKE 1 TABLET BY MOUTH THREE TIMES DAILY NEEDED FOR ANXIETY active Not Available Not Available No t Available aspirin 81 mg tablet,tawny yed release active Not Available Not Available Not Available clonidine HCl 0.2 mg tablet TAKE 1 TABLET BY MOUTH EVERY NIGHT AT BEDTIME active Not Available Not Available No t Available clindamycin 1 % topical gel APPLY TOPICALLY TO THE AFFECTED AREA TWICE DAILY 03/19 completed Not Available Not Available Not Available ciprofloxac in 0.3 % eye drops INSTILL 1 DROP IN LEFT EYE EVERY 6 HOURS FOR 7 DAYS 03/19 completed Not Available Not Available Not Available clotrimazol e-betametha sone 1 %-0.05 % topical cream APPLY TOPICALLY TO THE AFFECTED AREA TWICE DAILY FOR 5 DAYS active Not Available Not Available No t Available fluorometho lone 0.1 % eye drops,suspe nsion SHAKE LIQUID AND INSTILL 1 DROP IN BOTH EYES FOUR TIMES DAILY FOR 10 DAYS 02/28 completed Not Available Not Available Not Available polymyxin B sulfate 10,000 unit-trimet hoprim 1 mg/mL eye drops INSTILL 1 DROP INTO LEFT EYE EVERY 6 HOURS FOR 10 DAYS 02/28 completed Not Available Not Available Not Available cephalexin 500 mg tablet TAKE 1 TABLET BY MOUTH THREE TIMES DAILY 03/19 completed Not Available Not Available Not Available bisacodyl 5 mg tablet,tawny yed release TAKE 2 TABLETS 2 DAYS BEFORE TEST AND THEN 2 TABLETS AT 3PM AND 7PM THE DAY BEFORE TEST. active Not Available Not Available No t Available clobetasol 0.05 % topical ointment active Not Available Not Available Not Available insulin lispro (U-100) 100 unit/mL subcutaneou s solution active Not Available Not Available N ot Available epinephrine 0.3 mg/0.3 mL injection, auto-inject or INJECT IN THE MUSCLE DIRECTED 1 TIME FOR 1 DOSE DIRECTED. active Not Available Not Available No t Available lisinopril 2.5 mg tablet active Not Available Not Available Not Available bacitracin- polymyxin B 500 unit-10,000 unit/gram eye ointment PLACE INTO THE LEFT EYE NIGHTLY FOR 10 DAYS. 03/19 completed Not Available Not Available Not Available insulin lispro (U-100) 100 unit/mL subcutaneou s pen INJECT UNDER THE SKIN THREE TIMES DAILY BEFORE MEALS PER SLIDING SCALE. MAX DOSE OF 36 UNITS PER DAY active Not Available Not Available No t Available BD Ultra-Fine Mini Pen Needle 31 gauge x 3/16 USE TO INJECT INSULIN UP TO 5 TIMES DAILY DIRECTED 03/19 completed Not Available Not Available Not Available FreeStyle Lite Strips TEST BLOOD SUGAR UP TO THREE TIMES DAILY FOR TYPE 2 DIABETES MELLITUS active Not Available Not Available No t Available Lantus Solostar U-100 Insulin 100 unit/mL (3 mL) subcutaneou s pen ADMINISTE R 30 UNITS UNDER THE SKIN DAILY AT BEDTIME. ROTATE INJECTION SITES active Not Available Not Available No t Available oxycodone HCl-oxycodo ne-ASA as directed 1-2 TABLETS EVERY 4 HOURS PRN PAIN 02/08 completed Statu s: 'Disc ontin ued'; Not Available Not Available Not Available Brilinta 90 mg tablet 04/19 completed Not Available Not Available Not Available Linzess 145 mcg capsule TAKE 1 CAPSULE BY MOUTH DAILY 30 MINUTES BEFORE FIRST MEAL OF THE DAY ON AN EMPTY STOMACH active Not Available Not Available No t Available Trulicity 0.75 mg/0.5 mL subcutaneou s pen injector active Not Available Not Available Not Available Tresiba FlexTouch U-100 insulin 100 unit/mL (3 mL) subcutaneou s pen ADMINISTE R 36 UNITS UNDER THE SKIN DAILY. ROTATE INJECTION SITE active Not Available Not Available No t Available CeQur Simplicity Mask Design Engineer active Not Available Not Available Not Available Dexcom G7 Sensor device USE DIRECTED TO [facility] JEANCARLOS CHECK GLUCOSE FOR TYPE 2 DIABETES. CHANGE SENSOR EVERY 14 DAYS active Not Available Not Available No t Available Vitals Date Recorded Body height Body mass index (BMI) Body weight Provider Name and Address Organization Details Last Updated DateTime 03/05/2024 149.86 cm 27.3 kg/m2 81142.97 g ARIES GODOY [facility] 03/05/2024 08:40:47 Date Recorded Body height Body mass index (BMI) Body weight Provider Name and Address Organization Details Last Updated DateTime 03/19/2024 149.86 cm 27.3 kg/m2 76058.97 g AGATA MEDRANO [facility] 03/19/2024 08:05:46 Date Recorded Body height Body mass index (BMI) Body weight Provider Name and Address Organization Details Last Updated DateTime 04/26/2024 149.86 cm 29.7 kg/m2 55947.08 g BECKY GRIJALVA [facility] 04/26/2024 08:50:01 Date Recorded Body height Body mass index (BMI) Body weight Provider Name and Address Organization Details Last Updated DateTime 02/28/2025 149.86 cm 29.7 kg/m2 27114.08 gerhard Dexter [place] [facility] 02/28/2025 09:16:10 Social History None recorded. Functional Status None recorded. Mental Status None recorded. Family History Nothing Reported. Medical History No medical history recorded. Gynecological HistoryNo gynecological history recorded. Obstetrics History GPAL:G 0 P 0 0 0 0 Past Encounters Encounter ID Performer Location Encounter Start Date Encounter Closed Date Diagnosis/Indication Diagnosis SNOMED-CT Code Diagnosis ICD10 Code Diagnosis Note [id number] Ben Ramos PA-C [facility] [address] [place] [address] 03/05/2024 08:23:26 03/27/2024 08:44:42 Idiopathic osteoarthritis 972360877 M17.11 Non-insert ional Achilles tendinopathy 576517192 M67.480 [id number] Louis Sanz PA-C [facility] [address] [place] [address] 03/19/2024 08:02:15 04/09/2024 10:53:13 Bilateral osteoarthritis of knees 3620562156 39356 M17.0 [id number] Ben Ramos PA-C [facility] [address] [place] [address] 04/02/2024 08:17:42 04/25/2024 11:45:54 Idiopathic osteoarthritis 166313748 M17.11 Non-insert ional Achilles tendinopathy 612918608 M67.564 [id number] Carroll Bauer MD [facility] [address] [place] [address] 04/26/2024 08:27:12 05/25/2024 08:17:00 Rupture of rotator cuff of left shoulder 0872332675 0725379 M75.514 [id number] Louis Sanz PA-C [facility] [address] [place] [address] 02/28/2025 08:59:42 03/11/2025 13:37:52 Bilateral osteoarthritis of knees 1188353985 78626 M17.0 Health Concerns Section Related Observation LastModified by Organization Detai ls LastModified Time None Recorded Concern Status LastModified by Organization Details LastModified Time None Recorded Advance Directives Directive None Recorded Payers Encounter Date Sequence Insurance Name Policy Number Policy Grullon Covered Member ID Grullon Member ID Guarantor Name 03/05/2024 1 MEDICAID-[facility] (MEDICAID) Renetta Delaney [id number] Renetta Delaney 03/19/2024 1 [place] [facility] (MEDICAID) Renetta Cartwright Delaney [id number] Renetta Faganon 04/02/2024 1 [place] [facility] (MEDICAID) eRnetta Cartwright Delaney [id number] Renetta Faganon 04/26/2024 1 MEDICAID-[facility] (MEDICAID) Renetta Cartwright Delaney [id number] Renetta Faganon 02/28/2025 1 MEDICAID-[facility] (MEDICAID) Renetta Faganon [id number] Renetta Delaney Notes Date Note Type Note Provider Name and Address Organization Details Recorded Time 03/05/2024 text/html I am seeing the patient today under the supervision of Dr. Smith who was available but who did not see the patient.HPI: 59-year-old female seen in follow-up. Known history of right Achilles tendinopathy. He treated with a carbon fiber AFO. She is also status post rotator cuff repair and is in cardiac rehabilitation. She has been using the AFO diligently. She does not feel much difference in terms of discomfort.Past family, medical, social history and review of systems has been reviewed, updated and is located in the patient? s chart.Examination:the patient is alert and cooperative in no acute distress. Afebrile, vital signs stable. There is active ROM of the hips and knees, calves are soft and nontender. There is active range of motion, right foot and ankle. There is some discomfort with passive dorsiflexion and active plantar flexion. 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 There are no Achilles, but there is marked thickening throughout the substance of the tendo Achilles with tenderness.Impression: Right Achilles tendinopathyPlan: Like her to continue the carbon fiber AFO for another month. At that point we will discuss surgical treatment. If she is no better. Ben Ramos PA-C [address], [place], [address], [facility] 07/31/2024 08:41:45 04/02/2024 text/html I am seeing the patient today under the supervision of Dr. Smith who was available but who did not see the patient.HPI: T9-year-old female I have been following with right Achilles adenopathy. Doing better. Using a carbon fiber AFO has minimal pain at this point. Occasionally has a burning sensation.Past family, medical, social history and review of systems has been reviewed, updated and is located in the patient? s chart.Examination:the patient is alert and cooperative in no acute distress. Afebrile, vital signs stable. There is active ROM of the hips and knees, calves is soft and atrophic. There is active range of motion of the right foot and ankle neutral dorsiflexion. Persistent nontender thickening of the Achilles substance, pretty much in its entirety without palpable tenderness at the insertion and some minimal tenderness in the mid substance. Active plantar flexion against resistance.Impression: Achilles tendinopathy, rightPlan:. Patient is feeling much better and is nearly asymptomatic. We will begin to wean her from her carbon fiber AFO to a simple heel lift and begin some gentle gastroc stretching. Hopefully she will remain minimally symptomatic. Otherwise, me behaving towards surgical treatment Ben Ramos PA-C [address], [place], [address], [facility] 04/02/2024 08:55:51 04/26/2024 text/html HPI: Patient is seen today for follow-up evaluation of their left shoulder MRI. Previous office visit note from Myself and Mr. Fang 2021. describes exam findings worrisome for rotator cuff tear. They have been modifying their activity and working on range of motion. Patient reports intermittent sharp mechanical pain still in the shoulder despite intial treatment. Patient complains of occasional moderate/severe amounts of pain with ADL, presents today for discussion regarding MRI findings of the shoulder. Patient has undergone prior Right ARCR 2019 with good outcome MRI findings: Independently reviewed findings include full-thickness tear supraspinatus, type III acromion, AC joint arthritis, biceps tendinopathy, normal subscapularis. PHYSICAL EXAMINATION: The patient is well appearing and in no apparent distress. Alert and oriented x3. Gait is symmetric. PMH: Hypertension, type 1 diabetesFamily Hx: NegativeMeds: Lantus, clonidineAllergies: NKDA, shellfishROS: NegativeSocial Hx: NegativePHYSICAL EXAMINATION: The patient is well appearing and in no apparent distress. Alert and oriented x3. Gait is symmetric. EXAM:HEENT is unremarkableHeart regular rate and rhythm without murmurs rubs gallopsAbdomen soft nontender nondistended positive bowel sounds.Lungs are clear bilaterally without rales rhonchi or wheezesPeripheral, vascular, lymphatic examination, skin, neurological, coordination, reflexes, sensation are within normal limits. Right Shoulder ROM full, 5/5 strength including rotator cuff and periscapular musculature. Good Muscle bulk and strength without atrophy. No evidence of instability of the shoulder. Negative impingement signs. Negative AC joint tenderness. Negative Speed's, Negative O'briens, Negative Figueroa. Left Shoulder demonstrates forward elevation to 165? ? ? degrees, external rotates 45? ? ?, internal rotates back pocket. Positive impingement arc with bursal crepitance. AC joint is palpated and moderately tender, rotator cuff strength 4/5 with horizontal elevation and external rotation. Subscapularis and belly press tests normal. Cervical range of motion unrestricted in all planes. IMPRESSION: Left shoulder impingement with AC joint arthropathy, full-thickness rotator cuff tearPLAN: Brief conversation held with patient regarding treatment options. Frustrated by her ongoing persistent symptoms patient would like to go forward with surgical intervention. Patient Was previous scheduled for arthroscopic rotator cuff repair. Acquired delay secondary to myocardial infarction. Still would like to avoid surgery at this time given some ongoing issues with her right lower extremity. Has requested a trial of injection therapy. Given her brittle diabetes we will trial a result recta injection to see if we can less impact her diabetic glucose management. If still rather is not approved she would likely consent to move forward with a left shoulder surgery given her ongoing pain and Weakness. Carroll Bauer MD [address] [facility] [address], [place], [address], [facility] 04/26/2024 09:11:10 OBGyn Episode No OBEpisode recorded.
--- OUTSIDE RECORDS SUMMARY | 2025-04-10 07:44 | XMS_ITS | Clinical Summary ---
Author Organization [facility] ity Address [address] [place] [address] Care Team Providers Care Scenic Artist Name Role Phone Camila Espinal MD Primary [...] age to complete this topic Care Teams Scenic Artist Relationship Specialty Start Date End Date Camila Espinal MD [address] [place] [phone] PCP - General 01/19/24
--- OUTSIDE RECORDS SUMMARY | 2025-04-10 07:44 | XMS_ITS | Encounter Summary ---
Author Organization [employer] Address [address] [place] [address] Care Team Providers Care Mail Censor Name Role Phone Camila Espinal MD Primary Care Provide r Encounter Details Date Type Department Care Team (Late st Contact Info) Description 10/25/2023 Abstract [facility] [address] [place], [place] [phone] Jane Aguilar Social History Tobacco Use Types [...] with others, in a hotel, in a prison, living outside on the street, on a [...] Description 05/13/2025 9:00 AM EDT Office Visit [facility] [address] [place], [place] [phone] Camila Espinal MD [address] [place], [place] [phone] documented as of this encounter Goals Goal [...] documented as of this encounter Care Teams Mail Censor Relationship Specialty Start Date End Date Camila Espinal MD [address] [place], [place] [phone] PCP - General Family Medicine 05/13/20 Karma Mcfadden [employer] 08/11/23 documented as of this encounter
--- OUTSIDE RECORDS SUMMARY | 2025-04-10 07:44 | XMS_ITS | Continuity of Care Document ---
Author Organization [facility] Address [address] [place] [address] Phone Care Team Providers Care Nurse Practitioner Hospitalist Name Role Phone Vilma HANSON, Willyr Unavailable [...] Provider Providers Copied on Encounter [facility], [address], [place], [place], [id number], [place] tel:[phone] [facility] No Information 3 Vilma Parker. [address] [place], [place], [id number], . tel:[phone] [facility], [address], [place], [place], [id number], tel:[phone] Essential (primary) hypertensionHyp erlipidemia, unspecifiedAthe rosclerotic heart disease of [place] coronary artery without angina pectorisCardiom yopathy, unspecified Mar-2 4202 3 No Information [facility], [address], [place], [place], [id number], [place] tel:[phone] [facility] No Information Mar-2 0 3 Brennon Hernandez. [address], [address], [place], [place], [id number], [place]. tel:[phone] Referring Provider: Chapin Pierre MD, [address] [place] [address], [address]. tel:[phone] Family History Family Member Type Diagnosis Age [...]
--- OUTSIDE RECORDS SUMMARY | 2025-04-10 07:44 | XMS_ITS | Patient Health Record ---
Author Organization [facility] Address [address] [place] [address] Care Team Providers Care Stack Clerk Name Role Phone Camila Alba M.D. Primary Care Provider Imtiaz Swain [phone] Allergies Allergen (clinical drug ingredient) Drug/Non Drug Allergy documented on EMR Reaction Allergy Type Onset Date Status IVP DYE (uncoded) Unknown Allergy 07/31/2023 A ctive Results Component Value Reference Range Notes Pathology Reviewed date:03/20/2025 11:35:04 PM Interpretation: Performing Lab:[facility], [address] [place] [id number] Notes/Report: Name: Shantelle Delaney Age/Sex: 59/F : 1965 Unit#: [id number] Attend Dr: Imtiaz Gonzalez MD Re10/29/24 Status : [facility] Location: [facility] Disch: SPEC : [id number] RECD : 10/29/24 STATUS: LARISSA MADDOX NUM: [id number] OWEN: 10/29/[address] [facility] [address]: Imtiaz Gonzalez MD ENTERED: 10/29/24 [...] Addendum Signed ____ __(signature on file) Elicia [place] 11/02/24 1342 Diagnosis A. Colon, at 61 [...] Delaney Age/Sex: 59/F : 1965 [id number] Unit#: [id number] Attend Dr: Imtiaz Gonzalez MD Re10/29/24 Status : [facility] Location: [facility] Disch: SPEC : [id number] RECD : 10/29/24-101 STATUS: LARISSA MADDOX NUM: [id number] OWEN: 10/29/[address] [facility] [address]: Imtiaz Gonzalez MD ENTERED: 10/29/24-10 [...] C. CEDS Copies To: Camila Espinal MD [address] [address] Imtiaz Gonzalez MD [facility] [address] [place] [address] Signed (si gnature on file) Elicia [place] 10/30/24 1747 END OF REPORT Reason For Referral Referring Provider First Name Puja Referring Provider Last Name Barron Referred Organization [facility] Referred Provider Imtiaz Gonzalez Referred Address [address] [place] [address],[place], [place],[address], Referred Provider Specialty Gastroentero logherminia General Notes Sweetie Rocha 024 03:31:18 PM EDT > requested a [facility] ref from [facility] for visit with Dr. Gonzalez on 07-12-2024 [...] Problem Status W/U Status Risk Notes Problem 813530640 Encounter for screening for malignant neoplasm of colon (Z12.11) Active confirmed Problem Diverticulosis o f large intestine without perforation or abscess without bleeding (K57.30) Active confirmed Problem 62144931 Constipation, unspecified constipation type (K59.00) Active confirmed Vital Signs Blood pressure diastolic 00 mm Hg 07/12/2024 Height 59 in 07/12/2024 Blood pressure systolic 00 mm Hg 07/12/2024 Weight 153 lbs 07/12/2024 BMI 30.90 kg/m2 07/12/2024 Encounters Encounter Location Date Provider Diagnosis [facility] Outpatient [address] [place], [place] [id number] 10/29/2024 Imtiaz Gonzalez Encounter for screen ing colonoscopy Z12.11 ; Colon polyps K63.5 ; Diverticulosis of large intestine without perforation or abscess without bleeding K57.30 and Other hemorrhoids K64.8 [facility] [address] [place] [address] 07/12/2024 Imtiaz Gonzalez Constipation, unspecified constipation type K59.00 and Encounter for screening for malignant neoplasm of colon Z12.11 [facility] [address] [place] [address] 07/12/2024 Imtiaz Gonzalez [facility] [address] [place] [address] 10/15/2024 Imtiaz Gonzalez [facility] [address] [place] [address] 10/19/2024 Imtiaz Gonzalez [facility] [address] [place] [address] 01/15/2025 Imtiaz Gonzalez Assessments Encounter Date Diagnosis [...] as the need to speak with her human resources support specialist about the adjustment of her insulin for the 2 days before the colonoscopy and the need to meet with her teacher education instructor so we can obtain cardiology clearance for [...] as the need to speak with her human resources support specialist about the adjustment of her insulin for the 2 days before the colonoscopy and the need to meet with her teacher education instructor so we can obtain cardiology clearance for [...] Date [place] [address] [place] [phone] [id number] ANTOINETTE PALOMA Self - patient is the insured Medical (General) History Medical History History ICD Code IDDM Hypertension Anxiety EGD and Colonoscopy in [place] in her 30 's for some GI issues Denies CVA,Lung disease,renal disease Hyperlipidemia Colonoscopy 04/2018 was negative but prep was suboptimal 02/14/2023 heart attack [place]--had a stent placed. Seeing Dr. 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
--- NOTE | 2025-04-10 07:45 | CA_ITS ---
Transthoracic Echocardiogram Patient (Last, First, Middle): Renetta Delaney, Gender: Female Date of : 1965 Age: 60 Procedure Date: 04/10/2025 Procedure Type: Transthoracic Echocardiogram Location: OP Height: 149.86 cm Weight: 71.67 kg BSA: 1.67 m2 Heart Rate: bpm BP: 116 / 68 mmHg Process Control Technician: MIRTA Cantor MD: Sweetie Avila NP-Angelina Optometrist President/Practice Owner: Giorgio Robb MD Symptoms: E78.5 - Hyperlipidemia, unspecified Study Quality: Technically Difficult/Contrast ECG Rhythm: Sinus Conclusions: - 1. Normal LV ejection fraction 55-60% 2. Normal cardiac valvular Dopplers 3. No gross pericardial effusion Findings Left Ventricle Normal left ventricular size, thickness, and systolic function. The visually estimated ejection fraction is between 55-60%. Spectral Doppler is indicative of a normal filling pattern. Right Ventricle Normal right ventricular cavity size and systolic function. Atria The left atrium is normal in size. Interatrial shunt cannot be excluded. The right atrium was not well visualized. Aortic Valve The aortic valve structure and function is likely normal. There is no aortic valve stenosis. There is no aortic valve regurgitation. Mitral Valve Normal mitral valve structure and function. There is trace mitral valve regurgitation. There is no mitral valve stenosis. Pulmonic Valve The pulmonic valve was not well visualized. Tricuspid Valve Likely normal tricuspid valve structure and function. There is trace tricuspid valve regurgitation. The right ventricular systolic pressure is not calculated. Indeterminate right atrial pressure. Great Vessels All visible segments of the aorta are normal in size. The pulmonary artery was not well visualized. There is no dilatation of the ascending aorta measuring 2.90 cm. Venous The inferior vena cava was not well visualized. Pericardium/Pleural There is no evidence of pericardial effusion. Prior Study Comparison No significant change compared to prior study dated: 07/20/2023. Measurements 2D Linear Measurements IVSd: 0.83 0.6-0.9/0.6-1.0 cm LVIDd: 3.83 3.9-5.3/4.2-5.9 cm LVIDd Index: 2.29 2.4-3.2/2.2-3.1 cm/m2 LVIDs: 2.76 2.0-3.6 cm LVPWd: 0.80 0.7-1.1 cm Ao Root: 3.10 2.1-3.5 cm LA Diam: 2.90 2.7-3.8/3.0-4.0 cm LAIDs Index: 1.74 1.5-2.3 cm/m2 LV Mass: 110.95 67-162/88-224 g LV Mass Index: 66.43 43-95/49-115 g/m2 LVOT Diam: 2.00 3.0+(-)1.3 cm 2D Systolic Function EF 4C: 62.60 >55% EF 2C: 57.70 >55% EF BiP: 57.90 >55% Mitral Valve MV Pk E: 0.79 MV PK A: 0.75 MV Decel Time: 257.00 E/A: 1.10 E'Lateral: 11.40 E'Medial: 7.40 E/E' Med: 10.70 E/E' Lat: 7.00 PHT: 75.00 MVA PHT: 2.93 Decel Whitman: 3.08 Aortic Valve AoV Pk Apollo: 1.09 AoV Mn Apollo: 0.80 AoV VTI: 0.28 AoV Pk Grad: 5.00 Aov Mn Grad: 3.00 MARIA ELENA Cont.VTI: 2.07 LVOT LVOT Pk Apollo: 0.87 LVOT Mn Apollo: 0.58 LVOT VTI: 0.19 LVOT Pk Grad: 3.00 LVOT Mn Grad: 2.00 LVOT Diam: 2.00 LVOT Area: 3.14 Diastolic Function MV Pk E: 0.79 MV Pk A: 0.75 E/A: 1.10 E'Medial: 7.40 E/E' Med: 10.70 E' Laterial: 11.40 E/E' Lat: 7.00 Right Ventricle TAPSE (mm): 19.40 TVS' Apollo: 8.81 Tricuspid Valve TR Pk Apollo: 2.85 TR Pk Grad: 32.00 Great Vessels Aorta Ao Root-2D: 3.10 2.0-3.7 cm Ao Asc: 2.90 2.1-3.4 cm Updated in Other Vendor System with Status of Final Giorgio Robb MD electronically signed on 04/11/2025 3:05:26 PM with status of Final
--- OUTSIDE RECORDS SUMMARY | 2025-04-10 07:45 | XMS_ITS ---
Author Organization [facility] Address [address] [place] [address] Care Team Providers Care Staff Training And Development Manager Name Role Phone Camila Alba M.D. Primary Care Provider Imtiaz Swain [phone] REASON FOR VISIT Trulicity Encounters Encounter Location Date Provider Diagnosis [facility] [address] [place] [phone] 10/19/2024 Imtiaz Gonzalez Plan Of Treatment No Information Progress Notes * PALOMA CURRY BDOB:1964 (59 yo F)Acc No.[id number]:10/19/2024 Patient:?PALOMA CURRY :1965???Age:59 Y???Sex:Female Address:[address] [place] [address] [address], , [place], [address] * true * Date:? Generated for Tierrai alivia/Bakari/eTransmitting on:?04/10/2025 07:44 AM EDT
--- OUTSIDE RECORDS SUMMARY | 2025-04-10 07:45 | XMS_ITS | Encounter Summary ---
Author Organization [facility] Address [address] [place] [address] Care Team Providers Care Plow And Boring Machine Tender Name Role Phone Camila Espinal MD Primary Care Provide r Encounter Details Date Type Department Care Team ([facility] st Contact Info) Description 10/27/2023 Telephone [facility] [address], [place] [phone] Camila Espinal MD [address] [place], [place] [phone] Social History Tobacco Use Types Packs/Day Years [...] with others, in a hotel, in a [place] health [place] facility, living outside on the street, on a [...] PM EST Referral sent via fax to [facility] for WATER SOFTENER SERVICER AND INSTALLER services. documented in this encounter Plan of Treatment Upcoming Encounters Date Type Department Care Team (Late st Contact Info) Description 05/13/2025 9:00 AM EDT Office Visit [facility] [address] [place] [phone] Camila Espinal MD [address] [place] [address] documented as of this encounter Goals Goal Patient Goal Type Associated Problems Recent Progress Patient-Stated? Author Reduce the number of cigarettes smoked per day by 1 (goal 4-6 cigarettes per day) General Harmeet Lazaro PharmJud Call the pharmacy to schedule a f/u appointment when you return from [place] General Harmeet Lazaro PharmD documented as of this encounter Visit Diagnoses Not on filedocumented in this encounter Additional Health Concerns Assessment Noted Time PHQ-9 Depression Total Score: 4 03/24/20 23 2:31 PM EDT documented as of this encounter Care Teams Plow And Boring Machine Tender Relationship Specialty Start Date End Date Camila Espinal MD [address] [place] [phone] PCP - General Family Medicine 05/13/20 Karma Mcfadden Mohs SurgeonMine Geologist 08/11/23 documented as of this encounter
--- OUTSIDE RECORDS SUMMARY | 2025-04-10 07:45 | XMS_ITS ---
Author Organization [facility] Address [address] [place] [address] Care Team Providers Care Scientist Immunology Name Role Phone Camila Alba M.D. Primary Care Provider Imtiaz Swain [phone] REASON FOR VISIT screening Problems Problem Type SNOMED Code ICD Code Onset Dates Problem Status W/U Status Risk Notes Problem Diverticulosis o f large intestine without perforation or abscess without bleeding (K57.30) Active confirmed Encounters Encounter Location Date Provider Diagnosis [facility] Outpatient [address] [place] [phone] 10/29/2024 Imtiaz Gonzalez Encounter for scre ening [...] * PALOMA CURRY BDOB:1964 (60 yo F)Acc No.[id number]:10/29/2024 COLON WITH MAC Patient:?CURRY, PALOMA Cartwright Provider:?Imtiaz Gonzalez MD :1965???Age:59 Y???Sex:Female D ate:10/29/2024 Address:[address] [place] [address] [address], , [phone] Pcp:Camila Alba M.D. Subjective: * Chief Complaints: * ???1. Screening. * Medical History:? Objective: * Vitals:? Assessment: * Assessment: 1.?Encounter for screening c olonoscopy - Z12.11 (Primary)???2.?Colon polyps - K63.5???3.?Diverticulosis of large intestine without perforation or abscess without bleeding - K57.30???4.?Other hemorrhoids - K64.8??? Plan: * Treatment: * Procedure Codes:?47745 LESIO N REMOVAL COLONOSCOPY * * The named appointment provid er may or may not be the originator of this progress note, and it is not deemed complete until electronically signed by the appointment provider. Sign off status: Pending * Provider:?Imtiaz Gonzalez MD Date:? 024 Generated for Samara bunch/Bakari/eTgarysmitting on:?04/10/2025 07:44 AM EDT
--- OUTSIDE RECORDS SUMMARY | 2025-04-10 07:45 | XMS_ITS | Clinical Summary ---
Author Organization [employer] Address [address] [facility] [address] [place] [address] Care Team Providers Care Method Consultant Name Role Phone Camila Espinal MD Primary [...] MG tabletIndicati ons:Other type of myocardial infarction ([facility] [place]) Take 1 tablet (2.5 mg) by mouth [...] hyperglycemia, with long-term current use of insulin ([facility]) Inject 4 Units under the skin with breakfast, with lunch, and with evening meal. Inject subcutaneously three times daily following sliding scale: BG<200 --> 0 units 200-249 --> 4 units 250-299 --> 6 units 300-349 --> 8 units 350-399 --> 10 units BG>400 --> 12 units & call office 3 mL 1 023 Active Continuous Blood Gluc Economic Developer (FreeStyle Rashid 2 [place]) deviceIndicati ons:Type 2 diabetes mellitus with hyperglycemia, with long-term current use of insulin ([facility]) Scan sensor every 8 hours 1 each 023 Active Continuous Blood Gluc Sensor (FreeStyle Rashid 2 Sensor) miscIndication s:Type 2 diabetes mellitus with hyperglycemia, with long-term current use of insulin ([facility]) Apply 1 sensor every 14 days 2 each 2 023 Active Brilinta 90 MG tabletIndicati ons:Coronary artery disease involving shoshone-paiute coronary artery of shoshone-paiute heart, unspecified whether angina present TAKE 1 [...] 80 MG tabletIndicati ons:Coronary artery disease involving shoshone-paiute coronary artery of shoshone-paiute heart, unspecified whether angina present TAKE 1 TABLET(80 MG) BY MOUTH IN THE MORNING 90 tablet 025 Active atorvastatin (Lipitor) 80 MG tabletIndicati ons:Coronary artery disease involving shoshone-paiute coronary artery of shoshone-paiute heart, unspecified whether angina present TAKE 1 [...] of tract Coronary artery disease invo lving shoshone-paiute coronary artery of shoshone-paiute heart 10/03/2023 Assessment & Plan (02/11/2025 2:01 [...] psych provider Feeling anxious since dx,scared after VT -reassured and advised to continue w her specialist VT (myocardial infarction) 03/24/2023 Assessment & Plan (03/24/2023 10:39 PM EDT): Hospitalized from 02/13 - 02/16 in [place]. Found to have LHC showed 80% stenosis [...] (03/24/2023 10:30 PM EDT): Pt f w baby counselor -saw specialist yesterday and rapid insulin was [...] Type Department Care Team Description 03/12/2025 Refill [facility] [address] [place] [phone] Camila Espinal MD Coronary artery disease involving shoshone-paiute coronary artery of shoshone-paiute heart, unspecified whether angina present 02/20/2025 Telephone [facility] [address] [place] [address] Camila Espinal MD Durable Medical Equipment (DME Request: Shower Chair and Cane) 02/11/2025 10:15 AM EDT Office Visit [facility] [address] [place] [phone] Camila Espinal MD Encounter for preventive care (Primary Dx); Type 2 diabetes mellitus with hyperglycemia, with long-term current use of insulin (CMS/HCC); Heart failure, unspecified HF chronicity, unspecified heart failure type (CMS/HCC); Spinal muscular atrophy (CMS/HCC); Coronary artery disease involving shoshone-paiute coronary artery of shoshone-paiute heart, unspecified whether angina present; Unstable gait; Need for vaccination; Encounter for immunization 02/11/2025 Travel 02/08/2025 Population Health Risk Score [facility] () Department [address] [place] [phone] Provider, Population Health Generic 02/01/2025 Patient Outreach [facility] [address] [place] [address] Camila Espinal MD Pre-visit Planning (SDOH screening negative and tobacco screening negative) from Last 3 Months Immunizations Immunization Administration Dates Next Due Influenza Injectable Quadriv [...] Description 05/13/2025 9:00 AM EDT Office Visit [facility] [address] [place] [address] Camila Espinal MD [address] [place] [address] Health Maintenance Due Date Last Done Comments CT Colonography 1965 Colonoscopy 1965 Colorectal Cancer Screening 1965 FIT DNA/Cologuard 1966 FIT 1965 FOBT 1965 Sigmoidoscopy 1966 Diabetes: Foot Exam 02/20/1976 Eye Exam 02/20/1976 Alcohol/Substance Use Screening 1978 Hepatitis B Vaccines (1 of 3 - 19+ 3-dose series) 1985 Zoster Vaccines (1 of 2) 02/20/2016 Depression Screening 03/24/2024 03/24/2023, 03/24/20 23 COVID-19 Vaccine ( season) 2024 10/27/2021, 03/20/2021, 02/26/2021 Mammogram 05/01/2025 05/01/2024, 11/29, 08/20/2020, Additional history exists Diabetes: Hemoglobin A1C 05/14/2025 025, 01/12/2024, 10/03/2023, Additional history exists SDOH Screening 02/01/2026 02/01/2025 Tobacco Screening 02/11/2026 02/11/2025 Diabetes: Urine Protein Screening 04/09/2026 04/09/2025, 02/26/2021 Lipid Panel 04/09/2026 04/09/2025, 10/28, 05/09/2023 Cervical Cancer Screening 06/02/2026 HPV/Cotest 06/02/2026 06/02/2021, 07/0 04/2021, 11/30/2017 Pap Smear 06/02/2026 06/02/2021, 11/30/2017 DTaP/Tdap/Td Vaccines (2 - Td or Tdap) 08/04/2028 08/04/2018 RSV Patients and Patients Aged 60 years or older (1 - 1-dose 75+ series) 2041 Influenza Vaccine Completed 02/11/2025, , 10/27/2021, Additional history exists Pneumococcal Vaccine: 50+ Years Completed 02/11/2025, 08/04/2018 HIV Screening Completed 04/09/2025, 04/28, 10/13/2021, Additional history exists Hepatitis C Screening Completed 04/09/2025 , 05/09/2023, 10/13/2021, Additional history exists HIB Vaccines Aged Out No longer eligi [...] a f/u appointment when you return from [place] [place] Procedures Procedure Name Priority Date/Time Associated Diagnosis Comments TSH W/REFLEX TO FT4 Routine 04/09/2025 8 :12 AM EDT Encounter for preventive care VITAMIN D,25-OH,TOTAL,IA Routine 04/09/2025 8:12 AM EDT Encounter for preventive care LIPID PANEL, STANDARD Routine 04/09/2025 8:12 AM EDT Encounter for preventive care HEPATITIS C AB W/REFL TO HCV RNA, QN, PCR Routine 04/09/2025 8:12 AM EDT Encounter for preventive care HIV 1/2 ANTIGEN/ANTIBODY, FOURTH GENERATION W/RFL Routine 04/09/2025 8:12 AM EDT Encounter for preventive care COMPREHENSIVE METABOLIC PANEL Routine 04/09/2025 8:12 AM EDT Encounter for preventive care CBC WITH AUTO DIFFERENTIAL Routine 04/09/2025 8:12 AM EDT Encounter for preventive care ALBUMIN, RANDOM URINE W/CREATININE Routine 04/09/2025 8:06 AM EDT Encounter for preventive care POCT GLYCATED HEMOGLOBIN, TOTAL Routine 02/11/2025 9:55 AM EDT Type 2 diabetes mellitus with hyperglycemia, with long-term current use of insulin (CMS/HCC) POCT GLUCOSE Routine 02/11/2025 9:55 AM EDT Type 2 diabetes mellitus with hyperglycemia, with long-term current use of insulin (CMS/HCC) BI MAMMOGRAM SCREENING TOMOSYNTHESIS BILATERAL Routine 05/01/2024 8:50 AM EDT ZZZ HISTORICAL HPV E6/E7 RFLX RADHA 16 18/45 Routine 06/02/2021 9:06 AM EDT PAP SMEAR Routine 06/02/2021 12:00 AM EDT from Last 3 Months or Most Recently Relevant to Health Maintenance Results * (ABNORMAL) Vitamin D, 25-Hydroxy, Total, Immunoassay (04/09/2025 8:12 AM EDT) Vitamin D 25-OH Total 18.6(L) >30 ng/mL [facility] Comment: Health Based Reference Values*< 20 ??ng/mL ??[id number] ng/mL ??Insufficient> 30 ??ng/mL ??Sufficient*Felipe CORONA. N Engl J Med. 2007;357:266-280There is no well-established upper level of normal vitamin Dlevels. Some laboratories use 50 ng/mL as an upper limit ofnormal. However, toxicity is patient-dependent and may occurat any level. Careful correlation with the patient'spresentation is necessary and, if there is concern forvitamin D toxicity, treatment should be consideredirrespective of the serum level.Care must be taken in interpreting Vitamin D results fromdifferent laboratories and methodologies. ??Published datademonstrated that results from patients undergoinghemodialysis may show a negative bias when tested withvarious automated 25-OH vitamin D assays when compared toLC- MS/MS.When testing samples from patients whose predominant form ofVitamin D is Vitamin D2, such as patients receiving VitaminD2 supplementation, results that are subtherapeutic shouldbe confirmed with another method such as LC-MS/MS. Blood Venous blood specimen / Unknown 04/09/2025 8:12 AM EDT 04/09/2025 8:12 AM EDT us Camila Medina MD LAB BLOOD ORDERABLES Final Result Performing Organization Address [facility]/ZIP Co de Phone Number [facility] [address] [place] [phone] * TSH with Reflex to Free T4 (04/09/2025 8:12 AM EDT) TSH reflex Free T4 1.03 0.32 - 4.0 uIU/mL [facility] Blood Venous blood specimen / Unknown 04/09/2025 8:12 AM EDT 04/09/2025 8:12 AM EDT us Camila Medina MD LAB BLOOD ORDERABLES Final Result [facility] [address] [place] [phone] * (ABNORMAL) CBC auto differential (04/09/2025 8:12 AM EDT) White Blood Count 4.7(L) 4.8 - 10.8 X10*3/uL [facility] Red Blood Count 4.93 4.20 - 5.50 X10*6/uL [facility] Hemoglobin 13.0 12.0 - 16.0 g/dl [facility] Hematocrit 40.7 37.0 - 47.0 % [facility] Mean Corpuscular Volume 82.6 80.0 - 98.0 fL [facility] Mean Corpuscular Hemoglobin 26.4(L) 27.0 - 33.0 pg [facility] Mean Corpuscular HGB Conc 31.9 31.0 - 35.0 g/dl [facility] Red Cell Distribution Width 14.2 11.0 - 16.0 % [facility] Platelet Count 151(L) 160 - 400 X10*3/uL [facility] Mean Platelet Volume 10.3 9.4 - 12.3 fL [facility] Neutrophils Percent Auto 60.0 45 - 73 % [facility] Imm Gran Pct Auto 0.2 0.0 - 0.4 % [facility] Lymphocytes Percent Auto 33.2 20 - 40 % [facility] Monocytes Percent Auto 4.1 2 - 11 % [facility] Eosinophils Percent Auto 2.1 0 - 4 % [facility] Basophils Percent Auto 0.4 0 - 2 % [facility] NRBC Pct Auto 0.0 0.0 - 0.2 /100WBC [facility] Neutrophils Absolute Auto 2.8 2.0 - 8.3 x10*3/uL [facility] Imm Gran Abs Auto 0.01 0.00 - 0.03 X10*3/uL [facility] Lymphocytes Absolute Auto 1.6 1.2 - 4.9 X10*3/uL [facility] Monocytes Absolute Auto 0.2 0.1 - 1.2 X10*3/uL [facility] Eosinophils Absolute Auto 0.1 0.0 - 0.4 X10*3/uL [facility] Basophils Absolute Auto 0.0 0.0 - 0.2 X10*3/uL [facility] NRBC Abs Auto 0.000 0.0 - 0.012 X10*3/uL [facility] Blood Venous blood specimen / Unknown 04/09/2025 8:12 AM EDT 04/09/2025 8:12 AM EDT Camila Medina MD LAB BLOOD ORDERABLES Final Result Performing Organization Address City/[facility]/ZIP Co de Phone Number [facility] [address] [place] [phone] * Hepatitis C Antibody with Reflex to HCV, RNA, Quantitative, Real-Time PCR (04/09/2025 8:12 AM EDT) Pathologist [facility] Hepatitis C Antibody Nonreactive Nonreactive [facility] Comment:Antibodies to HCV no t detected; does not exclude early acuteHCV infection. Blood Venous blood specimen / Unknown 04/09/2025 8:12 AM EDT 04/09/2025 8:12 AM EDT Camila Medina MD LAB BLOOD ORDERABLES Final Result Performing Organization Address City/[facility]/ZIP Co de Phone Number [facility] [address] [place] [phone] * HIV-1/2 Antigen and Antibodies, Fourth Generation, with Reflexes (04/09/2025 8:12 AM EDT) Pathologist [facility] HIV AB/AG Nonreactive Nonreactive [facility] Comment:HIV-1 p24 Ag and/or HIV-1/HIV-2 Ab not detected.A test result that is nonreactive does not exclude thepossibility of exposure to or infection with HIV-1 and/orHIV-2. Nonreactive results in this assay for individualswith prior exposure to HIV-1 and/or HIV-2 may be due toantigen and antibody levels that are below the limit ofdetection of this assay.The [employer] HIV Ag/Ab Combo assay result andsupplemental assay results should be interpreted inconjunction with the patient's clinical presentation,history and other laboratory results. If the results areinconsistent with clinical evidence, additional testing issuggested to confirm the result. Blood Venous blood specimen / Unknown 04/09/2025 8:12 AM EDT 04/09/2025 8:12 AM EDT us Camila Medina MD LAB BLOOD ORDERABLES Final Result [facility] [address] [place] [phone] * (ABNORMAL) Lipid Panel, Standard (04/09/2025 8:12 AM EDT) Triglycerides 169(H) <150 mg/dL [facility] Comment:Desirable Triglyceri de: less than 150 mg/dLBorderline High Triglyceride 150-199 mg/dLHigh Triglyceride: 200-499 mg/dLVery High Triglyceride: greater than or equal to 5OO mg/dL Cholesterol 89 <200 mg/dL [facility] Comment:Desirable Cholestero l: less than 200 mg/dLBorderline High Cholesterol: 200-239 mg/dLHigh Cholesterol: greater than 239 mg/dL LDL Cholesterol Calculated 34 <100 mg/dL [facility] Comment:Desirable LDL: less than 100 mg/dLNear Optimal/Above Optimal LDL: 110- 129 mg/dLBorderline High LDL: 130-159 mg/dLHigh LDL: 160-189 mg/dLVery High LDL: greater than or equal to 190 mg/dL HDL Cholesterol 22(L) >40 mg/dL [facility] Comment:Desirable HDL: great er than 40 mg/dL Note: This HDL assay may give artificially low results in patients with liver disease. Blood Venous blood specimen / Unknown 04/09/2025 8:12 AM EDT 04/09/2025 8:12 AM EDT us Camila Medina MD LAB BLOOD ORDERABLES Final Result [facility] [address] [place] [phone] * (ABNORMAL) Comprehensive Metabolic Panel (04/09/2025 8:12 AM EDT) Sodium 139 135 - 145 mmol/L [facility] Potassium 3.7 3.3 - 5.1 mmol/L [facility] Chloride 102 96 - 108 mmol/L [facility] Carbon Dioxide 27 22 - 29 mmol/L [facility] Anion Gap 14 12 - 20 [facility] Urea Nitrogen (BUN) 10 9 - 16 mg/dL [facility] Creatinine, Serum 0.75 0.5 - 1.4 mg/dL [facility] Estimated Glomerular Filt Rate >60 [facility] Comment:Chronic Kidney Disea se: Estimated GFR < 60 mL/min/[id number] Kidney Disease: Estimated GFR < 15 mL/min/1.73m2 Glucose 110 60 - 115 mg/dL [facility] Calcium 9.3 8.4 - 10.2 mg/dL [facility] Bilirubin, Total 0.7 0.0 - 1.0 mg/dL [facility] Aspartate Amino Transferase 33(H) 5 - 31 U/L [facility] Alanine Aminotransferase 31 0 - 31 U/L [facility] Total Protein 7.3 6.5 - 8.0 g/dL [facility] Albumin Level 4.1 3.5 - 5.0 g/dL [facility] Alkaline Phosphatase 91 39 - 117 U/L [facility] Blood Venous blood specimen / Unknown 04/09/2025 8:12 AM EDT 04/09/2025 8:12 AM EDT us Camila Medina MD LAB BLOOD ORDERABLES Final Result [facility] [address] [place] [phone] * Albumin, Random Urine W/Creatinine (04/09/2025 8:06 AM EDT) Creatinine, Urine 188.31 mg/dL [facility] Microalbumin Urine 11.0 mg/L [facility] Microalbum Creatinine Ratio Ur 5.8 <30 ug/mg cr [facility] Comment:Albumin/Creatinine R atio Reference Ranges: Normal: < 30 ug/mg creatinine Microalbuminuria: 30 - 300 ug/mg creatinineClinical Albuminuria: > 300 ug/mg creatinine Urine (Urine, Random) 04/09/2025 8:06 AM EDT 04/09/2025 8:29 AM EDT us Camila Medina MD LAB URINE ORDERABLES Final Result [facility] [address] [place] [phone] * (ABNORMAL) POCT HGB A1C (02/11/2025 9:55 AM EDT) Pathologist [facility] Hemoglobin A1C 8.3(A) 4.0 - 6.0 % QC Media Lot # [id number] Lot# Expiration Date ,026 Blood 02/11/2025 9:55 AM EDT us Camila Medina [...] EDT Narrative 05/29/2024 7:35 AM EDT ? [facility] ? [address] ?[place] [address] ? Mammography Report ? Signed ? Patient: Delaney,Renetta ?MR#: [id number] ?? [id number] ? : 1965 ?Acct:[id number] ? Age/Sex: 59 / F ?ADM Date: 05/01/24 ? Loc: HO.MAMMO ? Attending Dr: Devin Ramirez MD ? Ordering Physician: Devin Ramirez MD ?Results: 1Negativ ?? e ? Date of Service: 05/01/24 ?Follow Up: 1 Year From Orig ?? inal Mammogram ? Procedure(s): MM tomosynthesis screening BI ?? Accession Number(s): [id number] ? cc: Camila Espinal MD; Devin Ramirez [...] by Farida Carr MD in OV> ? 05/29/[address]30 ? DD/ 0850 ? TD/TT: ? Shade Cloth Finisher: ? Procedure Note Debbie Llanos - 05/29/2024 [facility] [address] [place] [address] Mammography Report Signed Patient: Cele Delaney#: [id number] : 1965Acct:[id number] Age/Sex: 59 / FADM Date: 05/01/24 Loc: HO.MAMMO Attending Dr: Devin Ramirez MD Ordering Physician: Devin Ramirez MDResults: 1Negativ e Date of Service: 05/01/24Follow Up: 1 Year From Orig inal Mammogram Procedure(s): MM tomosynthesis screening BI Accession Number(s): [id number] cc: Camila Espinal MD; Devin Ramirez MD [...] in OV> 05/29/24 0731 DD/ 0850 TD/TT: Shade Cloth Finisher: [facility] External Provider IMG BI PROCEDURES Edited Result - Final * HPV E6/E7 RFLX RADHA 16 18/45 (06/02/2021 9:06 AM EDT) HPV 16 RNA [facility]NP [facility] HPV 18/45 RNA [facility] HPV E6 E7 ADD [facility]NP [facility] HPV mRNA E6/E7 rflx Not Detected Not Detected [facility] Comment: Methodology: Branch Lending Manager-Mediated Amplification This assay detects E6/E7 viral messenger RNA (mRNA) from 14 high-risk HPV types (16,18,31,33,35,39,45,51,52,56,58,59,66,68). The analytical performance characteristics of this assay have been determined by [employer]. The modifications have not been cleared or approved by the FDA. This assay has been validated pursuant to the CLIA regulations and is used for clinical purposes. For additional information, please refer to http://education.[employer]faq/AWM699c3 (This link if provided for information/ educational purposes only.) THIS TEST WAS PERFORMED AT: [facility] [address] [place] [address],[address] [place], [place] ??[phone] [facility]UM[facility] MD 06/02/2021 9:06 AM EDT us Devin Ramirez MD HISTORICAL/NON ORDERABLE LABS Fi nal Result [facility] [address] * Pap Smear (06/02/2021 12:00 AM EDT) Swab Devin Ramirez MD LAB CYTOLOGY ORDERABLES Final Re sult [facility] [address] [place] [phone] from Last 3 Months or Most Recently Relevant to Health Maintenance Insurance [employer] [address] [place] [address] Care Teams Method Consultant Relationship Specialty Start Date End Date Camila Espinal MD [address] [place] [address] PCP - General Family Medicine 05/13/20 Karma Mcfadden Die Casting Machine SetterLaw Tutor 08/11/23
--- OUTSIDE RECORDS SUMMARY | 2025-04-10 07:45 | XMS_ITS ---
Author Organization [facility] Address [address] [place] [phone] Care Team Providers Care Sponge Press Operator Name Role Phone Camila Alba M.D. Primary Care Provider Imtiaz Swain [phone] REASON FOR VISIT nagging pain under ribs Encounters Encounter Location Date Provider Diagnosis [facility] [address] [place] [phone] 01/15/2025 Imtiaz Gonzalez Plan Of Treatment No Information Progress Notes * PALOMA CURRY BDOB:1964 (60 yo F)Acc No.[id number]:01/15/2025 Patient:?PALOMA CURRY :1965???Age:59 Y???Sex:Female Address:[address] [place] [address] [address], , [place], [address] * true * Date:? Generated for Samara bunch/Bakari/eTransmitting on:?04/10/2025 07:44 AM EDT
== END ==
LOC: HO.CARD 07:42
PROVIDERS: PCP Internal Medicine; Visit Provider Nurse Practitioner Family
DX: Z01.810 Encounter for preprocedural cardiovascular examination (principal); E78.5 Hyperlipidemia, unspecified
CPT/HCPCS: 93306; Q9957

== ENCOUNTER → 2025-04-10 07:45 | Outpatient (BNV) | payer MEDICAID, SELFPAY | PROVIDERS: PCP Internal Medicine; Visit Provider Internal Medicine Cardiovascular Disease | DX: I34.0 Nonrheumatic mitral (valve) insufficiency (principal) | CPT/HCPCS: 93306 ==

== ENCOUNTER → 2025-04-29 08:09 | Outpatient (BNV) | payer MEDICAID, SELFPAY | PROVIDERS: PCP Internal Medicine; Visit Provider Internal Medicine | DX: R92.322 Mammographic fibroglandular density, left breast (principal) | CPT/HCPCS: 77049 ==

== ENCOUNTER 2025-04-29 08:14 | Outpatient (REF) | payer MEDICAID, SELFPAY ==
[2025-04-29] MEDS: gadobutroL 7.5 ML VIAL IVPUSH (09:14)
== END 2025-04-29 08:15 | disposition home or self-care (01) ==
LOC: HO.MRI 08:14
PROVIDERS: PCP Internal Medicine; Visit Provider Obstetrics & Gynecology
DX: Z80.3 Family history of malignant neoplasm of breast (principal)
CPT/HCPCS: 77049; A9585

== ENCOUNTER 2025-05-16 08:15 | Outpatient (AMB) | payer MEDICAID, SELFPAY ==
--- OUTSIDE RECORDS SUMMARY | 2023-03-20 20:00 | XMS_ITS | Continuity of Care Document ---
Author Organization [facility] o[facility] Address [address] [place] [address] Phone Care Team Providers Care Sensitometrist Name Role Phone Vilma HANSON, Willyr Unavailable [...] Provider Providers Copied on Encounter [facility], [address], [place], [place], [id number], [place] tel:[phone] [facility] No Information 3 Vilma Parker. [address] [place], [place], [id number], . tel:[phone] [facility], [address], [place], [place], [id number], tel:[phone] Essential (primary) hypertensionHyp erlipidemia, unspecifiedAthe rosclerotic heart disease of [place] coronary artery without angina pectorisCardiom yopathy, unspecified Mar-2 4202 3 No Information [facility], [address], [place], [place], [id number], [place] tel:[phone] [facility] No Information Mar-2 0 3 Brennon Hernandez. [address], [address], [place], [place], [id number], [place]. tel:[phone] Referring Provider: Chapin Pierre MD, [address] [place] [address], [address]. tel:[phone] Family History Family Member Type Diagnosis Age At Onset No Information Payers Payer name Insurance type Covered alliance party ID Authoriza tion(s) No Information Social [...]
[2025-05-16 08:55] VITALS: BP 149/71; PULSE 79; BMI 31.5
--- NOTE | 2025-05-16 08:55 | A.OFFVIS_ITS ---
Vital Signs 05/16/25 08:55 Height 4 ft 11 in Weight 156 lb BMI 31.5 BP 149/71 H Blood Pressure Location Rt brachial Position Sitting Pulse 79 Intake Visit Reasons: high risk breast CA Intake Note: Patient is seen in office for high risk of breast cancer and genetic testing. Mother hx of breast CA. Pt c/o: denies lumps, breast tenderness, nipple discharge. Breast soreness with monthly menses. MRI:04/29/25 mm:05/01/24 (DUE) [employer] Processing Supervisor Required: No Accompanied by: Self / Same As Patient Allergies iodine (IODINE) Allergy (Unknown, Verified 05/16/25 08:58) R/T SHELLFISH ALLERGY shellfish derived (SHELLFISH DERIVED) Allergy (Unknown, Verified 05/16/25 08:58) LIP SWELLING, ITCHY THROAT Iodinated Contrast Media (IV Contrast Dye) Allergy (Verified 05/16/25 08:58) Unknown Medication List - Last Reconciled 05/16/25 by Juvenal Dewitt MD aspirin 81 mg PO DAILY atorvastatin 80 mg PO DAILY blood sugar diagnostic (FreeStyle Lite Strips) As directed clonazepam 0.25 mg PO TID clonidine HCl 0.2 mg PO BEDTIME dulaglutide (Trulicity) 0.75 mg subcut QWEEK insulin glargine (Lantus Solostar U-100 Insulin) 50 units subcut BEDTIME insulin lispro (Humalog U-100 Insulin) 1 sliding scale dose subcut USEASDIRECTD methadone 80 mg PO Q6-8H pen needle, diabetic (BD Ultra-Fine Mini Pen Needle) As directed HPI Comments Details: 60-year-old female patient returning for high risk breast examination. She was initially determined to have a Tyrer-Cuzick remaining lifetime risk of breast cancer of 23% placing her at high risk for breast cancer. Her family history is significant for her mother developing breast cancer at the age of 40. She is alive and well the age of 79. She previously underwent genetic testing which revealed no mutations of clinical significance and one variant of unknown significance in the CDKN2A (p14 ARF) gene. Her daughter also underwent genetic testing and was negative as well. She is with 2 living children and 2 spontaneous miscarriages. Menarche was the age of 13 menopause in 2020. She had her 1st child when she was 19. She denied breast-feeding. She denies any previous breast surgeries. She recently underwent a breast MRI on 04/29/2025 which revealed a 6 mm oval enhancing mass in the lower central left breast middle to posterior depth which was stable dating back to 2021 and therefore is benign. No right breast suspicious findings were identified (left breast BI-RAD S 2, right breast BI-RADS 1). Her last mammogram was performed on 05/01/2024 and revealed no mammographic evidence of malignancy (BI-RADS 1). She denies any ongoing breast symptoms or breast masses. 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 Housing: House Alcohol intake: never Patient Tobacco Use Status: Current everyday Tobacco user Tobacco use type: Cigarette Cigarette Packs Per Day: 0.10 Cigarettes Per Day: 5 Years Smoked: 41 Current occupational status: disabled Sexual orientation: Straight/Heterosexual Gender identity: Female Female Reproductive History Menstrual Age of Menarche: 13 Review of Systems Const All systems reviewed & are unremarkable except as noted in HPI and below Physical Exam Vital Signs: Last Vital Signs Pulse 79 05/16/25 08:55 BP 149/71 H 05/16/25 08:55 BMI result Body Mass Index 31.5 Const General: healthy appearing and no acute distress Nutritional Appearance: well nourished Orientation/consciousness: patient oriented x3 Limitations: no limitations Chest Other: Bilateral extremely dense breast tissue Left breast: No skin change, no nipple retraction, no nipple discharge, no palpable mass, no enlarged lymph nodes. Right breast: No skin change, no nipple retraction, no nipple discharge, no palpable mass, no enlarged lymph nodes Resp Effort & Inspection: normal respiratory effort, no audible wheezes, no cough and no respiratory distress Skin General skin exam: no rashes or lesions noted Neuro General: patient oriented x3 Extrem General: Yes no clubbing, cyanosis or edema Assessment & Plan Assessment & Plan (1) At high risk for breast cancer: Code(s): Z91.89 - Other specified personal risk factors, not elsewhere classified Category: Medical Plan 60-year-old female patient determined to be at high risk for breast cancer due to family history of breast cancer and dense breast tissue. On examination the patient has extremely dense breast tissue bilaterally. Her most recent mammogram dated 05/01/2024 revealed no mammographic evidence of malignancy (BI- RADS 1. Her more recent MRI of the breast performed on 04/29/2025 revealed benign findings in the right breast and normal findings in the left breast. Follow-up in 1 year is recommended. She is now due for her annual mammogram as well in an order has been placed for this. I recommended she return in 6 months for follow-up examination. Coding Level of Care Code Est Pt Level 3 (81827) Diagnoses At high risk for breast cancer Z91.89
== END 2025-05-16 09:12 | disposition home or self-care (01) ==
PROVIDERS: PCP Internal Medicine; Visit Provider Surgery
DX: Z91.89 Other specified personal risk factors, not elsewhere classified (principal)
CPT/HCPCS: 99213

== ENCOUNTER → 2025-05-16 08:15 | Outpatient (BNVA) | payer MEDICAID, SELFPAY | PROVIDERS: PCP Internal Medicine; Visit Provider Surgery | DX: Z15.01 Genetic susceptibility to malignant neoplasm of breast (principal); Z91.89 Other specified personal risk factors, not elsewhere classified | CPT/HCPCS: 99212 ==

== ENCOUNTER 2025-08-20 09:25 | Outpatient (REF) | payer MEDICAID, SELFPAY ==
--- OUTSIDE RECORDS SUMMARY | 2023-03-20 20:00 | XMS_ITS | Continuity of Care Document ---
Author Organization [facility] oup Address [address] [place] [address] Phone Care Team Providers Care Ota Name Role Phone Vilma HANSON, Willyr Unavailable Unavailable Allergies, Adverse Reactions, Alerts Substance Reaction Status Criticality shellfish derived ; ; ; ; Active No Informa tion Medications Medication Instructions Dosage Effective Dates (start - stop) Status Comments Brilinta 90 mg tablet take 1 tablet (90 mg) by oral route 2 times per day for 30 days - Active take 1 tablet (90 mg) by oral route 2 times per day for 30 days aspirin 81 mg chewable tablet chew 1 tablet (81 mg) by oral route once daily for 90 days - Active chew 1 tablet (81 mg) by oral route once daily for 90 days LIPITOR (unknown strength) take 1 tablet by oral route once a day (at bedtime) for 90 days Not Available - Active take 1 tablet by oral route once a day (at bedtime) for 90 days Procedures Procedure Date INSERT INTRACORONARY STENT L Hrt Artery/ventricle Angio Moderate Sedation; Each Addl 15 Mins Jan Moderate Sedation, Initial 15 Mins Advance Directives Directive Yes / No Effective Date File Name No Information Encounters Encounter Description Practice Location Reason(s) For Visit Diagnoses Date Provider Providers Copied on Encounter [facility], [address], [place], [place], [id number], [place] tel:[phone] [facility] No Information 3 Vilma Parker. [address], [place], [id number], . tel:[phone] [facility], [address], [place], [place], [id number], tel:[phone] Essential (primary) hypertensionHyp erlipidemia, unspecifiedAthe rosclerotic heart disease of [place] coronary artery without angina pectorisCardiom yopathy, unspecified Mar-2 4202 3 No Information [facility], [address], [place], [place], [id number], [place] tel:[phone] [facility] No Information Mar-2 0 3 Brennon Hernandez. [address], [address], [place], [place], [id number], [place]. tel:[phone] Referring Provider: Chapin Pierre MD, [address] [place] [address], [address]. tel:[phone] Family History Family Member Type Diagnosis Age At Onset No Information Payers Payer name Insurance type Covered constitution party ID Authoriza tion(s) No Information Social History Type Description Quantity Date Captured Comments Sex Female Smoking Status No Information Chief Complaint And Reason For Visit No Information Reason For Referral Reason For Referral No Information History Of Present Illness Encounter Date Complaint History Of Prese nt Illness No Information Functional Status Date Functional Assessmen t No Information Instructions Date Instruction Additional Infor mation No Information Assessments Type Assessment Date No Information Patient Care Teams Name Effective Dates (start - stop) Status Members No Information
--- OUTSIDE RECORDS SUMMARY | 2024-03-01 05:20 | XMS_ITS ---
Author Organization [facility] Address [address] [place] [phone] Care Team Providers Care Director Data Management Name Role Phone Camila Alba M.D. Primary Care Provider Imtiaz Swain [phone] REASON FOR VISIT Patient presents today for discuss colonoscopy Encounters Encounter Location Date Provider Diagnosis [facility] [address] [place] [phone] 03/01/2024 Imtiaz Gonzalez Plan Of Treatment No Information Progress Notes * CURRYPALOMA BDOB:1964 (60 yo F)Acc No.[id number]:03/01/2024 Progress Notes Patient: PALOMA YOUNG Provider: Tami Gonzalez MD :1965 A ge:59 Y S ex:Female Date:03/01/2024 Address:[address] [place] [address] [address], [id number] Pcp:Camila Alba M.D. Subjective: * Chief Complaints: * 1 . Patient presents today for discuss colonoscopy. * Medical History: Objective: * Vitals: Assessment: Plan: * Treatment: * * The named appointment provid er may or may not be the originator of this progress note, and it is not deemed complete until electronically signed by the appointment provider. Sign off status: Pending * Provider: Tami Gonzalez MD Date: 0 03/01/2024 Generated for Samara bunch/Bakari/eTgavinitting on: 0 08/20/2025 11:10 AM EDT
--- OUTSIDE RECORDS SUMMARY | 2024-10-29 04:30 | XMS_ITS ---
Author Organization [facility] Address [address] [place] [phone] Care Team Providers Care Airline Transport Pilot Name Role Phone Camila Alba M.D. Primary Care Provider Imtiaz Swain [phone] REASON FOR VISIT screening Problems Problem Type SNOMED Code ICD Code Onset Dates Problem Status W/U Status Risk Notes Problem Diverticular disease of colon (604695996) Diverticulosis of large intestine without perforation or abscess without bleeding (K57.30) Active confirmed Encounters Encounter Location Date Provider Diagnosis [facility] Outpatient [address] [place] [phone] 10/29/2024 Imtiaz Gonzalez Encounter for scre ening [...] * PALOMA CURRY BDOB:1964 (60 yo F)Acc No.[id number]:10/29/2024 COLON WITH MAC Patient: PALOMA YOUNG Provider: Tami Gonzalez MD :1965 A ge:59 Y S ex:Female Date:10/29/2024 Address:[address] [place] [address] [address], , [id number] Pcp:Camila Alba M.D. Subjective: * Chief Complaints: * 1 . Screening. * Medical History: Objective: * Vitals: Assessment: * Assessment: 1. E ncounter for screening colonoscopy - Z12.11 (Primary) 2 . C olon polyps - K63.5 3 . D iverticulosis of large intestine without perforation or abscess without bleeding - K57.30 4 . O ther hemorrhoids - K64.8 Plan: * Treatment: * Procedure Codes: 4 5385 LESION REMOVAL COLONOSCOPY * * The named appointment provid er may or may not be the originator of this progress note, and it is not deemed complete until electronically signed by the appointment provider. Sign off status: Pending * Provider: Tami Gonzalez MD Date: 12/30/2023 Generated for Samara bunch/Bakari/Yennifersmitting on: 0 08/20/2025 11:10 AM EDT
--- OUTSIDE RECORDS SUMMARY | 2025-08-20 11:10 | XMS_ITS | Encounter Summary ---
Author Organization [employer] Address [address] [place] [address] Care Team Providers Care Donor Support Technician Name Role Phone Camila Espinal MD Primary Care Provide r Encounter Details Date Type Department Care Team (Late st Contact Info) Description 10/25/2023 Abstract [facility] MEDICINE [address] [place], [place] [id number] Jane Aguilar Social History Tobacco Use Types [...] with others, in a hotel, in a retirement, living outside on the street, on a [...] as of this encounter Plan of Treatment Not on file documented as of this encounter Goals Goal Patient Goal Type Associated Problems Recent Progress Patient-Stated? Author Reduce the number of cigarettes smoked per day by 1 (goal 4-6 cigarettes per day) [place], [place] Call the pharmacy to schedule a f/u appointment when you return from [facility] Harmeet Lazaro PharmD documented as of this encounter Procedures Procedure Name Priority Date/Time Associated Diagnosis Comments MAMMOGRAPHY Routine 12/24/2022 documented in this encounter Results * Mammography (12/24/2022) HM Mammogram Bi-rads 1 Anatomical Region Laterality Modality Other Narrative 12/24/2022 Recommended routine annual mammo Historical Provider HEALTH MAINTENANCE Final Result documented in this encounter Visit Diagnoses Not on filedocumented in this encounter Additional Health Concerns Assessment Noted Time PHQ-9 Depression Total Score: 4 03/24/20 23 2:31 PM EDT documented as of this encounter Care Teams Donor Support Technician Relationship Specialty Start Date End Date Camila Espinal MD [address] [place] [address] PCP - General Family Medicine 05/13/20 Karma Mcfadden Community Service WorkerNick Setter 08/11/23 Karma Mcfadden Community Service WorkerNick Setter 06/18/25 documented as of this encounter
--- OUTSIDE RECORDS SUMMARY | 2025-08-20 11:10 | XMS_ITS | Clinical Summary ---
Author Organization [facility] Address [address] [place] [address] Care Team Providers Care School Physical Therapist Name Role Phone Camila Espinal MD Primary [...] 02/20/2016 Zoster Vaccines (1 of 2) 02/20/2016 Colorectal Cancer Screening: Colonoscopy 10/23/2024 HIV Screening 10/23/2024 Hepatitis C Screening 10/23/2024 Social Influencers of Health Screening 10/23/2024 Depression Screening 11/28/2024 COVID-19 Vaccine (1 - 2023-2 5 season) 2025 Influenza Vaccine (#1) 2025 RSV Immunization Adult Patie nts (1 [...] age to complete this topic Care Teams School Physical Therapist Relationship Specialty Start Date End Date Camila Espinal MD [address] [place] [phone] PCP - General 01/19/24
--- OUTSIDE RECORDS SUMMARY | 2025-08-20 11:10 | XMS_ITS | Patient Health Record ---
Author Organization [facility] Address [address] [place] [address] Care Team Providers Care Roofer Helper Name Role Phone Camila Alba M.D. Primary Care Provider Imtiaz Swain [phone] Allergies Allergen (clinical drug ingredient) Drug/Non Drug Allergy documented on EMR Reaction Allergy Type Onset Date Status IVP DYE (uncoded) Unknown Allergy 07/31/2023 A ctive Results Component Value Reference Range Notes Pathology Reviewed date:03/20/2025 11:35:04 PM Interpretation: Performing Lab:[facility], [address] [place] [phone] Notes/Report: Reason For Referral No Information Medications Medication SIG (Take, Route, Frequency, Duration) [...] Problem Status W/U Status Risk Notes Problem [id number] Encounter for screening for malignant neoplasm of colon (Z12.11) Active confirmed Problem Diverticular disease of colon (596198343) Diverticulosis of large intestine without perforation or abscess without bleeding (K57.30) Active confirmed Problem [id number] Constipation, unspecified constipation type (K59.00) Active confirmed Encounters Encounter Location Date Provider Diagnosis [facility] Outpatient [address] [place] [id number] 10/29/2024 Imtiaz Gonzalez Encounter for screen ing colonoscopy Z12.11 ; Colon polyps K63.5 ; Diverticulosis of large intestine without perforation or abscess without bleeding K57.30 and Other hemorrhoids K64.8 [facility] [address] [place] [phone] 10/15/2024 Imtiaz Gonzalez [facility] [address] [place] [phone] 10/19/2024 Imtiaz Gonzalez [facility] [address] [phone] 01/15/2025 Imtiaz Gonzalez Assessments Encounter Date Diagnosis [...] Start Date Coverage End Date MEDICA[employer] [facility] [address] [place] [id number] PALOMA CURRY Self - patient is the insured Medical (General) History Medical History History ICD Code IDDM Hypertension Anxiety EGD and Colonoscopy in [place] in her 30 's for some GI issues Denies CVA,Lung disease,renal disease Hyperlipidemia Colonoscopy 04/2018 was negative but prep was suboptimal 02/14/2023 heart attack in [place]--had a stent placed. Seeing Dr. 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
--- OUTSIDE RECORDS SUMMARY | 2025-08-20 11:11 | XMS_ITS | Clinical Summary ---
Author Organization [employer] Address [address] [facility] [address] [place] [address] Care Team Providers Care Field Contractor Name Role Phone Camila Espinal MD Primary Care Provide r Allergies Active Allergy Reactions Criticality Noted Date Comments Indomethacin 04/07/2016 Iodinated Contrast Media 07/31/2023 Other reaction(s): Unknown Iodine Anaphylaxis,Hives High 12/21/2022 Shellfish Allergy 12/21/2022 Shellfish-Derived Products Swelling Medium 03/13/2021 Medications clonazePAM (KlonoPIN) 0.5 MG tablet Take 1 tablet by mouth if needed in the morning, at noon, and at bedtime for anxiety. 03/14/20 23 Active cloNIDine (Catapres) 0.2 MG tablet Take 1 tablet by mouth at bedtime. 01/14/20 23 Active FREESTYLE LITE test strip 08/11/20 22 Active Lantus SoloStar 100 UNIT/ML pen Inject 25 Units under the skin Once per day. 08/11/20 22 Active B-D UF III MINI PEN NEEDLES 31G X 5 MM misc 05/10/20 22 Active triamcinolone (Kenalog) 0.1 % cream 12/07/19 23 Active cholecalciferol (Vitamin D-3) 50 MCG (1999) capsule Take 1 capsule by mouth Once per day. 04/12/20 16 Active methadone (Dolophine) 5 MG tablet Take 88 mg by mouth Once per day. Active Blood Pressure kitIndications: Other type of myocardial infarction (CMS/HCC) Check daily blood pressure 1 kit 03/24/20 23 Active lisinopril 2.5 MG tabletIndicatio ns:Other type of myocardial infarction (CMS/HCC) Take 1 tablet (2.5 mg) by mouth in the morning. 30 tablet 1 03/24/20 Active EPINEPHrine (EpiPen 2-Sean) 0.3 MG/0.3ML injection syringe Inject 0.3 mL (0.3 mg) as directed 1 (one) time for 1 dose. 0.3 mL 03/24/20 Active FreeStyle lancets 03/23/20 Active insulin lispro (HumaLOG) 100 UNIT/ML injectionIndica tions:Type 2 diabetes mellitus with hyperglycemia, with long-term current use of insulin (CMS/HCC) Inject 4 Units under the skin with breakfast, with lunch, and with evening meal. Inject subcutaneously three times daily following sliding scale: BG<200 --> 0 units 200-249 --> 4 units 250-299 --> 6 units 300-349 --> 8 units 350-399 --> 10 units BG>400 --> 12 units & call office 3 mL 1 10/03/20 Active Continuous Blood Gluc Power Cutting Machine Operator (FreeStyle Rashid 2 [place]) deviceIndicatio ns:Type 2 diabetes mellitus with hyperglycemia, with long-term current use of insulin (CMS/HCC) Scan sensor every 8 hours 1 each 10/03/20 Active Continuous Blood Gluc Sensor (FreeStyle Rashid 2 Sensor) miscIndications :Type 2 diabetes mellitus with hyperglycemia, with long-term current use of insulin (CMS/HCC) Apply 1 sensor every 14 days 2 each 2 10/03/20 Active Brilinta 90 MG tabletIndicatio ns:Coronary artery disease involving [place] coronary artery of [place] heart, unspecified whether angina present TAKE 1 TABLET(90 MG) BY MOUTH EVERY 12 HOURS 180 tablet 1 10/03/20 Active bacitracin-poly myxin b (Polysporin) ophthalmic ointment 05/14/20 Active cephalexin (Keftab) 500 MG tablet Take 500 mg by mouth in the morning and 500 mg at noon and 500 mg in the evening. 09/26/20 Active clindamycin (Clindagel) 1 % gel 10/17/20 Active clobetasol (Temovate) 0.05 % ointment 09/21/20 Active doxycycline (Vibramycin) 100 MG capsule Take 100 mg by mouth in the morning and 100 mg in the evening. 10/17/20 23 Active fluorometholone (FML) 0.1 % ophthalmic suspension 08/17/20 Active hydroquinone 4 % cream 09/23/20 23 Active Linzess 145 MCG capsule 07/04/20 Active ezetimibe (Zetia) 10 MG tabletIndicatio ns:Dyslipidemia Take 1 tablet (10 mg) by mouth Once per day. 90 tablet 1 05/13/20 25 026 Active atorvastatin (Lipitor) 80 MG tabletIndicatio ns:Coronary artery disease involving [place] coronary artery of [place] heart, unspecified whether angina present TAKE 1 TABLET(80 MG) BY MOUTH IN THE MORNING 90 tablet 1 06/17/20 Active Active Problems Problem Noted Date Diagnosed Date Dyslipidemia 05/13/2025 Assessment & Plan (05/13/2025 10:15 AM EDT): Extensive counseling about healthy diet and exercise on today Continue with aspirin 81 mg daily, atorvastatin 80 mg daily and now I added today ezetimibe 10 mg daily Encounter for preventive care 02/11/2025 Assessment & [...] of tract Coronary artery disease invo lving ton[place]anda coronary artery of [place] heart 10/03/2023 Assessment & Plan (02/11/2025 2:01 [...] psych provider Feeling anxious since dx,scared after [place] -reassured and advised to continue w her specialist [place] (myocardial infarction) 03/24/2023 Assessment & Plan (03/24/2023 10:39 PM EDT): Hospitalized from 02/13 - 02/16 in [place]. Found to have LHC showed 80% stenosis [...] use of insulin 12/24/2022 Assessment & Plan (05/13/2025 10:15 AM EDT): Diabetes is: almost at goal - Lab Results Component Value Date HGBA1C 7.1 (A) 05/13/2025 HGBA1C 8.3 (A) 02/11/2025 HGBA1C 8.8 (A) 01/12/2024 - Lab Results Component Value Date MICROALBUR 11.0 04/09/2025 CREATININE 0.75 04/09/2025 -Changes: None - Diabetic eye exam: Up-to-date - Diabetic foot exam: Up-to-date - Continue lifestyle modifications - Continue current medications - Continue to follow-up with endocrinology Assessment & Plan (02/11/2025 2:02 PM EDT): [...] (11/07/2023 6:22 AM EST): A1C 11.3 Sees Vistastate Del Rosario, currently on Lantus 25 units [...] (03/24/2023 10:30 PM EDT): 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 Initial [...] consulting health care provider Assessment & Plan (01/12/2024 10:44 AM EST): [...] Encounters Date Type Department Care Team Description 06/18/2025 Telephone [facility] [address] [place] [address] Camila Espinal MD Care Coordination ([facility] Care Plan ) 06/15/2025 Refill [facility] [address] [place], [place] [phone] Camila Espinal MD Coronary artery disease involving tonawanda coronary artery of ton[place]anda heart, unspecified whether angina present from Last 3 Months Immunizations Immunization Administration [...] Answer Date Recorded Patient Health Questionnaire-9 Score 0 05/13/2025 Patient Health Questionnaire-9 Score 0 05/13/2025 Last PHQ-9: Questionnaire Data Not on file 0 05/13/2025 Housing Stability Answer Date Recorded What is [...] Answer Date Recorded Patient Health Questionnaire-2 Score 0 05/13/2025 Internet Access Answer Date Recorded Internet Access [...] Sign Reading Time Taken Comments Blood Pressure 138/70 05/13/2025 8:51 AM EDT Pulse 60 05/13/2025 8:51 AM EDT Temperature 36.6 C (97.8 F) 05/13/2025 8:51 AM EDT Respiratory Rate 18 05/13/2025 8:51 AM EDT Oxygen Saturation 98% 02/11/2025 9:53 AM EDT Inhaled Oxygen Concentration - - Weight 71.2 kg (157 lb) 05/13/2025 8:51 AM EDT Height 149.9 cm (4' 11 ) 05/13/2025 8:51 AM EDT Body Mass Index 31.71 05/13/2025 8:51 AM EDT Plan of Treatment Health Maintenance Due Date Last Done Comments CT Colonography 1966 FIT DNA/Cologuard 1966 FIT 1966 FOBT 1965 Sigmoidoscopy 1966 Diabetes: Foot Exam 02/20/1976 Eye Exam 02/20/1976 Hepatitis B Vaccines (1 of 3 - 19+ 3-dose series) 1985 Zoster Vaccines (1 of 2) 02/20/2016 COVID-19 Vaccine ( season) 2025 10/27/2021, 03/20/2021, 02/26/2021 Influenza Vaccine (#1) 2025 , 10/03/2023, 10/27/2021, Additional history exists Diabetes: Hemoglobin A1C 08/13/2025 025, 02/11/2025, 01/12/2024, Additional history exists SDOH Screening 02/01/2026 02/01/2025 Tobacco Screening 02/11/2026 02/11/2025 Diabetes: Urine Protein Screening 04/09/2026 04/09/2025, 02/26/2021 Lipid Panel 04/09/2026 04/09/2025, 10/28, 05/09/2023 Mammogram 04/29/2026 04/29/2025, 02/2024, 12/24/2022, Additional history exists Alcohol/Substance Use Screening 05/13/2026 05/13/2025 Depression Screening 05/13/2026 05/13/2025, 05/13/20 25 Disability Screening 05/13/2026 05/13/2025 Cervical Cancer Screening 06/02/2026 HPV/Cotest 06/02/2026 06/02/2021, 07/0 04/2021, 11/30/2017 Pap Smear 06/02/2026 06/02/2021, 11/30/2017 Colonoscopy 10/29/2027 10/29/2024 Colorectal Cancer Screening 10/29/2027 DTaP/Tdap/Td Vaccines (2 - Td or Tdap) 08/04/2028 08/04/2018 RSV Patients and Patients Aged 60 years or older (1 - 1-dose 75+ series) 2041 Pneumococcal Vaccine: 50+ Years Completed 02/11/2025, 08/04/2018 [...] 1 (goal 4-6 cigarettes per day) General No Harmeet Sanches, [place] Call the pharmacy to schedule a f/u appointment when you return from [place] [facility] Harmeet Lazaro PharmD Procedures Procedure Name Priority Date/Time Associated Diagnosis Comments POCT GLYCATED HEMOGLOBIN, TOTAL Routine 05/13/2025 8:56 AM EDT Type 2 diabetes mellitus with hyperglycemia, with long-term current use of insulin (CMS/HCC) BI MR BREAST W AND WO CONTRAST BILATERAL Routine 04/29/2025 8:35 AM EDT HEPATITIS C AB W/REFL TO HCV RNA, QN, PCR Routine 04/09/2025 8:12 AM EDT Encounter for preventive care HIV 1/2 ANTIGEN/ANTIBODY, FOURTH GENERATION W/RFL Routine 04/09/2025 8:12 AM EDT Encounter for preventive care LIPID PANEL, STANDARD Routine 04/09/2025 8:12 AM EDT Encounter for preventive care ALBUMIN, RANDOM URINE W/CREATININE Routine 04/09/2025 8:06 AM EDT Encounter for preventive care HM COLONOSCOPY Routine 10/29/2024 ZZZ HISTORICAL HPV E6/E7 RFLX RADHA 16 18/45 Routine 06/02/2021 9:06 AM EDT PAP SMEAR Routine 06/02/2021 12:00 AM EDT from Last 3 Months or Most Recently Relevant to Health Maintenance Results * (ABNORMAL) POCT HGB A1C (05/13/2025 8:56 AM EDT) Hemoglobin A1C 7.1(A) 4.0 - 6.0 % QC Media Lot # [id number] Lot# Expiration Date ,[id number] Blood 05/13/2025 8:56 AM EDT Camila Medina MD POINT OF CARE TEST EN TER/EDIT ORDERABLES Final Result * BI MR Breast w and w/o Contrast Bilateral (04/29/2025 8:35 AM EDT) Anatomical Region Laterality Modality Breast Bilateral Magnetic Resonan ce 04/29/2025 8:35 AM EDT Narrative 05/03/2025 4:08 PM EDT [address] [address] Magnetic Resonance Report Signed Patient: Renetta Delaney MR#: [id number] : 1965 Acct:[id number] Age/Sex: 60 / F ADM Date: 04/29/25 Loc: HO.MRI Attending Dr: Devin Ramirez MD Ordering Physician: Devin Ramirez MD Date of Service: 04/29/25 Procedure(s): MR breast BI wo/w con Accession Number(s): [id number] cc: Camila Espinal MD; Devin Ramirez MD EXAMINATION: MR BREAST WITHOUT AND WITH CONTRAST, BILATERAL CLINICAL INFORMATION: High risk screening, family history of breast cancer including the patient's mother. COMPARISON: Mammography April 2024 breast MRI April. TECHNIQUE: MR imaging of the breast was performed using T1,T2 and fat saturated techniques. Dynamic multiphase imaging was performed after the administration of gadolinium contrast agent. 3-D reconstruction was performed. FINDINGS: There is scattered fibroglandular breast tissue with minimal background enhancement. LEFT BREAST: No suspicious enhancing masses or areas of nonmass enhancement. No architectural distortion. No internal mammary or axillary adenopathy. 6 mm oval enhancing mass in the lower central left breast middle to posterior depth is stable dating back to 2021 and therefore benign. RIGHT BREAST: No suspicious enhancing masses or areas of nonmass enhancement. No architectural distortion. No internal mammary or axillary adenopathy. Limited views of the chest and abdomen are unremarkable. MR/MR breast BI wo/w con IMPRESSION: No MR specific evidence of malignancy. ASSESSMENT: LEFT BREAST: BI-RADS 2 benign. RIGHT BREAST: BI-RADS 1-Negative RECOMMENDATIONS: Yearly screening mammography. Yearly screening MRI surveillance. Electronically signed by: Henrietta Berumen DO 05/03/2025 04:05 PM EDT Dictated By: Henrietta Berumen DO Signed By: <Electronically signed by Henrietta Berumen DO in OV> 05/03/25 1605 DD/ 0835 TD/TT: 04/29/25 0910 Account Leader: Procedure Note Donotuseinterpreter, Image - 05/03/[address] [address] Magnetic Resonance Report Signed Patient: Cele Delaney#: [id number] : 1965Acct:[id number] Age/Sex: 60 / FADM Date: 04/29/25 Loc: HO.MRI Attending Dr: Devin Ramirez MD Ordering Physician: Devin Ramirez MD Date of Service: 04/29/25 Procedure(s): MR breast BI wo/w con Accession Number(s): [id number] cc: Camila Espinal MD; Devin Ramirez MD EXAMINATION: MR BREAST WITHOUT AND WITH CONTRAST, BILATERAL CLINICAL INFORMATION: High risk screening, family history of breast cancer including the patient's mother. COMPARISON: Mammography April 2024 breast MRI April. TECHNIQUE: MR imaging of the breast was performed using T1,T2 and fat saturated techniques. Dynamic multiphase imaging was performed after the administration of gadolinium contrast agent. 3-D reconstruction was performed. FINDINGS: There is scattered fibroglandular breast tissue with minimal background enhancement. LEFT BREAST: No suspicious enhancing masses or areas of nonmass enhancement. No architectural distortion. No internal mammary or axillary adenopathy. 6 mm oval enhancing mass in the lower central left breast middle to posterior depth is stable dating back to 2021 and therefore benign. RIGHT BREAST: No suspicious enhancing masses or areas of nonmass enhancement. No architectural distortion. No internal mammary or axillary adenopathy. Limited views of the chest and abdomen are unremarkable. MR/MR breast BI wo/w con IMPRESSION: No MR specific evidence of malignancy. ASSESSMENT: LEFT BREAST: BI-RADS 2 benign. RIGHT BREAST: BI-RADS 1-Negative RECOMMENDATIONS: Yearly screening mammography. Yearly screening MRI surveillance. Electronically signed by: Henrietta Bermuen DO 05/03/2025 04:05 PM EDT Dictated By: Henrietta Berumen DO Signed By: <Electronically signed by Henrietta Berumen DO in OV> 05/03/25 1605 DD/ 0835 TD/TT: 04/29/25 0910 Account Leader: [facility] External Provider IMG MRI PROCEDURES Final Result * Hepatitis C Antibody with Reflex to HCV, RNA, Quantitative, Real-Time PCR (04/09/2025 8:12 AM EDT) Hepatitis C Antibody Nonreactive Nonreactive [facility] Comment:Antibodies to HCV no t detected; does not exclude early acuteHCV infection. Blood Venous blood specimen / Unknown 04/09/2025 8:12 AM EDT 04/09/2025 8:12 AM EDT Camila Medina MD LAB BLOOD ORDERABLES Final Result Performing Organization Address City/[facility] Co de Phone Number [facility] [address] [place] [phone] * HIV-1/2 Antigen and Antibodies, Fourth Generation, with Reflexes (04/09/2025 8:12 AM EDT) Pathologist [facility] HIV AB/AG Nonreactive Nonreactive [facility] Comment:HIV-1 p24 Ag and/or HIV-1/HIV-2 Ab not detected.A test result that is nonreactive does not exclude thepossibility of exposure to or infection with HIV-1 and/orHIV-2. Nonreactive results in this assay for individualswith prior exposure to HIV-1 and/or HIV-2 may be due toantigen and antibody levels that are below the limit ofdetection of this assay.The [employer] HIV Ag/Ab Combo assay result andsupplemental assay results should be interpreted inconjunction with the patient's clinical presentation,history and other laboratory results. If the results areinconsistent with clinical evidence, additional testing issuggested to confirm the result. Blood Venous blood specimen / Unknown 04/09/2025 8:12 AM EDT 04/09/2025 8:12 AM EDT Camila Mdeina MD LAB BLOOD ORDERABLES Final Result Performing Organization Address City/[facility]/ZIP Co de Phone Number [facility] [address] [place] [phone] * (ABNORMAL) Lipid Panel, Standard (04/09/2025 8:12 AM EDT) Triglycerides 169(H) <150 mg/dL [facility] Comment:Desirable Triglyceri de: less than 150 mg/dLBorderline High Triglyceride 150-199 mg/dLHigh Triglyceride: 200-499 mg/dLVery High Triglyceride: greater than or equal to 5OO mg/dL Cholesterol 89 <200 mg/dL [facility] Comment:Desirable Cholestero l: less than 200 mg/dLBorderline High Cholesterol: 200-239 mg/dLHigh Cholesterol: greater than 239 mg/dL LDL Cholesterol Calculated 34 <100 mg/dL [facility] Comment:Desirable LDL: less than 100 mg/dLNear Optimal/Above Optimal LDL: 110- 129 mg/dLBorderline High LDL: 130-159 mg/dLHigh LDL: 160-189 mg/dLVery High LDL: greater than or equal to 190 mg/dL HDL Cholesterol 22(L) >40 mg/dL [facility] Comment:Desirable HDL: great er than 40 mg/dL Note: This HDL assay may give artificially low results in patients with liver disease. Blood Venous blood specimen / Unknown 04/09/2025 8:12 AM EDT 04/09/2025 8:12 AM EDT Camila Medina MD LAB BLOOD ORDERABLES Final Result [facility] [address] [place] [phone] * Albumin, Random Urine W/Creatinine (04/09/2025 8:06 AM EDT) Creatinine, Urine 188.31 mg/dL [facility] Microalbumin Urine 11.0 mg/L [facility] Microalbum Creatinine Ratio Ur 5.8 <30 ug/mg cr [facility] Comment:Albumin/Creatinine R atio Reference Ranges: Normal: < 30 ug/mg creatinine Microalbuminuria: 30 - 300 ug/mg creatinineClinical Albuminuria: > 300 ug/mg creatinine Urine (Urine, Random) 04/09/2025 8:06 AM EDT 04/09/2025 8:29 AM EDT Camila Medina MD LAB URINE ORDERABLES Final Result [facility] [address] [place] [phone] * Hm Colonoscopy (10/29/2024) Colonoscopy Normal Normal Narrative Norman Aguilarba - 10/29/2024 Recommended 3 years . See see external hospital admission note on 10/29/2024 Historical Provider HEALTH MAINTENANCE Final Result * HPV E6/E7 RFLX RADHA 16 18/45 (06/02/2021 9:06 AM EDT) HPV 16 RNA TNP [facility] HPV 18/45 RNA [facility]NP [facility] HPV E6 E7 ADD [facility]NP [facility] HPV mRNA E6/E7 rflx Not Detected Not Detected [facility] Comment: Methodology: Sill Worker-Mediated Amplification This assay detects E6/E7 viral messenger RNA (mRNA) from 14 high-risk HPV types (16,18,31,33,35,39,45,51,52,56,58,59,66,68). The analytical performance characteristics of this assay have been determined by [employer]. The modifications have not been cleared or approved by the FDA. This assay has been validated pursuant to the CLIA regulations and is used for clinical purposes. For additional information, please refer to http://education.VANDOLAY/faq/PIG801b9 (This link if provided for information/ educational purposes only.) THIS TEST WAS PERFORMED AT: [email or web address] [address] [place] [address],[place] [phone] YUMIKO HEART MD 06/02/2021 9:06 AM EDT us Devin Ramirez MD HISTORICAL/NON ORDERABLE LABS Fi nal Result [facility] [address] * Pap Smear (06/02/2021 12:00 AM EDT) Swab Devin Ramirez MD LAB CYTOLOGY ORDERABLES Final Re sult [facility] [address] [place] [phone] from Last 3 Months or Most Recently Relevant to Health Maintenance Insurance [employer] apt [address] [place] [phone] [employer] C3 Care Teams Field Contractor Relationship Specialty Start Date End Date Camila Espinal MD [address] [place] [phone] PCP - General Family Medicine 05/13/20 Karma Mcfadden Hot BraiderLivestock Slaughterer 08/11/23 Karma Mcfadden Hot BraiderLivestock Slaughterer 06/18/25
== END 2025-08-20 09:26 | disposition home or self-care (01) ==
LOC: HO.MAMMO 09:25
PROVIDERS: PCP Internal Medicine; Visit Provider Surgery
DX: Z12.31 Encounter for screening mammogram for malignant neoplasm of breast (principal)
CPT/HCPCS: 77063; 77067

== ENCOUNTER → 2025-08-20 09:45 | Outpatient (BNV) | payer MEDICAID, SELFPAY | PROVIDERS: PCP Internal Medicine; Visit Provider Radiology Body Imaging | DX: Z12.31 Encounter for screening mammogram for malignant neoplasm of breast (principal) | CPT/HCPCS: 77063; 77067 ==

== ENCOUNTER 2025-10-31 10:10 | Outpatient (AMB) | payer MEDICAID, SELFPAY ==
--- OUTSIDE RECORDS SUMMARY | 2024-10-29 03:30 | XMS_ITS ---
Author Organization [facility] Address [address] [place] [id number] Care Team Providers Care Dirt Shoveler Name Role Phone Camila Alba M.D. Primary Care Provider Imtiaz Swain [phone] REASON FOR VISIT screening Problems Problem Type SNOMED Code ICD Code Onset Dates Problem Status W/U Status Risk Notes Problem Diverticular disease of colon (225969655) Diverticulosis of large intestine without perforation or abscess without bleeding (K57.30) Active confirmed Encounters Encounter Location Date Provider Diagnosis [facility] Outpatient [address] [place] [phone] 10/29/2024 Imtiaz Gonzalez Encounter for scre ening colonoscopy Z12.11 ; Colon polyps K63.5 ; Diverticulosis of large intestine without perforation or abscess without bleeding K57.30 and Other hemorrhoids K64.8 Assessments Encounter Date Diagnosis (ICD Code) Assessment Notes Treatment Notes Treatment Clinical Notes Section Notes 10/29/2024 Encounter for screening colonoscopy (ICD-10 - Z12.11) 10/29/2024 Colon polyps (ICD-10 - K63.5) 10/29/2024 Diverticulosis of large intestine without perforation or abscess without bleeding (ICD-10 - K57.30) 10/29/2024 Other hemorrhoids (ICD-10 - K64.8) Plan Of Treatment No Information Progress Notes * PALOMA CURRY BDOB:1964 (60 yo F)Acc No.[id number]:10/29/2024 COLON WITH MAC Patient: PALOMA YOUNG Provider: Tami Gonzalez MD :1965 A ge:59 Y S ex:Female Date:10/29/2024 Address:[address] [place] [address] [address], [id number] Pcp:Camila Alba M.D. Subjective: * Chief Complaints: * S creening Assessment: * Assessment: 1. E ncounter for screening colonoscopy - Z12.11 (Primary) 2 . C olon polyps - K63.5 3 . D iverticulosis of large intestine without perforation or abscess without bleeding - K57.30 4 . O ther hemorrhoids - K64.8 Plan: * Procedure Codes: 4 5385 LESION REMOVAL COLONOSCOPY Billing Information: * Procedure Codes: 86772 LESION REMOVAL COLONOSCOPY. * The named appointment provid er may or may not be the originator of this progress note, and it is not deemed complete until electronically signed by the appointment provider. Sign off status: Pending * Provider: Tami Gonzalez MD Date: 12/30/2023 Generated for Samara bunch/Bakari/Yennifersmitting on: 01/01/2025 12:10 PM EST
[2025-10-31 10:31] VITALS: BP 130/60; PULSE 70; BMI 31.3
--- NOTE | 2025-10-31 10:31 | A.OFFVIS_ITS ---
Vital Signs 10/31/25 10:31 Height 4 ft 11 in Weight 154 lb 12.232 oz BMI 31.3 BP 130/60 Blood Pressure Location Lt brachial Position Sitting Pulse 70 Pulse Source Pulse Oximeter Intake Visit Reasons: r/s-6 mth f/up Allergies iodine (IODINE) Allergy (Unknown, Verified 10/31/25 10:36) R/T SHELLFISH ALLERGY shellfish derived (SHELLFISH DERIVED) Allergy (Unknown, Verified 10/31/25 10:36) LIP SWELLING, ITCHY THROAT Iodinated Contrast Media (IV Contrast Dye) Allergy (Verified 10/31/25 10:36) Unknown Medication List - Last Reconciled 10/31/25 by Sweetie Avila NP-C aspirin 81 mg PO DAILY atorvastatin 80 mg PO DAILY blood sugar diagnostic (FreeStyle Lite Strips) As directed clonazepam 0.25 mg PO TID clonidine HCl 0.2 mg PO BEDTIME dulaglutide (Trulicity) 0.75 mg subcut QWEEK ezetimibe 10 mg PO DAILY insulin glargine (Lantus Solostar U-100 Insulin) 50 units subcut BEDTIME insulin lispro (Humalog U-100 Insulin) 1 sliding scale dose subcut USEASDIRECTD methadone 80 mg PO Q6-8H pen needle, diabetic (BD Ultra-Fine Mini Pen Needle) As directed HPI HPI r/s-6 mth f/up: Details: Renetta is a 60-year-old female with past medical history of hypertension, hyperlipidemia, diabetes, rheumatoid arthritis, who had ACS when in [place] 02/14/2023 with cardiac catheterization, stent to the proximal LAD. Today she reports she has been doing well since her last visit in March. She still has chronic issues with generalized muscle and joint discomfort which she relates to her neuropathy and rheumatoid arthritis. This continues to limit her ability to do some physical activity and exercise. No chest discomfort at rest or with activity. No heart palpitations, lightheadedness, presyncope, syncope, PND, orthopnea or edema. She has not been getting the shortness of breath with exertion like she had in the past. She does report high stress levels with the holiday coming. Taking meds as directed. 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 Housing: House Alcohol intake: never Patient Tobacco Use Status: Current everyday Tobacco user Tobacco use type: Cigarette Cigarette Packs Per Day: 0.10 Cigarettes Per Day: 5 Years Smoked: 41 Current occupational status: disabled Sexual orientation: Straight/Heterosexual Gender identity: Female Female Reproductive History Menstrual Age of Menarche: 13 Review of Systems Const All systems reviewed & are unremarkable except as noted in HPI and below ENT Denies dizziness Card Denies chest pain, Denies chest pain at rest, Denies chest pain with activity, Denies rapid heart rate, Denies pedal edema, Denies edema, Denies leg edema, Denies lightheadedness, Denies palpitations, Denies dyspnea, Denies dyspnea on exertion and Denies orthopnea Resp Denies cough, Denies dyspnea and Denies dyspnea on exertion GI Denies hematochezia and Denies change in stool character Musc Denies abnormal gait, Denies limited range of motion, Denies muscle cramps, Denies muscle weakness, Denies numbness, Denies radiating pain into limb, Denies stiffness and Denies tingling Neuro Denies abnormal gait, Denies dizziness, Denies numbness and Denies tingling Endo Denies palpitations Physical Exam Vital Signs: Last Vital Signs Pulse 70 10/31/25 10:31 BP 130/60 10/31/25 10:31 BMI result Body Mass Index 31.3 Const General: cooperative, healthy appearing, comfortable and no acute distress Orientation/consciousness: patient oriented x3 Neck Neck: Yes normal visual inspection Resp Effort & Inspection: normal respiratory effort Auscultation: clear to auscultation bilaterally, no rales, no rhonchi and no wheezes Cardio Jugular venous distension: no JVD Rate: regular rate Rhythm: regular rhythm Heart sounds: S1 normal heart sound present, S2 normal heart sound present, no murmurs and no rubs Neuro General: patient oriented x3 Extrem General: Yes normal to inspection Psych Appearance: grossly normal Mental Status: mental status grossly normal Speech and movement: Normal speech and movement present Assessment & Plan Assessment & Plan (1) CAD (coronary artery disease): Code(s): I25.10 - Atherosclerotic heart disease of burns [place] coronary artery without angina pectoris Category: Medical Plan: History of CAD with ACS in [place] 02/14/2023. Cardiac catheterization done, report not available however patient reports having an 80% narrowing. She has a card which states stent to the proximal LAD. No recurrent anginal chest discomfort since that time. Echocardiogram done 07/22/2023 showed EF 54%, no regional wall motion abnormalities. An exercise nuclear stress test was done on 07/22/2023 showing exercise close to 6 minutes, with chest pressure, ventricular bigeminy, normal myocardial perfusion imaging. EKG done last visit showed normal sinus rhythm, rate 68. Repeat echo done 04/10/25 for shortness of breath with overexertion showed normal EF and no wall motion abnormalities.Continue on aspirin indefinitely. Continue atorvastatin with ideal LDL goal less than 70. Signs and symptoms of angina reviewed. Cardiology follow-up in 1 year, sooner if needed (2) Stented coronary artery: Comment: proximal LAD stent 02/14/23 in [place] Code(s): Z95.5 - Presence of coronary angioplasty implant and graft Category: Surgical Plan: As above (3) HTN (hypertension): Code(s): I10 - Essential (primary) hypertension Category: Medical Qualifiers: Hypertension type: primary hypertension Qualified Code(s): I10 - Essential (primary) hypertension Plan: Blood pressure goal less than 130/80. At goal. (4) Hyperlipidemia: Code(s): E78.5 - Hyperlipidemia, unspecified Category: Medical Plan: [place] LDL goal less than 70 in patient with diabetes and coronary artery disease. Labs 04/09/2025 showed LDL 34. Continue Atorvastatin Plan I reviewed the patient's clinical status since our last meeting in March. We discussed her improved breathing with exertion, and she confirmed she is free of chest symptoms. I advised her to continue her current medications, including aspirin, atorvastatin, and Zetia, and to maintain her efforts with a healthy lifestyle, physical activity, and weight loss. We agreed to a follow-up in one year. I instructed her to contact the office sooner if she experiences a return of her previous breathing difficulty or develops new chest pain, pressure, or squeezing, particularly with physical activity. Patient Instructions: - Continue to take all your medications as prescribed, including your aspirin, atorvastatin, and Zetia. - Keep working on healthy living, including staying physically active with activities like walking and managing your weight. - Please call our office if you have any changes in your breathing, such as it getting back to the way it used to be, or if you feel any chest pain, pressure, or squeezing, especially when you are walking. - We will see you back in the office in one year for a follow-up visit, but please call if you need to be seen sooner. Patient was informed and verbally consented to the use of an ambient scribe for clinic note documentation during this visit. Visit time spent on chart review, interview, assessment, orders, documentation. Coding Level of Care Code Est Pt Level 4 (71296) Complex visit Add On G2211 Diagnoses CAD (coronary artery disease) I25.10 Stented coronary artery Z95.5 Primary hypertension I10 Hypertension type: primary hypertension Hyperlipidemia E78.5 Time Spent (min) 28
--- OUTSIDE RECORDS SUMMARY | 2025-10-31 12:11 | XMS_ITS | Clinical Summary ---
Author Organization [facility] ity Address [address] [place] [address] Care Team Providers Care Unattended Ground Sensor Specialist Name Role Phone Camila Espinal MD Primary [...] Last Done Comments Breast Cancer Screening 1966 Colorectal Cancer Screening: Colonoscopy 1966 DTaP,Tdap,and Td Vaccines (1 - Tdap) 1985 Hepatitis B Vaccines (1 of 3 - 19+ 3-dose series) 1985 Cervical Cancer Screening: P ap Smear 1987 Pneumococcal Vaccine: 50+ Ye ars (1 of 1 - PCV) 02/20/2016 Zoster Vaccines (1 of 2) 02/20/2016 HIV Screening 10/23/2024 Hepatitis C Screening 10/23/2024 Social Influencers of Health Screening 10/23/2024 Depression Screening 11/28/2024 COVID-19 Vaccine (1 - 2024-2 6 season) 2025 Influenza Vaccine (#1) 2025 RSV [...] age to complete this topic Care Teams Unattended Ground Sensor Specialist Relationship Specialty Start Date End Date Camila Espinal MD [address] [place] [phone] PCP - General 01/19/24
--- OUTSIDE RECORDS SUMMARY | 2025-10-31 12:11 | XMS_ITS | Patient Health Record ---
Author Organization [facility] Address [address] [place] [address] Care Team Providers Care Contact Lens Flashing Puncher Name Role Phone Camila Alba M.D. Primary Care Provider Imtiaz Swain [phone] Allergies Allergen (clinical drug ingredient) Drug/Non Drug Allergy documented on EMR Reaction Allergy Type Onset Date Status IVP DYE (uncoded) Unknown Allergy 07/31/2023 A ctive Reason For Referral No Information Medications Medication SIG (Take, Route, Frequency, Duration) Notes Start Date End Date Status Aspirin 81 Active Lantus SoloStar Acti ve Insulin Lispro (1 Unit Dial) 100 UNIT/ML Solution Pen-injector INJECT UNDER THE SKIN THREE TIMES DAILY BEFORE MEALS PER SLIDING SCALE. MAX DOSE OF 36 UNITS PER DAY Subcutaneous; Duration: 33 Active Methadone HCl For pain management Active Atorvastatin Calcium 80 MG Tablet 1 tablet Orally Once a day Active MiraLax (colon prep) 17 GM/SCOOP Powder 1/2 of a 238GM bottle mixed in 1 quart of Gatorade or Crystal light 2 days before the colonoscopy, and then 1 238Gm bottle mixed with Gatorade or Crystal Light the day before the colonoscpy Orally Do the 1/2 bottle 2 days before the colonoscopy, and then begin the full 1 bottle at 5:00 p.m. the day before the procedure; Duration: 2 days 07/14/2024 Active Dulcolax (colon prep) 5 MG Tablet Delayed Release Take 2 tabs two days before the colonoscopy, and then take 2 tabs at 3:00 p.m and 7:00p.m. the day before the colonoscopy Orally Two tablets once two days before the colonoscopy, and then two tablets twice a day the day before the colonoscopy; Duration: 2 days 07/14/2024 Active clonazePAM TID Active HumaLOG 100 UNIT/ML Solution Cartridge as directed Subcutaneous sliding scale Active Linzess 145 MCG Capsule 1 capsule at least 30 minutes before the first meal of the day on an empty stomach Orally Once a day; Duration: 30 day(s) 06/30/2023 Active cloNIDine HCl Active Social History Tobacco Use: Social History Observation Description Date Details (start date - stop date) Current Smoker NA - NA Social History Drugs/Alcohol: Social Info Question Answer Notes Alcohol Screen Did you have a drink containing alcohol in the past year? No Points 0 Interpretation Negative Tobacco Use: Social Info Question Answer Notes Tobacco Use/Smoking Patient is a current smoker How often do you smoke cigarettes? every day How many cigarettes a day do you smoke? 6-10 Additional Details Category Social Info Options Details Miscellaneous: Marital status: Occupation: Disabled Section Notes: Smokes; no sig alcohol Smokes; no sig alcohol Smokes; no sig alcohol Problems Problem Type SNOMED Code ICD Code Onset Dates Problem Status W/U Status Risk Notes Problem Screening for malignant neoplasm of colon ([id number]) Encounter for screening for malignant neoplasm of colon (Z12.11) Active confirmed Problem Diverticular disease of colon (458441953) Diverticulosis of large intestine without perforation or abscess without bleeding (K57.30) Active confirmed Problem Constipation (52515666) Constipation, unspecified constipation type (K59.00) Active confirmed Encounters Encounter Location Date Provider Diagnosis [facility] [address] [place] [address] 01/15/2025 Imtiaz Gonzalez Plan Of Treatment Future Test Test Name Order Date COLONOSCOPY 03/07/2018 COLONOSCOPY 07/12/2024 Insurance Providers Payer Name Payer Address Payer Phone Subscriber Number Group Number Insured Name Patient Relationship to Insured Coverage Start Date Coverage End Date [facility] [address] [place] [phone] [id number] PALOMA CURRY Self - patient is the insured Medical (General) History Medical History History ICD Code IDDM Hypertension Anxiety EGD and Colonoscopy in [place] in her 30 's for some GI issues Denies CVA,Lung disease,renal disease Hyperlipidemia Colonoscopy 04/2018 was negative but prep was suboptimal 02/14/2023 heart attack in [place]--had a stent placed. Seeing Dr. 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
--- OUTSIDE RECORDS SUMMARY | 2025-10-31 12:11 | XMS_ITS | Clinical Summary ---
Author Organization [employer] Address [address] [facility] 7t [place] [address] Care Team Providers Care Nurse Midwife Name Role Phone Camila Espinal MD Primary Care Provide r Allergies Active Allergy Reactions Criticality Noted Date Comments Indomethacin 04/07/2016 Iodinated Contrast Media 07/31/2023 Other reaction(s): Unknown Iodine Anaphylaxis,Hives High 12/21/2022 Shellfish Allergy 12/21/2022 Shellfish Protein-Containing Drug Products Swelling Medium 03/13/2021 Medications clonazePAM (KlonoPIN) [...] Pressure kitIndications: Other type of myocardial infarction (HCC) Check daily blood pressure 1 kit 03/24/20 23 Active lisinopril 2.5 MG tabletIndicatio ns:Other type of myocardial infarction (HCC) Take 1 tablet (2.5 mg) by mouth in the morning. 30 tablet 1 03/24/20 Active EPINEPHrine (EpiPen 2-Sean) 0.3 MG/0.3ML injection syringe Inject 0.3 mL (0.3 mg) as directed 1 (one) time for 1 dose. 0.3 mL 03/24/20 Active FreeStyle lancets 03/23/20 Active insulin lispro (HumaLOG) 100 UNIT/ML injectionIndica tions:Type 2 diabetes mellitus with hyperglycemia, with long-term current use of insulin ([facility]) Inject 4 Units under the skin with breakfast, with lunch, and with evening meal. Inject subcutaneously three times daily following sliding scale: BG<200 --> 0 units 200-249 --> 4 units 250-299 --> 6 units 300-349 --> 8 units 350-399 --> 10 units BG>400 --> 12 units & call office 3 mL 1 10/03/20 Active Continuous Blood Gluc Manager Interventional (FreeStyle Rashid 2 [place]) deviceIndicatio ns:Type 2 diabetes mellitus with hyperglycemia, with long-term current use of insulin ([facility]) Scan sensor every 8 hours 1 each 10/03/20 Active Continuous Blood Gluc Sensor (FreeStyle Rashid 2 Sensor) miscIndications :Type 2 diabetes mellitus with hyperglycemia, with long-term current use of insulin ([facility]) Apply 1 sensor every 14 days 2 each 2 10/03/20 Active Brilinta 90 MG tabletIndicatio ns:Coronary artery disease involving [place] coronary artery of [place] heart, unspecified whether angina present TAKE 1 [...] fluorometholone (FML) 0.1 % ophthalmic suspension 08/17/20 23 Active hydroquinone 4 % cream 09/23/20 23 Active Linzess 145 MCG capsule 07/04/20 23 Active ezetimibe (Zetia) 10 MG tabletIndicatio ns:Dyslipidemia Take 1 tablet (10 mg) by mouth Once per day. 90 tablet 1 05/13/20 25 026 Active atorvastatin (Lipitor) 80 MG tabletIndicatio ns:Coronary artery disease involving [place] coronary artery of [place] heart, unspecified whether angina present TAKE 1 TABLET(80 MG) BY MOUTH IN THE MORNING 90 tablet 1 06/17/20 25 Active Active Problems Problem Noted Date Diagnosed [...] of tract Coronary artery disease invo lving [place] coronary artery of [place] heart 10/03/2023 Assessment & Plan (02/11/2025 2:01 [...] psych provider Feeling anxious since dx,scared after [place] -reassured and advised to continue w her specialist [place] (myocardial infarction) 03/24/2023 Assessment & Plan (03/24/2023 10:39 PM EDT): Hospitalized from 02/13 - 02/16 in [place]. 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 -saw specialist yesterday and rapid insulin was [...] Encounters Date Type Department Care Team Description 09/02/2025 Telephone [facility] [address] [place] [address] Camila Espinal MD dec recall 09/02/2025 Refill [facility] [address] [place] [address] Camila Espinal MD Dyslipidemia 08/20/2025 Orders Only [facility] External Provider, [facility] from Last 3 Months Immunizations Immunization Administration [...] 05/13/2025 8:51 AM EDT Plan of Treatment Upcoming Encounters Date Type Department Care Team (Late st Contact Info) Description 11/13/2025 9:00 AM EST Office Visit [facility] [address] [place], [place] [phone] Camila Espinal MD [address] [place], [place] [phone] Health Maintenance Due Date Last Done Comments CT Colonography 1966 FIT DNA/Cologuard 1966 FIT 1966 FOBT 1965 Sigmoidoscopy 1966 Diabetes: Foot Exam 02/20/1976 Eye Exam 02/20/1976 Hepatitis B Vaccines (1 of 3 - 19+ 3-dose series) 1985 RSV Patients and Patients Aged 60 years or older (1 - Risk 50-74 years 1-dose series) 02/20/2016 Zoster Vaccines (1 of 2) 02/20/2016 COVID-19 Vaccine ( season) 2025 10/27/2021, 03/20/2021, 02/26/2021 Influenza Vaccine (#1) 2025 , 10/03/2023, 10/27/2021, Additional history exists Diabetes: Hemoglobin A1C 08/13/2025 025, 02/11/2025, 01/12/2024, Additional history exists SDOH Screening 02/01/2026 02/01/2025 Tobacco Screening 02/11/2026 02/11/2025 Diabetes: Urine Protein Screening 04/09/2026 04/09/2025, 04/09/2025, 04/03/2024, Additional history exists Lipid Panel 04/09/2026 04/09/2025, 10/28, 05/09/2023 Alcohol/Substance Use Screening 05/13/2026 05/13/2025 Depression Screening 05/13/2026 05/13/2025, 05/13/20 25 Disability Screening 05/13/2026 05/13/2025 Cervical Cancer Screening 06/02/2026 HPV/Cotest 06/02/2026 06/02/2021, 070 04/2021, 11/30/2017 Pap Smear 06/02/2026 06/02/2021, 11/30/2017 Mammogram 08/20/2026 08/20/2025, 0 12/2024, 05/01/2024, Additional history exists Colonoscopy 10/29/2027 10/29/2024 Colorectal Cancer Screening 10/29/2027 DTaP/Tdap/Td Vaccines (2 - Td or Tdap) 08/04/2028 08/04/2018 Pneumococcal Vaccine: 50+ Years Completed 02/11/2025, 08/04/2018 [...] 1 (goal 4-6 cigarettes per day) [place] PharmD Call the pharmacy to schedule a f/u appointment when you return from [place] Harmeet [place] PharmD Procedures Procedure Name Priority Date/Time Associated Diagnosis Comments BI MAMMOGRAM SCREENING TOMOSYNTHESIS BILATERAL Routine 08/20/2025 9:27 AM EDT POCT GLYCATED HEMOGLOBIN, TOTAL Routine 05/13/2025 8:56 AM EDT Type 2 diabetes mellitus with hyperglycemia, with long-term current use of insulin (CMS/HCC) HEPATITIS C AB W/REFL TO HCV RNA, [...] Recently Relevant to Health Maintenance Results * BI Mammogram Screening Tomosynthesis Bilateral (08/20/2025 9:27 AM EDT) Anatomical Region Laterality Modality Breast Bilateral Mammography 08/20/2025 9:27 AM EDT Narrative 08/23/2025 11:03 AM EDT Elsa [facility] [address] [place], [place] [address] Mammography Report Signed Patient: Renetta Delaney MR#: [id number] : 1965 Acct:[id number] Age/Sex: 60 / F ADM Date: 08/20/25 Loc: HO.MAMMO Attending Dr: Juvenal Dewitt MD Ordering Physician: Juvenal Dewitt MD Results: 1Nega tive Date of Service: 08/20/25 Follow Up: 1 Year From Orig inal Mammogram Procedure(s): MM tomosynthesis screening BI Accession Number(s): [id number] cc: Camila Espinal MD; Juvenal Dewitt MD; Devin Ramirez MD Reason For Exam: Z91.89 - Other specified personal risk factors, not elsewhere classified EXAMINATION: MM SCREENING DIGITAL BREAST TOMOSYNTHESIS, BILATERAL CLINICAL INFORMATION: Screening. Asymptomatic. COMPARISON: Comparison made to multiple prior, most recent May 01, 2024, and most remote August 20, 2020. TECHNIQUE: Digital breast tomosynthesis is performed in mediolateral oblique and craniocaudal views along with computer-aided detection (CAD). Synthesized 2D images are generated from the tomosynthesis. FINDINGS: BREAST COMPOSITION: There are scattered areas of fibroglandular density. BILATERAL BREASTS: No significant masses, suspicious calcifications or other abnormalities are seen in either breast. MM/MM tomosynthesis screening BI IMPRESSION: BILATERAL BREASTS: Negative, no mammographic evidence of malignancy. Normal interval follow-up is recommended in 12 months. ASSESSMENT: BI-RADS: Category 1: Negative RECOMMENDATION: Routine annual mammography screening. FOLLOW-UP: 1 year F/U This examination should not preclude the clinical evaluation of a suspicious palpable abnormality. This patient's information was entered into a reminder system with a target due date for their next mammogram. Electronically signed by: Toma Keith MD 08/23/2025 11:00 AM EDT Dictated By: Toma Keith MD Signed By: <Electronically signed by Toma Keith MD in OV> 08/23/25 1100 DD/ 6 TD/TT: 08/20/25 09 Bus Trolley And Taxi Instructor: Procedure Note Donotuseinterpreter, Image - 08/23/2025 [facility] [address] [place], [place] [address] Mammography Report Signed Patient: Cele Delaney#: [id number] : 1965Acct:[id number] Age/Sex: 60 / FADM Date: 08/20/25 Loc: HO.MAMMO Attending Dr: Juvenal Dewitt MD Ordering Physician: Juvenal Dewitt MDResults: 1Nega tive Date of Service: 08/20/25Follow Up: 1 Year From Orig inal Mammogram Procedure(s): MM tomosynthesis screening BI Accession Number(s): [id number] cc: Camila Espinal MD; Juvenal Dewitt MD; Devin Ramirez MD Reason For Exam: Z91.89 - Other specified personal risk factors, notelsewhere classified EXAMINATION: MM SCREENING DIGITAL BREAST TOMOSYNTHESIS, BILATERAL CLINICAL INFORMATION: Screening. Asymptomatic. COMPARISON: Comparison made to multiple prior, most recent May 01, 2024, and most remote August 20, 2020. TECHNIQUE: Digital breast tomosynthesis is performed in mediolateral oblique and craniocaudal views along with computer-aided detection (CAD). Synthesized 2D images are generated from the tomosynthesis. FINDINGS: BREAST COMPOSITION: There are scattered areas of fibroglandular density. BILATERAL BREASTS: No significant masses, suspicious calcifications or other abnormalities are seen in either breast. MM/MM tomosynthesis screening BI IMPRESSION: BILATERAL BREASTS: Negative, no mammographic evidence of malignancy. Normal interval follow-up is recommended in 12 months. ASSESSMENT: BI-RADS: Category 1: Negative RECOMMENDATION: Routine annual mammography screening. FOLLOW-UP: 1 year F/U This examination should not preclude the clinical evaluation of a suspicious palpable abnormality. This patient's information was entered into a reminder system with a target due date for their next mammogram. Electronically signed by: Toma Keith MD 08/23/2025 11:00 AM EDT Dictated By: Toma Keith MD Signed By: <Electronically signed by Toma Keith MD in OV> 08/23/25 1100 DD/ 6 TD/TT: 08/20/25 09 Bus Trolley And Taxi Instructor: Result [facility] External Provider IMG BI PROCEDURES Final Result * (ABNORMAL) POCT HGB A1C (05/13/2025 8:56 AM EDT) Pathologist [facility] Hemoglobin A1C 7.1(A) 4.0 - 6.0 % QC Media Lot # [id number] Lot# Expiration Date ,167,534 Blood 05/13/2025 8:56 AM EDT Result [facility] Camila Medina MD POINT OF CARE TEST EN TER/EDIT ORDERABLES Final Result * Hepatitis C Antibody with Reflex to HCV, RNA, Quantitative, Real-Time PCR (04/09/2025 8:12 AM EDT) [facility] Hepatitis C Antibody Nonreactive Nonreactive [facility] Comment:Antibodies to HCV no t detected; does not exclude early acuteHCV infection. Blood Venous blood specimen / Unknown 04/09/2025 8:12 AM EDT 04/09/2025 8:12 AM EDT Result [facility] Camila Medina MD LAB BLOOD ORDERABLES Final Result [facility] [address] [place] [phone] * HIV-1/2 Antigen and Antibodies, Fourth Generation, with Reflexes (04/09/2025 8:12 AM EDT) [facility] HIV AB/AG Nonreactive Nonreactive [facility] Comment:HIV-1 p24 Ag and/or HIV-1/HIV-2 Ab not detected.A test result that is nonreactive does not exclude thepossibility of exposure to or infection with HIV-1 and/orHIV-2. Nonreactive results in this assay for individualswith prior exposure to HIV-1 and/or HIV-2 may be due toantigen and antibody levels that are below the limit ofdetection of this assay.The [employer] NearestniOpTier HIV Ag/Ab Combo assay result andsupplemental assay results should be interpreted inconjunction with the patient's clinical presentation,history and other laboratory results. If the results areinconsistent with clinical evidence, additional testing issuggested to confirm the result. Blood Venous blood specimen / Unknown 04/09/2025 8:12 AM EDT 04/09/2025 8:12 AM EDT us Camila Medina MD LAB BLOOD ORDERABLES Final Result [facility] [address] [place] [phone] * (ABNORMAL) Lipid Panel, Standard (04/09/2025 8:12 AM EDT) Triglycerides 169(H) <150 mg/dL [facility] Comment:Desirable Triglyceri de: less than 150 mg/dLBorderline High Triglyceride 150-199 mg/dLHigh Triglyceride: 200-499 mg/dLVery High Triglyceride: greater than or equal to 5OO mg/dL Cholesterol 89 <200 mg/dL [facility] Comment:Desirable Cholestero l: less than 200 mg/dLBorderline High Cholesterol: 200-239 mg/dLHigh Cholesterol: greater than 239 mg/dL LDL Cholesterol Calculated 34 <100 mg/dL [facility] Comment:Desirable LDL: less than 100 mg/dLNear Optimal/Above Optimal LDL: 110- 129 mg/dLBorderline High LDL: 130-159 mg/dLHigh LDL: 160-189 mg/dLVery High LDL: greater than or equal to 190 mg/dL HDL Cholesterol 22(L) >40 mg/dL [facility] Comment:Desirable HDL: great er than 40 mg/dL Note: This HDL assay may give artificially low results in patients with liver disease. Blood Venous blood specimen / Unknown 04/09/2025 8:12 AM EDT 04/09/2025 8:12 AM EDT Camila Medina MD LAB BLOOD ORDERABLES Final Result Performing Organization Address [facility] Co de Phone Number [facility] [address] [place] [phone] * Albumin, Random Urine W/Creatinine (04/09/2025 8:06 AM EDT) Creatinine, Urine 188.31 mg/dL [facility] Microalbumin Urine 11.0 mg/L [facility] Microalbum Creatinine Ratio Ur 5.8 <30 ug/mg cr [facility] Comment:Albumin/Creatinine R atio Reference Ranges: Normal: < 30 ug/mg creatinine Microalbuminuria: 30 - 300 ug/mg creatinineClinical Albuminuria: > 300 ug/mg creatinine Urine (Urine, Random) 04/09/2025 8:06 AM EDT 04/09/2025 8:29 AM EDT us Camila Medina MD LAB URINE ORDERABLES Final Result Performing Organization Address [facility] Co de Phone Number [facility] [address] [place] [phone] * Hm Colonoscopy (10/29/2024) Colonoscopy Normal Normal Narrative Jane Aguilar - 10/29/2024 Recommended 3 years . See see external hospital admission note on 10/29/2024 us Historical Provider HEALTH MAINTENANCE Final Result * HPV E6/E7 RFLX RADHA 16 18/45 (06/02/2021 9:06 AM EDT) HPV 16 RNA [facility] HPV 18/45 RNA [facility] HPV E6 E7 ADD [facility] HPV mRNA E6/E7 rflx Not Detected Not Detected [facility] Comment: Methodology: Electrical Appliance Preparer-Mediated Amplification This assay detects E6/E7 viral messenger RNA (mRNA) from 14 high-risk HPV types (16,18,31,33,35,39,45,51,52,56,58,59,66,68). The analytical performance characteristics of this assay have been determined by [employer]. The modifications have not been cleared or approved by the FDA. This assay has been validated pursuant to the CLIA regulations and is used for clinical purposes. For additional information, please refer to http://education.Masterbranch/faq/HKS175d8 (This link if provided for information/ educational purposes only.) THIS TEST WAS PERFORMED AT: [facility] [address] [place] [address] [address],[place] [phone] [facility] MD 06/02/2021 9:06 AM EDT Devin Ramirez MD HISTORICAL/NON ORDERABLE LABS Fi nal Result [facility] [address] * Pap Smear (06/02/2021 12:00 AM EDT) Swab Devin Ramirez MD LAB CYTOLOGY ORDERABLES Final Re sult [facility] [address] [place] [phone] from Last 3 Months or Most Recently Relevant to Health Maintenance Insurance apt [address] [place] [phone] [facility] Care Teams Nurse Midwife Relationship Specialty Start Date End Date Camila Espinal MD [address] [place] [phone] PCP - General Family Medicine 05/13/20 Karma Mcfadden WhitesmithDevice Processing Engineer 08/11/23 Karma Mcfadden WhitesmithDevice Processing Engineer 06/18/25
--- OUTSIDE RECORDS SUMMARY | 2025-10-31 12:11 | XMS_ITS | Encounter Summary ---
Author Organization [employer] Address [address] [facility] [address] [place] [address] Care Team Providers Care Compliance Engineer Products Name Role Phone Camila Espinal MD Primary Care Provide r Reason for Visit * Reason Comments Med Refill Encounter Details Date Type Department Care Team ([facility] st Contact Info) Description 09/02/2025 Refill [facility] [address] [place], [place] [phone] Camila Espinal MD [address] [place], [place] [phone] Dyslipidemia Social History Tobacco Use Types Packs/Day Years [...] Description 11/13/2025 9:00 AM EST Office Visit [facility] [address] [place] [address] Camila Espinal MD [address] [place] [phone] documented as of this encounter Goals Goal Patient Goal Type Associated Problems Recent Progress Patient-Stated? Author Reduce the number of cigarettes smoked per day by 1 (goal 4-6 cigarettes per day) General Harmeet Lazaro, PharmD Call the pharmacy to schedule a f/u appointment when you return from [place] General Harmeet Lazaro, PharmD documented as of this encounter Visit Diagnoses Diagnosis Dyslipidemia Other and unspecified hyperlipidemia documented in this encounter Additional Health Concerns Assessment Noted Time PHQ-9 Depression Total Score: 0 05/13/20 25 8:53 AM EDT documented as of this encounter Care Teams Compliance Engineer Products Relationship Specialty Start Date End Date Camila Espinal MD [address] [place] [phone] PCP - General Family Medicine 05/13/20 Karma Mcfadden Precision Structural Metal FitterBilling Spec 08/11/23 Karma Mcfadden Precision Structural Metal FitterBilling Spec 06/18/25 documented as of this encounter
--- OUTSIDE RECORDS SUMMARY | 2025-10-31 12:11 | XMS_ITS | Encounter Summary ---
Author Organization [employer] Address [address] [facility] [facility] [address] [place] [address] Care Team Providers Care Court Monitor Name Role Phone Camila Espinal MD Primary Care Provide r Encounter Details Date Type Department Care Team (Late st Contact Info) Description 10/25/2023 Abstract [facility] [address] [place], [place] [phone] Jane Aguilar Social History Tobacco Use Types [...] with others, in a hotel, in a chcf, living outside on the street, on a [...] Description 11/13/2025 9:00 AM EST Office Visit [facility] [address] [place], [place] [phone] Cmaila Espinal MD [address] [place], [place] [phone] documented as of this encounter Goals Goal Patient Goal Type Associated Problems Recent Progress Patient-Stated? Author Reduce the number of cigarettes smoked per day by 1 (goal 4-6 cigarettes per day) General Harmeet Lazaro, PharmD Call the pharmacy to schedule a f/u appointment when you return from [place] General Harmeet Lazaro, PharmD documented as of [...] documented as of this encounter Care Teams Court Monitor Relationship Specialty Start Date End Date Camila Espinal MD [address] [place], [place] [phone] PCP - General Family Medicine 05/13/20 Karma Mcfadden Bricklayer TenderAt Risk Specialist 08/11/23 Karma Mcfadden Bricklayer TenderAt Risk Specialist 06/18/25 documented as of this encounter
== END 2025-10-31 11:02 | disposition home or self-care (01) ==
LOC: HO.HCS 10:11
PROVIDERS: PCP Internal Medicine; Visit Provider Nurse Practitioner Family
DX: I25.10 Atherosclerotic heart disease of native coronary artery without angina pectoris (principal); Z95.5 Presence of coronary angioplasty implant and graft; I10 Essential (primary) hypertension; E78.5 Hyperlipidemia, unspecified
CPT/HCPCS: 99214

== ENCOUNTER → 2025-10-31 10:10 | Outpatient (BNVA) | payer MEDICAID, SELFPAY | PROVIDERS: PCP Internal Medicine; Visit Provider Nurse Practitioner Family | DX: I25.10 Atherosclerotic heart disease of native coronary artery without angina pectoris (principal); Z95.5 Presence of coronary angioplasty implant and graft; I10 Essential (primary) hypertension; E78.5 Hyperlipidemia, unspecified; F17.210 Nicotine dependence, cigarettes, uncomplicated | CPT/HCPCS: 99212 ==